=== PATIENT | male | born 1945 | race Caucasian/White ===

== ENCOUNTER 2016-06-15 10:02 | Inpatient (IN) | payer MEDICARE, BC ==
[2016-06-15] MEDS ORDERED: ACETAMINOPHEN IV (For NPO) 1,000 MG in EMPTY BAG 1 BAG IVPB STA (10:35)
[2016-06-15] MEDS ORDERED: SODIUM CHLORIDE 0.9% 1,000 ML IV STA (10:35)
--- NOTE | 2016-06-15 10:38 | ED ---
General Adult HPI - General Chief complaint: Recheck/Abnormal Lab/Rx Stated complaint: Knee pain/poss.staff infection Time Seen by Provider: 06/15/16 10:24 Source: patient, RN notes reviewed Mode of arrival: wheelchair Limitations: physical limitation - History of Present Illness Initial comments: 70-year-old male presents emergency Department chief complaint of concern for staph infection. Patient does have 2 abscesses one to the abdomen one to the left elbow. He states he is having some drainage from the areas. He was placed on antibiotics about 4 days ago and states that they contain febrile and tender. Patient denies any fever or chills. Patient states that now he is having some right knee pain and it feels swollen and is painful to move. Patient is concerned that the staph infection maybe has traveled to the knee. Patient states that he called his local hospitals and was referred to the area in which his surgeon was. Patient states he was concerned due to the increased knee pain in the new symptoms without that he should be seen. Patient states is not currently having any other symptoms. Patient states he is having pain with walking. Patient has a grossly redness but does not swelling to the knee. Patient denies any recent fever, chills, shortness of breath, chest pain, back pain, abdominal pain, nausea vomiting, numbness or tingling, dysuria or hematuria, constipation or diarrhea, headaches or visual changes, or any other current symptoms. - Related Data Home Medications Medication Instructions Recorded Confirmed Allopurinol [Zyloprim] 100 mg PO DAILY 07/02/14 06/15/16 Aspirin EC [Ecotrin Low Dose] 81 mg PO HS 07/02/14 06/15/16 Atorvastatin [Lipitor] 5 mg PO HS 07/02/14 06/15/16 Cholecalciferol [Vitamin D3] 2,000 unit PO DAILY 07/02/14 06/15/16 Docusate 250 Mg 250 mg PO HS 07/02/14 06/15/16 Isosorbide Mononitrate ER [Imdur] 30 mg PO DAILY 07/02/14 06/15/16 Meclizine [Antivert] 25 mg PO HS 07/02/14 06/15/16 Meloxicam [Mobic] 7.5 mg PO DAILY 07/02/14 06/15/16 Nitroglycerin Sl Tabs [Nitrostat] 1 tab SUBLINGUAL Q5M PRN 07/02/14 06/15/16 Omeprazole [PriLOSEC] 20 mg PO QAM 07/02/14 06/15/16 Polyethylene Glycol 3350 [Miralax] 17 gm PO BID 07/02/14 06/15/16 Carvedilol [Coreg] 6.25 mg PO BID 06/15/16 06/15/16 Clindamycin HCl 300 mg PO TID 06/15/16 06/15/16 Ferrous Sulfate [Feosol] 325 mg PO DAILY 06/15/16 06/15/16 HYDROcodone/APAP 10-325MG [[place] 1 tab PO TID 06/15/16 06/15/16 10-325] Losartan [Cozaar] 25 mg PO HS 06/15/16 06/15/16 Magnesium Oxide [Mag-Ox] 750 mg PO DAILY 06/15/16 06/15/16 Allergies Allergy/AdvReac Type Severity Reaction Status Date / Time Sulfa (Sulfonamide Allergy Unknown HIVES, Verified 06/15/16 10:44 Antibiotics) ITCHING Review of Systems ROS Statement: Those systems with pertinent positive or pertinent negative responses have been documented in the HPI. ROS Other: All systems not noted in ROS Statement are negative. Past Medical History Past Medical History: COPD, CVA/TIA, Hyperlipidemia, Hypertension, Myocardial Infarction ([place]), Musculoskeletal Disorder, Sleep Apnea/CPAP/BIPAP Additional Past Medical History / Comment(s): TIA X2 (2000 & 2001), VERTIGO, C- PAP MACHINE, SCIATICA & BACK PAIN (SEES DR GOETZ FOR EPIDURAL INJECTIONS- 1 week ago. Last Myocardial Infarction Date:: 04/2006 History of Any Multi-Drug Resistant Organisms: None Reported Past Surgical History: Heart Catheterization With Stent, Orthopedic Surgery Additional Past Surgical History / Comment(s): RT ROTATOR CUFF, LEFT KNEE ARTHROSCOPY, TOTAL LEFT TOTAL KNEE. Past Anesthesia/Blood Transfusion Reactions: No Reported Reaction Date of Last Stent Placement:: 04/2006 Past Psychological History: No Psychological Hx Reported Smoking Status: Former smoker Past Alcohol Use History: None Reported Past Drug Use History: None Reported - Past Family History Mother Family Medical History: Cancer Additional Family Medical History / Comment(s): BREAST CA Father Family Medical History: Cancer Additional Family Medical History / Comment(s): ESOPHAGEAL CA General Exam - General Exam Comments Initial Comments: General: The patient is awake and alert, in no distress, and does not appear acutely ill. Eye: Pupils are equal, round. Ears, nose, mouth and throat: There are moist mucous membranes. Neck: The neck is supple, there is no tenderness. Cardiovascular: There is a regular rate and rhythm. No murmur, rub or gallop is appreciated. Respiratory: Lungs are clear to auscultation, respirations are non-labored, breath sounds are equal. No wheezes, stridor, rales, or rhonchi. Gastrointestinal: Patient does appear to have a healing abscess to the abdomen that is have associated redness around the area. Soft, non-distended, non- tender abdomen without masses or organomegaly noted. There is no rebound or guarding present. No CVA tenderness. Bowel sounds are unremarkable. Back: There is no tenderness to palpation in the midline. There is no obvious deformity. No rashes noted. Musculoskeletal: Patient does appear to have erythematous with drainage to the left elbow. There is purulent drainage with associated erythema around the wound. Patient also does appear to have swelling to the right knee with pain with range of motion. No associated erythema. There is no pedal edema. There is no calf tenderness or swelling. Sensation intact. Pulses equal bilaterally 2+ . Neurological: CN II-XII intact, There are no obvious motor or sensory deficits. Coordination appears grossly intact. Speech is normal. Skin: Skin is warm and dry and no rashes or lesions are noted. Psychiatric: Cooperative, appropriate mood & affect, normal judgment. Limitations: physical limitation Course Vital Signs 06/15/16 06/15/16 10:10 12:38 Temperature 98.8 F Pulse Rate 83 84 Respiratory 17 16 Rate Blood Pressure 134/73 123/66 O2 Sat by Pulse 94 L 93 L Oximetry Medical Decision Making - Medical Decision Making 70-year-old male presents to the emergency department with a chief complaint of concern for staph infection along with right knee pain. At this time the patient does appear to have a cellulitis to the left elbow and abdominal wall. This time he is denying antibiotics for about 5 days and it still is red and he states there is very little improvement. Patient does have an elevated ESR as well as CRP as well as he is complaining of right knee pain pain with movement that is swollen. This improved with the patient for IV antibiotics. We will consult orthopedics to evaluate the elbow in the knee. This was discussed with the patient denies any green with the plan. All questions have been answered. - Lab Data Result diagrams: 06/15/16 10:45 06/15/16 10:45 Lab Results 06/15/16 06/15/16 06/15/16 Range/Units 10:45 10:45 10:45 WBC 10.2 (3.8-10.6) k/uL RBC 3.96 L (4.30-5.90) m/uL Hgb 12.2 L (13.0-17.5) gm/dL Hct 38.0 L (39.0-53.0) % MCV 96.0 (80.0-100.0) fL MCH 30.9 (25.0-35.0) pg MCHC 32.2 (31.0-37.0) g/dL RDW 13.0 (11.5-15.5) % Plt Count 253 (150-450) k/uL Neutrophils % 81 % Lymphocytes % 7 % Monocytes % 7 % Eosinophils % 2 % Basophils % 2 % Neutrophils # 8.2 H (1.3-7.7) k/uL Lymphocytes # 0.8 L (1.0-4.8) k/uL Monocytes # 0.7 (0-1.0) k/uL Eosinophils # 0.2 (0-0.7) k/uL Basophils # 0.2 (0-0.2) k/uL ESR 103 H (0-15) mm/hr PT 10.7 (9.0-12.0) sec INR 1.1 (<1.1) APTT 29.7 (22.0-30.0) sec Sodium 142 (137-145) mmol/L Potassium 4.7 (3.5-5.1) mmol/L Chloride 102 (98-107) mmol/L Carbon Dioxide 27 (22-30) mmol/L Anion Gap 13 mmol/L BUN 27 H (9-20) mg/dL Creatinine 1.36 H (0.66-1.25) mg/dL Est GFR (MDRD) Af Amer >60 (>60 ml/min/1.73 sqM) Est GFR (MDRD) Non-Af 52 (>60 ml/min/1.73 sqM) Glucose 127 H (74-99) mg/dL Calcium 9.1 (8.4-10.2) mg/dL Total Bilirubin 1.2 (0.2-1.3) mg/dL AST 52 (17-59) U/L ALT 53 (21-72) U/L Alkaline Phosphatase 113 (38-126) U/L C-Reactive Protein 233.4 H (<10.0) mg/L Total Protein 7.0 (6.3-8.2) g/dL Albumin 3.4 L (3.5-5.0) g/dL - Radiology Data Radiology results: report reviewed, image reviewed Disposition Clinical Impression: Cellulitis of left elbow, Abdominal wall cellulitis, Effusion, right knee Disposition: ADMITTED IP TO THIS [facility] Condition: Stable Time of Disposition: 13:01 Decision Date: 06/15/16 Decision Time: 13:02
[2016-06-15 11:06] LABS: Basophils # (A) 0.2 k/uL (0-0.2); Basophils % (A) 2 %; CH 32.7; CHCM 34.3; Eosinophils # (A) 0.2 k/uL (0-0.7); Eosinophils % (A) 2 %; HDW 2.95; HGB 12.2 gm/dL (13.0-17.5); Luc % (Auto) 2; Lymphocytes # (A) 0.8 k/uL (1.0-4.8); Lymphocytes % (A) 7 %; MCH 30.9 pg (25.0-35.0); MCHC 32.2 g/dL (31.0-37.0); Mean Platelet Volume 8.2; Monocytes # (A) 0.7 k/uL (0-1.0); Monocytes % (A) 7 %; Neutrophils # (A) 8.2 k/uL (1.3-7.7); Neutrophils % (A) 81 %; RBC 3.96 m/uL (4.30-5.90); WBC 10.2 k/uL (3.8-10.6); WBC (Perox) 9.36
--- NOTE | 2016-06-15 11:16 | XR ---
EXAMINATION TYPE: XR knee complete RT DATE OF EXAM: 06/15/2016 11:10 AM COMPARISON: NONE HISTORY: 70-year-old male with pain TECHNIQUE: 3 views FINDINGS: Images show right total knee arthroplasty with a moderate to large underlying knee joint effusion. No periprosthetic fractures seen. Alignment is grossly anatomic. Some heterotopic ossification is seen superiorly. IMPRESSION: The right total knee arthroplasty appears intact. However, there is a moderate to large underlying kn ee joint effusion. Clinical correlation recommended.
[2016-06-15 11:17] LABS: ALT 53 U/L (21-72); AST 52 U/L (17-59); Alkaline Phosphatase 113 U/L (38-126); Anion Gap 13 mmol/L; Blood Urea Nitrogen 27 mg/dL (9-20); Calcium 9.1 mg/dL (8.4-10.2); Carbon Dioxide 27 mmol/L (22-30); Chloride 102 mmol/L (98-107); Glucose 127 mg/dL (74-99); Non-African American GFR(MDRD) 52 (>60 ml/min/1.73 sqM); Potassium 4.7 mmol/L (3.5-5.1); Sodium 142 mmol/L (137-145); Total Bilirubin 1.2 mg/dL (0.2-1.3)
[2016-06-15 11:23] LABS: INR 1.1 (<1.1); Partial Thromboplastin Time 29.7 sec (22.0-30.0); Prothrombin Time 10.7 sec (9.0-12.0)
[2016-06-15 12:47] LABS: C Reactive Protein 233.4 mg/L (<10.0)
[2016-06-15 12:48] LABS: Erythrocyte Sedimentation Rate 103 mm/hr (0-15)
[2016-06-15] MEDS ORDERED: NALOXONE 0.4 MG/ML 1 ML VIAL IV PRN (13:02)
[2016-06-15] MEDS ORDERED: ONDANSETRON 4 MG/2 ML VIAL IVP PRN (13:02)
[2016-06-15] MEDS ORDERED: ACETAMINOPHEN TAB 325 MG TAB PO PRN (13:02)
[2016-06-15] MEDS ORDERED: IV VANCOMYCIN PER PHARMACY 1 EACH MISC MISCELLANE PRN (13:03)
[2016-06-15] MEDS ORDERED: NITROGLYCERIN SL TABS 0.4 MG TAB SUBLINGUAL PRN (13:04)
[2016-06-15] MEDS ORDERED: VANCOMYCIN 2,000 MG in SODIUM CHLORIDE 0.9% 500 ML IVPB STA (13:14)
[2016-06-15] MEDS: SODIUM CHLORIDE 0.9% 1,000 ML IV SCH ×2 (15:25→21:08)
[2016-06-15] MEDS: HYDROcodone/APAP 10-325MG 1 EACH TAB PO SCH ×2 (15:25→21:06)
[2016-06-15] MEDS: CARVEDILOL 6.25 MG TAB PO SCH (15:25)
[2016-06-15] MEDS ORDERED: LIDOCAINE 2% INJ 20 MG/ML (20 ML MDV) SQ STA (18:09)
--- NOTE | 2016-06-15 19:40 | HP ---
DATE OF ADMISSION: CHIEF COMPLAINT: A 70-year-old white male with acute abdominal abscess, left arm abscess and possible right knee infection. HISTORY OF PRESENT ILLNESS: This is a 70-year-old white male with history of bilateral knee replacements, developed significant right knee pain, unable to walk on his right knee for about a week. At the same period of time he has had a huge abscess on his left elbow and acute abdominal fold abscess, for which he punctured at home. He was placed on antibiotic 4 days ago and since that time they have not worked and he has become febrile and tender. He denies any fever and chills and he mainly came in because of his right knee. He thinks he has an infection in his knee. Orthopedic consult is pending at this time. He has slightly elevated white count and a severely elevated CRP and sedimentation rate at which time he was admitted to the hospital and started on IV vancomycin. He has had difficulty having pain in the right knee or walking as far as the knee, despite unable to walk on it and significant swelling and warmth. HOME MEDICATIONS: He takes allopurinol 100 mg daily, Ecotrin 81 mg daily, Lipitor 5 mg daily, vitamin D3 2000 units daily. Colace 250 mg daily. Imdur 30 mg daily. Antivert 25 mg daily. Mobic 7.5 daily. Nitroglycerin sublingual daily. Prilosec 20 mg daily. Polyethylene glycol 17 grams b.i.d., Coreg 6.25 b.i.d. He was taking clindamycin 300 t.i.d. at home. Feosol 325 daily. [place] 10/325 t.i.d., Cozaar 25 mg daily. Mag oxide 750 mg daily. ALLERGIES: SULFA, itching. REVIEW OF SYSTEMS: CARDIAC: As mentioned above. INTEGUMENT: As mentioned above. MUSCULOSKELETAL: As mentioned above. Otherwise fourteen-point review of systems negative. PSYCH: Negative. NEURO: Negative. PAST MEDICAL HISTORY: COPD, CVA, TIA, dyslipidemia, hypertension, myocardial infarction, musculoskeletal disorder, sleep apnea on BiPAP, history of TIAs in 2000 and 2001. He has a CPAP machine. He has had sciatica. He is scheduled for epidural injections. PAST SURGICAL HISTORY: Heart catheterization with stent, orthopedic surgery, left knee arthroscopy, right rotator cuff surgery, total left knee replacement. SOCIAL HISTORY: He is a former smoker. No alcohol or drugs. FAMILY HISTORY: Mother with cancer of the breast, dad had esophageal cancer. PHYSICAL EXAM: Vital signs are reviewed. GENERAL: He is alert and oriented x3. HEENT: Pupils equal, round and react to light and accommodation. External ear canals within normal limits. NECK: Supple. No mass. CARDIOVASCULAR: Regular rate and rhythm. LUNGS: Clear to auscultation. No wheezes or stridor. He does have some redness and swelling with 2 linear 0.5 cm lesions in abdominal fold area with some purulent drainage. He has a left elbow redness and swelling and abscess about 2 cm x 1 cm with 2 inch sue-circumferential redness and warmth with some purulent drainage. MUSCULOSKELETAL: He has a right knee that has moderate effusion with warmth of the knee. No redness. Left knee is mildly swollen with no warmth. Extremities shows negative Homans. PSYCHIATRIC: Fair mood and affect. NEUROLOGIC: Cranial nerves are intact. ENDOCRINE: BMI is over 40. He has morbid obesity. Temperature 98.9, pulse 88, respiratory rate 16 to 18, blood pressure 120 to 130 over 60 to 70s. O2 93 to 94% on room air Labs were reviewed. BUN 27, creatinine 1.36, glucose 127, C-reactive protein 233, albumin is 3.4. ASSESSMENT: 1. Cellulitis of the left elbow, abdominal wall cellulitis and effusion of the right knee. 2. Multiple medical history including sleep apnea, dyslipidemia, hypertension, history of heart disease. Await for Infectious Disease. Surgical consultation. Orthopedic Surgery for the right knee evaluation. Continue with IV antibiotics at this time. Home medicines are reordered. Will do a uric acid level to assess for gout. Please see further orders.
--- NOTE | 2016-06-15 20:41 | XR ---
EXAMINATION TYPE: XR chest 2V DATE OF EXAM: 06/15/2016 8:32 PM COMPARISON: 07/11/2014 HISTORY: Hypoxemia TECHNIQUE: Frontal and lateral views of the chest are obtained. FINDINGS: There is no heart failure nor confluent pneumonic infiltrate. There are no hilar masses. T horacic aorta is atheromatous. There is no pleural effusion. Bony thorax is intact. IMPRESSION: No active cardiopulmonary disease. There is clearing of the mild atelectasis at left cosme g base compared to old exam.
[2016-06-15] MEDS ORDERED: DOCUSATE ORAL SOLN 100 MG/10 ML CUP PO SCH (21:00)
[2016-06-15] MEDS: ASPIRIN 81 MG CHEW PO SCH (21:05)
[2016-06-15] MEDS: ATORVASTATIN 10 MG TAB PO SCH (21:05)
[2016-06-15] MEDS: LOSARTAN 25 MG TAB PO SCH (21:05)
[2016-06-15] MEDS: POLYETHYLENE GLYCOL 3350 17 GM POWD.PACK PO SCH (21:06)
[2016-06-15] MEDS: MECLIZINE 25 MG TAB PO SCH (21:06)
[2016-06-15 21:50] LABS: RBC, Body Fluid 1550 /uL
[2016-06-16] MEDS: VANCOMYCIN 2,000 MG in SODIUM CHLORIDE 0.9% 500 ML IVPB SCH ×2 (05:52→22:37)
[2016-06-16 07:33] LABS: Synovial Crystal Source Right Knee
[2016-06-16] MEDS: FERROUS SULFATE 325 MG TAB PO SCH (08:10)
[2016-06-16] MEDS: PANTOPRAZOLE 40 MG TABLET PO SCH (08:10)
[2016-06-16] MEDS: ISOSORBIDE MONONITRATE ER 30 MG TAB.ER.24H PO SCH (08:10)
[2016-06-16] MEDS: ALLOPURINOL 100 MG TAB PO SCH (08:10)
[2016-06-16] MEDS: POLYETHYLENE GLYCOL 3350 17 GM POWD.PACK PO SCH ×2 (08:10→21:31)
[2016-06-16] MEDS: MELOXICAM 7.5 MG TAB PO SCH (08:10)
[2016-06-16] MEDS: MAGNESIUM OXIDE 250 MG TAB PO SCH (08:10)
[2016-06-16] MEDS: CARVEDILOL 6.25 MG TAB PO SCH ×2 (08:10→15:04)
[2016-06-16] MEDS: SODIUM CHLORIDE 0.9% 1,000 ML IV SCH ×2 (08:11→21:28)
[2016-06-16] MEDS: HYDROcodone/APAP 10-325MG 1 EACH TAB PO SCH ×3 (08:15→21:31)
[2016-06-16 10:20] LABS: Basophils # (A) 0.1 k/uL (0-0.2); Basophils % (A) 1 %; CH 32.1; CHCM 33.3; Eosinophils # (A) 0.2 k/uL (0-0.7); Eosinophils % (A) 2 %; HCT 33.5 % (39.0-53.0); HDW 2.97; HGB 10.7 gm/dL (13.0-17.5); Luc # (Auto) 0.18; Luc % (Auto) 3; Lymphocytes # (A) 0.7 k/uL (1.0-4.8); Lymphocytes % (A) 10 %; MCH 30.9 pg (25.0-35.0); MCHC 31.8 g/dL (31.0-37.0); Mean Platelet Volume 7.8; Monocytes # (A) 0.6 k/uL (0-1.0); Monocytes % (A) 8 %; Neutrophils # (A) 5.6 k/uL (1.3-7.7); Neutrophils % (A) 77 %; RBC 3.45 m/uL (4.30-5.90); WBC 7.3 k/uL (3.8-10.6); WBC (Perox) 7.49
[2016-06-16 10:41] LABS: ALT 53 U/L (21-72); AST 48 U/L (17-59); Alkaline Phosphatase 97 U/L (38-126); Anion Gap 12 mmol/L; Blood Urea Nitrogen 22 mg/dL (9-20); Calcium 8.8 mg/dL (8.4-10.2); Carbon Dioxide 23 mmol/L (22-30); Chloride 106 mmol/L (98-107); Glucose 108 mg/dL (74-99); Non-African American GFR(MDRD) 58 (>60 ml/min/1.73 sqM); Potassium 4.3 mmol/L (3.5-5.1); Sodium 141 mmol/L (137-145); Total Protein 6.2 g/dL (6.3-8.2)
[2016-06-16] MEDS: CHOLECALCIFEROL 1,000 UNIT TAB PO SCH (11:00)
--- NOTE | 2016-06-16 11:34 | P.CNOR ---
History of Present Illness - HPI Consult date: 06/15/16 History of present illness: This is a very pleasant 70-year-old gentleman known to Dr. Manan Stevens with history of right total knee arthroplasty in July 2014. The patient noticed a wound on his left elbow and abdomen approximately a week ago. He began having drainage and presented to his primary care physician. He was placed on antibiotics at that time and was instructed to return are present to the emergency department if he did not have improvement over the next 48 hours. Last Tuesday he began to develop right knee pain as well. The pain continued to worsen and he had difficulty with any weightbearing. He does not recall any fevers but states that he has been having chills. He was admitted for further evaluation. On admission his white count was 10.2. ESR was 103. ERP 233.4. X -rays obtained of the right knee do not show any apparent lucency. No fractures. There is moderate to large underlying knee joint effusion noted. Review of Systems See HPI. No shortness of breath, chest pain. Patient denies fevers but admits to chills. Complains of abdominal pain associated at the area of his wound. He otherwise denies any other abdominal pain. Past Medical History Past Medical History: Coronary Artery Disease (CAD), COPD, CVA/TIA, GERD/Reflux , Hyperlipidemia, Hypertension, Myocardial Infarction ([place]), Musculoskeletal Disorder, Renal Disease, Sleep Apnea/CPAP/BIPAP Additional Past Medical History / Comment(s): TIA X2 (1999 & 2002), VERTIGO, C- PAP MACHINE, SCIATICA & BACK PAIN with past EPIDURAL INJECTIONS, pt states he takes zyloprim due to elevated blood test-does not have gout yet, kidney disease , past nephritis, lupus (in remission), tingling in R foot, post op infection after R rotator cuff repair requiring irrigations and packings/ABX. Last Myocardial Infarction Date:: 04/2006 History of Any Multi-Drug Resistant Organisms: None Reported Past Surgical History: Heart Catheterization With Stent, Orthopedic Surgery Additional Past Surgical History / Comment(s): RT ROTATOR CUFF-titanium used, LEFT KNEE ARTHROSCOPY, TOTAL LEFT/right KNEE, colonoscopy. Past Anesthesia/Blood Transfusion Reactions: No Reported Reaction Date of Last Stent Placement:: 04/2006 Past Psychological History: No Psychological Hx Reported Additional Psychological History / Comment(s): Pt resides with a friend and his friends adult daughter. Pt uses a cane but lately d/t R knee pain he has been using a wheelchair. Pt normally can drive. Smoking Status: Former smoker Past Alcohol Use History: Heavy Additional Past Alcohol Use History / Comment(s): Pt states he was a 3 ppd smoker. He started smoking in 1959 and quit in 1999. He states he was a heavy drinker but quit drinking in 1999. Past Drug Use History: None Reported - Past Family History Mother Family Medical History: Cancer Additional Family Medical History / Comment(s): BREAST CA Father Family Medical History: Cancer Additional Family Medical History / Comment(s): ESOPHAGEAL CA Medications and Allergies Home Medications Medication Instructions Recorded Confirmed Type Allopurinol [Zyloprim] 100 mg PO DAILY 07/02/14 06/15/16 History Aspirin EC [Ecotrin Low Dose] 81 mg PO HS 07/02/14 06/15/16 History Atorvastatin [Lipitor] 5 mg PO HS 07/02/14 06/15/16 History Cholecalciferol [Vitamin D3] 2,000 unit PO DAILY 07/02/14 06/15/16 History Docusate 250 Mg 250 mg PO HS 07/02/14 06/15/16 History Isosorbide Mononitrate ER [Imdur] 30 mg PO DAILY 07/02/14 06/15/16 History Meclizine [Antivert] 25 mg PO HS 07/02/14 06/15/16 History Meloxicam [Mobic] 7.5 mg PO DAILY 07/02/14 06/15/16 History Nitroglycerin Sl Tabs [Nitrostat] 1 tab SUBLINGUAL Q5M PRN 07/02/14 06/15/16 History Omeprazole [PriLOSEC] 20 mg PO QAM 07/02/14 06/15/16 History Polyethylene Glycol 3350 [Miralax] 17 gm PO BID 07/02/14 06/15/16 History Carvedilol [Coreg] 6.25 mg PO BID 06/15/16 06/15/16 History Clindamycin HCl 300 mg PO TID 06/15/16 06/15/16 History Ferrous Sulfate [Feosol] 325 mg PO DAILY 06/15/16 06/15/16 History HYDROcodone/APAP 10-325MG [[place] 1 tab PO TID 06/15/16 06/15/16 History 10-325] Losartan [Cozaar] 25 mg PO HS 06/15/16 06/15/16 History Magnesium Oxide [Mag-Ox] 750 mg PO DAILY 06/15/16 06/15/16 History Allergies Allergy/AdvReac Type Severity Reaction Status Date / Time Sulfa (Sulfonamide Allergy Unknown HIVES, Verified 06/15/16 10:44 Antibiotics) ITCHING Physical Examination On examination the patient does not appear in acute distress. He is alert and answers questions appropriately. He is orientated 3. Head normocephalic atraumatic Neck is supple Upon examination of his upper extremities he does of wound was dressing intact to his left elbow. There is some purulent drainage. No surrounding erythema. Breathing appears nonlabored On examination of his lower extremities is well-healed incisions from his previous total knee arthroplasties bilaterally. He does have swelling present about the right knee. There is some palpable warmth. there is not significant erythema. Skin is intact. He has global tenderness palpation about the knee. He has difficulty performing range of motion of the knee secondary to pain and swelling. He lacks a few degrees of full extension. He is able to perform active flexion to only about 20-30 which is painful. Calves are soft and nontender. He has sustained dorsiflexion, plantar flexion extensor hallux longus. Sensation and circulatory status is intact. Results Patient's right knee x-rays were reviewed. Components appear in good alignment and position. There is no fracture or dislocation. Moderate to large joint effusion noted. - Labs Result Diagrams: 06/16/16 10:02 06/16/16 10:02 Assessment and Plan (1) Effusion, right knee Status: Acute (2) Status post total right knee replacement Status: Acute Plan: Patient was seen and evaluated at bedside with Dr. Manan Stevens. The clinical and x-ray findings were discussed with the patient. Orthopedics recommends aspiration of the right knee for synovial fluid analysis. After discussion consideration the patient elected to proceed. Consent was obtained. The procedure was performed by Dr. Manan Stevens. The right knee was cleaned with ChloraPrep. Using sterile technique, a proximally 5 mL of lidocaine was injected with a 22-gauge needle into the right knee. Again using sterile technique, approximately 50 mL of yellow clear fluid was aspirated from the right knee using 18-gauge needle. Patient tolerated the procedure well. Compressive Chintan bandage was placed over the knee. The fluid was sent for culture and sensitivity, Gram stain, cell count and crystal analysis. The patient was made nothing by mouth after midnight. We'll await the lab findings and further recommendations will be made at that time. The patient understands and agrees with the plan of care. In regards to his elbow and abdominal wound, Dr. Tinoco has already been consulted for evaluation of these wounds. Dr. Resendiz from infectious disease has been consulted as well.
--- NOTE | 2016-06-16 11:39 | P.PN ---
Subjective Principal diagnosis: Right knee effusion, status post right total knee arthroplasty This is a 70-year-old gentleman whom we're following with right total knee effusion. The patient is status post right total knee arthroplasty in July [address] Manan Stevens. The patient is seen and evaluated at bedside this morning. He didn't undergo aspiration of the right knee yesterday which did reveal 15,100 fluid nucleated cells. Cultures are pending. Crystals were negative. CRP upon admission was 233.4. ESR was 103. Objective - Vital Signs Vital signs: Vital Signs Temp 96.5 F L 06/16/16 07:00 Pulse 77 06/16/16 07:00 Resp 20 06/16/16 07:00 BP 131/77 06/16/16 07:00 Pulse Ox 92 L 06/16/16 07:00 Intake & Output 06/15/16 06/16/16 06/16/16 18:59 06:59 18:59 Intake Total 500 Output Total 775 Balance -275 Intake: Oral 500 Output: Urine 775 Other: Voiding Method Toilet Urinal Urinal # Voids 2 - Exam Patient's exam is essentially unchanged. He does not appear in acute distress. He is alert and oriented 3. His bandage intact to the right knee. Moderate swelling. He continues have difficulty with active range of motion of the knee secondary to pain. Calf is soft and nontender. He has sustained dorsiflexion, plantar flexion extensor hallux longus. Sensation and circulatory status is intact. - Labs CBC & Chem 7: 06/16/16 10:02 06/16/16 10:02 Labs: Abnormal Lab Results - Last 24 Hours (Table) 06/15/16 06/16/16 06/16/16 Range/Units 18:41 10:02 10:02 RBC 3.45 L (4.30-5.90) m/uL Hgb 10.7 L (13.0-17.5) gm/dL Hct 33.5 L (39.0-53.0) % Lymphocytes # 0.7 L (1.0-4.8) k/uL ESR 99 H (0-15) mm/hr BUN 22 H (9-20) mg/dL Glucose 108 H (74-99) mg/dL Total Protein 6.2 L (6.3-8.2) g/dL Albumin 2.9 L (3.5-5.0) g/dL Microbiology - Last 24 Hours (Table) 06/15/16 18:27 Gram Stain - Preliminary Knee - Right Wound Culture - Preliminary 06/15/16 18:27 Anaerobic Culture - Preliminary Knee - Right Assessment and Plan (1) Effusion, right knee Status: Acute (2) Status post total right knee replacement Status: Acute Plan: Discussed the clinical and synovial fluid findings with the patient. Due to the patient's elevated WBCs in his cell count, orthopedics recommends incision and drainage right total knee arthroplasty. The procedure was discussed with the patient at bedside. After discussion consideration he would like to proceed. We'll continue to follow his cultures closely. Antibiotics as directed by Dr. Resendiz. Further recommendations forthcoming depending upon his course.
[2016-06-16] MEDS ORDERED: IV FLUID CONTINUATION 1,000 ML IV ONE ×2 (12:39)
[2016-06-16] MEDS ORDERED: HYDROmorphone 1 MG/ML 1 ML SYRINGE IVP PRN ×3 (12:45)
[2016-06-16] MEDS ORDERED: LACTATED RINGERS 1,000 ML IV ONE (12:51)
[2016-06-16] MEDS ORDERED: PROPOFOL 10 MG/ML 20 ML VIAL IV ONE (12:52)
[2016-06-16] MEDS ORDERED: LIDOCAINE 1% INJ 10MG/ML (20 ML MDV) ONE (12:52)
[2016-06-16] MEDS ORDERED: MIDAZOLAM 2 MG/2 ML VIAL ONE (12:52)
[2016-06-16] MEDS ORDERED: SUCCINYLCHOLINE CHLORIDE VIAL 200 MG/10 ML VIAL IV ONE (12:52)
[2016-06-16] MEDS ORDERED: fentaNYL (PF) 50 MCG/ML 2 ML AMP ONE (12:52)
[2016-06-16] MEDS ORDERED: ceFAZolin 3,000 MG in SODIUM CHLORIDE 0.9% IRRIGATIO 3,000 ML IRRIGATION ONE (13:25)
--- NOTE | 2016-06-16 13:27 | P.OP ---
Date of Procedure: 06/16/16 Preoperative Diagnosis: Possible infection right total knee Postoperative Diagnosis: Possible infection right total knee Procedure(s) Performed: Irrigation and debridement right total knee Anesthesia: LESLIE Surgeon: Manan Stevens Keypunch Operator #1: Batsheva Schmitt Estimated Blood Loss (ml): 50 Pathology: other (Cultures 2) Condition: stable Disposition: PACU Indications for Procedure: This is a 70-year-old gentleman has had a right total knee arthroplasty performed by myself approximately 2 years ago. He's done well, but recently about last Tuesday, began to have pain and swelling in his right knee. He also has active infections of his elbow and abdomen. Placed on antibiotics by his family physician, but did not help his knee pain. Patient then presented to the emergency room yesterday. Patient was admitted and seen by me yesterday an aspiration was performed. The aspiration showed 15,100 white cells and 87% PMNs. Crystals were negative, and her initial Gram stain was negative. Due to his pain and swelling in the knee, I recommended an irrigation debridement in case of an infectious process. He is agreeable to this informed consent was obtained. Operative Findings: Operative findings show a large effusion with cloudy yellow fluid. No yary pus was encountered. Description of Procedure: Patient was seen in the preoperative area consent was reviewed and operative site was marked with a skin marker. Patient was then brought to the operating room and given a general anesthetic by the anesthesia department. His right knee was then prepped and draped in the usual sterile fashion. [place] timeout was then performed which confirmed the patient's name, surgical site, ALLERGIES, and consent. Prior incision was used and incision was carried down to the patellar tendon. A medial parapatellar arthrotomy was then utilized. A moderate to large amount of cloudy yellow fluid was expressed. Gross purulence was noted. This fluid was cultured 2. Next the knee was aggressively irrigated with 3000 L of antibiotic solution with pulsatile lavage. Any suspicious tissue was debrided down to the fascia overlying the bone. The tissue was debrided with a [place]. The components were evaluated and found to be well fixed. Tissue was also irrigated with Irricept solution. A medium Hemovac drain was then placed. The wound was then closed with 2-0 Vicryl and chris for the skin. Sterile dressing was applied and patient was transferred to the recovery room in stable condition. Asst. Batsheva Schmitt required due the complexity of surgery and the need for skilled medical or surgical instrument maker.
[2016-06-16] MEDS: HYDROmorphone 1 MG/ML 1 ML SYRINGE IVP ONE ×4 (13:55→14:30)
--- NOTE | 2016-06-16 15:24 | P.GSCN ---
History of Present Illness Consult date: 06/16/16 Reason for Consult: Abscess to left elbow and abscess to abdominal wall Requesting physician: Ronal Schumacher History of present illness: Patient is a 70-year-old white male with a complex medical history noted below admitted directly from Dr. Ronal Schumacher's office with acute abdominal abscess, left arm abscess, and possible right knee infection. Surgical consult requested for acute abdominal abscess left elbow abscess. Patient states he noticed that 2 areas of infection on Tuesday, same day that his right knee started hurting. Patient apparently was placed on antibiotics in the outpatient setting and then followed up with Dr. Schumacher in the office who advised patient to proceed to the emergency department. Patient reports that both wound infections have been draining yellow drainage. Patient reports intermittent chills but denies fevers, nausea, vomiting, or abdominal pain. Patient denies previous history of abscesses or MRSA. T-max the last 24 hours 100.5. No evidence of leukocytosis. ESR and C-reactive protein on admission elevated. Patient is status post irrigation and debridement of right knee this morning. Patient is being followed by orthopedic service and infectious disease service. Past Medical History Past Medical History: Coronary Artery Disease (CAD), COPD, CVA/TIA, GERD/Reflux , Hyperlipidemia, Hypertension, Myocardial Infarction ([place]), Musculoskeletal Disorder, Renal Disease, Sleep Apnea/CPAP/BIPAP Additional Past Medical History / Comment(s): TIA X2 (1999 & 2002), VERTIGO, C- PAP MACHINE, SCIATICA & BACK PAIN with past EPIDURAL INJECTIONS, pt states he takes zyloprim due to elevated blood test-does not have gout yet, kidney disease , past nephritis, lupus (in remission), tingling in R foot, post op infection after R rotator cuff repair requiring irrigations and packings/ABX. Last Myocardial Infarction Date:: 04/2006 History of Any Multi-Drug Resistant Organisms: None Reported Past Surgical History: Heart Catheterization With Stent, Orthopedic Surgery Additional Past Surgical History / Comment(s): RT ROTATOR CUFF-titanium used, LEFT KNEE ARTHROSCOPY, TOTAL LEFT/right KNEE, colonoscopy. Past Anesthesia/Blood Transfusion Reactions: No Reported Reaction Date of Last Stent Placement:: 04/2006 Past Psychological History: No Psychological Hx Reported Additional Psychological History / Comment(s): Pt resides with a friend and his friends adult daughter. Pt uses a cane but lately d/t R knee pain he has been using a wheelchair. Pt normally can drive. Smoking Status: Former smoker Past Alcohol Use History: Heavy Additional Past Alcohol Use History / Comment(s): Pt states he was a 3 ppd smoker. He started smoking in 1959 and quit in 1999. He states he was a heavy drinker but quit drinking in 1999. Past Drug Use History: None Reported - Past Family History Mother Family Medical History: Cancer Additional Family Medical History / Comment(s): BREAST CA Father Family Medical History: Cancer Additional Family Medical History / Comment(s): ESOPHAGEAL CA Medications and Allergies Home Medications Medication Instructions Recorded Confirmed Type Allopurinol [Zyloprim] 100 mg PO DAILY 07/02/14 06/15/16 History Aspirin EC [Ecotrin Low Dose] 81 mg PO HS 07/02/14 06/15/16 History Atorvastatin [Lipitor] 5 mg PO HS 07/02/14 06/15/16 History Cholecalciferol [Vitamin D3] 2,000 unit PO DAILY 07/02/14 06/15/16 History Docusate 250 Mg 250 mg PO HS 07/02/14 06/15/16 History Isosorbide Mononitrate ER [Imdur] 30 mg PO DAILY 07/02/14 06/15/16 History Meclizine [Antivert] 25 mg PO HS 07/02/14 06/15/16 History Meloxicam [Mobic] 7.5 mg PO DAILY 07/02/14 06/15/16 History Nitroglycerin Sl Tabs [Nitrostat] 1 tab SUBLINGUAL Q5M PRN 07/02/14 06/15/16 History Omeprazole [PriLOSEC] 20 mg PO QAM 07/02/14 06/15/16 History Polyethylene Glycol 3350 [Miralax] 17 gm PO BID 07/02/14 06/15/16 History Carvedilol [Coreg] 6.25 mg PO BID 06/15/16 06/15/16 History Clindamycin HCl 300 mg PO TID 06/15/16 06/15/16 History Ferrous Sulfate [Feosol] 325 mg PO DAILY 06/15/16 06/15/16 History HYDROcodone/APAP 10-325MG [Gravelly 1 tab PO TID 06/15/16 06/15/16 History 10-325] Losartan [Cozaar] 25 mg PO HS 06/15/16 06/15/16 History Magnesium Oxide [Mag-Ox] 750 mg PO DAILY 06/15/16 06/15/16 History Allergies Allergy/AdvReac Type Severity Reaction Status Date / Time Sulfa (Sulfonamide Allergy Unknown HIVES, Verified 06/15/16 10:44 Antibiotics) ITCHING Surgical - Exam Vital Signs Temp Pulse Resp BP Pulse Ox 98.8 F 83 17 134/73 94 L 06/15/16 10:10 06/15/16 10:10 06/15/16 10:10 06/15/16 10:10 06/15/16 10:10 GENERAL: Pt awake and alert, well-appearing, well-nourished, and in no acute distress. LUNGS: Breath sounds diminished to auscultation bilaterally. No wheezes, rales , or rhonchi. HEART: Heart S1, S2, no S3 or S4. Regular rate and rhythm. Systolic murmur. ABDOMEN: Soft, morbidly obese, nontender, nondistended, normoactive bowel sounds. No guarding, no rebound. Improving abdominal abscess noted superior and lateral to umbilicus with minimal erythema, no fluctuance, draining purulent drainage. EXTREMITIES: Abscess noted to left elbow with surrounding erythema and slight fluctuance, draining purulent drainage. NEUROLOGICAL: Pt oriented x 3. Results - Labs 06/16/16 10:02 06/16/16 10:02 Abnormal Lab Results - Last 24 Hours (Table) 06/15/16 06/16/16 06/16/16 Range/Units 18:41 10:02 10:02 RBC 3.45 L (4.30-5.90) m/uL Hgb 10.7 L (13.0-17.5) gm/dL Hct 33.5 L (39.0-53.0) % Lymphocytes # 0.7 L (1.0-4.8) k/uL ESR 99 H (0-15) mm/hr BUN 22 H (9-20) mg/dL Glucose 108 H (74-99) mg/dL Total Protein 6.2 L (6.3-8.2) g/dL Albumin 2.9 L (3.5-5.0) g/dL Microbiology - Last 24 Hours (Table) 06/15/16 18:27 Gram Stain - Preliminary Knee - Right Wound Culture - Preliminary 06/15/16 18:27 Anaerobic Culture - Preliminary Knee - Right Diabetes panel 06/16/16 Range/Units 10:02 Sodium 141 (137-145) mmol/L Potassium 4.3 (3.5-5.1) mmol/L Chloride 106 (98-107) mmol/L Carbon Dioxide 23 (22-30) mmol/L BUN 22 H (9-20) mg/dL Creatinine 1.23 (0.66-1.25) mg/dL Glucose 108 H (74-99) mg/dL Calcium 8.8 (8.4-10.2) mg/dL AST 48 (17-59) U/L ALT 53 (21-72) U/L Alkaline Phosphatase 97 (38-126) U/L Total Protein 6.2 L (6.3-8.2) g/dL Albumin 2.9 L (3.5-5.0) g/dL Calcium panel 06/16/16 Range/Units 10:02 Calcium 8.8 (8.4-10.2) mg/dL Albumin 2.9 L (3.5-5.0) g/dL Pituitary panel 06/16/16 Range/Units 10:02 Sodium 141 (137-145) mmol/L Potassium 4.3 (3.5-5.1) mmol/L Chloride 106 (98-107) mmol/L Carbon Dioxide 23 (22-30) mmol/L BUN 22 H (9-20) mg/dL Creatinine 1.23 (0.66-1.25) mg/dL Glucose 108 H (74-99) mg/dL Calcium 8.8 (8.4-10.2) mg/dL Adrenal panel 06/16/16 Range/Units 10:02 Sodium 141 (137-145) mmol/L Potassium 4.3 (3.5-5.1) mmol/L Chloride 106 (98-107) mmol/L Carbon Dioxide 23 (22-30) mmol/L BUN 22 H (9-20) mg/dL Creatinine 1.23 (0.66-1.25) mg/dL Glucose 108 H (74-99) mg/dL Calcium 8.8 (8.4-10.2) mg/dL Total Bilirubin 1.0 (0.2-1.3) mg/dL AST 48 (17-59) U/L ALT 53 (21-72) U/L Alkaline Phosphatase 97 (38-126) U/L Total Protein 6.2 L (6.3-8.2) g/dL Albumin 2.9 L (3.5-5.0) g/dL Assessment and Plan Plan: Impression: 1. Abscess with cellulitis to left elbow. 2. Abdominal wall cellulitis. Plan: 1. Continue IV antibiotics per infectious disease recommendations. Apply warm compresses to left elbow 3-4 times a day for 10-15 minutes. Continue supportive treatment and pain management. Continue to follow with medical team. Further recommendations per Dr. Caputo. The above impression and plan have been discussed and directed by Dr. Caputo. Sean VILLA acting as scribe for Dr. Caputo.
--- NOTE | 2016-06-16 15:38 | P.PN ---
Subjective 70-year-old status post right total knee arthroplasty developed a right knee effusion. Patient's been followed by orthopedic associate. Did undergo an irrigation and debridement of the right total knee for possible infection involving the right total knee done this afternoon by orthopedic associate Objective - Vital Signs Vital signs: Vital Signs Temp 97.1 F L 06/16/16 15:00 Pulse 70 06/16/16 15:00 Resp 20 06/16/16 15:00 BP 132/68 06/16/16 15:00 Pulse Ox 96 06/16/16 15:00 Intake & Output 06/15/16 06/16/16 06/16/16 18:59 06:59 18:59 Intake Total 500 1001 Output Total 775 50 Balance -275 951 Intake: IV 1001 Oral 500 Output: Urine 775 Estimated Blood Loss 50 Other: Voiding Method Toilet Urinal Urinal # Voids 2 1 # Bowel Movements 1 - Exam Physical exam 70-year-old resting appears in no acute distress continues to report having right knee pain Lungs essentially clear no shortness breath Heart S1-S2 audible regular Abdomen soft nontender Extremities continues to report having right knee pain - Labs CBC & Chem 7: 06/16/16 10:02 06/16/16 10:02 Labs: Abnormal Lab Results - Last 24 Hours (Table) 06/15/16 06/16/16 06/16/16 Range/Units 18:41 10:02 10:02 RBC 3.45 L (4.30-5.90) m/uL Hgb 10.7 L (13.0-17.5) gm/dL Hct 33.5 L (39.0-53.0) % Lymphocytes # 0.7 L (1.0-4.8) k/uL ESR 99 H (0-15) mm/hr BUN 22 H (9-20) mg/dL Glucose 108 H (74-99) mg/dL Total Protein 6.2 L (6.3-8.2) g/dL Albumin 2.9 L (3.5-5.0) g/dL Microbiology - Last 24 Hours (Table) 06/15/16 18:27 Gram Stain - Preliminary Knee - Right Wound Culture - Preliminary 06/15/16 18:27 Anaerobic Culture - Preliminary Knee - Right Assessment and Plan Plan: Impression Status post irrigation debridement of the right total knee for possible infection involving the right total knee done on June 16 History of a right total knee arthroplasty done 2 years prior Present on admission right knee pain suspect due to a moderate to large underlying right knee joint effusion Present on admission acute abdominal wall abscess with cellulitis and a left arm abscess with cellulitis Plan Continue postop care per orthopedic service Follow up on cultures Surgical recommendations noted continue with warm compresses to the left elbow 3 -4 times a day for 10-15 minutes continue supportive care Pain management Await infectious disease recommendations Resume home meds as appropriate DVT and GI prophylaxis The above dictated assessment and findings were discussed with Dr. Schumacher. Impression and the plan of care have been dictated as directed. Lacy Hitchcock nurse practitioner acting as a scribe for Dr. Schumacher
[2016-06-16] MEDS: DOCUSATE 100 MG CAP PO SCH (21:29)
[2016-06-16] MEDS: MECLIZINE 25 MG TAB PO SCH (21:30)
[2016-06-16] MEDS: ATORVASTATIN 10 MG TAB PO SCH (21:30)
[2016-06-16] MEDS: ASPIRIN 81 MG CHEW PO SCH (21:30)
[2016-06-16] MEDS: LOSARTAN 25 MG TAB PO SCH (21:31)
[2016-06-16] MEDS: HYDROcodone/APAP 5-325MG 1 EACH TAB PO PRN (23:51)
[2016-06-17] MEDS: SODIUM CHLORIDE 0.9% 1,000 ML IV SCH ×2 (03:53→14:39)
--- NOTE | 2016-06-17 05:28 | CONS ---
DATE OF CONSULTATION: DATE OF SERVICE: 06/16/2016 REASON FOR CONSULTATION: 1. Abdominal wall and left elbow wound with cellulitis. 2. Questionable right knee septic arthritis. HISTORY OF PRESENT ILLNESS: The patient is a 70-year-old who started having a pimple on his abdominal wall about a week ago secondarily developed some lesion on his left arm for which the patient has been evaluated by his primary care physician. Patient did have cultures obtained and was treated with oral antibiotics. The patient did say that he was told he has a staph infection, however, it was not sure if it was MRSA or not and he is not sure what antibiotic he was taking. Subsequently, the patient starting having more pain in his right knee area and it becomes more swollen. Pain was described to be sharp 5 to 6 out of 10 and no radiation. There was no skin breakdown. There was no drainage. Subsequently, the patient presented to the [facility] ER where the patient has been evaluated by the ER physician. The patient did have right knee aspirated, which did show about 15,000 white cells with crystals negative. The patient did have blood cultures obtained as well as culture from his abdominal wound. He was started on vancomycin. Subsequently evaluated by Ortho and the patient did have an I&D of the right knee with postop diagnosis of possible infection of the right knee. I was asked to see the patient for further recommendation regarding antibiotic therapy. REVIEW OF SYSTEMS: CONSTITUTIONAL: Positive for weakness and low-grade fever. EYES: No complaint. ENT: No complaint. RESPIRATORY: No complaint. CARDIOVASCULAR: No complaint. GENITOURINARY: No complaint. GASTROINTESTINAL: No complaint. MUSCULOSKELETAL: As per HPI. INTEGUMENTARY: As per HPI. PSYCHOLOGICAL: No complaint. ENDOCRINE: No complaint. NEUROLOGICAL: No complaint. Past medical history is significant for coronary artery disease, COPD, CVA, TIA, gastroesophageal reflux disease, hypertension, hyperlipidemia, sleep apnea. chronic back pain, sciatica. PAST SURGICAL HISTORY: PTCA with stent placement, left arthroscopy and right knee replacement, rotator cuff repair and steroid injection to the back. SOCIAL HISTORY: Former smoker; quit back in 1999. No drinking or drug use. FAMILY HISTORY: Mother history of breast cancer and father history of esophageal cancer. Allergies to SULFA. Medications currently include the patient is on Tylenol, [place], Zyloprim, aspirin, Lipitor, Coreg, Vitamin D3, Colace, iron sulfate, Dilaudid, Imdur, Cozaar, mag oxide, Antivert, Mobic, vancomycin, Protonix, MiraLAX. On examination, blood pressure is 132/68 with a pulse of 70, temperature 97.1 with a T-max 100.5. He is 92% on 2 L nasal cannula. General description is an elderly male, lying in bed in no distress with no tachypnea or accessory muscles of respiration use. HEENT examination shows slight pallor with no scleral icterus. Oral mucous membrane dry. NECK: Trachea central. No thyromegaly. LUNGS: Unlabored breathing. Clear to auscultation anteriorly. HEART: S1, S2. Regular rate and rhythm. ABDOMEN: Soft. No tenderness. EXTREMITIES: No edema of feet. Right knee is currently dressed up post surgery with Hemovac on. No purulence. SKIN EXAMINATION: The patient did have superficial ulcer to the left elbow with no significant swelling of the elbow joint and no redness and no drainage. Superficial wound on the abdominal wall with no redness. No induration or any drainage. NEUROLOGICAL: The patient is awake, alert and oriented x3. Mood and affect normal. LABS: Hemoglobin is 10.7, white count 7.3. Sed rate was 103. BUN of 22, creatinine 1.23. Electrolytes have been normal. Liver enzymes are normal. The synovial fluid was hazy with 15,000 white, crystals are negative. Cultures currently pending. DIAGNOSTIC IMPRESSION AND PLAN: 1. Patient admitted to the hospital with abdominal wall as well as left elbow with likely folliculitis with no evidence of olecranon bursitis to the left elbow more likely from Gram-positive skin jaja such staph and strep. 2. Patient with right knee pain and swelling with cloudy fluid, question of septic arthritis. PLAN: 1. Vancomycin pharmacy to dose with a target trough of 15. 2. Aquacel Silver dressing to the abdominal wound as well as the left elbow wound. 3. Will follow up on his clinical condition and cultures to further adjust the medication if needed. Thank you for this consultation. We will follow this patient along with you. WILFRID
[2016-06-17] MEDS: FERROUS SULFATE 325 MG TAB PO SCH (08:35)
[2016-06-17] MEDS: MELOXICAM 7.5 MG TAB PO SCH (08:35)
[2016-06-17] MEDS: ISOSORBIDE MONONITRATE ER 30 MG TAB.ER.24H PO SCH (08:35)
[2016-06-17] MEDS: MAGNESIUM OXIDE 250 MG TAB PO SCH (08:35)
[2016-06-17] MEDS: ALLOPURINOL 100 MG TAB PO SCH (08:36)
[2016-06-17] MEDS: POLYETHYLENE GLYCOL 3350 17 GM POWD.PACK PO SCH ×2 (08:36→20:33)
[2016-06-17] MEDS: CARVEDILOL 6.25 MG TAB PO SCH ×2 (08:36→16:33)
[2016-06-17] MEDS: HYDROcodone/APAP 10-325MG 1 EACH TAB PO SCH ×3 (08:36→22:01)
[2016-06-17] MEDS: PANTOPRAZOLE 40 MG TABLET PO SCH (08:36)
--- NOTE | 2016-06-17 08:41 | P.PN ---
Subjective Principal diagnosis: Status post right knee I&D This is a 70 year-old male post right knee I&D. This is post-op day 1. The patient was evaluated at the bedside today. The patient denies fever, chills, nausea, vomiting, abdominal pain, shortness of breath, and chest pain this morning. He states his pain is controlled at this time. The patient currently has a hemovac drain in place. He was seen and evaluated by infectious disease yesterday, vancomycin was ordered. Objective - Vital Signs Vital signs: Vital Signs Temp 97.1 F L 06/17/16 07:48 Pulse 56 L 06/17/16 07:48 Resp 18 06/17/16 07:48 BP 116/60 06/17/16 07:48 Pulse Ox 92 L 06/17/16 07:48 Intake & Output 06/16/16 06/17/16 06/17/16 18:59 06:59 18:59 Intake Total 1001 Output Total 50 775 Balance 951 -775 Intake: IV 1001 Output: Urine 775 Estimated Blood Loss 50 Other: Voiding Method Urinal # Voids 1 1 # Bowel Movements 1 - Exam The patient does not appear in acute distress. Alert and orientated x3. Dressing is clean dry and intact. Hemovac in place with sanginous drainage in tubing. Calf is soft and nontender. Good foot and ankle motion without difficulty. Sensation and circulatory status is intact. - Labs CBC & Chem 7: 06/16/16 10:02 06/16/16 10:02 Labs: Abnormal Lab Results - Last 24 Hours (Table) 06/16/16 06/16/16 Range/Units 10:02 10:02 RBC 3.45 L (4.30-5.90) m/uL Hgb 10.7 L (13.0-17.5) gm/dL Hct 33.5 L (39.0-53.0) % Lymphocytes # 0.7 L (1.0-4.8) k/uL BUN 22 H (9-20) mg/dL Glucose 108 H (74-99) mg/dL Total Protein 6.2 L (6.3-8.2) g/dL Albumin 2.9 L (3.5-5.0) g/dL Microbiology - Last 24 Hours (Table) 06/16/16 13:35 Gram Stain - Preliminary Knee - Right Wound Culture - Preliminary 06/16/16 13:35 Gram Stain - Preliminary Knee - Right Wound Culture - Preliminary 06/16/16 13:35 Anaerobic Culture - Preliminary Knee - Right 06/16/16 13:35 Anaerobic Culture - Preliminary Knee - Right 06/15/16 18:27 Gram Stain - Preliminary Knee - Right Wound Culture - Preliminary Assessment and Plan (1) Infection of total right knee replacement Status: Acute (2) Effusion, right knee Status: Acute (3) Status post total right knee replacement Status: Acute Plan: 1. Continue pain control 2. Antibiotic therapy per infectious disease. Currently awaiting cultures 3. Continue ambulation and start physical therapy, weightbearing as tolerated 4. Discharge plans pending culture results and antibiotic recommendations 5. Keep hemovac for one more day, discontinue tomorrow.
[2016-06-17] MEDS: CHOLECALCIFEROL 1,000 UNIT TAB PO SCH (12:10)
[2016-06-17] MEDS: HYDROcodone/APAP 5-325MG 1 EACH TAB PO PRN ×2 (12:11→19:59)
[2016-06-17] MEDS ORDERED: VANCOMYCIN TROUGH DUE 1 EACH MISC MISCELLANE ONE (13:00)
[2016-06-17] MEDS: VANCOMYCIN 2,000 MG in SODIUM CHLORIDE 0.9% 500 ML IVPB SCH (14:38)
--- NOTE | 2016-06-17 15:25 | P.PN ---
Subjective 70-year-old gentleman being seen on rounds this morning is a significant improvement in the cellulitis involving the the left elbow as well as the abdominal wall. Patient states he areas are less tender. There is a dressing and Chintan wrap on the right knee with a Hemovac in place patient is postop day 1 incision and drainage of the right knee by [facility] patient states the pain is controlled the analgesics Objective - Vital Signs Vital signs: Vital Signs Temp 96.1 F L 06/17/16 15:08 Pulse 16 L 06/17/16 15:08 Resp 16 06/17/16 15:08 BP 100/72 06/17/16 15:08 Pulse Ox 91 L 06/17/16 15:08 Intake & Output 06/16/16 06/17/16 06/17/16 18:59 06:59 18:59 Intake Total 1001 Output Total 50 775 450 Balance 951 -775 -450 Intake: IV 1001 Output: Urine 775 450 Estimated Blood Loss 50 Other: Voiding Method Urinal # Voids 1 1 # Bowel Movements 1 - Exam Physical exam 70-year-old resting appears in no acute distress states there is less pain in the right knee this morning additionally the left forearm cellulitis is significantly improved Lungs essentially clear no shortness breath Heart S1-S2 audible regular Abdomen soft nontender to superficial wound noted to the abdominal wall there is no redness. No drainage. Extremities continues to report having right knee pain there is an Chintan wrap to the right knee with a Hemovac in place dressing to the left elbow dry - Labs CBC & Chem 7: 06/16/16 10:02 06/16/16 10:02 Labs: Microbiology - Last 24 Hours (Table) 06/16/16 13:35 Gram Stain - Preliminary Knee - Right Wound Culture - Preliminary 06/16/16 13:35 Gram Stain - Preliminary Knee - Right Wound Culture - Preliminary 06/16/16 13:35 Anaerobic Culture - Preliminary Knee - Right 06/16/16 13:35 Anaerobic Culture - Preliminary Knee - Right 06/15/16 18:27 Gram Stain - Preliminary Knee - Right Wound Culture - Preliminary Assessment and Plan Plan: Impression Status post irrigation debridement of the right total knee for possible infection involving the right total knee done on June 16 suspect septic arthritis History of a right total knee arthroplasty done 2 years prior Present on admission right knee pain suspect due to a moderate to large underlying right knee joint effusion Present on admission acute abdominal wall redness likely due to folliculitis with no evidence of left olecranon bursitis likely gram positives skin jaja Present on admission superficial ulcer to the left elbow no evidence of cellulitis Plan Continue postop care per orthopedic service Follow up on cultures Surgical recommendations noted continue with warm compresses to the left elbow 3 -4 times a day for 10-15 minutes continue supportive care Pain management The antibiotics per infectious disease Resume home meds as appropriate DVT and GI prophylaxis The above dictated assessment and findings were discussed with Dr. Schumacher. Impression and the plan of care have been dictated as directed. Lacy Hitchcock nurse practitioner acting as a scribe for Dr. Schumacher
--- NOTE | 2016-06-17 15:39 | P.PN ---
Subjective Patient is evaluated on the medical unit when he uses admitted with abdominal cellulitis and left arm abscess with cellulitis. Denies chills, fevers, nausea , vomiting, or abdominal pain. Afebrile. No evidence of leukocytosis. Objective - Vital Signs Vital signs: Vital Signs Temp 96.1 F L 06/17/16 15:08 Pulse 16 L 06/17/16 15:08 Resp 16 06/17/16 15:27 BP 100/72 06/17/16 15:08 Pulse Ox 91 L 06/17/16 15:08 Intake & Output 06/16/16 06/17/16 06/17/16 18:59 06:59 18:59 Intake Total 1001 Output Total 50 775 450 Balance 951 -775 -450 Intake: IV 1001 Output: Urine 775 450 Estimated Blood Loss 50 Other: Voiding Method Urinal # Voids 1 1 # Bowel Movements 1 - Exam GENERAL: Pt awake and alert, well-appearing, well-nourished, and in no acute distress. LUNGS: Breath sounds diminished to auscultation bilaterally. No wheezes, rales , or rhonchi. HEART: Heart S1, S2, no S3 or S4. Regular rate and rhythm. Systolic murmur. ABDOMEN: Soft, morbidly obese, nontender, nondistended, normoactive bowel sounds. No guarding, no rebound. Improving abdominal abscess noted superior and lateral to umbilicus with minimal erythema, no fluctuance, draining purulent drainage. EXTREMITIES: Abscess to left elbow with surrounding erythema and slight fluctuance, draining purulent drainage. NEUROLOGICAL: Pt oriented x 3. - Labs CBC & Chem 7: 06/16/16 10:02 06/16/16 10:02 Labs: Microbiology - Last 24 Hours (Table) 06/16/16 13:35 Gram Stain - Preliminary Knee - Right Wound Culture - Preliminary 06/16/16 13:35 Gram Stain - Preliminary Knee - Right Wound Culture - Preliminary 06/16/16 13:35 Anaerobic Culture - Preliminary Knee - Right 06/16/16 13:35 Anaerobic Culture - Preliminary Knee - Right 06/15/16 18:27 Gram Stain - Preliminary Knee - Right Wound Culture - Preliminary Assessment and Plan Plan: Impression: 1. Abscess with cellulitis to left elbow. 2. Abdominal wall cellulitis. Plan: 1. Continue IV antibiotics per infectious disease recommendations. Continue local wound care. Continue supportive treatment and pain management. Patient is not a surgical candidate. From a surgical standpoint, patient may be discharged. Patient will follow-up with Dr. Buenrostro in a week. The above impression and plan have been discussed and directed by Dr. Caputo. Sean VILLA acting as scribe for Dr. Caputo.
[2016-06-17] MEDS: ASPIRIN 81 MG CHEW PO SCH (20:29)
[2016-06-17] MEDS: ATORVASTATIN 10 MG TAB PO SCH (20:29)
[2016-06-17] MEDS: MECLIZINE 25 MG TAB PO SCH (20:30)
[2016-06-17] MEDS: DOCUSATE 100 MG CAP PO SCH (20:30)
[2016-06-17] MEDS: LOSARTAN 25 MG TAB PO SCH (20:31)
[2016-06-18] MEDS: HYDROcodone/APAP 5-325MG 1 EACH TAB PO PRN (02:59)
[2016-06-18] MEDS: SODIUM CHLORIDE 0.9% 1,000 ML IV SCH ×3 (03:05→22:11)
[2016-06-18] MEDS: VANCOMYCIN 2,000 MG in SODIUM CHLORIDE 0.9% 500 ML IVPB SCH ×2 (05:36→21:22)
--- NOTE | 2016-06-18 06:58 | PN ---
DATE OF SERVICE: 06/17/2016 Reason for followup is abdominal wound and left elbow wound and possible right knee septic arthritis. INTERVAL HISTORY: The patient is afebrile. Has been breathing comfortably. Denies any significant chest pain or shortness of breath or cough. No abdominal pain or any pain to the left elbow or right knee area. On examination, blood pressure is 100/72 with a pulse of 64, temperature is 96.1. He is 91% on room air. General description is an elderly male, lying in bed in no distress. RESPIRATORY SYSTEM: Unlabored breathing. Clear to auscultation anteriorly. HEART: S1, S2, regular rate and rhythm. ABDOMEN: Soft. The abdomen wound has improved. Left elbow wound with no slough tissue or surrounding redness. Right knee is currently dress up. LABS: Hemoglobin is 10.7, white count is 7.3 with a BUN of 22, creatinine 1.23. The right knee is presumptive MRSA. DIAGNOSTIC IMPRESSION AND PLAN: 1. Patient with abdominal wound and left elbow wound. Continue local wound care with Aquacel Silver. 2. Patient with possible right knee septic arthritis, status post irrigation now with culture showing methicillin-resistant Staphylococcus aureus. Patient will be continued on vancomycin. Further definite surgery will be discussed with Orthopedics. Continue with supportive care. WILFRID
[2016-06-18] MEDS: MAGNESIUM OXIDE 250 MG TAB PO SCH (08:03)
[2016-06-18] MEDS: FERROUS SULFATE 325 MG TAB PO SCH (08:03)
[2016-06-18] MEDS: MELOXICAM 7.5 MG TAB PO SCH (08:03)
[2016-06-18] MEDS: POLYETHYLENE GLYCOL 3350 17 GM POWD.PACK PO SCH ×2 (08:04→21:44)
[2016-06-18] MEDS: ALLOPURINOL 100 MG TAB PO SCH (08:04)
[2016-06-18] MEDS: ISOSORBIDE MONONITRATE ER 30 MG TAB.ER.24H PO SCH (08:04)
[2016-06-18] MEDS: PANTOPRAZOLE 40 MG TABLET PO SCH (08:04)
[2016-06-18] MEDS: CARVEDILOL 6.25 MG TAB PO SCH ×2 (08:04→16:26)
[2016-06-18 08:50] LABS: Anion Gap 10 mmol/L; Blood Urea Nitrogen 28 mg/dL (9-20); Calcium 8.5 mg/dL (8.4-10.2); Carbon Dioxide 23 mmol/L (22-30); Chloride 107 mmol/L (98-107); Glucose 100 mg/dL (74-99); Non-African American GFR(MDRD) 51 (>60 ml/min/1.73 sqM); Potassium 4.8 mmol/L (3.5-5.1); Sodium 140 mmol/L (137-145)
[2016-06-18] MEDS: HYDROcodone/APAP 10-325MG 1 EACH TAB PO SCH ×3 (10:41→22:09)
[2016-06-18] MEDS: CHOLECALCIFEROL 1,000 UNIT TAB PO SCH (12:49)
--- NOTE | 2016-06-18 13:00 | P.PN ---
Subjective Principal diagnosis: Right knee effusion, status post right total knee arthroplasty This is a 70-year-old gentleman who is status post incision and drainage right total knee arthroplasty. Today's postoperative day #2. Patient's drain did come out dressing last night. His pain is somewhat improved today. He has improved motion of the knee. He is able to with a walker to the restroom. He is seen and evaluated at bedside with Dr. Manan Stevens. Objective - Vital Signs Vital signs: Vital Signs Temp 97.0 F L 06/18/16 07:33 Pulse 55 L 06/18/16 07:33 Resp 18 06/18/16 07:33 BP 119/58 06/18/16 07:33 Pulse Ox 93 L 06/18/16 07:33 Intake & Output 06/17/16 06/18/16 06/18/16 18:59 06:59 18:59 Intake Total 200 Output Total 850 690 900 Balance -850 -490 -900 Intake: Oral 200 Output: Drainage 40 Right Knee 40 Urine 850 650 900 Other: Voiding Method Urinal # Voids 1 # Bowel Movements 1 - Exam He does not appear in acute distress. He is alert and oriented 3. His bandage intact to the right knee. Moderate swelling. He continues have difficulty with active range of motion of the knee secondary to pain. However, his motion is somewhat improved today. Incision appears fine with no erythema or active drainage. [place] are intact. Calf is soft and nontender. He has sustained dorsiflexion, plantar flexion extensor hallux longus. Sensation and circulatory status is intact. - Labs CBC & Chem 7: 06/21/16 07:50 06/22/16 09:37 Labs: Abnormal Lab Results - Last 24 Hours (Table) 06/18/16 Range/Units 07:42 BUN 28 H (9-20) mg/dL Creatinine 1.39 H (0.66-1.25) mg/dL Glucose 100 H (74-99) mg/dL Microbiology - Last 24 Hours (Table) 06/15/16 18:27 Gram Stain - Preliminary Knee - Right Wound Culture - Preliminary Presumptive Staph aureus 06/16/16 13:35 Gram Stain - Preliminary Knee - Right Wound Culture - Preliminary 06/16/16 13:35 Gram Stain - Preliminary Knee - Right Wound Culture - Preliminary Assessment and Plan (1) Effusion, right knee Status: Acute (2) Status post total right knee replacement Status: Acute (3) Septic arthritis of knee, right Status: Acute Plan: The clinical and x-ray findings were discussed at bedside with Dr. Manan Stevens today. At this point cultures are showing staph aureus. Infectious disease is following. The patient did undergo incision and drainage within 5 days of onset of his symptoms. There was no purulent fluid noted during his procedure and x-rays show components in good position and alignment without evidence of lucency. At this point we will attempt treatment with his incision and drainage and IV antibiotics. He'll likely require PICC line. It was discussed that is very possible he will require staged revision of the right knee with antibiotic spacers. The patient understands and agrees with the plan of care.
[2016-06-18 14:50] VITALS: BMI 47.3
--- NOTE | 2016-06-18 15:48 | P.PN ---
Subjective 70-year-old being seen with the attending this morning. Patients being treated for abdominal and left elbow cellulitis significantly improved Additionally patient is postop incision and drainage right total knee arthroplasty . Patient reports that his Hemovac drain came out last night patients being followed by orthopedic service Objective - Vital Signs Vital signs: Vital Signs Temp 97.0 F L 06/18/16 07:33 Pulse 55 L 06/18/16 07:33 Resp 18 06/18/16 07:33 BP 119/58 06/18/16 07:33 Pulse Ox 93 L 06/18/16 07:33 Intake & Output 06/17/16 06/18/16 06/18/16 18:59 06:59 18:59 Intake Total 200 Output Total 653 778 7667 Balance -850 -490 -1200 Weight 149.685 kg Intake: Oral 200 Output: Drainage 40 Right Knee 40 Urine 466 533 4542 Other: Voiding Method Urinal # Voids 1 # Bowel Movements 1 - Exam Physical exam 70-year-old resting appears in no acute distress states there is less pain in the right knee this morning additionally the left forearm cellulitis is significantly improved Lungs essentially clear no shortness breath Heart S1-S2 audible regular Abdomen soft nontender to superficial wound noted to the abdominal wall there is no redness. No drainage. Extremities continues to report having right knee pain there is an Chintan wrap to the right knee - Labs CBC & Chem 7: 06/16/16 10:02 06/18/16 07:42 Labs: Abnormal Lab Results - Last 24 Hours (Table) 06/18/16 Range/Units 07:42 BUN 28 H (9-20) mg/dL Creatinine 1.39 H (0.66-1.25) mg/dL Glucose 100 H (74-99) mg/dL Microbiology - Last 24 Hours (Table) 06/15/16 18:27 Gram Stain - Preliminary Knee - Right Wound Culture - Preliminary Presumptive Staph aureus 06/16/16 13:35 Gram Stain - Preliminary Knee - Right Wound Culture - Preliminary 06/16/16 13:35 Gram Stain - Preliminary Knee - Right Wound Culture - Preliminary Assessment and Plan Plan: Impression Status post irrigation debridement of the right total knee for possible infection involving the right total knee done on June 16 suspect septic arthritis History of a right total knee arthroplasty done 2 years prior Present on admission right knee pain suspect due to a moderate to large underlying right knee joint effusion Present on admission acute abdominal wall redness likely due to folliculitis with no evidence of left olecranon bursitis likely gram positives skin jaja Present on admission superficial ulcer to the left elbow no evidence of cellulitis Plan Continue postop care per orthopedic service Follow up on cultures Surgical recommendations noted continue with warm compresses to the left elbow 3 -4 times a day for 10-15 minutes continue supportive care Pain management antibiotics per infectious disease Resume home meds as appropriate DVT and GI prophylaxis The above dictated assessment and findings were discussed with Dr. Schumacher. Impression and the plan of care have been dictated as directed. Lacy Hitchcock nurse practitioner acting as a scribe for Dr. Schumacher
--- NOTE | 2016-06-18 16:52 | P.PN ---
Subjective Patient is evaluated on the medical unit when he is admitted with abdominal cellulitis and left arm abscess with cellulitis. Denies chills, fevers, nausea , vomiting, or abdominal pain. Afebrile. No evidence of leukocytosis. Objective - Vital Signs Vital signs: Vital Signs Temp 97.4 F L 06/18/16 15:00 Pulse 62 06/18/16 15:00 Resp 18 06/18/16 15:54 BP 122/68 06/18/16 15:00 Pulse Ox 92 L 06/18/16 15:00 Intake & Output 06/17/16 06/18/16 06/18/16 18:59 06:59 18:59 Intake Total 200 Output Total 988 918 8541 Balance -850 -490 -1200 Weight 149.685 kg Intake: Oral 200 Output: Drainage 40 Right Knee 40 Urine 985 106 6632 Other: Voiding Method Urinal # Voids 1 # Bowel Movements 1 - Exam GENERAL: Pt awake and alert, well-appearing, well-nourished, and in no acute distress. LUNGS: Breath sounds diminished to auscultation bilaterally. No wheezes, rales , or rhonchi. HEART: Heart S1, S2, no S3 or S4. Regular rate and rhythm. Systolic murmur. ABDOMEN: Soft, morbidly obese, nontender, nondistended, normoactive bowel sounds. No guarding, no rebound. Improving abdominal abscess noted superior and lateral to umbilicus with minimal erythema, no fluctuance, draining purulent drainage. EXTREMITIES: Abscess to left elbow with surrounding erythema, no evidence of fluctuance, minimal purulent drainage. NEUROLOGICAL: Pt oriented x 3. - Labs CBC & Chem 7: 06/16/16 10:02 06/18/16 07:42 Labs: Abnormal Lab Results - Last 24 Hours (Table) 06/18/16 Range/Units 07:42 BUN 28 H (9-20) mg/dL Creatinine 1.39 H (0.66-1.25) mg/dL Glucose 100 H (74-99) mg/dL Microbiology - Last 24 Hours (Table) 06/15/16 18:27 Gram Stain - Preliminary Knee - Right Wound Culture - Preliminary Presumptive Staph aureus 06/16/16 13:35 Gram Stain - Preliminary Knee - Right Wound Culture - Preliminary 06/16/16 13:35 Gram Stain - Preliminary Knee - Right Wound Culture - Preliminary Assessment and Plan Plan: Impression: 1. Abscess with cellulitis to left elbow, improving. 2. Abdominal wall cellulitis, improving. Plan: 1. Continue IV antibiotics per infectious disease recommendations. Continue local wound care. Continue supportive treatment and pain management. Patient is not a surgical candidate. Will follow on a PRN basis. The above impression and plan have been discussed and directed by Dr. Caputo. Sean VILLA acting as scribe for Dr. Caputo.
--- NOTE | 2016-06-18 18:34 | PN ---
DATE OF SERVICE: 06/18/2016 REASON FOR FOLLOWUP: Right knee septic arthritis and left elbow wound. INTERVAL HISTORY: The patient is afebrile. He is currently breathing comfortably. Pain to the right knee is currently controlled. He denies having any chest pain or shortness of breath or cough or abdominal pain or any diarrhea. On examination, blood pressure is 119/58 with a pulse of 55, temperature 97. He is 93% on room air. General description is an elderly male lying in bed in no distress. RESPIRATORY SYSTEM: Unlabored breathing. Clear to auscultation anteriorly. HEART: S1, S2. Regular rate and rhythm. ABDOMEN: Soft. No tenderness. RIGHT KNEE: Overall swelling and redness slightly decreased. No drainage. LABS: BUN of 28, creatinine 1.39. Vancomycin trough of 16.9. The wound culture has presumptive MRSA. Blood culture so far negative. DIAGNOSTIC IMPRESSION AND PLAN: 1. Patient with right knee septic arthritis presented with methicillin-resistant Staphylococcus aureus with underlying prosthetic knee with high concern for antibiotic failure without removal of the prosthetic knee. I did explain this to the patient in detail, who currently is in favor of continuing trying the antibiotic for a couple of weeks; and if no improvement, to go for surgery. Will obtain a PICC line on Tuesday with plan for outpatient IV vancomycin, Pharmacy to dose, target of 15 x 6 weeks with close outpatient followup. 2. Left elbow wound. Continue Aquacel Silver dressing and keep it dry. MTDD
[2016-06-18] MEDS: ATORVASTATIN 10 MG TAB PO SCH (21:40)
[2016-06-18] MEDS: ASPIRIN 81 MG CHEW PO SCH (21:42)
[2016-06-18] MEDS: MECLIZINE 25 MG TAB PO SCH (21:42)
[2016-06-18] MEDS: LOSARTAN 25 MG TAB PO SCH (21:43)
[2016-06-18] MEDS: DOCUSATE 100 MG CAP PO SCH (21:44)
[2016-06-19] MEDS: HYDROcodone/APAP 10-325MG 1 EACH TAB PO SCH ×3 (07:55→21:08)
[2016-06-19] MEDS: PANTOPRAZOLE 40 MG TABLET PO SCH (07:55)
[2016-06-19] MEDS: POLYETHYLENE GLYCOL 3350 17 GM POWD.PACK PO SCH ×2 (07:57→20:03)
[2016-06-19] MEDS: CARVEDILOL 6.25 MG TAB PO SCH ×2 (07:58→19:04)
[2016-06-19] MEDS: ISOSORBIDE MONONITRATE ER 30 MG TAB.ER.24H PO SCH (07:58)
[2016-06-19] MEDS: ALLOPURINOL 100 MG TAB PO SCH (07:58)
[2016-06-19] MEDS: MAGNESIUM OXIDE 250 MG TAB PO SCH (07:58)
[2016-06-19] MEDS: FERROUS SULFATE 325 MG TAB PO SCH (07:59)
[2016-06-19] MEDS: MELOXICAM 7.5 MG TAB PO SCH (07:59)
[2016-06-19 08:04] LABS: Anion Gap 12 mmol/L; Blood Urea Nitrogen 19 mg/dL (9-20); Calcium 8.9 mg/dL (8.4-10.2); Carbon Dioxide 23 mmol/L (22-30); Chloride 107 mmol/L (98-107); Glucose 101 mg/dL (74-99); Non-African American GFR(MDRD) >60 (>60 ml/min/1.73 sqM); Potassium 4.7 mmol/L (3.5-5.1); Sodium 142 mmol/L (137-145)
[2016-06-19] MEDS: SODIUM CHLORIDE 0.9% 1,000 ML IV SCH ×2 (10:23→20:18)
--- NOTE | 2016-06-19 10:36 | P.PN ---
Subjective Principal diagnosis: Right knee effusion, status post right total knee arthroplasty This is a 70-year-old gentleman who is status post incision and drainage right total knee arthroplasty. Today's postoperative day #3. His pain is somewhat improved since admission. He has improved motion of the knee. He is able to with a walker to the restroom. Objective - Vital Signs Vital signs: Vital Signs Temp 98.1 F 06/19/16 07:43 Pulse 65 06/19/16 07:43 Resp 24 06/19/16 07:43 BP 129/60 06/19/16 07:43 Pulse Ox 91 L 06/19/16 07:43 Intake & Output 06/18/16 06/19/16 06/19/16 18:59 06:59 18:59 Intake Total 970 Output Total 1200 2175 1000 Balance -1200 -1205 -1000 Weight 149.685 kg Intake: Oral 970 Output: Urine 1200 2175 1000 Other: Voiding Method Urinal # Voids 1 4 # Bowel Movements 1 - Exam He does not appear in acute distress. He is alert and oriented 3. Dressing is clean dry and intact. Moderate swelling. He continues have difficulty with active range of motion of the knee secondary to pain. Motion near full extension to approximately 70 of flexion Incision appears fine with no erythema or active drainage. [place] are intact. Calf is soft and nontender. He has sustained dorsiflexion, plantar flexion extensor hallux longus. Sensation and circulatory status is intact. - Labs CBC & Chem 7: 06/16/16 10:02 06/19/16 06:59 Labs: Abnormal Lab Results - Last 24 Hours (Table) 06/19/16 Range/Units 06:59 Glucose 101 H (74-99) mg/dL Microbiology - Last 24 Hours (Table) 06/16/16 13:35 Anaerobic Culture - Preliminary Knee - Right 06/15/16 18:27 Anaerobic Culture - Preliminary Knee - Right 06/15/16 18:27 Gram Stain - Final Knee - Right Wound Culture - Final Staphylococcus aureus 06/16/16 13:35 Gram Stain - Final Knee - Right Wound Culture - Final Assessment and Plan (1) Effusion, right knee Status: Acute (2) Status post total right knee replacement Status: Acute (3) Septic arthritis of knee, right Status: Acute Plan: The clinical and x-ray findings were discussed at bedside with Dr. Manan Stevens today. At this point cultures are showing staph aureus. Infectious disease is following. Continue antibiotics as directed by infectious disease. Anticipate PICC line placement likely on Tuesday. Again it was discussed that is very possible he will require staged revision of the right knee with antibiotic spacers. The patient understands and agrees with the plan of care.
[2016-06-19] MEDS: CHOLECALCIFEROL 1,000 UNIT TAB PO SCH (13:35)
[2016-06-19] MEDS: HYDROcodone/APAP 5-325MG 1 EACH TAB PO PRN (13:44)
[2016-06-19] MEDS: ceFAZolin 2 GM in SODIUM CHLORIDE 0.9% 100 ML IVPB SCH ×2 (16:20→23:14)
[2016-06-19] MEDS: ATORVASTATIN 10 MG TAB PO SCH (20:03)
[2016-06-19] MEDS: MECLIZINE 25 MG TAB PO SCH (20:03)
[2016-06-19] MEDS: ASPIRIN 81 MG CHEW PO SCH (20:03)
[2016-06-19] MEDS: LOSARTAN 25 MG TAB PO SCH (20:03)
[2016-06-19] MEDS: DOCUSATE 100 MG CAP PO SCH (20:03)
[2016-06-20] MEDS: SODIUM CHLORIDE 0.9% 1,000 ML IV SCH ×4 (03:49→17:43)
[2016-06-20] MEDS: ceFAZolin 2 GM in SODIUM CHLORIDE 0.9% 100 ML IVPB SCH ×3 (07:43→23:25)
[2016-06-20] MEDS: POLYETHYLENE GLYCOL 3350 17 GM POWD.PACK PO SCH ×2 (07:44→20:20)
[2016-06-20] MEDS: ISOSORBIDE MONONITRATE ER 30 MG TAB.ER.24H PO SCH (07:44)
[2016-06-20] MEDS: MELOXICAM 7.5 MG TAB PO SCH (07:44)
[2016-06-20] MEDS: CARVEDILOL 6.25 MG TAB PO SCH ×2 (07:44→17:40)
[2016-06-20] MEDS: FERROUS SULFATE 325 MG TAB PO SCH (07:45)
[2016-06-20] MEDS: ALLOPURINOL 100 MG TAB PO SCH (07:45)
[2016-06-20] MEDS: PANTOPRAZOLE 40 MG TABLET PO SCH (07:45)
[2016-06-20] MEDS: MAGNESIUM OXIDE 250 MG TAB PO SCH (07:45)
[2016-06-20] MEDS: HYDROcodone/APAP 10-325MG 1 EACH TAB PO SCH ×3 (07:46→22:08)
--- NOTE | 2016-06-20 08:10 | PN ---
DATE OF SERVICE: 06/19/2016 Reason for follow-up is MSSA right knee septic arthritis. INTERVAL HISTORY: The patient is afebrile. Has been breathing comfortably. Denies any significant pain or any worsening pain in right knee area. Denies any chest pain. No shortness of breath or cough. No diarrhea. On examination, blood pressure 123/60 with a pulse of 66, temperature 99.5. He is 93% on room air. General description is an elderly male, lying in bed in no distress. RESPIRATORY SYSTEM: Unlabored breathing. Clear to auscultation anteriorly. HEART: S1, S2. Regular rate and rhythm. ABDOMEN: Soft. No tenderness. Right knee is currently dressed up. No obvious drainage on the dressing. Wound is covered with no drainage. LABS: Hemoglobin is 10.7, white count 7.3. BUN of 19, creatinine 1.12. Right knee culture finalized with MSSA. DIAGNOSTIC IMPRESSION AND PLAN: Patient with methicillin susceptible Staphylococcus aureus right knee septic arthritis with a right prosthetic knee. Patient wants to try to antibiotics instead of the excisional arthroplasty with antibiotic spacer. He is aware of possible antibiotic failure. Antibiotics adjusted to cefazolin 2 grams q8hr to cover for the Methicillin-sensitive Staphylococcus aureus. Will get a peripherally inserted central catheter line on Tuesday and continue 6 weeks of IV antibiotics with close outpatient follow-up. WILFRID
[2016-06-20 08:15] LABS: Anion Gap 10 mmol/L; Blood Urea Nitrogen 15 mg/dL (9-20); Calcium 9.2 mg/dL (8.4-10.2); Carbon Dioxide 28 mmol/L (22-30); Chloride 103 mmol/L (98-107); Glucose 100 mg/dL (74-99); Non-African American GFR(MDRD) >60 (>60 ml/min/1.73 sqM); Potassium 4.6 mmol/L (3.5-5.1); Sodium 141 mmol/L (137-145)
--- NOTE | 2016-06-20 10:15 | P.PN ---
Subjective Principal diagnosis: Right knee effusion, status post right total knee arthroplasty This is a 70-year-old gentleman who is status post incision and drainage right total knee arthroplasty. Today's postoperative day #4. Overall he has had improvement. He's been up ambulating to the restroom. His motion is improved. Cultures revealed MSSA and he has been switched to Kefzol IV by Dr. Resendiz. Objective - Vital Signs Vital signs: Vital Signs Temp 96.0 F L 06/20/16 07:36 Pulse 61 06/20/16 07:36 Resp 16 06/20/16 08:00 BP 172/77 06/20/16 07:36 Pulse Ox 90 L 06/20/16 07:36 Intake & Output 06/19/16 06/20/16 06/20/16 18:59 06:59 18:59 Intake Total 925 Output Total 1999 2200 750 Balance -1999 -1275 -750 Intake: Oral 925 Output: Urine 19990 750 Other: Voiding Method Urinal Urinal Urinal # Bowel Movements 2 - Exam He does not appear in acute distress. He is alert and oriented 3. Dressing is clean dry and intact. Moderate swelling. Motion near full extension to approximately 70 of flexion Incision appears fine with no erythema or active drainage. [place] are intact. Calf is soft and nontender. He has sustained dorsiflexion, plantar flexion extensor hallux longus. Sensation and circulatory status is intact. - Labs CBC & Chem 7: 06/16/16 10:02 06/20/16 07:16 Labs: Abnormal Lab Results - Last 24 Hours (Table) 06/20/16 Range/Units 07:16 Glucose 100 H (74-99) mg/dL Microbiology - Last 24 Hours (Table) 06/15/16 18:27 Anaerobic Culture - Final Knee - Right 06/16/16 13:35 Anaerobic Culture - Preliminary Knee - Right 06/16/16 13:35 Gram Stain - Preliminary Knee - Right Wound Culture - Preliminary Presumptive Staph aureus Assessment and Plan (1) Effusion, right knee Status: Acute (2) Status post total right knee replacement Status: Acute (3) Septic arthritis of knee, right Status: Acute Plan: The clinical and x-ray findings were discussed at bedside with Dr. Manan Stevens today. At this point cultures are showing staph aureus. Infectious disease is following. Continue antibiotics as directed by infectious disease. Anticipate PICC line placement likely on Tuesday. Again it was discussed that is very possible he will require staged revision of the right knee with antibiotic spacers. The patient understands and agrees with the plan of care.
[2016-06-20] MEDS: CHOLECALCIFEROL 1,000 UNIT TAB PO SCH (12:53)
[2016-06-20] MEDS: HYDROcodone/APAP 5-325MG 1 EACH TAB PO PRN (12:59)
--- NOTE | 2016-06-20 19:04 | PN ---
DATE OF SERVICE: 06/19/2016 SUBJECTIVE: 70-year-old white male with cellulitis of the abdomen and left elbow and right knee, osteomyelitis, he has been switched over to IV Kefzol and IV vancomycin. He has a history of coronary artery disease, hypertension, osteoarthritis, GERD, obesity, gout, dyslipidemia. CARDIOVASCULAR: S1, S2. ENDOCRINE: BMI is over 40. NEUROLOGICAL: Alert and oriented x3. Integument shows decreased drainage and less redness over the wounds of the abdomen and left elbow and the knee. Await culture finality on the wound and the knee, continue with IV antibiotics. PICC line will be placed Tuesday for possible discharge.
[2016-06-20] MEDS: ATORVASTATIN 10 MG TAB PO SCH (20:19)
[2016-06-20] MEDS: ASPIRIN 81 MG CHEW PO SCH (20:19)
[2016-06-20] MEDS: DOCUSATE 100 MG CAP PO SCH (20:20)
[2016-06-20] MEDS: LOSARTAN 25 MG TAB PO SCH (20:20)
[2016-06-20] MEDS: MECLIZINE 25 MG TAB PO SCH (20:20)
[2016-06-21] MEDS: HYDROcodone/APAP 5-325MG 1 EACH TAB PO PRN (04:22)
--- NOTE | 2016-06-21 07:42 | PN ---
SUBJECTIVE: This is a 70-year-old white male admitted with severe cellulitis of the left elbow and osteomyelitis of the right knee for which we need a PICC line and IV antibiotics for the next 6 weeks. We will continue for the next 24 to 48 hours to get PICC line and then will be sent home, continue with his blood pressure. ASSESSMENT: 1. Coronary artery disease. 2. Hypertension. 3. Obesity. Counseling was given. PLAN: IV cefazolin 2 grams IV every 8 hours for 6 weeks. Continue home blood pressure and cardiac medicines. Follow-up in the next 24 to 48 hours.
[2016-06-21 08:08] LABS: Basophils % (A) 1 %; CH 32.2; CHCM 33.5; Eosinophils # (A) 0.2 k/uL (0-0.7); Eosinophils % (A) 2 %; HDW 2.87; HGB 11.4 gm/dL (13.0-17.5); Luc % (Auto) 1; Lymphocytes # (A) 1.1 k/uL (1.0-4.8); Lymphocytes % (A) 14 %; MCH 30.7 pg (25.0-35.0); MCHC 31.7 g/dL (31.0-37.0); MCV 96.8 fL (80.0-100.0); Mean Platelet Volume 7.7; Monocytes # (A) 0.4 k/uL (0-1.0); Monocytes % (A) 6 %; Neutrophils # (A) 5.6 k/uL (1.3-7.7); Neutrophils % (A) 76 %; RBC 3.72 m/uL (4.30-5.90); WBC 7.3 k/uL (3.8-10.6); WBC (Perox) 7.71
[2016-06-21] MEDS: ISOSORBIDE MONONITRATE ER 30 MG TAB.ER.24H PO SCH (08:26)
[2016-06-21] MEDS: MAGNESIUM OXIDE 250 MG TAB PO SCH (08:26)
[2016-06-21] MEDS: CARVEDILOL 6.25 MG TAB PO SCH ×2 (08:26→16:51)
[2016-06-21] MEDS: ceFAZolin 2 GM in SODIUM CHLORIDE 0.9% 100 ML IVPB SCH ×2 (08:27→16:48)
[2016-06-21] MEDS: ALLOPURINOL 100 MG TAB PO SCH (08:27)
[2016-06-21] MEDS: HYDROcodone/APAP 10-325MG 1 EACH TAB PO SCH ×3 (08:27→22:02)
[2016-06-21] MEDS: MELOXICAM 7.5 MG TAB PO SCH (08:27)
[2016-06-21] MEDS: FERROUS SULFATE 325 MG TAB PO SCH (08:27)
[2016-06-21 08:28] LABS: ALT 33 U/L (21-72); AST 29 U/L (17-59); Alkaline Phosphatase 87 U/L (38-126); Blood Urea Nitrogen 16 mg/dL (9-20); Calcium 9.2 mg/dL (8.4-10.2); Carbon Dioxide 30 mmol/L (22-30); Chloride 100 mmol/L (98-107); Glucose 120 mg/dL (74-99); Non-African American GFR(MDRD) >60 (>60 ml/min/1.73 sqM); Potassium 4.6 mmol/L (3.5-5.1); Total Bilirubin 0.6 mg/dL (0.2-1.3); Total Protein 6.6 g/dL (6.3-8.2)
[2016-06-21] MEDS: POLYETHYLENE GLYCOL 3350 17 GM POWD.PACK PO SCH ×2 (08:28→20:36)
[2016-06-21] MEDS: PANTOPRAZOLE 40 MG TABLET PO SCH (08:28)
[2016-06-21 08:45] LABS: Anion Gap 10 mmol/L; Sodium 140 mmol/L (137-145)
--- NOTE | 2016-06-21 08:47 | P.PN ---
Subjective Principal diagnosis: Right knee effusion, status post right total knee arthroplasty This is a 70-year-old gentleman who is status post incision and drainage right total knee arthroplasty. Today's postoperative day #5. Overall he has had continued improvement. He's been up ambulating to the restroom. His motion is improved. Objective - Vital Signs Vital signs: Vital Signs Temp 97.1 F L 06/21/16 07:54 Pulse 66 06/21/16 07:54 Resp 20 06/21/16 07:54 BP 137/87 06/21/16 07:54 Pulse Ox 93 L 06/21/16 07:54 Intake & Output 06/20/16 06/21/16 06/21/16 18:59 06:59 18:59 Output Total 1650 1900 Balance -1650 -1900 Output: Urine 1650 1900 Other: Voiding Method Urinal # Voids 4 - Exam He does not appear in acute distress. He is alert and oriented 3. Dressing is clean dry and intact. Moderate swelling. Motion is full extension to approximately 70 of flexion Incision appears fine with no erythema or active drainage. [place] are intact. Calf is soft and nontender. He has sustained dorsiflexion, plantar flexion extensor hallux longus. Sensation and circulatory status is intact. - Labs CBC & Chem 7: 06/21/16 07:50 06/20/16 07:16 Labs: Abnormal Lab Results - Last 24 Hours (Table) 06/21/16 Range/Units 07:50 RBC 3.72 L (4.30-5.90) m/uL Hgb 11.4 L (13.0-17.5) gm/dL Hct 36.0 L (39.0-53.0) % Microbiology - Last 24 Hours (Table) 06/16/16 13:35 Anaerobic Culture - Final Knee - Right 06/16/16 13:35 Anaerobic Culture - Final Knee - Right 06/16/16 13:35 Gram Stain - Final Knee - Right Wound Culture - Final Staphylococcus aureus Assessment and Plan (1) Effusion, right knee Status: Acute (2) Status post total right knee replacement Status: Acute (3) Septic arthritis of knee, right Status: Acute Plan: Continue with supportive care. Antibiotics as directed by infectious disease. Anticipate discharge to home today once PICC line is placed antibiotics have been arranged. The patient will follow-up in 2 weeks Tuesday of his surgery. He is to call our office or present sooner if he has any concerns or questions. Patient agrees with the plan and care.
[2016-06-21] MEDS: CHOLECALCIFEROL 1,000 UNIT TAB PO SCH (12:48)
--- NOTE | 2016-06-21 14:42 | PN ---
DATE OF SERVICE: 06/21/2016 Reason for followup is right knee septic arthritis, MSSA. INTERVAL HISTORY: The patient is afebrile. He is currently breathing comfortably. Denies significant chest pain or shortness of breath or cough. No abdominal pain or any pain in his right hand and any worsening pain in the right area. On examination, blood pressure 137/87, pulse of 76, temperature 97.1. He is 93% on room air. General description is an elderly male, lying in bed in no distress. RESPIRATORY SYSTEM: Unlabored breathing. Clear to auscultation anteriorly. HEART: S1, S2. Regular rate and rhythm. ABDOMEN: Soft. No tenderness. Right knee is currently dressed. No obvious swelling or redness or any drainage. LABS: Hemoglobin is 11.4, white count 7.3 with a BUN of 16, creatinine is 1.17. DIAGNOSTIC IMPRESSION AND PLAN: Patient with methicillin susceptible Staphylococcus aureus right knee septic arthritis, status post I&D. Patient does not want to go for the two-stage procedure of surgical arthroplasty antibiotic spacer. Aware of the fact that antibiotics may fail. Patient should be continued on cefazolin 2 gm q.8. Will recommend a CBC, BMP and sed rate. The patient said that it was elevated at 103 on admission, which was managed for the patient was antibiotics. Patient should be able to go home from ID standpoint.
--- NOTE | 2016-06-21 15:05 | P.PN ---
Subjective 70-year-old woman being seen on rounds this morning. Patient is scheduled for PICC line this afternoon for outpatient antibiotics. Infectious disease recommends 6 week duration. Patients being treated for right knee effusion status post right total knee arthroplasty. Patient is postop day 5 from an incision and drainage of the right total knee arthroplasty blood the wound culture did show MSSA rn case manager is pursuing the discharge plan and the insurance coverage in regards to the outpatient antibiotics that we anticipate will be needed Objective - Vital Signs Vital signs: Vital Signs Temp 97.1 F L 06/21/16 07:54 Pulse 66 06/21/16 07:54 Resp 20 06/21/16 07:54 BP 137/87 06/21/16 07:54 Pulse Ox 93 L 06/21/16 07:54 Intake & Output 06/20/16 06/21/16 06/21/16 18:59 06:59 18:59 Intake Total 240 Output Total 1650 1900 Balance -1650 -1900 240 Intake: Oral 240 Output: Urine 1650 1900 Other: Voiding Method Urinal # Voids 4 - Exam Physical exam 70-year-old resting appears in no acute distress states there is less pain in the right knee this morning additionally the left forearm cellulitis is significantly improved almost resolved Lungs essentially clear no shortness breath Heart S1-S2 audible regular Abdomen soft nontender to superficial wound noted to the abdominal wall there is no redness. No drainage. Extremities continues to report having right knee pain there is an Chintan wrap to the right knee - Labs CBC & Chem 7: 06/21/16 07:50 06/21/16 07:47 Labs: Abnormal Lab Results - Last 24 Hours (Table) 06/21/16 06/21/16 Range/Units 07:47 07:50 RBC 3.72 L (4.30-5.90) m/uL Hgb 11.4 L (13.0-17.5) gm/dL Hct 36.0 L (39.0-53.0) % Glucose 120 H (74-99) mg/dL Albumin 3.0 L (3.5-5.0) g/dL Microbiology - Last 24 Hours (Table) 06/16/16 13:35 Anaerobic Culture - Final Knee - Right 06/16/16 13:35 Anaerobic Culture - Final Knee - Right 06/16/16 13:35 Gram Stain - Final Knee - Right Wound Culture - Final Staphylococcus aureus Assessment and Plan Plan: Impression Status post irrigation debridement of the right total knee for possible infection involving the right total knee done on June 16 suspect septic arthritis History of a right total knee arthroplasty done 2 years prior Present on admission right knee pain suspect due to a moderate to large underlying right knee joint effusion Present on admission acute abdominal wall redness likely due to folliculitis with no evidence of left olecranon bursitis likely gram positives skin jaja Present on admission superficial ulcer to the left elbow no evidence of cellulitis Wound culture right knee positive MSSA right knee septic arthritis Plan Continue postop care per orthopedic service Follow up on cultures Surgical recommendations noted continue with warm compresses to the left elbow 3 -4 times a day for 10-15 minutes continue supportive care Pain management antibiotics per infectious disease Resume home meds as appropriate DVT and GI prophylaxis operations manager/coordinator is pursuing the discharge plan patient will need 6 weeks of antibiotics scheduled for PICC line today 2 g IV every 8 recommended The above dictated assessment and findings were discussed with Dr. Schumacher. Impression and the plan of care have been dictated as directed. Lacy Hitchcock nurse practitioner acting as a scribe for Dr. Schumacher
[2016-06-21] MEDS: SODIUM CHLORIDE 0.9% 1,000 ML IV SCH (16:49)
[2016-06-21] MEDS: ASPIRIN 81 MG CHEW PO SCH (20:35)
[2016-06-21] MEDS: MECLIZINE 25 MG TAB PO SCH (20:36)
[2016-06-21] MEDS: ATORVASTATIN 10 MG TAB PO SCH (20:36)
[2016-06-21] MEDS: DOCUSATE 100 MG CAP PO SCH (20:36)
[2016-06-21] MEDS: LOSARTAN 25 MG TAB PO SCH (20:36)
[2016-06-22] MEDS: ceFAZolin 2 GM in SODIUM CHLORIDE 0.9% 100 ML IVPB SCH ×2 (00:08→08:09)
[2016-06-22] MEDS: HYDROcodone/APAP 5-325MG 1 EACH TAB PO PRN (03:47)
[2016-06-22 07:39] VITALS: RESP 20
[2016-06-22] MEDS: MAGNESIUM OXIDE 250 MG TAB PO SCH (08:07)
[2016-06-22] MEDS: ISOSORBIDE MONONITRATE ER 30 MG TAB.ER.24H PO SCH (08:08)
[2016-06-22] MEDS: FERROUS SULFATE 325 MG TAB PO SCH (08:08)
[2016-06-22] MEDS: CHOLECALCIFEROL 1,000 UNIT TAB PO SCH (08:08)
[2016-06-22] MEDS: CARVEDILOL 6.25 MG TAB PO SCH (08:09)
[2016-06-22] MEDS: MELOXICAM 7.5 MG TAB PO SCH (08:09)
[2016-06-22] MEDS: PANTOPRAZOLE 40 MG TABLET PO SCH (08:09)
[2016-06-22] MEDS: ALLOPURINOL 100 MG TAB PO SCH (08:09)
[2016-06-22] MEDS: HYDROcodone/APAP 10-325MG 1 EACH TAB PO SCH (08:10)
[2016-06-22] MEDS: POLYETHYLENE GLYCOL 3350 17 GM POWD.PACK PO SCH (08:13)
[2016-06-22 10:26] LABS: Anion Gap 10 mmol/L; Blood Urea Nitrogen 20 mg/dL (9-20); Calcium 9.2 mg/dL (8.4-10.2); Carbon Dioxide 32 mmol/L (22-30); Chloride 99 mmol/L (98-107); Glucose 140 mg/dL (74-99); Non-African American GFR(MDRD) 56 (>60 ml/min/1.73 sqM); Potassium 4.5 mmol/L (3.5-5.1); Sodium 141 mmol/L (137-145)
[2016-06-22] MEDS ORDERED: LIDOCAINE 2% INJ 20 MG/ML SQ ONE (10:43)
--- NOTE | 2016-06-22 13:06 | IR ---
EXAMINATION TYPE: IR cvc insert >=5 years DATE OF EXAM: 06/22/2016 11:03 AM COMPARISON: NONE CLINICAL HISTORY: Infection Needs long-term intravenous access for antibiotics. PROCEDURE: After informed consent, the skin overlying the left basilic vein was localized with ultrasound and no james to be compressible and patent. An ultrasound image was obtained and submitted on the patient's c del rosario. The overlying skin was prepped and draped and Lidocaine was used for local anesthesia. A skin patrice was made with a scalpel. Access was gained to the vein under ultrasound guidance with a 21 gau ge needle and a 0.018 inch wire was advanced. Access site was dilated with Peel-Away sheath and cath eter tailored to the appropriate length and advanced such that the distal tip is at the cavoatrial ju nction. Spot image was obtained verifying placement. Catheter was fixed to the skin with suture and a sterile dressing was placed following hemostasis. Catheter was aspirated and flushed with saline. Patient was discharged in stable condition without complication. Maximal barrier technique is utili zed. Ultrasound image is documented on the chart. Ultrasound used with sterile technique. Fluoro time and fluoroscopic images submitted to document procedure: Single intraoperative C-arm imag e, 0.2 minutes fluoroscopy time IMPRESSION: STATUS POST ULTRASOUND AND FLUOROSCOPIC GUIDED PICC LINE PLACEMENT, READY FOR USE. THIS PROCEDURE WAS PERFORMED BY THE UNDERSIGNED.
--- NOTE | 2016-06-22 14:14 | PN ---
DATE OF SERVICE: 06/22/2016 Reason for follow-up is right knee septic arthritis and MSSA. INTERVAL HISTORY: The patient is afebrile. His discharge was put on hold yesterday. The patient could not get his PICC line. The patient denies having any chest pain or shortness of breath or cough. No abdominal pain or any worsening pain in the right knee area. On examination, blood pressure 156/76 with a pulse of 81, temperature 97.4. He is 90% on room air. General description is an elderly male, lying in bed in no distress. RESPIRATORY SYSTEM: Unlabored breathing. Clear to auscultation. HEART: S1, S2. Regular rate and rhythm. ABDOMEN: Soft. No tenderness. Right knee is currently dressed. No obvious drainage on the dressing. LABS: Hemoglobin 11.4, white count 7.3. BUN of 20, creatinine 1.27. Blood culture negative. DIAGNOSTIC IMPRESSION AND PLAN: Patient with right knee septic arthritis with underlying septic prosthetic knee. Patient did not go for surgery for antibiotic spacer and wants to try antibiotics first. Though he knows antibiotics may fail. He will be continued on cefazolin 2 grams q.8 for total of 6 weeks with weekly monitoring of CBC and BMP and sedimentation rate. Once antibiotics arranged, he will go home from ID stand point with follow up in the office in about two weeks. WILFRID
[2016-06-22 15:01] VITALS: BP 137/70; PULSE 82; TEMP 97.8
[2016-06-22] MEDS: SODIUM CHLORIDE 0.9% 1,000 ML IV SCH (15:42)
--- NOTE | 2016-06-23 10:22 | DS ---
DATE OF ADMISSION: 06/15/2016 DATE OF DISCHARGE: 06/22/2016 Discharge medications will include: 1. IV cephazolin for 6 weeks through the PICC line 2 gm q.8h. 2. Continue his home medications Cozaar 25 a day. 3. Imdur 30 daily. 4. Cana 10/325 t.i.d. 5. Ferrous sulfate 325 daily. 6. Mobic 7.5 daily. 7. Antivert 25 q.h.s. 8. Nitro sublingual p.r.n. 9. Prilosec 20 daily. 10. Polyethylene glycol 17 gm b.i.d. 11. Zyloprim 100 mg daily. 12. Ecotrin 81 mg daily. 13. Lipitor 5 mg daily. 14. Coreg 6.25 b.i.d. 15. Vitamin D3 two thousand units daily. 16. Clindamycin 300 mg t.i.d. CONDITION: Stable. PROGNOSIS: Guarded. Ambulate as tolerated. HOSPITAL COURSE OF EVENTS: This is a 70-year-old white male who was admitted with cellulitis of the lower abdomen, left elbow and right knee. Was found to have osteomyelitis in the right knee and IV vancomycin switched to cefazolin for 6 weeks IV antibiotics will be given as an outpatient. His home medications for heart disease, hypertension. Obesity counseling was given while he was here in the hospital also. He will follow up after 6 weeks of IV antibiotics. He has acute chronic anemia, chronic thrombocytopenia. He is status post irrigation department of the right knee for infection, status post right total knee arthroscopy 2 years before, abdominal cellulitis, olecranon bursitis with cellulitis and multiple other chronic medications for chronic medical conditions.
--- NOTE | 2016-06-25 08:53 | CDI ---
In responding to this query, please exercise your independent professional judgment. The [facility] Coding Staff and Clinical Documentation Specialists appreciate your assistance in clarifying documentation, maintaining compliance with coding guidelines, accurately documenting patients condition and capturing severity of illness. The fact that a question is asked does not imply that any particular answer is desired or expected. Communication forms are a method of clarifying documentation and are not made part of the Legal Health Record. Thank you in advance for your clarification. Last Revision, March 2015 Kayacarrie Esteban [address] [facility] [place] [address] Documentation Clarification Form Date: 06/25/2016 8:43:00 AM From: Batsheva Laird Phone: Admit Date: 06/15/2016 1:11:00 PM Patient Name: Keyon Coker Visit Number: [id number] Discharge Date: Dr. Manan Stevens Per your operative note, a debridement was performed on the right totoal knee. History/Risk Factors: History of right total knee replacement. Septic arthritis of the right knee with MSSA cultured. Cellulitis of the left elbow and abdominal wall. Clinical Indicators: Right knee pain, swelling and unable to walk on it. Treatment: IV vancomycin then IV Cefazolin. Five elements required for accurate and compliant documentation of a debridement : 1. Technique used (e.g., excisional, excised, cutting, etc.) 2. Instrument(s) used (e.g., scalpel, curette, etc.) 3. Nature of the tissue removed (e.g., necrotic, devitalized tissues, non- viable tissue, etc.) 4. Appearance and size of the wound (e.g., down to fresh bleeding tissue, 7cm x 10cm, etc.) 5. Depth of the debridement* (e.g., skin, subcutaneous tissue, fascia, muscle , bone, etc.) In order to capture the severity of condition and code the appropriate procedure could you please document the following: Excisional debridement (the removal of necrotic, devitalized tissue or slough by means of cutting away of tissue) Non-excisional debridement (the removal of necrotic, devitalized tissue or slough by means of flushing, brushing, or washing. (Irrigation) Other; with explanation for clinical findings Unable to determine (no explanation for clinical findings) Please document in your progress notes and discharge summary in order to capture severity of illness and risk of mortality. Include clinical findings that support your diagnosis. FYI: Press F11 to launch patient chart. ___X__ Place X here if this finding has no clinical significance, is not applicable or if you are not able to provide any additional documentation. WILFRID
== END 2016-06-22 15:56 | disposition home health service (06) | DRG 486 ==
LOC: EC 10:02 → 4MS4W 13:11
PROVIDERS: ADMIT Family Medicine; ATTEND Family Medicine
PROC: 0S9C0ZZ Drainage of Right Knee Joint, Open Approach (ICD-10-PCS; principal; 2016-06-16 07:30)
PROC: 02HV33Z Insertion of Infusion Device into Superior Vena Cava, Percutaneous Approach (ICD-10-PCS; 2016-06-22 10:30)
DX: T84.53XA Infection and inflammatory reaction due to internal right knee prosthesis, initial encounter (principal); L02.211 Cutaneous abscess of abdominal wall; M86.9 Osteomyelitis, unspecified; L02.414 Cutaneous abscess of left upper limb; L03.114 Cellulitis of left upper limb; L03.311 Cellulitis of abdominal wall; I10 Essential (primary) hypertension; E66.01 Morbid (severe) obesity due to excess calories; J44.9 Chronic obstructive pulmonary disease, unspecified; B95.61 Methicillin susceptible Staphylococcus aureus infection as the cause of diseases classified elsewhere; E78.5 Hyperlipidemia, unspecified; G47.30 Sleep apnea, unspecified; I25.10 Atherosclerotic heart disease of native coronary artery without angina pectoris; I25.2 Old myocardial infarction; K21.9 Gastro-esophageal reflux disease without esophagitis; M19.90 Unspecified osteoarthritis, unspecified site; M10.9 Gout, unspecified; Z68.42 Body mass index [BMI] 45.0-49.9, adult; Z79.82 Long term (current) use of aspirin; Z79.899 Other long term (current) drug therapy; Z88.2 Allergy status to sulfonamides; Z87.891 Personal history of nicotine dependence; Z95.5 Presence of coronary angioplasty implant and graft; Z96.653 Presence of artificial knee joint, bilateral; Y83.1 Surgical operation with implant of artificial internal device as the cause of abnormal reaction of the patient, or of later complication, without mention of misadventure at the time of the procedure
CPT/HCPCS: 36415; 36569; 71020; 76937; 77001; 80048; 80053; 80202; 83880; 85025; 85610; 85652; 85730; 86140; 87040; 87070; 87075; 87077; 87186; 87205; 89050; 89060; 96361; 96374; 99285

== ENCOUNTER 2016-08-06 13:48 | Emergency (ER) | payer MEDICARE, BC ==
[2016-08-06 14:44] VITALS: TEMP 97.9
--- NOTE | 2016-08-06 15:13 | ED ---
General Adult HPI - General Chief complaint: Recheck/Abnormal Lab/Rx Stated complaint: plugged pic line Time Seen by Provider: 08/06/16 14:46 Source: patient, RN notes reviewed Mode of arrival: ambulatory - History of Present Illness Initial comments: This is a 70-year-old male presents with a clogged PICC line. Patient states he went to put his medication through the PICC line but was unable to do this. Patient states a nurse inspected the dressing and tried to flush it but it is still blocked. Patient denies any pain, fever/chills. Patient is not on any anticoagulants. Patient denies any recent shortness breath, chest pain, abdominal pain, nausea/vomiting/diarrhea, back pain, numbness, tingling, hematuria, headache, or visual changes, or any other complaints. - Related Data Home Medications Medication Instructions Recorded Confirmed Allopurinol [Zyloprim] 100 mg PO DAILY 07/02/14 08/06/16 Aspirin EC [Ecotrin Low Dose] 81 mg PO HS 07/02/14 08/06/16 Atorvastatin [Lipitor] 5 mg PO HS 07/02/14 08/06/16 Cholecalciferol [Vitamin D3] 2,000 unit PO DAILY 07/02/14 08/06/16 Docusate 250 Mg 250 mg PO HS 07/02/14 08/06/16 Isosorbide Mononitrate ER [Imdur] 30 mg PO DAILY 07/02/14 08/06/16 Meclizine [Antivert] 25 mg PO HS 07/02/14 08/06/16 Meloxicam [Mobic] 7.5 mg PO DAILY 07/02/14 08/06/16 Nitroglycerin Sl Tabs [Nitrostat] 1 tab SUBLINGUAL Q5M PRN 07/02/14 08/06/16 Omeprazole [PriLOSEC] 20 mg PO QAM 07/02/14 08/06/16 Polyethylene Glycol 3350 [Miralax] 17 gm PO BID 07/02/14 08/06/16 Carvedilol [Coreg] 6.25 mg PO BID 06/15/16 08/06/16 Ferrous Sulfate [Feosol] 325 mg PO DAILY 06/15/16 08/06/16 HYDROcodone/APAP 10-325MG [[place] 1 tab PO TID 06/15/16 08/06/16 10-325] Losartan [Cozaar] 25 mg PO HS 06/15/16 08/06/16 Magnesium Oxide [Mag-Ox] 750 mg PO DAILY 06/15/16 08/06/16 Previous Rx's Medication Instructions Recorded ceFAZolin [Kefzol] 2,000 mg IVPB Q8HR #126 bag 06/20/16 Cephalexin [Keflex] 500 mg PO QID 7 Days 08/06/16 Allergies Allergy/AdvReac Type Severity Reaction Status Date / Time Sulfa (Sulfonamide Allergy Unknown HIVES, Verified 08/06/16 14:57 Antibiotics) ITCHING Review of Systems ROS Statement: Those systems with pertinent positive or pertinent negative responses have been documented in the HPI. ROS Other: All systems not noted in ROS Statement are negative. Past Medical History Past Medical History: Coronary Artery Disease (CAD), COPD, CVA/TIA, GERD/Reflux , Hyperlipidemia, Hypertension, Myocardial Infarction (AL), Musculoskeletal Disorder, Renal Disease, Sleep Apnea/CPAP/BIPAP Additional Past Medical History / Comment(s): TIA X2 (1999 & 2002), VERTIGO, C- PAP MACHINE, SCIATICA & BACK PAIN with past EPIDURAL INJECTIONS, pt states he takes zyloprim due to elevated blood test-does not have gout yet, kidney disease , past nephritis, lupus (in remission), tingling in R foot, post op infection after R rotator cuff repair requiring irrigations and packings/ABX. Last Myocardial Infarction Date:: 04/2006 History of Any Multi-Drug Resistant Organisms: None Reported Date of last positivie culture/infection: None MDRO Source:: None Past Surgical History: Heart Catheterization With Stent, Orthopedic Surgery Additional Past Surgical History / Comment(s): RT ROTATOR CUFF-titanium used, LEFT KNEE ARTHROSCOPY, TOTAL LEFT/right KNEE, colonoscopy. Past Anesthesia/Blood Transfusion Reactions: No Reported Reaction Date of Last Stent Placement:: 04/2006 Past Psychological History: No Psychological Hx Reported Additional Psychological History / Comment(s): Pt resides with a friend and his friends adult daughter. Pt uses a cane but lately d/t R knee pain he has been using a wheelchair. Pt normally can drive. Smoking Status: Former smoker Past Alcohol Use History: None Reported Additional Past Alcohol Use History / Comment(s): Pt states he was a 3 ppd smoker. He started smoking in 10 and quit in 1999. He states he was a heavy drinker but quit drinking in 1999. Past Drug Use History: None Reported - Past Family History Mother Family Medical History: Cancer Additional Family Medical History / Comment(s): BREAST CA Father Family Medical History: Cancer Additional Family Medical History / Comment(s): ESOPHAGEAL CA General Exam - General Exam Comments Initial Comments: General: The patient is awake and alert, in no distress, and does not appear acutely ill. Neck: The neck is supple, there is no tenderness or JVD. Cardiovascular: There is a regular rate and rhythm. No murmur, rub or gallop is appreciated. Respiratory: Lungs are clear to auscultation, respirations are non-labored, breath sounds are equal. No wheezes, stridor, rales, or rhonchi. Musculoskeletal: Normal ROM, no tenderness. Strength 5/5. Sensation intact. Radial pulses equal bilaterally 2+. Capillary refill is normal at less than 2 seconds. Neurological: A&O x 3. CN II-XII intact, There are no obvious motor or sensory deficits. Coordination appears grossly intact. Speech is normal. Skin: There is a PICC line placed in the left upper extremity. No surrounding erythema, swelling, ecchymosis or tenderness. Skin is warm and dry and no rashes or lesions are noted. Psychiatric: Cooperative, appropriate mood & affect, normal judgment. Course Vital Signs 08/06/16 08/06/16 14:40 19:58 Temperature 97.9 F Pulse Rate 72 73 Respiratory 18 16 Rate Blood Pressure 120/70 170/77 O2 Sat by Pulse 94 L 94 L Oximetry Medical Decision Making - Medical Decision Making This is a 70-year-old male who presents with a clogged PICC line. On physical exam patient is well appearing and afebrile. There is a PICC line placed in the left upper extremity. No surrounding erythema, swelling, ecchymosis or tenderness. Patient's line was flushed by the nurse in the EC today but this was unsuccessful. Cathflo was ordered and administered. The first attempt at flush 30 minutes after Cathflo was unsuccessful. Another attempt was done an hour and a half later and the PICC line is still blocked. At this point I discussed this case with attending physician Dr. Shah. I discussed that the patient only needs his PICC line for 6 more days. Patient is on cefazolin for history of septic arthritis of the right knee. Patient states he's already been on 6 weeks of cefazolin and vanco and Dr. Resendiz extended the cefazolin dose for another 2 weeks as an outpatient. At this time Dr. Resendiz was contacted regarding admission versus oral antibiotics. Dr. Shah spoke with Dr. Resendiz who stated that the patient can be started on oral Keflex 4 times daily as an outpatient and follow-up in his office on Tuesday. Dr. Resendiz requests an ultrasound of the left upper extremity to rule out blood clot. At this time ultrasound of the left upper extremity was done and reviewed showing:Negative for deep venous thrombosis, left upper extremity venous Doppler ultrasound examination. Reported by Dr. Sharma. I discussed that the patient will be given a prescription for Keflex 4 times daily. Patient was given a dose of Keflex before discharge. I discussed with the patient that he needs to follow-up with Dr. Resendiz on Tuesday. I discussed return parameters. Discussed that patient should follow up with PCP in one to 2 days or return to the [facility] for any worsening symptoms or for any further concerns. Patient was receptive to this plan and patient will be discharged home. I discussed this case with attending physician Dr. Shah who agrees the plan as stated above. Disposition Clinical Impression: Occluded PICC line Disposition: HOME SELF-CARE Condition: Good Instructions: Peripherally Inserted Central Catheters and Midline Catheters (ED ) Additional Instructions: Please take Keflex 4 times daily for the next week. Please follow-up with Dr. Resendiz on Tuesday. Please use medication as discussed. Please follow-up with family doctor in the next 2 days of symptoms have not improved. Please return to emergency room if the symptoms increase or worsen or for any other concerns. Prescriptions: Cephalexin [Keflex] 500 mg PO QID 7 Days Referrals: Keyon Elise MD [Primary Care Provider] - 1-2 days Parminder Resendiz MD [STAFF PHYSICIAN] - 1-2 days Time of Disposition: 19:44
[2016-08-06] MEDS ORDERED: ALTEPLASE 2 MG VIAL (CATHFLO) IV STA (15:18)
--- NOTE | 2016-08-06 19:33 | US ---
EXAMINATION TYPE: US venous doppler duplex UE LT DATE OF EXAM: 08/06/2016 6:48 PM COMPARISON: NONE CLINICAL HISTORY: Pain. Pt states unable to flush PICC line SIDE PERFORMED: LEFT FINDINGS: Left upper extremity venous Doppler ultrasound imaging was obtained from the forearm contig uously to the supraclavicular fossa. PICC line was noted during the examination. There were no fillin g defects within the deep venous structures of the left upper extremity. There were no indirect findi ngs to suggest venous filling defects. IMPRESSION: NEGATIVE FOR DEEP VENOUS THROMBOSIS, LEFT UPPER EXTREMITY VENOUS DOPPLER ULTRASOUND EXAMINATION.
[2016-08-06] MEDS ORDERED: CEPHALEXIN 500 MG CAP PO STA (19:53)
[2016-08-06] MEDS ORDERED: CEPHALEXIN 500MG STARTER PACK 4 CAP BTL PO STA (19:56)
[2016-08-06 20:00] VITALS: BP 170/77; PULSE 73; RESP 16
== END 2016-08-06 19:58 | disposition home or self-care (01) ==
LOC: EC 13:48
DX: T82.594A Other mechanical complication of infusion catheter, initial encounter (principal); I25.10 Atherosclerotic heart disease of native coronary artery without angina pectoris; E78.5 Hyperlipidemia, unspecified; I10 Essential (primary) hypertension; K21.9 Gastro-esophageal reflux disease without esophagitis; I25.2 Old myocardial infarction; Z86.73 Personal history of transient ischemic attack (TIA), and cerebral infarction without residual deficits; Z95.5 Presence of coronary angioplasty implant and graft; Z87.891 Personal history of nicotine dependence; Z88.2 Allergy status to sulfonamides; Z79.1 Long term (current) use of non-steroidal anti-inflammatories (NSAID); Z79.82 Long term (current) use of aspirin; Z79.899 Other long term (current) drug therapy; Y84.8 Other medical procedures as the cause of abnormal reaction of the patient, or of later complication, without mention of misadventure at the time of the procedure
CPT/HCPCS: 99283; 36593; 93971; J2997

== ENCOUNTER → 2016-09-24 | Outpatient (CLI) | payer MEDICARE, BC ==
[2016-09-24 18:10] LABS: RBC, Body Fluid 4800 /uL
== END | disposition home or self-care (01) ==
LOC: LABWHC1 16:36
PROVIDERS: ATTEND Physician Assistant
DX: M25.461 Effusion, right knee (principal); Z48.89 Encounter for other specified surgical aftercare; Z96.651 Presence of right artificial knee joint
CPT/HCPCS: 36415; 85652; 86140; 87070; 87075; 87077; 87186; 87205; 89050; 89060

== ENCOUNTER → 2017-01-24 | Outpatient (CLI) | payer MEDICARE, BC ==
[2017-01-24 11:46] LABS: Appearance,Urine Clear (Clear); Bacteria,Urine Rare /hpf; Bilirubin,Urine Negative (Negative); Glucose,Urine (UA) Negative (Negative); Ketones,Urine Negative (Negative); Leukocyte Esterase,Urine Negative (Negative); Mucus,Urine Rare /hpf; Nitrite,Urine Negative (Negative); Particle Count 1303; Protein,Urine Trace (Negative); RBC,Urine 90 /hpf (0-5); Specific Gravity,Urine 1.005 (1.001-1.035); UA Billing (MACRO vs. MICRO) MICRO; Urobilinogen,Urine <2.0 mg/dL (<2.0); WBC,Urine <1 /hpf (0-5)
[2017-01-24 11:51] LABS: INR 1.1 (<1.2); Partial Thromboplastin Time 34.3 sec (22.0-30.0); Prothrombin Time 10.9 sec (9.0-12.0)
[2017-01-24 11:59] LABS: ALT 27 U/L (21-72); AST 20 U/L (17-59); Alkaline Phosphatase 110 U/L (38-126); Anion Gap 10 mmol/L; Blood Urea Nitrogen 21 mg/dL (9-20); Calcium 9.5 mg/dL (8.4-10.2); Carbon Dioxide 27 mmol/L (22-30); Chloride 101 mmol/L (98-107); Glucose 106 mg/dL (74-99); Non-African American GFR(MDRD) 55 (>60 ml/min/1.73 sqM); Potassium 4.9 mmol/L (3.5-5.1); Sodium 138 mmol/L (137-145); Total Bilirubin 0.5 mg/dL (0.2-1.3)
[2017-01-24 12:04] LABS: CH 30.2; CHCM 33.2; HCT 36.9 % (39.0-53.0); HDW 2.76; HGB 12.2 gm/dL (13.0-17.5); MCH 30.1 pg (25.0-35.0); MCV 91.1 fL (80.0-100.0); Mean Platelet Volume 7.4; RBC 4.05 m/uL (4.30-5.90); RDW 14.1 % (11.5-15.5); WBC 7.9 k/uL (3.8-10.6)
== END | disposition home or self-care (01) ==
LOC: LABPAT 11:00
PROVIDERS: ATTEND Orthopaedic Surgery
DX: Z01.812 Encounter for preprocedural laboratory examination (principal)
CPT/HCPCS: 80053; 81001; 85027; 85610; 85730; 87070

== ENCOUNTER 2017-01-31 08:00 | Inpatient (IN) | payer MEDICARE, BC ==
[2017-01-25 09:13] VITALS: BMI 45.9
[~2017-01-31 08:00] MED LIST: ACETAMINOPHEN TAB 500 MG TAB PO ONE; DEXAMETHASONE SOD PHOSPHATE 10 MG/ML 1 ML VIAL IV ONE; HYDROmorphone 1 MG/ML 1 ML SYRINGE IVP PRN; LIDOCAINE 1% 20 ML VIAL (10MG/ML) FOR IV START INTRADERMA PRN; MELOXICAM 7.5 MG TAB PO ONE; MIDAZOLAM 2 MG/2 ML VIAL IV PRN; ONDANSETRON 4 MG/2 ML VIAL IVP ONE; SCOPOLAMINE 1.5MG/72HR PATCH TRANSDERM ONE; TRANEXAMIC ACID 1,000 MG in SODIUM CHLORIDE 0.9% 100 ML IVPB ONE; ceFAZolin 3 GM in SODIUM CHLORIDE 0.9% 100 ML IVPB ONE
[2017-01-31] MEDS: LACTATED RINGERS 1,000 ML IV SCH (08:26)
[2017-01-31] MEDS ORDERED: ROPIVACAINE 1,100 MG, SODIUM CHLORIDE 0.9% 330 ML MISCELLANE PRN ×2 (09:28)
--- NOTE | 2017-01-31 09:29 | P.ONQ ---
Anesthesiology Proc Note - PNB - Peripheral Nerve Block Performed Right Adductor Canal Infusion Time Out Performed: Yes Procedure Start Time: :00 Procedure Stop Time: :07 Indication: Acute Post-Operative Pain, Requested by physician Sedation Type: Sedate with meaningful contact maintained Preparation: Sterile Dressing Position: Supine Catheter: Indwelling Needle Types: On-Q Needle Size: 100mm (4") Needle Gauge: 21 Technique: Ultrasound Injectate: 0.5% Ropivacaine (see comment for volume) (ropi .5% 20cc) Blood Aspirated: No Pain Paresthesia on Injection Noted: No Resistance on Injection: Normal Events: Uneventful and Well Tolerated
[2017-01-31] MEDS ORDERED: ROPIVACAINE 5 MG/ML 30 ML VIAL ONE (09:54)
[2017-01-31] MEDS ORDERED: MIDAZOLAM 2 MG/2 ML VIAL ONE (09:54)
[2017-01-31] MEDS ORDERED: ePHEDrine SULFATE/0.9% NACL/PF 50 MG/5 ML SYRINGE IV ONE (09:54)
[2017-01-31] MEDS ORDERED: ATROPINE SULFATE 0.4 MG/ML 1 ML VIAL ONE (09:54)
[2017-01-31] MEDS ORDERED: TRANEXAMIC ACID 1,000 MG/10 ML VIAL ONE (09:54)
[2017-01-31] MEDS ORDERED: SODIUM CHLORIDE 0.9% 100 ML BAG ONE (09:54)
[2017-01-31] MEDS ORDERED: ceFAZolin 3,000 MG in SODIUM CHLORIDE 0.9% IRRIGATIO 3,000 ML IRRIGATION ONE (09:54)
[2017-01-31] MEDS ORDERED: GLYCOPYRROLATE 0.2 MG/ML 2 ML VIAL ONE (09:54)
[2017-01-31] MEDS ORDERED: hydrOXYzine PAMOATE 25 MG CAP PO PRN (09:55)
[2017-01-31] MEDS ORDERED: NA PHOS,M-B/NA PHOS,DI-BA 133 ML ENEMA RECTAL PRN (09:55)
[2017-01-31] MEDS ORDERED: MAGNESIUM HYDROXIDE 2,400 MG/10 ML CUP PO PRN (09:55)
[2017-01-31] MEDS ORDERED: HYDROcodone/APAP 7.5-325MG 1 EACH TAB PO PRN (09:55)
[2017-01-31] MEDS ORDERED: BISACODYL 10 MG SUPP RECTAL PRN (09:55)
[2017-01-31] MEDS ORDERED: HYDROmorphone 1 MG/ML 1 ML SYRINGE IVP PRN (09:55)
[2017-01-31] MEDS ORDERED: NALOXONE 0.4 MG/ML 1 ML VIAL IV PRN (09:55)
[2017-01-31] MEDS ORDERED: ONDANSETRON 4 MG/2 ML VIAL IVP PRN (09:55)
[2017-01-31] MEDS ORDERED: DIAZEPAM 5 MG TAB PO PRN ×2 (09:55)
[2017-01-31] MEDS: ROPIVACAINE 246.25 MG, EPINEPHrine 0.5 MG, KETOROLAC 30 MG, cloNIDine HCL/PF 80 MCG, WA... MISCELLANE ONE ×10 (10:28→11:16)
[2017-01-31] MEDS ORDERED: LACTATED RINGERS 1,000 ML IV ONE (10:35)
--- NOTE | 2017-01-31 11:35 | P.OP ---
Date of Procedure: 01/31/17 Preoperative Diagnosis: Chronic Infection right total knee arthroplasty Postoperative Diagnosis: Chronic infection right total knee arthroplasty Procedure(s) Performed: Stage I revision right total knee arthroplasty with removal of components and placement of an antibiotic spacer Implants: Remedy Femoral component Large Remedy Tibial component Large Shruthi Antibiotic cement with Tobramycin Anesthesia: spinal Surgeon: Manan Stevens Baker Doughnut #1: Sheila Chester Estimated Blood Loss (ml): 100 Pathology: other (Frozen section and cultures 2) Condition: stable Disposition: PACU Indications for Procedure: This is a 71-year-old gentleman that had a right total knee arthroplasty on 07/2014 performed by myself. Earlier this year in September, he developed swelling and effusion in his knee. He was diagnosed with septic arthritis of his right total knee and irrigation and debridement was performed. He is done well but continues to have problems and after discussing the surgical and nonsurgical treatment options with him at length I've recommended a stage I right total knee arthroplasty with placement of antibiotic spacer and informed consent was obtained. Operative Findings: The operative findings are consistent with an infection in the right total knee arthroplasty. Description of Procedure: Patient was seen in the preoperative area consent was reviewed and operative site was marked with a skin marker. An adductor canal pain catheter was placed by anesthesia in the preoperative area. Patient was then brought to the operating room and given preoperative antibiotics intravenously. A spinal anesthetic was administered by the anesthesia department. A tourniquet was placed on the upper thigh and the lower extremity was prepped and draped in usual sterile fashion. A gram of transexamic acid was given. A universal timeout was then performed which confirmed the patient's name, surgical site, ALLERGIES, and consent. The lower extremity was then exsanguinated and tourniquet was inflated to 250 mmHg. A standard and anterior midline approach to the knee was performed, with the prior scar being excised.. The skin and subcutaneous tissue was dissected down to the patellar tendon. A medial parapatellar arthrotomy was then performed. The knee was then extended, the patellar was everted, and the knee was again flexed. A moderate amount of clear fluid was encountered, and this was cultured 2. Also, a frozen section was obtained from the knee synovium. The implants didn't appear to be well fixed. Using a small oscillating saw, the implant cement interface was disrupted and the femoral component was removed without incident. The bone loss was found to be minimal. A saw was used to freshen the ends of the bone to remove any remaining cement or suspicious tissue. The femur was then measured. Attention was then directed to the tibia. The tibial component was well fixed. The polyethylene was easily removed. Next, using a small oscillating saw, the cement implant interface was disrupted the tibial component was then easily removed with a bone punch and mallet without incident. The bone loss was found to be minimal. Any remaining cement was then removed and the cut surfaces were freshened with a saw blade. The patellar component was then removed as well. Again, the bone surface was freshened with a saw blade. The knee was then copiously irrigated with pulsatile lavage with antibiotic solution. Was also irrigated with Irrisept solution. Trials were then used to measure for the antibiotic spacer. The cut surfaces of bone were then irrigated with pulsatile lavage. The posterior structures were injected with the ropivacaine solution. The knee was also irrigated with Irrisept solution. The components were then opened, the cement was mixed, and the components were then lightly cemented in place with antibiotic cement.. The cement was allowed to harden with the knee in full extension. While the cement was hardening, the remaining soft tissues were then injected with a ropivacaine solution, which consisted of 246.25 mg of ropivacaine, 0.5 mg of epinephrine, 30 mg of Toradol, 80 g of clonidine, and 48.45 mL of sterile water, for a total of 100 mL of fluid injected. After the cemented hardened. The tourniquet was released, and hemostasis was obtained. A second gram of transexamic acid was given. The knee was again irrigated. The knee was again taken through range of motion and found to be stable throughout all range of motion of 0-130, and the patella tracked normally. The fascia was then closed with #2 strata fix suture. The subcutaneous tissue was closed with 3-0 Vicryl and 3-0 strata fix. Dermabond tape was used for the skin and placed with the knee in flexion. The patient was placed in a sterile dressing. Patient was then transferred to recovery room in stable condition. The plastic surgery assistant KATHRINE Rothman was required due the complexity surgery and the need for a skilled public health assistant. She assisted in positioning, draping, retraction, and closure of the wound.
[2017-01-31] MEDS: HYDROmorphone 1 MG/ML 1 ML SYRINGE IVP PRN ×3 (14:51→21:28)
[2017-01-31] MEDS: SODIUM CHLORIDE 0.9% 1,000 ML IV SCH (17:38)
[2017-01-31] MEDS: ceFAZolin 2 GM in SODIUM CHLORIDE 0.9% 100 ML IVPB SCH ×2 (17:42→23:12)
--- NOTE | 2017-01-31 19:55 | XR ---
EXAMINATION TYPE: XR knee limited RT DATE OF EXAM: 01/31/2017 COMPARISON: 06/15/2016 HISTORY: Infected implant TECHNIQUE: 2 views FINDINGS: There is bone cement in the knee joint space. There is been removal of the metal implant co mpared to last exam. I see no definite knee joint effusion. IMPRESSION: Removal of the metal knee prosthesis. The prosthesis appears to be replaced with bone tyson ent. The knee joint is in anatomic position. I see no focal bone destruction to suggest osteomyelitis .
[2017-01-31] MEDS: ASPIRIN 325 MG TAB PO SCH (21:29)
[2017-01-31] MEDS ORDERED: POLYETHYLENE GLYCOL 3350 17 GM POWD.PACK PO PRN (22:25)
[2017-01-31] MEDS: HYDROcodone/APAP 7.5-325MG 1 EACH TAB PO PRN (22:51)
[2017-01-31] MEDS: ATORVASTATIN 10 MG TAB PO SCH (23:09)
[2017-01-31] MEDS: CARVEDILOL 6.25 MG TAB PO SCH (23:09)
[2017-01-31] MEDS: SENNOSIDES-DOCUSATE SODIUM 1 EACH TAB PO SCH (23:10)
[2017-02-01] MEDS: SODIUM CHLORIDE 0.9% 1,000 ML IV SCH ×2 (02:46→19:59)
[2017-02-01] MEDS: HYDROcodone/APAP 7.5-325MG 1 EACH TAB PO PRN ×3 (03:47→18:01)
[2017-02-01] MEDS: LACTATED RINGERS 1,000 ML IV SCH (05:18)
[2017-02-01 08:09] LABS: Basophils % (A) 0 %; CH 30.2; CHCM 32.5; Eosinophils # (A) 0.1 k/uL (0-0.7); Eosinophils % (A) 1 %; HCT 32.6 % (39.0-53.0); HDW 2.71; HGB 10.3 gm/dL (13.0-17.5); Luc # (Auto) 0.17; Luc % (Auto) 2; Lymphocytes # (A) 1.2 k/uL (1.0-4.8); Lymphocytes % (A) 12 %; MCH 29.3 pg (25.0-35.0); MCHC 31.4 g/dL (31.0-37.0); MCV 93.4 fL (80.0-100.0); Mean Platelet Volume 7.2; Monocytes # (A) 0.6 k/uL (0-1.0); Monocytes % (A) 6 %; Neutrophils # (A) 7.2 k/uL (1.3-7.7); Neutrophils % (A) 78 %; RBC 3.49 m/uL (4.30-5.90); RDW 14.1 % (11.5-15.5); WBC 9.3 k/uL (3.8-10.6); WBC (Perox) 9.47
[2017-02-01] MEDS: HYDROmorphone 1 MG/ML 1 ML SYRINGE IVP PRN (08:15)
[2017-02-01] MEDS: PANTOPRAZOLE 40 MG TABLET PO SCH (08:16)
[2017-02-01] MEDS: ALLOPURINOL 100 MG TAB PO SCH (08:17)
[2017-02-01] MEDS: CARVEDILOL 6.25 MG TAB PO SCH ×2 (08:17→20:17)
[2017-02-01] MEDS: MELOXICAM 7.5 MG TAB PO SCH (08:17)
[2017-02-01] MEDS: ASPIRIN 325 MG TAB PO SCH ×2 (08:17→20:16)
[2017-02-01] MEDS: MAGNESIUM OXIDE 400 MG TAB PO SCH (08:17)
[2017-02-01] MEDS: ISOSORBIDE MONONITRATE ER 30 MG TAB.ER.24H PO SCH (08:17)
--- NOTE | 2017-02-01 08:28 | CONS ---
CONSULTATION DATE OF CONSULTATION: 01/31/2017 REASON FOR CONSULTATION: Medical management requested by Dr. Stevens. This is a pleasant 71-year-old patient who had a right total knee arthroplasty done in July of 2014. In September of this year the patient developed a septic joint of the same. Having failed outpatient treatment, today underwent removal of the hardware and a cement spacer was placed. Pain is controlled. No nausea, vomiting. No fever. The patient is using a cane at home. Patient's daughter is at the bedside. Chronic stable medical conditions include coronary artery disease, COPD, GERD, hyperlipidemia, hypertension and sleep apnea. The patient has got a dressing on the right knee. REVIEW OF SYSTEMS: CONSTITUTIONAL: Tired. HEENT: None. RESPIRATORY: None. CARDIOVASCULAR: None. GASTROINTESTINAL: None. GENITOURINARY: None. MUSCULOSKELETAL: Aches and pains in different joints including lower back. DERMATOLOGICAL: None HEMATOLOGICAL: None. LYMPHATICS: None. PSYCHIATRY: None. NEUROLOGICAL: None. PAST HISTORY: Coronary artery disease, COPD, stroke, GERD, hyperlipidemia, hypertension, renal disease, sleep apnea, he does use CPAP machine, back pain with past epidural injections, kidney disease, lupus in remission, tingling in the right foot. PAST SURGICAL HISTORY: Cardiac cath with stent, right rotator cuff, left knee arthroscopy, bilateral total knee arthroplasty. SOCIAL HISTORY: Lives with his friend and his friend's adult daughter. Uses a cane. Patient smoked for 41 years, stopped in 1999, smoked 3 packs a day. He also quit heavy drinking back in 1999. FAMILY HISTORY: Breast cancer. HOME MEDICATIONS: 1. MiraLAX 17 g p.o. b.i.d. p.r.n. 2. Prilosec 20 mg p.o. daily. 3. Nitrostat 1 tab sublingual q.5 p.r.n. 4. Mobic 7.5 p.o. daily. 5. Antivert 25 mg p.o. q.h.s. 6. Magnesium oxide 750 mg p.o. daily. 7. Imdur ER 30 mg p.o. daily. 8. [place] 7.5 one tab p.o. t.i.d. p.r.n. 9. Vitamin D3, 2,0000 units p.o. daily. 10.Keflex 100 mg p.o. t.i.d. 11.Coreg 6.25 mg p.o. b.i.d. 12.Lipitor 5 mg p.o. q.h.s. 13.Aspirin 81 mg p.o. q.h.s. 14.Allopurinol 100 mg p.o. daily. ALLERGIES: SULFUR. EXAMINATION: Afebrile, pulse 62, respirations 16, blood pressure 130/79, pulse ox 94 on 3 L. GENERAL APPEARANCE: Well built, BMI of 46, sitting up, comfortable. EYES: Pupils equal. Conjunctivae normal. HEENT: Oral cavity normal. NECK: JVD unable to assess. Mass not palpable. Respiratory effort normal. LUNGS: Decreased breath sounds. CARDIOVASCULAR: First and second sounds. No edema. ABDOMEN: Soft, nontender. Liver and spleen not palpable/ LYMPHATICS: No lymph node palpable in neck or axilla. PSYCHIATRIC: Alert and oriented x3. Mood is normal. EXTREMITIES: Right knee in a dressing. INVESTIGATIONS: Blood work from 01/24/17 shows a white count 7.9, hemoglobin 12.2, potassium 4.8, BUN 21, creatinine 1.30. ASSESSMENT: 1. Right total knee arthroplasty, joint with infection. Now hardware was removed followed by spacer placement. 2. Morbid obesity, BMI of 46. 3. Coronary artery disease with prior history of stent. 4. Chronic obstructive pulmonary disease in an ex-smoker. 5. Gastroesophageal reflux disease. 6. Hyperlipidemia. 7. Essential hypertension. 8. 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 9. Obstructive sleep apnea, uses CPAP machine. 10.Lupus in remission. PLAN: Home medications are resumed. Accu-Cheks will be closely followed. Patient is on IV cefazolin. Patient being followed by Dr. Resendiz from Infectious Disease. Care was discussed with the patient. Questions were answered. Thank you, Dr. Stevens. MMODL / IJN: [id number] /
--- NOTE | 2017-02-01 09:47 | P.PN ---
Subjective Principal diagnosis: Status post stage I revision right total knee arthroplasty with placement of antibiotic spacer. This is a 71-year-old male who is status post stage I revision right total knee arthroplasty with placement of antibiotic spacer. This is postoperative day # 1. Patient states his pain has been under control. Patient states he has not been out of bed yet. Patient denies any fever/chills, nausea/vomiting, numbness , weakness or tingling. Objective - Vital Signs Vital signs: Vital Signs Temp 96.6 F L 02/01/17 07:00 Pulse 70 02/01/17 07:00 Resp 16 02/01/17 07:00 BP 134/63 02/01/17 07:00 Pulse Ox 92 L 02/01/17 07:00 Intake & Output 01/31/17 02/01/17 02/01/17 18:59 06:59 18:59 Intake Total 1701 1682.5 Output Total 100 500 Balance 1601 1182.5 Weight 147.418 kg Intake: IV 1701 Intake, IV Titration 782.5 Amount Sodium Chloride 0.9% 1, 682.5 000 ml @ 65 mls/hr IV . [id number] [facility] Rx#:[id number] ceFAZolin 2 gm In Sodium 100 Chloride 0.9% 100 ml @ 100 mls/hr IVPB Q8HR [facility] Rx#:[id number] Oral 900 Output: Urine 500 Straight 500 Estimated Blood Loss 100 Other: # Voids 3 - Exam Vital signs are stable. Patient is in no acute distress and is alert and oriented 3. Calf is soft and nontender. Incision is clean, dry, and intact. Neurovascular status intact. Patient has full foot and ankle motion. - Labs CBC & Chem 7: 02/01/17 07:26 Labs: Abnormal Lab Results - Last 24 Hours (Table) 02/01/17 Range/Units 07:26 RBC 3.49 L (4.30-5.90) m/uL Hgb 10.3 L (13.0-17.5) gm/dL Hct 32.6 L (39.0-53.0) % Microbiology - Last 24 Hours (Table) 01/31/17 10:31 Gram Stain - Preliminary Knee - Right Wound Culture - Preliminary 01/31/17 10:31 Gram Stain - Preliminary Knee - Right Wound Culture - Preliminary 01/31/17 10:31 Anaerobic Culture - Preliminary Knee - Right 01/31/17 10:31 Anaerobic Culture - Preliminary Knee - Right Assessment and Plan (1) History of infection of total joint prosthesis of knee Status: Acute (2) Status post total right knee replacement Status: Acute Plan: #1 Status post stage I revision right total knee arthroplasty with placement of antibiotic spacer. #2 Continue with routine postoperative care. #3 Anticoagulation with aspirin. #4 Physical therapy today #5 50% weightbearing to right lower extremity with walker #6 Infectious disease consult pending #7 Will continue to follow patient closely
--- NOTE | 2017-02-01 10:36 | P.PN ---
Progress Note - Text 02/01 650 am 71-year-old male status post total knee replacement by Dr. Dr. Stevens. has an On-Q pump for pain control. Patient is comfortable with good pain relief.
[2017-02-01 10:47] LABS: Erythrocyte Sedimentation Rate 106 mm/hr (0-15)
--- NOTE | 2017-02-01 17:03 | CONS ---
CONSULTATION DATE OF SERVICE: 02/01/2017. REASON FOR CONSULTATION: Right knee septic arthritis. HISTORY OF PRESENT ILLNESS: The patient is a 71-year-old, male, well known to my service with a previous episode of a right knee septic arthritis with MSSA. The patient was treated with conservative treatment. However the patient did have persistent swelling and pain of the right knee area and the patient has been advised two-stage procedure. The patient came for stage I procedure on 01/31/2017 and the patient has been taken to OR and is status post removal of the infected knee. At time of surgery no damage to the adjusting bone was noticed. The patient did have a antibiotic spacer placed. The patient has been started on cefazolin 2 g q.8 hours and admitted to the hospital. ID was consulted for further recommendation of antibiotic therapy. At the time of evaluation this morning the patient is afebrile. His pain is currently controlled with pain medication he is getting orally. The patient denies any chest pain or shortness of breath. No cough. No abdominal pain. No diarrhea or burning. REVIEW OF SYSTEMS: CONSTITUTIONAL: Positive for weakness. No fever. EYES: No complaint. ENT: No complaint. RESPIRATORY: No complaint. CARDIOVASCULAR: No complaint. GENITOURINARY: No complaint. GASTROINTESTINAL: No complaint. MUSCULOSKELETAL: As per HPI. INTEGUMENTARY: As per HPI. PSYCHOLOGICAL: No complaint. ENDOCRINE: No complaint. NEUROLOGICAL: No complaint. PAST MEDICAL HISTORY: Significant for a right knee septic arthritis secondary to MSSA, COPD, CVA, TIA, gastroesophageal reflux disease, coronary artery disease, hypertension, hyperlipidemia, sleep apnea, renal insufficiency. PAST SURGERY HISTORY: Heart catheterization with stent, right rotator cuff repair, left knee arthroplasty, total right knee arthroplasty, arthrocentesis, PICC line placement and subsequent removal. SOCIAL HISTORY: Used to smoke 3 packs per day. Quit back in 1999. Used to have heavy drinking. Quit in 1999. No drug use. FAMILY HISTORY: Mother history of breast cancer. Father history of esophageal cancer. ALLERGIES: SULFA. MEDICATION: Medications include the patient is currently on [place], Zyloprim, aspirin, Lipitor, Dulcolax, Coreg, Valium, Dilaudid, Vistaril, Imdur, Lactated Ringers, Narcan, Zofran, Protonix, MiraLAX, and . He received Cefazolin 2 g q.8. EXAMINATION: Blood pressure is 134/53 with a pulse of 72, temperature 96.6, he is 92% on room air. General description is an elderly male, lying in bed, in no distress. HEENT examination shows no pallor or scleral icterus. Oral mucosa is dry. NECK: Trachea central. No thyromegaly. LUNGS: Unlabored breathing. Clear to auscultation anteriorly. HEART: S1, S2. Regular rate and rhythm. ABDOMEN: Soft. No tenderness. EXTREMITIES: Right knee is currently dressed up. No obvious drainage on the dressing. No edema feet. SKIN: No rash or mass palpable. NEUROLOGIC: The patient is awake, alert, oriented x3. Mood and affect normal. LABS: 106, hemoglobin 10.3, white count 9.3. DIAGNOSTIC IMPRESSION AND PLAN: Patient with right knee septic arthritis. Previous culture positive for MSSA more likely same pathogen. The patient has been on suppressive Keflex therapy; however, in view of the fact of prosthesis it was explained to the patient may not be able to clear out this infection without removal of infected prosthesis for which the patient has been in the hospital. The patient is status post removal of the infected prosthesis and placement of antibiotic spacer. PLAN: 1. Antibiotic in the form of cefazolin 2 g q.8 hours. 2. The patient would likely need Rausch catheter for which vascular surgery will be consulted as the patient did have a problem with the PICC line on his last admission. Discussed in detail with the Orthopedics. 3. Once antibiotics are arranged and the IV accesses placed, the patient will go home from Infectious Disease standpoint with close outpatient followup. All his questions and concerns were answered. MMODL / IJN: [id number] /
[2017-02-01] MEDS: ceFAZolin 2 GM in SODIUM CHLORIDE 0.9% 100 ML IVPB SCH ×2 (18:01→23:41)
--- NOTE | 2017-02-01 18:33 | P.PN ---
Progress Note - Text DATE OF SERVICE: 02/01/2017 PRESENTING COMPLAINT: Right total knee infection HISTORY OF PRESENT ILLNESS: 71-year-old male status post right total knee in July 2014, in September developed a septic joint on the right knee, failed outpatient treatment is now status post removal of hardware with cement spacer placed. INTERVAL HISTORY: 02/01/2017: Patient lying in bed appears comfortable. Agreeable to work with physical therapy. Pain well-controlled. Tolerating his diet. Last BM prior to admission. REVIEW OF SYSTEMS: Done for constitutional ,cardiovascular, GI, pulmonary with relevant findings as above. CURRENT MEDICATIONS [place], Zyloprim, Lipitor, Dulcolax, Coreg, cefazolin Valium, Vistaril, Imdur, Protonix, MiraLAX, Senokot. PHYSICAL EXAM VITAL SIGNS: Temperature 96.6, pulse 70, respiratory rate 16, blood pressure 134/63, oxygen saturation 92% on room air GENERAL APPEARANCE: Lying in bed, not in distress. EYES: Pupils equal. Conjunctiva normal. NECK: JVD not raised. Mass not palpable. RESPIRATORY: Respiratory effort normal. Lungs clear to auscultation. CARDIOVASCULAR: First and second sounds normal. No edema. ABDOMEN: Soft. Liver and spleen not palpable. No tenderness. No mass palpable. PSYCHIATRY: Alert and oriented x3. Mood and affect normal. INVESTIGATIONS: ASSESSMENT: -Right total knee arthroplasty, joint with infection, now hardware was removed, followed by some pacer placement. Light-morbid obesity BMI 46. -Coronary artery disease with prior history of stent. -Chronic obstructive pulmonary disease in ex-smoker. -Gastroesophageal reflux disease. -Hyperlipidemia. -Essential hypertension. 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 -Obstructive sleep apnea uses CPAP machine. -Lupus, in remission. PLAN: Continue with IV cefazolin ID continues to follow, continue to work with physical therapy, plan of care discussed at the bedside with patient he is in agreement. We'll continue to follow. DIRECTOR OF ESTATE statement: Patient was seen and examined by nurse practitioner Dena Holden and all elements of the case discussed with attending Dr. Alvarez
[2017-02-01] MEDS: ATORVASTATIN 10 MG TAB PO SCH (20:16)
[2017-02-01] MEDS: SENNOSIDES-DOCUSATE SODIUM 1 EACH TAB PO SCH ×2 (20:17→20:20)
--- NOTE | 2017-02-01 21:21 | CONS ---
DATE OF CONSULTATION: 02/01/2017 This is a 71-year-old gentleman, history of COPD. Post spacer placement, right total knee. The patient had multiple catheters placed in the past for IV antibiotic. Now the patient needs port for long-term antibiotic. MEDICAL HISTORY: History of osteoarthritis. History of COPD. EXAMINATION: Patient was seen in his room. VITAL SIGNS: Stable. NECK: Supple. No bruits appreciated. CHEST: A few crackles at the lung bases. ABDOMEN: Protuberant. Femoral pulses are present. The patient had a spacer placed in the right knee joint. I will discuss with Dr. Resendiz. Patient wants either Rausch versus Port-A- Cath. We will arrange and follow with you. MMODL / IJN: [id number] / MTDD
[2017-02-02] MEDS: HYDROmorphone 1 MG/ML 1 ML SYRINGE IVP PRN ×2 (00:20→19:27)
--- NOTE | 2017-02-02 02:57 | PN ---
PROGRESS NOTE DATE OF SERVICE: 02/01/2017 ATTENDING NOTE: This patient seen and examined by me. I discussed with my nurse practitioner, Ms. Holden. The patient has been comfortable, pain is controlled. Getting antibiotics. EXAM: LUNGS: Clear. CARDIOVASCULAR: First and second sounds normal. INVESTIGATIONS: White count 9.3, hemoglobin 10.3. PLAN: The patient is on IV Ancef. Wound cultures are pending. Other medication treatment plan is to continue. MMODL / IJN: [id number] /
[2017-02-02] MEDS: HYDROcodone/APAP 7.5-325MG 1 EACH TAB PO PRN ×3 (05:25→17:11)
[2017-02-02 07:12] LABS: Basophils % (A) 1 %; CHCM 32.5; Eosinophils # (A) 0.3 k/uL (0-0.7); Eosinophils % (A) 3 %; HCT 31.6 % (39.0-53.0); HDW 2.71; HGB 9.9 gm/dL (13.0-17.5); Luc # (Auto) 0.18; Luc % (Auto) 2; Lymphocytes % (A) 12 %; MCH 29.1 pg (25.0-35.0); MCHC 31.3 g/dL (31.0-37.0); MCV 92.9 fL (80.0-100.0); Mean Platelet Volume 7.7; Monocytes # (A) 0.6 k/uL (0-1.0); Monocytes % (A) 7 %; Neutrophils # (A) 6.3 k/uL (1.3-7.7); Neutrophils % (A) 75 %; RDW 14.3 % (11.5-15.5); WBC 8.4 k/uL (3.8-10.6); WBC (Perox) 8.32
[2017-02-02 07:24] LABS: Anion Gap 8 mmol/L; Blood Urea Nitrogen 23 mg/dL (9-20); Calcium 8.7 mg/dL (8.4-10.2); Carbon Dioxide 28 mmol/L (22-30); Chloride 102 mmol/L (98-107); Glucose 96 mg/dL (74-99); Non-African American GFR(MDRD) 54 (>60 ml/min/1.73 sqM); Potassium 4.6 mmol/L (3.5-5.1); Sodium 138 mmol/L (137-145)
[2017-02-02] MEDS: ceFAZolin 2 GM in SODIUM CHLORIDE 0.9% 100 ML IVPB SCH ×3 (08:00→22:58)
[2017-02-02] MEDS: SODIUM CHLORIDE 0.9% 1,000 ML IV SCH ×2 (08:00→17:11)
[2017-02-02] MEDS: MELOXICAM 7.5 MG TAB PO SCH (08:56)
[2017-02-02] MEDS: ISOSORBIDE MONONITRATE ER 30 MG TAB.ER.24H PO SCH (08:56)
[2017-02-02] MEDS: ASPIRIN 325 MG TAB PO SCH ×2 (08:58→20:37)
[2017-02-02] MEDS: ALLOPURINOL 100 MG TAB PO SCH (08:59)
[2017-02-02] MEDS: MAGNESIUM OXIDE 400 MG TAB PO SCH (08:59)
[2017-02-02] MEDS: CARVEDILOL 6.25 MG TAB PO SCH ×2 (09:00→20:37)
[2017-02-02] MEDS: PANTOPRAZOLE 40 MG TABLET PO SCH (09:01)
--- NOTE | 2017-02-02 09:16 | P.PN ---
Subjective Principal diagnosis: Status post stage I revision right total knee arthroplasty with placement of antibiotic spacer. This is a 71-year-old male who is status post stage I revision right total knee arthroplasty with placement of antibiotic spacer. This is postoperative day # 2. Patient states his pain has been under control. Patient states he has been up and walking with physical therapy. Patient denies any fever/chills, nausea/ vomiting, numbness, weakness or tingling. Objective - Vital Signs Vital signs: Vital Signs Temp 97.0 F L 02/02/17 07:14 Pulse 72 02/02/17 07:14 Resp 20 02/02/17 07:49 BP 148/78 02/02/17 07:14 Pulse Ox 91 L 02/02/17 07:14 Intake & Output 02/01/17 02/02/17 02/02/17 18:59 06:59 18:59 Intake Total 600 727.5 Output Total 200 Balance 400 727.5 Weight 147.418 kg Intake: Intake, IV Titration 227.5 Amount Sodium Chloride 0.9% 1, 227.5 000 ml @ 65 mls/hr IV . [id number] [facility] Rx#:[id number] Oral 600 500 Output: Urine 200 Other: Voiding Method Urinal # Voids 4 1 - Exam Vital signs are stable. Patient is in no acute distress and is alert and oriented 3. Calf is soft and nontender. Incision is clean, dry, and intact. Neurovascular status intact. Patient has full foot and ankle motion. - Labs CBC & Chem 7: 02/02/17 06:36 02/02/17 06:36 Labs: Abnormal Lab Results - Last 24 Hours (Table) 02/01/17 02/02/17 02/02/17 Range/Units 07:26 06:36 06:36 RBC 3.40 L (4.30-5.90) m/uL Hgb 9.9 L (13.0-17.5) gm/dL Hct 31.6 L (39.0-53.0) % ESR 106 H (0-15) mm/hr BUN 23 H (9-20) mg/dL Creatinine 1.31 H (0.66-1.25) mg/dL Microbiology - Last 24 Hours (Table) 01/31/17 10:31 Gram Stain - Preliminary Knee - Right Wound Culture - Preliminary 01/31/17 10:31 Gram Stain - Preliminary Knee - Right Wound Culture - Preliminary Assessment and Plan (1) History of infection of total joint prosthesis of knee Status: Acute (2) Status post total right knee replacement Status: Acute Plan: #1 Status post stage I revision right total knee arthroplasty with placement of antibiotic spacer. #2 Continue with routine postoperative care. #3 Anticoagulation with aspirin. #4 Physical therapy #5 50% weightbearing to right lower extremity with walker #6 Awaiting the infectious disease and vascular surgery input for home IV antibiotics.
[2017-02-02] MEDS: LACTATED RINGERS 1,000 ML IV SCH (09:59)
--- NOTE | 2017-02-02 15:07 | XR ---
EXAMINATION TYPE: XR chest 1V portable DATE OF EXAM: 02/02/2017 COMPARISON: 06/15/2016 HISTORY: ECF placement TECHNIQUE: Single frontal view of the chest is obtained. FINDINGS: Left basilar infiltrate noted. There is prominence of the right hilum. Arthropathy of the shoulders noted. Calcifications along the right paratracheal and may be related to lymph nodes or gra nuloma. No pneumothorax. IMPRESSION: 1. Left basilar infiltrate 2. Prominence of the right hilum could be assessed with CT of the chest.
[2017-02-02] MEDS ORDERED: LIDOCAINE 2% INJ 20 MG/ML SQ ONE (15:47)
[2017-02-02] MEDS: fentaNYL (PF) 50 MCG/ML 2 ML AMP IV ONE ×2 (15:51→16:23)
[2017-02-02] MEDS ORDERED: IOHEXOL 350 MG/ML 50ML BOTTLE INJ ONE (16:04)
[2017-02-02] MEDS ORDERED: IOHEXOL 300 MG/ML 50 ML BOTTLE INJ ONE (16:04)
--- NOTE | 2017-02-02 17:19 | XR ---
EXAMINATION TYPE: XR chest 1V portable DATE OF EXAM: 02/02/2017 COMPARISON: Today HISTORY: Catheter placement TECHNIQUE: Single frontal view of the chest is obtained. FINDINGS: A single view of the chest shows an apparent right-sided central venous catheter. The cath eter location is uncertain and projects over the base of the neck. This could be potentially in the j ugular vein. There is no pneumothorax. Lungs are clear of consolidation. IMPRESSION: Right-sided catheter in uncertain location. No pulmonary consolidation. No pneumothorax.
--- NOTE | 2017-02-02 18:51 | P.PN ---
Progress Note - Text DATE OF SERVICE: 02/02/2017 PRESENTING COMPLAINT: Right total knee infection HISTORY OF PRESENT ILLNESS: 71-year-old male status post right total knee in July 2014, in September developed a septic joint on the right knee, failed outpatient treatment is now status post removal of hardware with cement spacer placed. INTERVAL HISTORY: 02/02/2017: Lying in bed appears comfortable. Agreeable and work with physical therapy. Pains well-controlled. Tolerating his diet. Last BM prior to admission. 02/01/2017: Patient lying in bed appears comfortable. Agreeable to work with physical therapy. Pain well-controlled. Tolerating his diet. Last BM prior to admission. REVIEW OF SYSTEMS: Done for constitutional ,cardiovascular, GI, pulmonary with relevant findings as above. CURRENT MEDICATIONS [place], Zyloprim, Lipitor, Dulcolax, Coreg, cefazolin Valium, Vistaril, Imdur, Protonix, MiraLAX, Senokot. PHYSICAL EXAM VITAL SIGNS: Temperature 97.5, pulse 77, respirations 18, blood pressure 154/74, oxygen saturation 94% on room air. GENERAL APPEARANCE: Lying in bed, not in distress. EYES: Pupils equal. Conjunctiva normal. NECK: JVD not raised. Mass not palpable. RESPIRATORY: Respiratory effort normal. Lungs clear to auscultation. CARDIOVASCULAR: First and second sounds normal. No edema. ABDOMEN: Soft. Liver and spleen not palpable. No tenderness. No mass palpable. PSYCHIATRY: Alert and oriented x3. Mood and affect normal. INVESTIGATIONS: Hemoglobin 9.9, BUN 23 creatinine 1.31 ASSESSMENT: -Right total knee arthroplasty, joint with infection, now hardware was removed, followed by antibiotic spacer placement. - morbid obesity BMI 46. -Acute blood loss anemia as expected from surgery. -Coronary artery disease with prior history of stent. -Chronic obstructive pulmonary disease in ex-smoker. -Gastroesophageal reflux disease. -Hyperlipidemia. -Essential hypertension. 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 -Obstructive sleep apnea uses CPAP machine. -Lupus, in remission. PLAN: Continue with IV cefazolin ID continues to follow, continue to work with physical therapy, await PICC line placement plan and IV antibiotic selection for discharge planning. Monitor daily labs Plan of care discussed at the bedside with patient he is in agreement. We'll continue to follow. CUSTODIAN statement: Patient was seen and examined by nurse practitioner Dena Holden and all elements of the case discussed with attending Dr. Alvarez
--- NOTE | 2017-02-02 19:57 | PN ---
PROGRESS NOTE DATE OF SERVICE: 02/02/2017. REASON FOR FOLLOW UP: Right knee septic arthritis. INTERVAL HISTORY: The patient is afebrile. He has been breathing comfortably. Pain to the right thigh is currently controlled. Denies any chest pain, shortness of breath. No cough. No vomiting or diarrhea. PHYSICAL EXAMINATION: On examination blood pressure 154/74 with a pulse of 77, temperature 97.5. He is 94% on room air. General description is a middle-aged male, lying in bed, in no distress. RESPIRATORY SYSTEM: Unlabored breathing. Clear to auscultation anteriorly. HEART: S1, S2. Regular rate and rhythm. ABDOMEN: Soft, no tenderness. Right knee is currently dressed up. No obvious drainage on the dressing. LABS: Hemoglobin 9.8, white count 8.4 with a BUN of 23, creatinine is 1.31. Culture so far negative. DIAGNOSTIC IMPRESSION AND PLAN: Patient with right knee septic arthritis. Previous culture positive for MSSA. The patient is status post stage I procedure with removal of the infected knee and placement of antibiotic spacer. The patient will get an IV access placed by Vascular Surgery later today. Antibiotic currently in the form of cefazolin 2 g q.8 hours for 6 weeks. Script has been written for the patient. Once antibiotic arranged and IV access is established he should be able to go home from ID standpoint. MMODL / IJN: [id number] /
--- NOTE | 2017-02-02 20:21 | PN ---
PROGRESS NOTE DATE OF SERVICE: 02/02/17. ATTENDING NOTE: This patient seen and examined by me. I discussed with nurse practitioner, Ms. Holden. The patient doing better. Sitting up, comfortable, getting IV antibiotics. EXAMINATION: Afebrile. Lungs are clear. Cardiovascular: First and second sounds normal. INVESTIGATIONS: White count 8.4, creatinine 1.31. Wound culture negative until now. One showing some gram-positive cocci and rare. ASSESSMENT: Right total knee arthroplasty infected with hardware removed with the antibiotic spacer in place. Continue with antibiotics including IV cefazolin. Care was discussed with the patient. Follow. MMODL / IJN: [id number] /
[2017-02-02] MEDS: ATORVASTATIN 10 MG TAB PO SCH (20:37)
[2017-02-02] MEDS: SENNOSIDES-DOCUSATE SODIUM 1 EACH TAB PO SCH (20:37)
--- NOTE | 2017-02-02 23:26 | OP ---
OPERATIVE REPORT PROCEDURE: Ultrasound-guided 5-Fijian Medcomp Rausch catheter placement, right internal jugular approach. PROCEDURE: This patient was brought to the medical laboratory specialist. The right side of the neck and chest were prepped and drapes were applied in the usual sterile manner. Ultrasound-guided guided micropuncture introduced to the right internal jugular vein and micropuncture guidewire was passed by fluoroscopy. The guidewire was going on the left side of the chest. We injected some dye. It looks like this was an arterial injection. The needle was removed. Guidewire was removed. Pressure was held. Then we used a second attempt to identify the jugular vein. Guidewire was passed, which went to the vena cava. The 4-Fijian dilator advanced off the guidewire. Then tunnel was created. Through the tunnel we brought 5-Fijian Medcomp Rausch catheter. Sheath was advanced on top of the guidewire. Through the sheath we introduced the Rausch catheter. Tip of the catheter was in the in superior vena cava and atrium. Flushed with heparin saline and hep-locked, secured with 0 nylon. Dressing applied. The patient tolerated the procedure well. MMODL / IJN: [id number] /
[2017-02-03] MEDS: LACTATED RINGERS 1,000 ML IV SCH (04:59)
[2017-02-03 07:29] VITALS: BP 109/69; PULSE 62; RESP 12; TEMP 98
[2017-02-03] MEDS: HYDROmorphone 1 MG/ML 1 ML SYRINGE IVP PRN (07:30)
[2017-02-03] MEDS: ceFAZolin 2 GM in SODIUM CHLORIDE 0.9% 100 ML IVPB SCH (07:31)
[2017-02-03 07:36] LABS: Basophils # (A) 0.1 k/uL (0-0.2); Basophils % (A) 1 %; CH 29.6; CHCM 31.7; Eosinophils # (A) 0.2 k/uL (0-0.7); Eosinophils % (A) 3 %; HCT 32.6 % (39.0-53.0); HDW 2.72; HGB 10.3 gm/dL (13.0-17.5); Luc # (Auto) 0.19; Luc % (Auto) 3; Lymphocytes % (A) 13 %; MCH 29.7 pg (25.0-35.0); MCHC 31.7 g/dL (31.0-37.0); MCV 93.8 fL (80.0-100.0); Mean Platelet Volume 7.1; Monocytes # (A) 0.4 k/uL (0-1.0); Monocytes % (A) 6 %; Neutrophils # (A) 5.5 k/uL (1.3-7.7); Neutrophils % (A) 75 %; RBC 3.47 m/uL (4.30-5.90); RDW 13.7 % (11.5-15.5); WBC 7.4 k/uL (3.8-10.6); WBC (Perox) 7.55
[2017-02-03 08:08] LABS: Anion Gap 8 mmol/L; Blood Urea Nitrogen 19 mg/dL (9-20); Calcium 9.4 mg/dL (8.4-10.2); Carbon Dioxide 27 mmol/L (22-30); Chloride 104 mmol/L (98-107); Glucose 95 mg/dL (74-99); Non-African American GFR(MDRD) >60 (>60 ml/min/1.73 sqM); Potassium 4.6 mmol/L (3.5-5.1); Sodium 139 mmol/L (137-145)
--- NOTE | 2017-02-03 08:43 | IR ---
EXAMINATION TYPE: IR cvc insert central tunneled DATE OF EXAM: 02/02/2017 COMPARISON: NONE HISTORY: Peripheral vascular occlusive disease. Fluoroscopy was provided to the referring clinician.
--- NOTE | 2017-02-03 09:06 | P.DS ---
Providers Date of admission: 01/31/17 08:00 Expected date of discharge: 02/03/17 Attending physician: Manan Stevens Consults: 01/31/17 09:55 Consult Physician Routine Consulting Provider: Hang Alvarez Consult Reason/Comments: medical management Do you want consulting provider notified?: Yes 01/31/17 09:59 Consult Physician Routine Consulting Provider: Parminder Resendiz Consult Reason/Comments: s/p stage 1 revision right tka Do you want consulting provider notified?: Yes 02/01/17 15:35 Consult Physician Routine Consulting Provider: Mani Almazan Consult Reason/Comments: Rausch catheter for Out patient IV antibiotics, problems with PICC in past Do you want consulting provider notified?: Yes Primary care physician: Stated None - Discharge Diagnosis(es) (1) History of infection of total joint prosthesis of knee Current Visit: Yes Status: Acute (2) Status post total right knee replacement Current Visit: No Status: Acute Hospital Course: This is a 71-year-old male with known history of infected right total knee arthroplasty. The patient presents for evaluation. After discussion and consideration patient elects to proceed with stage I revision total knee arthroplasty with placement of antibiotic spacer. The patient is seen preoperatively by Dr. Stevens and cleared for surgery. Patient is admitted to [facility] on 01/31/2017 for stage I revision total knee arthroplasty with placement of antibiotic spacer. The procedures performed without complication or sequelae. The patient is doing well postoperatively. Labs and vital signs are stable on day of discharge. Blood cultures are negative. Wound cultures show growth of gram positive cocci, rare. Patient received a Rausch catheter per vascular surgery for outpatient IV antibiotics. IV antibiotics managed by infectious disease. On day of discharge patient's knee incision is healing well. There is minimal erythema. There is minimal drainage noted at this time. There is minimal soft tissue swelling to the knee. Patient has full foot and ankle motion without difficulty or pain. Neurovascular status to the right lower extremity is intact. Patient is discharged home in good condition. Please see med rec for accurate list of home medications. Plan - Discharge Summary New Discharge Prescriptions: New Aspirin 325 mg PO BID #60 tab HYDROcodone/APAP 7.5-325MG [Bock 7.5-325] 1 - 2 tab PO Q4-6H PRN #90 tab PRN Reason: Pain Sennosides-Docusate Sodium [Senokot-S] 1 tab PO BID #60 tablet ceFAZolin [Kefzol] 2,000 mg IVPB Q8HR #126 bag No Action Allopurinol [Zyloprim] 100 mg PO DAILY Polyethylene Glycol 3350 [Miralax] 17 gm PO BID PRN PRN Reason: Constipation Cholecalciferol [Vitamin D3] 2,000 unit PO DAILY Meloxicam [Mobic] 7.5 mg PO DAILY Meclizine [Antivert] 25 mg PO HS Isosorbide Mononitrate ER [Imdur] 30 mg PO DAILY Nitroglycerin Sl Tabs [Nitrostat] 1 tab SUBLINGUAL Q5M PRN PRN Reason: Chest Pain Aspirin EC [Ecotrin Low Dose] 81 mg PO HS Omeprazole [PriLOSEC] 20 mg PO QAM Atorvastatin [Lipitor] 5 mg PO HS Magnesium Oxide [Mag-Ox] 750 mg PO DAILY Carvedilol [Coreg] 6.25 mg PO BID Cephalexin [Keflex] 500 mg PO TID HYDROcodone/APAP 7.5-325MG [Bock 7.5-325] 1 tab PO TID PRN PRN Reason: Pain Discharge Medication List Allopurinol [Zyloprim] 100 mg PO DAILY 07/02/14 [History] Aspirin EC [Ecotrin Low Dose] 81 mg PO HS 07/02/14 [History] Atorvastatin [Lipitor] 5 mg PO HS 07/02/14 [History] Cholecalciferol [Vitamin D3] 2,000 unit PO DAILY 07/02/14 [History] Isosorbide Mononitrate ER [Imdur] 30 mg PO DAILY 07/02/14 [History] Meclizine [Antivert] 25 mg PO HS 07/02/14 [History] Meloxicam [Mobic] 7.5 mg PO DAILY 07/02/14 [History] Nitroglycerin Sl Tabs [Nitrostat] 1 tab SUBLINGUAL Q5M PRN 07/02/14 [History] Omeprazole [PriLOSEC] 20 mg PO QAM 07/02/14 [History] Polyethylene Glycol 3350 [Miralax] 17 gm PO BID PRN 07/02/14 [History] Carvedilol [Coreg] 6.25 mg PO BID 06/15/16 [History] Magnesium Oxide [Mag-Ox] 750 mg PO DAILY 06/15/16 [History] Cephalexin [Keflex] 500 mg PO TID 01/25/17 [History] HYDROcodone/APAP 7.5-325MG [Bock 7.5-325] 1 tab PO TID PRN 01/25/17 [History] Aspirin 325 mg PO BID #60 tab 02/02/17 [Rx] HYDROcodone/APAP 7.5-325MG [Bock 7.5-325] 1 - 2 tab PO Q4-6H PRN #90 tab [Rx] Sennosides-Docusate Sodium [Senokot-S] 1 tab PO BID #60 tablet 02/02/17 [Rx] ceFAZolin [Kefzol] 2,000 mg IVPB Q8HR #126 bag 02/02/17 [Rx] Follow up Appointment(s)/Referral(s): Manan Stevens DO [Doctor of Osteopathic Medicine] - 2 Weeks Parminder Resendiz MD [STAFF PHYSICIAN] - 2 Weeks Patient Instructions/Handouts: Tunneled Central Lines in Adult (DC), Tunneled Central Lines in Adult (GEN) Activity/Diet/Wound Care/Special Instructions: 50% weight bearing with walker Daily dressing changes, keep incision clean and dry May shower if no drainage from incision [facility] with questions or concerns [phone] Discharge Disposition: HOME WITH HOME HEALTH SERVICES
[2017-02-03] MEDS: MELOXICAM 7.5 MG TAB PO SCH (09:28)
[2017-02-03] MEDS: ISOSORBIDE MONONITRATE ER 30 MG TAB.ER.24H PO SCH (09:29)
[2017-02-03] MEDS: PANTOPRAZOLE 40 MG TABLET PO SCH (09:29)
[2017-02-03] MEDS: MAGNESIUM OXIDE 400 MG TAB PO SCH (09:29)
[2017-02-03] MEDS: CARVEDILOL 6.25 MG TAB PO SCH (09:29)
[2017-02-03] MEDS: ASPIRIN 325 MG TAB PO SCH (09:29)
[2017-02-03] MEDS: ALLOPURINOL 100 MG TAB PO SCH (09:29)
[2017-02-03] MEDS: HYDROcodone/APAP 7.5-325MG 1 EACH TAB PO PRN (09:33)
--- NOTE | 2017-02-03 13:16 | PN ---
PROGRESS NOTE DATE OF SERVICE: 02/03/2017 REASON FOR FOLLOWUP: Right knee septic arthritis. INTERVAL HISTORY: The patient is afebrile. Has been breathing comfortably. Patient denies any chest pain, shortness of breath or cough. No abdominal pain. No worsening of pain in the right knee area. PHYSICAL EXAMINATION: On examination, blood pressure 109/69 with a pulse of 62, temperature 98. He is 92% on room air. General description is an elderly male, lying in bed, in no distress. RESPIRATORY SYSTEM: Unlabored breathing. Clear to auscultation anteriorly. HEART: S1, S2. Regular rate and rhythm. ABDOMEN: Soft, no tenderness. Right knee is currently dressed up. No obvious drainage on the dressing. LABS: Hemoglobin 10.3, white count 7.4. Creatinine is 1.10. Knee culture presumptive Staph aureus. Blood culture has been negative. DIAGNOSTIC IMPRESSION AND PLAN: Patient with right knee septic arthritis. Previous culture positive for MSSA. Culture done this admission showing possible Staphylococcus aureus, likely the same pathogen. The patient at this time will continue with cefazolin 2 grams q.8 for total of 6 weeks with close outpatient followup. MMODL / IJN: [id number] /
--- NOTE | 2017-02-03 18:10 | PN ---
PROGRESS NOTE DATE OF SERVICE: 02/03/2017 HISTORY: This 71-year-old gentleman who was admitted with right knee septic arthritis had hardware removed and antibiotic spacer placed. The orthopedist is planning for possible ECF rehab. Infectious Disease has seen the patient and is recommending cefazolin 2 g IV every 8 hours for a total of 6 weeks for MSSA coverage in the outpatient setting. PAST MEDICAL: Reviewed. REVIEW OF SYSTEMS: Cardiovascular: As mentioned. : As mentioned. GI: As mentioned. Nervous System: No focal deficits. CURRENT MEDICATIONS: Reviewed include: 1. [place] 7.5 every 6 hours. 2. Zyloprim 100 mg daily. 3. Aspirin 325 mg daily. 4. Lipitor 5 mg daily. 5. 10 mg daily. 6. Coreg 6.25 mg b.i.d. 7. Cefazolin. 8. Valium. 9. Dilaudid. 10.Vistaril 25 mg every 4 hours p.r.n. 11.Imdur. 12.Lactated Ringer's. 13.Magnesium oxide 20 mg daily. 14.Mobic 7.5 mg day. 15.Narcan 0.2 every 2 hours p.r.n. 16.Protonix 40 mg at bedtime. 17.MiraLAX. 18.Senokot S. PHYSICAL EXAM: GENERAL: The patient is alert, oriented x3. VITAL SIGNS: Pulse 62, blood pressure is 116/60, respirations 18, temp is 98.3, pulse ox 92% on room air. HEENT: Conjunctivae normal. Oral mucosa moist. NECK: No jugular venous distention. No carotid bruit. No lymph nodes. CARDIOVASCULAR: S1 and S2 muffled. LUNGS: Breath sounds diminished at the bases. Few scattered rhonchi. No crackles. ABDOMEN: Soft, obese, nontender. EXTREMITIES: Legs status post surgery. NERVOUS SYSTEM: Higher functions as mentioned. Moves all four limbs. No focal motor deficits. LYMPHATICS: No focal deficits. SKIN: No rashes. LABS: WBC 7.2, hemoglobin 10.3. Cultures noted, presumptive Staph aureus. Final ID is pending. ASSESSMENT: 1. Right knee arthroplasty with septic arthritis and status post hardware removal followed by a antibiotic spacer placement with methicillin susceptible Staphylococcus aureus. 2. Morbid obesity. 3. Acute blood loss anemia as expected from the surgery. 4. Coronary artery disease, history of stent. 5. Chronic obstructive pulmonary disease. 6. Smoker. 7. Gastroesophageal reflux disease. 8. Hypertension. 9. Hyperlipidemia. 10.Chronic kidney disease stage 3. 11.Hypertensive nephrosclerosis. 12.Obstructive sleep apnea. 13.Lupus, in remission. RECOMMENDATIONS: Recommend to continue current medications. Continue symptomatic treatment. Otherwise at this time I will recommend continue with current medications. Continue with IV antibiotics. Follow the final cultures. Repeat labs. Follow with primary physician. PT and OT evaluation. See orders for further details. Guarded prognosis because of multiple complex medical issues. Further recommendations to follow. MMODL / IJN: [id number] /
== END 2017-02-03 15:30 | disposition swing bed (61) | DRG 464 ==
LOC: 2ORMAIN 08:00 → 3SUR 16:48
PROVIDERS: ADMIT Orthopaedic Surgery; ATTEND Orthopaedic Surgery
PROC: 0SHC08Z Insertion of Spacer into Right Knee Joint, Open Approach (ICD-10-PCS; 2017-01-31)
PROC: 0SPC0JZ Removal of Synthetic Substitute from Right Knee Joint, Open Approach (ICD-10-PCS; principal; 2017-01-31 09:40)
PROC: B548ZZA Ultrasonography of Superior Vena Cava, Guidance (ICD-10-PCS; 2017-02-02)
PROC: B5181ZA Fluoroscopy of Superior Vena Cava using Low Osmolar Contrast, Guidance (ICD-10-PCS; 2017-02-02)
PROC: 02HV33Z Insertion of Infusion Device into Superior Vena Cava, Percutaneous Approach (ICD-10-PCS; 2017-02-02 15:30)
DX: T84.53XA Infection and inflammatory reaction due to internal right knee prosthesis, initial encounter (principal); Z68.42 Body mass index [BMI] 45.0-49.9, adult; M00.061 Staphylococcal arthritis, right knee; D62 Acute posthemorrhagic anemia; J44.9 Chronic obstructive pulmonary disease, unspecified; E66.01 Morbid (severe) obesity due to excess calories; B95.61 Methicillin susceptible Staphylococcus aureus infection as the cause of diseases classified elsewhere; N18.3 Chronic kidney disease, stage 3 (moderate); M19.91 Primary osteoarthritis, unspecified site; I12.9 Hypertensive chronic kidney disease with stage 1 through stage 4 chronic kidney disease, or unspecified chronic kidney disease; H91.90 Unspecified hearing loss, unspecified ear; K21.9 Gastro-esophageal reflux disease without esophagitis; E78.5 Hyperlipidemia, unspecified; G47.33 Obstructive sleep apnea (adult) (pediatric); F17.200 Nicotine dependence, unspecified, uncomplicated; I25.10 Atherosclerotic heart disease of native coronary artery without angina pectoris; Z79.1 Long term (current) use of non-steroidal anti-inflammatories (NSAID); Z79.82 Long term (current) use of aspirin; Z79.899 Other long term (current) drug therapy; Z86.73 Personal history of transient ischemic attack (TIA), and cerebral infarction without residual deficits; Z95.5 Presence of coronary angioplasty implant and graft; Y83.1 Surgical operation with implant of artificial internal device as the cause of abnormal reaction of the patient, or of later complication, without mention of misadventure at the time of the procedure
CPT/HCPCS: 36556; 71010; 76937; 77001; 80048; 85025; 85652; 85730; 87040; 87070; 87075; 87077; 87186; 87205; 88305; 88331; 88332

== ENCOUNTER → 2017-06-02 | Outpatient (CLI) | payer MEDICARE, BC ==
[2017-06-02 09:43] LABS: HCT 39.5 % (39.0-53.0); HGB 13.3 gm/dL (13.0-17.5); MCH 31.3 pg (25.0-35.0); MCHC 33.8 g/dL (31.0-37.0); MCV 92.5 fL (80.0-100.0); Mean Platelet Volume 8.1; Platelet Count 164 k/uL (150-450); RBC 4.27 m/uL (4.30-5.90); RDW 14.3 % (11.5-15.5); WBC 7.2 k/uL (3.8-10.6)
[2017-06-02 09:55] LABS: INR 1.1 (<1.2); Partial Thromboplastin Time 29.2 sec (22.0-30.0); Prothrombin Time 10.7 sec (9.0-12.0)
[2017-06-02 10:06] LABS: ALT 25 U/L (21-72); AST 21 U/L (17-59); Albumin 3.7 g/dL (3.5-5.0); Alkaline Phosphatase 81 U/L (38-126); Anion Gap 10 mmol/L; Blood Urea Nitrogen 24 mg/dL (9-20); C Reactive Protein 7.8 mg/L (<10.0); Calcium 9.8 mg/dL (8.4-10.2); Carbon Dioxide 31 mmol/L (22-30); Chloride 104 mmol/L (98-107); Glucose 101 mg/dL (74-99); Potassium 4.5 mmol/L (3.5-5.1); Sodium 145 mmol/L (137-145); Total Bilirubin 0.6 mg/dL (0.2-1.3); Total Protein 6.6 g/dL (6.3-8.2)
[2017-06-02 10:30] LABS: Appearance,Urine Cloudy (Clear); Bilirubin,Urine Negative (Negative); Blood,Urine Moderate (Negative); Color,Urine Yellow; Glucose,Urine (UA) Negative (Negative); Hyaline Casts,Urine 25 /lpf (0-2); Ketones,Urine Negative (Negative); Leukocyte Esterase,Urine Small (Negative); Mucus,Urine Few /hpf; Nitrite,Urine Negative (Negative); PH, Urine 5.5 (5.0-8.0); Protein,Urine 1+ (Negative); RBC,Urine 38 /hpf (0-5); Specific Gravity,Urine 1.021 (1.001-1.035); Squamous Epithelial Cell,Urine 1 /hpf (0-4); Urobilinogen,Urine <2.0 mg/dL (<2.0); WBC,Urine 62 /hpf (0-5)
[2017-06-02 12:21] LABS: Erythrocyte Sedimentation Rate 21 mm/hr (0-15)
== END | disposition home or self-care (01) ==
LOC: LABPAT 09:03
PROVIDERS: ATTEND Orthopaedic Surgery
DX: Z01.812 Encounter for preprocedural laboratory examination (principal); Z96.651 Presence of right artificial knee joint; Z01.818 Encounter for other preprocedural examination
CPT/HCPCS: 36415; 80053; 81001; 85027; 85610; 85652; 85730; 86140; 87070

== ENCOUNTER 2017-06-13 06:50 | Inpatient (IN) | payer MEDICARE, BC ==
[2017-06-06 08:57] VITALS: BMI 46.6
[~2017-06-13 06:50] MED LIST changes: +HYDROmorphone 0.5 MG/0.5 ML SYRINGE IVP PRN; -HYDROmorphone 1 MG/ML 1 ML SYRINGE IVP PRN; +LACTATED RINGERS 1,000 ML IV SCH; +ROPIVACAINE 246.25 MG, EPINEPHrine 0.5 MG, KETOROLAC 30 MG, cloNIDine HCL/PF 80 MCG, WA... MISCELLANE ONE; -TRANEXAMIC ACID 1,000 MG in SODIUM CHLORIDE 0.9% 100 ML IVPB ONE; +TRANEXAMIC ACID 1,000 MG in SODIUM CHLORIDE 0.9% 50 ML IVPB ONE; +VANCOMYCIN 2,000 MG in SODIUM CHLORIDE 0.9% 500 ML IVPB ONE; -ceFAZolin 3 GM in SODIUM CHLORIDE 0.9% 100 ML IVPB ONE
[2017-06-13] MEDS ORDERED: MAGNESIUM HYDROXIDE 2,400 MG/10 ML CUP PO PRN ×2 (09:36→13:45)
[2017-06-13] MEDS ORDERED: hydrOXYzine PAMOATE 25 MG CAP PO PRN ×2 (09:36→13:45)
[2017-06-13] MEDS ORDERED: ONDANSETRON 4 MG/2 ML VIAL IVP PRN ×2 (09:36→13:45)
[2017-06-13] MEDS ORDERED: NA PHOS,M-B/NA PHOS,DI-BA 133 ML ENEMA RECTAL PRN ×2 (09:36→13:45)
[2017-06-13] MEDS ORDERED: HYDROcodone/APAP 7.5-325MG 1 EACH TAB PO PRN ×2 (09:36)
[2017-06-13] MEDS ORDERED: BISACODYL 10 MG SUPP RECTAL PRN ×2 (09:36→13:45)
[2017-06-13] MEDS ORDERED: DIAZEPAM 5 MG TAB PO PRN ×4 (09:36→13:45)
[2017-06-13] MEDS ORDERED: VANCOMYCIN 2,250 MG in SODIUM CHLORIDE 0.9% 250 ML IVPB ONE (09:36)
[2017-06-13] MEDS ORDERED: HYDROmorphone 2 MG/ML 1 ML SYRINGE IVP PRN ×4 (09:36)
[2017-06-13] MEDS ORDERED: NALOXONE 0.4 MG/ML 1 ML VIAL IV PRN ×2 (09:36→13:45)
[2017-06-13] MEDS ORDERED: ROPIVACAINE 1,100 MG, SODIUM CHLORIDE 0.9% 330 ML MISCELLANE PRN ×2 (09:43)
--- NOTE | 2017-06-13 09:44 | P.ONQ ---
Anesthesiology Proc Note - PNB - Peripheral Nerve Block Performed Right Adductor Canal Indication: Acute Post-Operative Pain, Requested by physician (Manan Stevens) Sedation Type: Awake Preparation: Sterile Dressing Position: Supine Catheter: Indwelling Needle Types: Other (see comment) (Stormy) Needle Size: 100mm (4") Needle Gauge: 18 Technique: Ultrasound Injectate: 0.5% Ropivacaine (see comment for volume) (20cc) Blood Aspirated: No Pain Paresthesia on Injection Noted: No Resistance on Injection: Normal Events: Uneventful and Well Tolerated
[2017-06-13] MEDS ORDERED: SODIUM CHLORIDE 0.9% 1,000 ML IV SCH (09:45)
[2017-06-13] MEDS ORDERED: diphenhydrAMINE 50 MG/ML 1 ML VIAL ONE (09:49)
[2017-06-13] MEDS ORDERED: ceFAZolin 1,000 MG in SODIUM CHLORIDE 0.9% 1,000 ML IRRIGATION ONE ×4 (09:49)
[2017-06-13] MEDS ORDERED: SODIUM CHLORIDE 0.9% 100 ML BAG ONE (09:49)
[2017-06-13] MEDS ORDERED: TRANEXAMIC ACID 1,000 MG/10 ML VIAL ONE (09:49)
[2017-06-13] MEDS ORDERED: fentaNYL (PF) 50 MCG/ML 2 ML AMP ONE (09:49)
[2017-06-13] MEDS ORDERED: MIDAZOLAM 2 MG/2 ML VIAL ONE (09:49)
[2017-06-13] MEDS ORDERED: VANCOMYCIN IV PER PHARMACY 1 EACH MISC MISCELLANE PRN (09:52)
--- NOTE | 2017-06-13 12:05 | P.OP ---
Date of Procedure: 06/13/17 Preoperative Diagnosis: Infected right total knee arthroplasty, status post stage I revision total knee arthroplasty with antibiotic spacer Postoperative Diagnosis: Infected right total knee arthroplasty, status post stage I revision total knee arthroplasty with antibiotic spacer Procedure(s) Performed: Stage II revision right total knee arthroplasty Implants: [employer] Oxinium femoral component size 7, right constrained [employer] Legion posterior 5mm femoral wedge x2 [employer] Legion pressfit stem 18mm x 160mm [employer] Legion revision right nonporous tibial baseplate size 7 [employer] Legion 6mm offset collar [employer] Legion pressfit stem 15mm x 160mm Kohli [employer] Nephew size 18 mm Rajni II constrained articular insert, size 7-8 [employer]hew Rajni II resurfacing patellar component, 35 mm All components were cemented using [employer] bone cement with Tobramycin x2. The articulation is Oxinium on polyethylene. Anesthesia: spinal Surgeon: Manan Stevens Chemical Waste Management Technician #1: Sheila Chester Estimated Blood Loss (ml): 50 Pathology: other (Cultures 2 and frozen section) Condition: stable Disposition: PACU Indications for Procedure: This is a 71-year-old gentleman that has been seen by me in the past after he acquired an infection in his right total knee arthroplasty. He had a stage I revision with placement of antibiotic spacer with intravenous antibiotics. He is done well, and it is felt that he is cleared the infection is ready for stage II revision arthroplasty. Informed consent was obtained. Operative Findings: The operative findings are consistent with a status post stage I revision total knee arthroplasty. There were no signs of infection at the time of surgery. Description of Procedure: Patient was seen in the preoperative area consent was reviewed and operative site was marked with a skin marker. An adductor canal pain catheter was placed by anesthesia in the preoperative area. Patient was then brought to the operating room and given preoperative antibiotics intravenously. A spinal anesthetic was administered by the anesthesia department. A tourniquet was placed on the upper thigh and the lower extremity was prepped and draped in usual sterile fashion. A gram of transexamic acid was given. A universal timeout was then performed which confirmed the patient's name, surgical site, ALLERGIES, and consent. The lower extremity was then exsanguinated and tourniquet was inflated to 250 mmHg. A standard and anterior midline approach to the knee was performed, with the scar being excised.. The skin and subcutaneous tissue was dissected down to the patellar tendon. A medial parapatellar arthrotomy was then performed. The knee was then extended, the patellar was everted, and the knee was again flexed. Cultures were obtained at this time, and a frozen section was taken of the synovium. The frozen section was negative for acute inflammation. The antibiotic spacer was then removed without difficulty. Attention was first directed to the femur. A stonehand is used to ream the femoral canal to the appropriate size. The distal cutting block was then placed over the reamer the distal femur was cut. The rotation and sizing guide was then placed and set for 3 of external rotation. The chamfer cuts as well as anterior posterior cuts were performed through this guide. The guide was then removed as well as the reamer. A femoral trial was then placed, and then using the box cutting guide, the box area was then opened with the reamer and osteotome. The trial was then removed. Attention was then directed to the tibia. A stonehand was then used to open up the tibial canal, and sequential reaming was performed to the tibia to the appropriate size. The intramedullary tibial cutting guide was then placed in the proximal tibia was then cut. The tibia was then sized. Next trials were then placed with the appropriate-sized insert. The knee was able to fully extend and flex to 120 and was stable throughout all range of motion. The knee was then extended, patella everted. The patella was then measured and drilled and the patella trial was then placed. The knee was then taken through range of motion with the patella trial and the patella tracked normally. The knee was then extended patella trial was then removed and the patella was everted. The trials were then removed. The cut surfaces of bone were then irrigated with pulsatile lavage. The posterior structures were injected with the ropivacaine solution. The knee was also irrigated with Irrisept solution. The components were then opened and preassembled. The cement was mixed, and the components were then cemented in place. The cement was allowed to harden with the knee in full extension. While the cement was hardening, the remaining soft tissues were then injected with a ropivacaine solution, which consisted of 246.25 mg of ropivacaine, 0.5 mg of epinephrine, 30 mg of Toradol, 80 g of clonidine, and 48.45 mL of sterile water, for a total of 100 mL of fluid injected. After the cemented hardened. The tourniquet was released, and hemostasis was obtained. A second gram of transexamic acid was given. The knee was again irrigated. The knee was again taken through range of motion and found to be stable throughout all range of motion of 0-130, and the patella tracked normally. The fascia was then closed with #2 strata fix suture. The subcutaneous tissue was closed with 3-0 Vicryl and 3-0 strata fix. Dermabond glue was used for the skin and placed with the knee in flexion. The patient was placed in a sterile silver dressing. Patient was then transferred to recovery room in stable condition. The virtual office assistant KATHRINE Rothman was required due the complexity surgery and the need for a skilled surgical attendant. She assisted in positioning, draping, retraction, and closure of the wound.
--- NOTE | 2017-06-13 13:43 | XR ---
EXAMINATION TYPE: XR knee limited RT DATE OF EXAM: 06/13/2017 COMPARISON: NONE TECHNIQUE: Two views submitted HISTORY: Post op FINDINGS: There is a prosthetic knee in near anatomic alignment. There is soft tissue edema and emphysema. Va scular calcifications are noted. IMPRESSION: 1. Postoperative change. Appears in near-anatomic alignment
[2017-06-13] MEDS ORDERED: HYDROmorphone 4 MG/ML 1 ML SYRINGE IVP PRN ×4 (13:45)
[2017-06-13] MEDS: HYDROcodone/APAP 7.5-325MG 1 EACH TAB PO PRN ×2 (14:34→21:27)
[2017-06-13] MEDS: SODIUM CHLORIDE 0.9% 1,000 ML IV SCH (14:34)
[2017-06-13] MEDS ORDERED: VANCOMYCIN 2,250 MG in SODIUM CHLORIDE 0.9% 500 ML IVPB ONE (20:00)
[2017-06-13] MEDS ORDERED: SENNOSIDES-DOCUSATE SODIUM 1 EACH TAB PO SCH (21:00)
[2017-06-13] MEDS ORDERED: ASPIRIN 325 MG TAB PO SCH (21:00)
[2017-06-13] MEDS: ASPIRIN 325 MG TAB PO SCH (21:11)
[2017-06-13] MEDS: SENNOSIDES-DOCUSATE SODIUM 1 EACH TAB PO SCH (21:11)
[2017-06-13] MEDS ORDERED: POLYETHYLENE GLYCOL 3350 17 GM POWD.PACK PO PRN (21:46)
--- NOTE | 2017-06-13 22:32 | CONS ---
CONSULTATION DATE OF CONSULTATION: 06/13/2017 REASON FOR CONSULTATION: Medical management requested by Dr. Stevens. CONSULTATION: This is a pleasant 71-year-old patient of Dr. Perez who had a right total knee arthroplasty. Subsequently this had gotten infected. Last year patient had a spacer placed. Today the spacer was taken out and a revision of the right total knee arthroplasty was done. Patient's chronic stable medical conditions include coronary artery disease, COPD, GERD, hyperlipidemia, hypertension, sleep apnea. Postoperatively no chest pain or shortness of breath. No nausea or vomiting. Patient recently had a clearance done by Dr. Eng for his cardiac status for the surgery. He is comfortable, lying in bed. REVIEW OF SYSTEMS: CONSTITUTIONAL: None. HEENT: None. RESPIRATORY: None. CARDIOVASCULAR: None. GASTROINTESTINAL: None. GENITOURINARY: None. MUSCULOSKELETAL: Pain in the joints and lower back. DERMATOLOGICAL: None. HEMATOLOGICAL: None. LYMPHATICS: None. PSYCHIATRY: None. NEUROLOGICAL: None. PAST MEDICAL HISTORY: 1. Coronary artery disease. 2. COPD. 3. Stroke. 4. GERD. 5. Hyperlipidemia. 6. Hypertension. 7. . 8. Sleep apnea; uses CPAP. 9. Back pain with epidural injections in the past. 10.Kidney disease. 11.Lupus, in remission. 12.Tingling in the right foot. PAST SURGICAL HISTORY: 1. Cardiac cath with stent. 2. Right rotator cuff. 3. Left knee arthroplasty. 4. Bilateral total knee arthroplasty. SOCIAL HISTORY: Lives with his friend, Sommer. Patient smoked close to 41 years, stopped in 2005, about 3 packs a day. Quit heavy drinking back in 1999. FAMILY HISTORY: Breast cancer. HOME MEDICATIONS: 1. MiraLAX 17 grams p.o. b.i.d. p.r.n. 2. Prilosec 20 mg p.o. daily. 3. Nitrostat 0.4 sublingually q.5 p.r.n. 4. Mobic 7.5 p.o. daily. 5. Antivert 25 p.o. daily p.r.n. 6. Magnesium oxide 750 mg p.o. daily. 7. Imdur 30 mg p.o. daily. 8. [place] 7.5 one tablet p.o. q.i.d. 9. Vitamin D3 2000 p.o. daily. 10.Coreg 6.25 p.o. b.i.d. 11.Lipitor 5 mg at bedtime. 12.Aspirin 81 mg p.o. at bedtime. 13.Allopurinol 100 mg p.o. daily. ALLERGIES: SULFUR. PHYSICAL EXAMINATION: Temperature 98.7, pulse 72, respiration 16, blood pressure 145/63, pulse ox 93%. GENERAL APPEARANCE: Well built; BMI of 46. Lying in bed, comfortable. EYES: Pupils equal. Conjunctivae normal. HEENT: External appearance of nose and ears normal. Oral cavity normal. NECK: JVD not raised. Mass not palpable. RESPIRATORY: Effort normal. Lungs are clear. CARDIOVASCULAR: First and second sounds normal. No edema. ABDOMEN: Soft, nontender. Liver and spleen not palpable. LYMPHATIC: No lymph node palpable in neck or axillae. PSYCHIATRY: Alert and oriented x3. Mood and affect normal. EXTREMITIES: Right knee in a dressing. INVESTIGATIONS: White count 7.4, hemoglobin 10.3. No blood low. ASSESSMENT: 1. Revision right total knee arthroplasty in which a spacer was removed for a prior infected right total knee arthroplasty. 2. Morbid obesity; body mass index of 46. 3. Coronary artery disease with prior history of stent. 4. Chronic obstructive pulmonary disease. 5. Smoker. 6. Gastroesophageal reflux disease. 7. Hyperlipidemia. 8. Essential hypertension. 9. Obstructive sleep apnea; uses CPAP machine. 10.Chronic kidney disease, stage III, from hypertensive nephrosclerosis. The patient's BUN and creatinine on June 02 were 24 and 1.40. PLAN: Patient's home medications to be resumed. Patient has been put on aspirin 325 for DVT prophylaxis. Patient has also been given some Vancomycin for kidney protection, given that patient is on aspirin and Mobic both. Given chronic kidney disease, we will have to keep a close eye on patient's renal function. Care was discussed with the patient. Thank you, Dr. Stevens. DASHAWN / GEORGE: [id number] /
[2017-06-13] MEDS: ATORVASTATIN 10 MG TAB PO SCH (23:38)
[2017-06-14] MEDS: SODIUM CHLORIDE 0.9% 1,000 ML IV SCH ×2 (05:49→22:50)
[2017-06-14] MEDS: HYDROcodone/APAP 7.5-325MG 1 EACH TAB PO PRN ×3 (05:54→22:49)
--- NOTE | 2017-06-14 06:41 | P.PN ---
Progress Note - Text Progress Note Date: 06/14/17 . Postoperative day # 1 status post total knee arthroplasty, under spinal anesthesia, and adductor canal catheter placed for postoperative analgesia, currently at ropivacaine 0.2% 8 mL per hour and continuous infusion, , visual analogue scale is 3-4 /10, patient using oral pain medication for breakthrough pain. Assessment and plan= Acute postoperative pain, adductor canal catheter for pain control, pain is well controlled we'll continue the same management.
[2017-06-14 07:06] LABS: Basophils % (A) 0 %; Eosinophils # (A) 0.2 k/uL (0-0.7); Eosinophils % (A) 2 %; HCT 34.2 % (39.0-53.0); HGB 11.4 gm/dL (13.0-17.5); Lymphocytes % (A) 14 %; MCHC 33.4 g/dL (31.0-37.0); MCV 92.8 fL (80.0-100.0); Mean Platelet Volume 7.6; Monocytes # (A) 0.5 k/uL (0-1.0); Monocytes % (A) 7 %; Neutrophils # (A) 5.3 k/uL (1.3-7.7); Neutrophils % (A) 75 %; Platelet Count 145 k/uL (150-450); RBC 3.68 m/uL (4.30-5.90); RDW 13.6 % (11.5-15.5); WBC 7.1 k/uL (3.8-10.6)
[2017-06-14] MEDS: PANTOPRAZOLE 40 MG TABLET PO SCH (07:26)
[2017-06-14] MEDS: CARVEDILOL 6.25 MG TAB PO SCH ×2 (07:31→18:27)
[2017-06-14] MEDS: ISOSORBIDE MONONITRATE ER 30 MG TAB.ER.24H PO SCH (08:52)
[2017-06-14] MEDS: MAGNESIUM OXIDE 400 MG TAB PO SCH (08:54)
[2017-06-14] MEDS: ALLOPURINOL 100 MG TAB PO SCH (08:54)
[2017-06-14] MEDS: ASPIRIN 325 MG TAB PO SCH ×2 (08:54→22:48)
[2017-06-14] MEDS: MELOXICAM 7.5 MG TAB PO SCH (08:54)
[2017-06-14] MEDS ORDERED: MELOXICAM 7.5 MG TAB PO SCH (09:00)
--- NOTE | 2017-06-14 09:54 | P.PN ---
Subjective Progress Note Date: 06/14/17 This is a 71-year-old male who is status post stage II revision right total knee arthroplasty. This is postoperative day #1. Patient is seen and evaluated at bedside with Dr. Manan Stevens. Patient rates his pain a 4 out of 10. Patient states he has been up and walking with physical therapy without difficulty. Patient denies any fever/chills, abdominal pain, chest pain, shortness breath, numbness, weakness or tingling. Objective - Vital Signs Vital signs: Vital Signs Temp 98.1 F 06/14/17 07:00 Pulse 55 L 06/14/17 07:00 Resp 16 06/14/17 07:00 BP 99/63 06/14/17 07:00 Pulse Ox 96 06/14/17 07:00 Intake & Output 06/13/17 06/14/17 06/14/17 18:59 06:59 18:59 Intake Total 1852 1305 220 Output Total 50 Balance 1802 1305 220 Weight 149.685 kg Intake: IV 1852 715 Sodium Chloride 0.9% 1, 300 715 000 ml @ 65 mls/hr IV . [id number] [facility] Rx#:[id number] Oral 590 220 Output: Estimated Blood Loss 50 Other: Voiding Method Toilet Toilet # Voids 1 2 2 - Exam Vital signs are stable. Patient is in no acute distress and is alert and oriented 3. Calf is soft and nontender to palpation. Dressing is clean and intact with mild drainage noted. Patient has full foot and ankle motion without pain or difficulty. Neurovascular status and circulatory status are intact. - Labs CBC & Chem 7: 06/14/17 06:43 Labs: Abnormal Lab Results - Last 24 Hours (Table) 06/14/17 Range/Units 06:43 RBC 3.68 L (4.30-5.90) m/uL Hgb 11.4 L (13.0-17.5) gm/dL Hct 34.2 L (39.0-53.0) % Plt Count 145 L (150-450) k/uL Microbiology - Last 24 Hours (Table) 06/13/17 10:30 Anaerobic Culture - Preliminary Knee - Right 06/13/17 10:30 Wound Culture - Preliminary Knee - Right 06/13/17 10:33 Wound Culture - Preliminary Knee - Right 06/13/17 10:33 Anaerobic Culture - Preliminary Knee - Right Assessment and Plan (1) History of infection of total joint prosthesis of knee Current Visit: No Status: Acute Code(s): Z87.39 - PERSONAL HISTORY OF DISEASES OF THE MS SYS AND CONN TISS SNOMED Code(s): 532258354 (2) Status post total right knee replacement Current Visit: No Status: Acute Code(s): Z96.651 - PRESENCE OF RIGHT ARTIFICIAL KNEE JOINT SNOMED Code(s): 5099264578806 Plan: #1 Continue with routine postoperative care. Will change optifoam silver dressing tomorrow. #2 Anticoagulation with aspirin. #3 Physical therapy and CPM today. #4 Appreciate input from medicine. #5 Anticipate discharge home with home care likely tomorrow.
[2017-06-14] MEDS: ATORVASTATIN 10 MG TAB PO SCH (22:48)
[2017-06-14] MEDS: SENNOSIDES-DOCUSATE SODIUM 1 EACH TAB PO SCH (22:48)
--- NOTE | 2017-06-14 23:15 | CONS ---
CONSULTATION DATE OF SERVICE: 06/14/2017 REASON FOR CONSULTATION: Right knee septic arthritis history and followup. HISTORY OF PRESENT ILLNESS: The patient is a 71-year-old male, well known to my service. The patient has a complicated history as far as his right knee is concerned, with evidence of a right knee septic arthritis secondary to MSSA that did fail medical therapy. Subsequently the patient went for a stage I procedure with removal of the infected prosthesis and placement of an antibiotic spacer on 01/31/2017, after which the patient received almost 8 weeks of IV antibiotic therapy, completed as of March 09, 2017. The Rausch catheter was subsequently discontinued. The patient has been waiting for the stage II procedure, which was completed yesterday. The patient did receive a dose of vancomycin perioperatively. ID was consulted for followup of the same. During the surgery , the patient did have a frozen section which did not show any evidence of inflammation or infection. culture has been obtained. ID was asked to see the patient for followup. The patient has been afebrile, breathing comfortably. Slight pain postoperatively, but he denies having any pain or any swelling or redness in the knee before he went for the procedure. The patient denies having any chest pain or shortness of breath or cough. No abdominal pain or any diarrhea. REVIEW OF SYSTEMS: CONSTITUTIONAL: Positive for weakness with no high-grade fever. EYES: No complaint. ENT: No complaint. RESPIRATORY: No complaint. CARDIOVASCULAR: No complaint. GENITOURINARY: No complaint. GASTROINTESTINAL: No complaint. MUSCULOSKELETAL: As per HPI. INTEGUMENTARY: No complaint. PSYCHOLOGICAL: No complaint. ENDOCRINE: No complaint. NEUROLOGICAL: No complaint. PAST MEDICAL HISTORY: 1. Right knee septic arthritis secondary to MSSA. 2. COPD. 3. CVA, TIA. 4. Gastroesophageal reflux disease. 5. Coronary artery disease. 6. Hypertension. 7. Hyperlipidemia. 8. Sleep apnea. PAST SURGICAL HISTORY: 1. PTCA with stent placement. 2. Right rotator cuff repair. 3. Left knee arthroplasty. 4. Right knee arthroplasty with subsequent removal of the infected knee and a stage I procedure with antibiotic spacer. 5. PICC line placement and subsequent removal. 6. Rausch catheter with subsequent removal. SOCIAL HISTORY: The patient used to smoke about 3 packs per day. Quit back in 1999. Used to be a heavy drinker; also quit in 1999. No drug use. FAMILY HISTORY: Father with history of esophageal cancer. Mother with history of breast cancer. ALLERGIES: SULFA. MEDICATIONS: 1. The patient received a dose of vancomycin prior to surgery. 2. He has been given cefazolin perioperatively. 3. [place]. 4. Zyloprim. 5. Aspirin. 6. Lipitor. 7. Dulcolax. 8. Coreg. 9. Valium. PHYSICAL EXAMINATION: Blood pressure is 148/69 with a pulse of 68, temperature 97.7. He is 90% on room air. General description is an elderly male up in the chair in no distress. No tachypnea or accessory muscle of respiration use. HEENT examination shows slight pallor. No scleral icterus. Oral mucosa membrane is dry. NECK: Trachea is central. No thyromegaly. LUNGS: Unlabored breathing. Clear to auscultation anteriorly. HEART: S1, S2. Regular rate and rhythm. ABDOMEN: Soft. No tenderness. No guarding. No rigidity. RIGHT KNEE: Incision looks clean. No significant swelling, redness, drainage. EXTREMITIES: No edema of feet. Neurologically patient is awake, alert, oriented x3. Mood and affect normal. LABS: Hemoglobin 11.4, white count 7.1. The OR culture has been negative so far. DIAGNOSTIC IMPRESSION AND PLAN: Patient with a complicated history, with right knee septic arthritis with failing medical therapy, status post stage I and now stage II procedure with removal of the antibiotic spacer and placement of the artificial knee in a patient who did have a frozen section before the surgery with no evidence of any inflammation or infection. His underlying infection has been adequately treated. The patient has been off antibiotic for almost 3 months. PLAN: Patient received preoperatively cefazolin for 24 hours. Antibiotic can be safely discontinued with no need for antibiotic in the outpatient setting. All his questions and concerns were answered. MMODL / IJN: [id number] / MTDRebecca
--- NOTE | 2017-06-15 01:39 | PN ---
PROGRESS NOTE DATE OF SERVICE: 06/14/17 PRESENTING COMPLAINT: Knee surgery. INTERVAL HISTORY: Patient is status post revision arthroplasty. Did get perioperative IV Ancef. Doing well. Pain is controlled. Tolerating a diet. REVIEW OF SYSTEMS: Done for constitutional, cardiovascular GI, pulmonary and musculoskeletal, relevant findings above. CURRENT MEDICATIONS: Reviewed. PHYSICAL EXAMINATION: Temperature 98.1, pulse 75, respiration 16, blood pressure 99/63, pulse ox 96% on 2 L. General appearance: Propped up in a chair, comfortable. Eyes pupils equal. Conjunctivae normal. HEENT external appearance of nose and ears normal. Oral cavity normal. Neck JVD not raised. Mass not palpable. Respiratory effort lungs are clear. Cardiovascular: 1st and 2nd sounds normal. No edema. ABDOMEN: Soft, nontender. Liver and spleen is not palpable. Psychiatry: Alert and oriented x3. Mood and affect normal. INVESTIGATIONS: White count 7.1, hemoglobin 11.4. ASSESSMENT: 1. Revision right total knee arthroplasty which spacer was removed for prior infected right total knee arthroplasty. 2. Morbid obesity BMI 46. 3. Coronary artery disease with prior history of stent. 4. Chronic obstructive pulmonary disease in an ex-smoker. 5. Gastroesophageal reflux disease. 6. Hyperlipidemia. 7. Essential hypertension. 8. Obstructive sleep apnea uses CPAP machine. 9. Chronic kidney stage 3 from hypertensive nephrosclerosis. PLAN: Continue medication and treatment plan. Per ID patient not been needing any further antibiotic as outpatient. Discharge per orthopedics. Thank you doctor Dr. Stevens. MMCKL / RANDALN: [id number] /
[2017-06-15] MEDS: HYDROcodone/APAP 7.5-325MG 1 EACH TAB PO PRN ×2 (06:57→13:43)
[2017-06-15 07:12] VITALS: BP 133/83; PULSE 60; RESP 16; TEMP 98.2
--- NOTE | 2017-06-15 08:14 | P.DS ---
Providers Date of admission: 06/13/17 06:50 Expected date of discharge: 06/15/17 Attending physician: Manan Stevens Consults: 06/13/17 09:36 Consult Physician Routine Consulting Provider: Hang Alvarez Consult Reason/Comments: medical management Do you want consulting provider notified?: Yes 06/13/17 09:48 Consult Physician Routine Consulting Provider: Parminder Resendiz Consult Reason/Comments: stage 2 revision right TKA Do you want consulting provider notified?: Yes Primary care physician: Luigi Perez - Discharge Diagnosis(es) (1) History of infection of total joint prosthesis of knee Current Visit: No Status: Acute (2) Status post total right knee replacement Current Visit: No Status: Acute Hospital Course: This is a 71-year-old male with a known history of infection of right total knee arthroplasty. Patient has had stage I revision with placement of antibiotic spacer and IV antibiotics. The patient presents for evaluation. Patient is found to be clear of infection. After discussion and consideration patient elects to proceed with stage II revision total knee arthroplasty. The patient is seen preoperatively by Dr. Stevens and cleared for surgery. Patient is admitted to [facility] on 06/13/2017 for stage II revision total knee arthroplasty. The procedures performed without complication or sequelae. The patient is doing well postoperatively. Labs and vital signs are stable on day of discharge. Cultures are negative so far. Final cultures pending. Patient has been evaluated by infectious disease during this admission and will not need any further antibiotic therapy. On day of discharge patient's knee incision is healing well. There is minimal erythema. There is minimal drainage noted at this time. There is minimal soft tissue swelling to the knee. Patient has full foot and ankle motion without difficulty or pain. Neurovascular status to the right lower extremity is intact. Patient is discharged home in good condition. Please see med rec for accurate list of home medications. Plan - Discharge Summary Discharge Rx Participant: Yes New Discharge Prescriptions: New Aspirin 325 mg PO BID #60 tab HYDROcodone/APAP 7.5-325MG [[place] 7.5-325] 1 - 2 tab PO Q4-6H PRN #90 tab PRN Reason: Pain Sennosides [Senokot] 1 tab PO BID #60 tablet No Action Polyethylene Glycol 3350 [Miralax] 17 gm PO BID PRN PRN Reason: Constipation Cholecalciferol [Vitamin D3] 2,000 unit PO DAILY Meloxicam [Mobic] 7.5 mg PO DAILY Meclizine [Antivert] 25 mg PO DAILY PRN PRN Reason: dizziness Isosorbide Mononitrate ER [Imdur] 30 mg PO DAILY Nitroglycerin Sl Tabs [Nitrostat] 0.4 mg SUBLINGUAL Q5M PRN PRN Reason: Chest Pain Omeprazole [PriLOSEC] 20 mg PO QAM Atorvastatin [Lipitor] 5 mg PO HS Magnesium Oxide [Mag-Ox] 750 mg PO DAILY Carvedilol [Coreg] 6.25 mg PO BID Allopurinol [Zyloprim] 100 mg PO DAILY Aspirin [Adult Low Dose Aspirin EC] 81 mg PO HS HYDROcodone/APAP 7.5-325MG [[place] 7.5-325] 1 tab PO QID Discharge Medication List Atorvastatin [Lipitor] 5 mg PO HS 07/02/14 [History] Cholecalciferol [Vitamin D3] 2,000 unit PO DAILY 07/02/14 [History] Isosorbide Mononitrate ER [Imdur] 30 mg PO DAILY 07/02/14 [History] Meclizine [Antivert] 25 mg PO DAILY PRN 07/02/14 [History] Meloxicam [Mobic] 7.5 mg PO DAILY 07/02/14 [History] Nitroglycerin Sl Tabs [Nitrostat] 0.4 mg SUBLINGUAL Q5M PRN 07/02/14 [History] Omeprazole [PriLOSEC] 20 mg PO QAM 07/02/14 [History] Polyethylene Glycol 3350 [Miralax] 17 gm PO BID PRN 07/02/14 [History] Carvedilol [Coreg] 6.25 mg PO BID 06/15/16 [History] Magnesium Oxide [Mag-Ox] 750 mg PO DAILY 06/15/16 [History] Allopurinol [Zyloprim] 100 mg PO DAILY 06/06/17 [History] Aspirin [Adult Low Dose Aspirin EC] 81 mg PO HS 06/06/17 [History] HYDROcodone/APAP 7.5-325MG [[place] 7.5-325] 1 tab PO QID 06/06/17 [History] Aspirin 325 mg PO BID #60 tab 06/15/17 [Rx] HYDROcodone/APAP 7.5-325MG [[place] 7.5-325] 1 - 2 tab PO Q4-6H PRN #90 tab [Rx] Sennosides [Senokot] 1 tab PO BID #60 tablet 06/15/17 [Rx] Follow up Appointment(s)/Referral(s): Manan Stevens DO [Doctor of Osteopathic Medicine] - 2 Weeks Ambulatory/Diagnostic Orders: Continuous Passive Motion (CPM) Machine [DME.AMB1] Time Frame: 3 Weeks, Location : Determined By Patient Activity/Diet/Wound Care/Special Instructions: Weightbearing as tolerated with a walker CPM 5-6h daily Leave dressing intact. May be removed by home care nurse in 7 days,06/20/2017. May shower with dressing on. Call [facility] with questions or concerns [phone] [facility] - [phone] - will follow within 24 hours of discharge [facility] - [phone] - call when home to have CPM delivered Discharge Disposition: HOME WITH HOME HEALTH SERVICES
[2017-06-15] MEDS: CARVEDILOL 6.25 MG TAB PO SCH (09:24)
[2017-06-15] MEDS: MAGNESIUM OXIDE 400 MG TAB PO SCH (09:24)
[2017-06-15] MEDS: ALLOPURINOL 100 MG TAB PO SCH (09:24)
[2017-06-15] MEDS: ISOSORBIDE MONONITRATE ER 30 MG TAB.ER.24H PO SCH (09:24)
[2017-06-15] MEDS: ASPIRIN 325 MG TAB PO SCH (09:24)
[2017-06-15] MEDS: PANTOPRAZOLE 40 MG TABLET PO SCH (09:25)
[2017-06-15] MEDS: MELOXICAM 7.5 MG TAB PO SCH (09:25)
[2017-06-15] MEDS: SODIUM CHLORIDE 0.9% 1,000 ML IV SCH (10:40)
--- NOTE | 2017-06-15 16:25 | PN ---
PROGRESS NOTE DATE OF SERVICE: 06/15/2017. REASON FOR FOLLOWUP: Right knee septic arthritis status post stage II procedure. INTERVAL HISTORY: The patient is afebrile, has been breathing comfortably. Pain to the right knee is currently controlled. Some swelling but no redness. Denies any chest pain, shortness of breath or cough. No abdominal pain. No diarrhea. EXAMINATION: Blood pressure 133/83 with a pulse of 60, temperature 98.2. He is 95% on room air. General description is an elderly male up in the bed, up in no distress. Respiratory system: Unlabored breathing. Clear to auscultation anteriorly. Heart S1, S2. Regular rate and rhythm. Abdomen soft. No tenderness. Right knee is currently dressed up. No obvious drainage on the dressing. LABS: Wound cultures remain to be negative. DIAGNOSTIC IMPRESSION AND PLAN: Patient with right knee MSSA infection status post Stage 2 procedure with removal of the spacer and placement of the new prosthesis. The patient frozen section was negative and culture has been negative and the patient has been off antibiotic for almost 3 months now. The patient advised no need for further antibiotic therapy. Basic hygiene and keeping the area clean will help prevent any infection. Advise if any development of swelling, redness or fever to let us know. He did mention that he had some leftover Keflex that he will take, should be okay from my standpoint. Continue supportive care. MMODL / IJN: [id number] /
--- NOTE | 2017-06-16 02:53 | PN ---
PROGRESS NOTE PRESENTING COMPLAINT: Knee surgery. INTERVAL HISTORY: Patient is status post revision arthroplasty. Continues to do well. No chest pain or short of breath. Tolerating a diet. Did work with physical therapy. Pain is controlled. No new issues. REVIEW OF SYSTEMS: Done for constitutional, cardiovascular, GI, pulmonary, musculoskeletal; relevant findings as above. CURRENT MEDICATIONS: Reviewed. EXAMINATION: Temperature 98.2, pulse 60, respirations 18, blood pressure 133/83, pulse ox 95% on room air. General appearance: Sitting up, comfortable. Eyes pupils equal. Conjunctivae normal. HEENT: External appearance of nose and ears normal. Oral cavity normal. Neck JVD not raised. Mass not palpable. Respiratory effort normal. Lungs are clear. Cardiovascular 1st and 2nd sounds, no edema. ABDOMEN: Soft, nontender. Liver and spleen not palpable. Psychiatry alert and oriented x3. Mood and affect is normal. INVESTIGATIONS: No blood work today. ASSESSMENT: 1. Revision right total knee arthroplasty for which spacer was removed for a prior infected right total knee arthroplasty. 2. Morbid obesity BMI 46. 3. Coronary artery disease with prior history of stent. 4. Chronic obstructive pulmonary disease in an ex-smoker. 5. Gastroesophageal reflux disease. 6. Hyperlipidemia. 7. Essential hypertension. 8. Obstructive sleep apnea uses CPAP machine. 9. Chronic kidney disease stage 3 from hypertensive nephrosclerosis. PLAN: The patient is stable per ID. No need for antibiotics. Patient should follow up with family doctor upon discharge. Thank you Dr. Stevens. MMCKL / RANDALN: [id number] /
== END 2017-06-15 14:30 | disposition home health service (06) | DRG 467 ==
LOC: 2ORMAIN 06:50 → 3SUR 12:40
PROVIDERS: ADMIT Orthopaedic Surgery; ATTEND Orthopaedic Surgery
PROC: 0SRC069 Replacement of Right Knee Joint with Oxidized Zirconium on Polyethylene Synthetic Substitute, Cemented, Open Approach (ICD-10-PCS; 2017-06-13)
PROC: 0SPC0JZ Removal of Synthetic Substitute from Right Knee Joint, Open Approach (ICD-10-PCS; principal; 2017-06-13 09:45)
DX: T84.53XA Infection and inflammatory reaction due to internal right knee prosthesis, initial encounter (principal); M00.9 Pyogenic arthritis, unspecified; J44.9 Chronic obstructive pulmonary disease, unspecified; E66.01 Morbid (severe) obesity due to excess calories; N18.3 Chronic kidney disease, stage 3 (moderate); Z68.42 Body mass index [BMI] 45.0-49.9, adult; E78.5 Hyperlipidemia, unspecified; G47.33 Obstructive sleep apnea (adult) (pediatric); G89.18 Other acute postprocedural pain; I12.9 Hypertensive chronic kidney disease with stage 1 through stage 4 chronic kidney disease, or unspecified chronic kidney disease; I25.10 Atherosclerotic heart disease of native coronary artery without angina pectoris; K21.9 Gastro-esophageal reflux disease without esophagitis; Z79.82 Long term (current) use of aspirin; Z79.899 Other long term (current) drug therapy; Z95.5 Presence of coronary angioplasty implant and graft; Z86.73 Personal history of transient ischemic attack (TIA), and cerebral infarction without residual deficits; Z87.891 Personal history of nicotine dependence; Z96.652 Presence of left artificial knee joint; Y83.1 Surgical operation with implant of artificial internal device as the cause of abnormal reaction of the patient, or of later complication, without mention of misadventure at the time of the procedure
CPT/HCPCS: 85025; 87070; 87075; 87205; 88300; 88305; 88331

== ENCOUNTER → 2017-11-16 | Outpatient (CLI) | payer MEDICARE, BC ==
--- NOTE | 2017-11-16 09:23 | US ---
EXAMINATION TYPE: US kidneys/renal and bladder DATE OF EXAM: 11/16/2017 COMPARISON: NONE CLINICAL HISTORY: 71-year-old male R31.29 Hematuria. Microscopic hematuria TECHNIQUE: Multiple sonographic images of the kidneys and bladder are obtained. FINDINGS: GRANITE INSTALLER NOTES: Technical limitations due to patient's body habitus and overlying bowel content EXAM MEASUREMENTS: Right Kidney: 9.6 x 5.0 x 5.3 cm Left Kidney: 10.8 x 4.5 x 4.1 cm There appears to be some cortical thinning on both sides. Right Kidney: visualized portions show no evidence of hydronephrosis Left Kidney: visualized portions show no evidence of hydronephrosis Bladder: possible debris or solid component. There is lobulated hypoechoic area along the left inferi or aspect of the bladder. This measures approximately 3.1 cm. Partial distention of the bladder limit s evaluation. Bilateral Jets seen: left only IMPRESSION: 1. Possible left inferior bladder mass measuring up to 3 cm. Further correlation with urine cytology and direct visualization. 2. No hydronephrosis.
== END | disposition home or self-care (01) ==
LOC: RADUSWWP 07:30
PROVIDERS: ATTEND Urology
DX: R31.29 Other microscopic hematuria (principal)
CPT/HCPCS: 76770

== ENCOUNTER → 2017-12-16 | Outpatient (CLI) | payer MEDICARE, BC ==
[2017-12-16 10:59] LABS: Basophils # (A) 0.1 k/uL (0-0.2); Basophils % (A) 1 %; Eosinophils # (A) 0.2 k/uL (0-0.7); Eosinophils % (A) 3 %; HCT 41.6 % (39.0-53.0); HGB 13.6 gm/dL (13.0-17.5); Lymphocytes # (A) 1.4 k/uL (1.0-4.8); Lymphocytes % (A) 20 %; MCH 31.1 pg (25.0-35.0); MCHC 32.8 g/dL (31.0-37.0); MCV 94.7 fL (80.0-100.0); Monocytes # (A) 0.4 k/uL (0-1.0); Monocytes % (A) 5 %; Neutrophils # (A) 4.8 k/uL (1.3-7.7); Neutrophils % (A) 69 %; Platelet Count 182 k/uL (150-450); RBC 4.39 m/uL (4.30-5.90); RDW 13.8 % (11.5-15.5)
[2017-12-16 11:14] LABS: Calcium 9.6 mg/dL (8.4-10.2); Potassium 5.4 mmol/L (3.5-5.1)
== END | disposition home or self-care (01) ==
LOC: LABWHC1 09:12
PROVIDERS: ATTEND Urology
DX: C67.9 Malignant neoplasm of bladder, unspecified (principal)
CPT/HCPCS: 36415; 80048; 85025

== ENCOUNTER 2019-09-22 13:19 | Emergency (ER) | payer MEDICARE, BC ==
[2019-09-22 13:30] VITALS: RESP 18
--- NOTE | 2019-09-22 13:55 | ED ---
Male Urogenital HPI - General Chief complaint: Urogenital Stated complaint: urinary issues Time Seen by Provider: 09/22/19 13:31 Source: patient, RN notes reviewed Mode of arrival: ambulatory Limitations: no limitations - History of Present Illness Initial comments: 73-year-old male presents emergency Department with chief complaint of unable to urinate. Patient states she has severe sensation to urinate. Patient states every once while he just loses urine is a pressure. Patient states that he had a TURP procedure done on he was to have the Vanegas catheter removed one day but states that he felt that it was clogged with blood clot last night states he deflated and pulled it out. He states did not help sensation. Patient states she still unable to urinate though just prior to come emergency from he states that some urine came out on his pants. Patient still has pressure in his lower abdomen denies any blood. - Related Data Home Medications Medication Instructions Recorded Confirmed Atorvastatin [Lipitor] 5 mg PO HS 07/02/14 06/13/17 Cholecalciferol [Vitamin D3 (25 2,000 unit PO DAILY 07/02/14 06/13/17 Mcg = 1000 Iu)] Isosorbide Mononitrate ER [Imdur] 30 mg PO DAILY 07/02/14 06/13/17 Meclizine [Antivert] 25 mg PO DAILY PRN 07/02/14 06/13/17 Meloxicam [Mobic] 7.5 mg PO DAILY 07/02/14 06/13/17 Nitroglycerin Sl Tabs [Nitrostat] 0.4 mg SUBLINGUAL Q5M PRN 07/02/14 06/13/17 Omeprazole [PriLOSEC] 20 mg PO QAM 07/02/14 06/13/17 Polyethylene Glycol 3350 [Miralax] 17 gm PO BID PRN 07/02/14 06/13/17 Carvedilol [Coreg] 6.25 mg PO BID 06/15/16 06/13/17 Magnesium Oxide [Mag-Ox] 750 mg PO DAILY 06/15/16 06/13/17 Allopurinol [Zyloprim] 100 mg PO DAILY 06/06/17 06/13/17 Aspirin [Adult Low Dose Aspirin EC] 81 mg PO HS 06/06/17 06/13/17 HYDROcodone/APAP 7.5-325MG [[place] 1 tab PO QID 06/06/17 06/13/17 7.5-325] Previous Rx's Medication Instructions Recorded Aspirin 325 mg PO BID #60 tab 06/15/17 HYDROcodone/APAP 7.5-325MG [Kan[place] 1 - 2 tab PO Q4-6H PRN #90 tab 06/15/17 7.5-325] Sennosides [Senokot] 1 tab PO BID #60 tablet 06/15/17 Allergies Allergy/AdvReac Type Severity Reaction Status Date / Time Sulfa (Sulfonamide Allergy Unknown HIVES, Verified 09/22/19 13:30 Antibiotics) ITCHING Review of Systems ROS Statement: Those systems with pertinent positive or pertinent negative responses have been documented in the HPI. ROS Other: All systems not noted in ROS Statement are negative. Past Medical History Past Medical History: Coronary Artery Disease (CAD), COPD, CVA/TIA, GERD/Reflux, Hyperlipidemia, Hypertension, Myocardial Infarction ([place]), Musculoskeletal Disorder, Renal Disease, Sleep Apnea/CPAP/BIPAP Additional Past Medical History / Comment(s): TIA X2 (1999 & 2002), VERTIGO, C- PAP MACHINE, SCIATICA & BACK PAIN with past EPIDURAL INJECTIONS, pt states he takes zyloprim due to elevated blood test-does not have gout yet, kidney dise ase, past nephritis, lupus (in remission), tingling in R foot, post op infection after R rotator cuff repair requiring irrigations and packings/ABX. Last Myocardial Infarction Date:: 1999 History of Any Multi-Drug Resistant Organisms: None Reported Date of last positivie culture/infection: None MDRO Source:: None Past Surgical History: Heart Catheterization With Stent, Orthopedic Surgery Additional Past Surgical History / Comment(s): RT ROTATOR CUFF-titanium used, LEFT KNEE ARTHROSCOPY, TOTAL LEFT/right KNEE, colonoscopy. TURP Past Anesthesia/Blood Transfusion Reactions: No Reported Reaction Additional Past Anesthesia/Blood Transfusion Reaction / Comment(s): PONV with spinal anesthesia, Date of Last Stent Placement:: 1999 Past Psychological History: No Psychological Hx Reported Smoking Status: Former smoker Past Alcohol Use History: None Reported Past Drug Use History: None Reported - Past Family History Mother Family Medical History: Cancer Additional Family Medical History / Comment(s): BREAST CA Father Family Medical History: Cancer Additional Family Medical History / Comment(s): ESOPHAGEAL CA General Exam Limitations: no limitations General appearance: alert, in no apparent distress Head exam: Present: atraumatic, normocephalic, normal inspection Neck exam: Present: normal inspection. Absent: tenderness, meningismus, lymphadenopathy Respiratory exam: Present: normal lung sounds bilaterally. Absent: respiratory distress, wheezes, rales, rhonchi, stridor Cardiovascular Exam: Present: regular rate, normal rhythm, normal heart sounds. Absent: systolic murmur, diastolic murmur, rubs, gallop, clicks GI/Abdominal exam: Present: soft, distended, tenderness, normal bowel sounds. Absent: guarding, rebound, rigid Neurological exam: Present: alert Skin exam: Present: warm, dry, intact, normal color. Absent: rash Course Vital Signs 09/22/19 13:23 Temperature 97.9 F Pulse Rate 65 Respiratory 18 Rate Blood Pressure 151/89 O2 Sat by Pulse 93 L Oximetry Medical Decision Making - Medical Decision Making Patient presented for urinary retention. Vanegas catheter was placed there was urine output patient feels improved. Patient be discharged. Patient has a follow-up plan with urologist. Disposition Clinical Impression: Urinary retention Disposition: HOME SELF-CARE Condition: Stable Instructions (If sedation given, give patient instructions): Urinary Retention in Men (ED) Additional Instructions: Please return to the Emergency Department if symptoms worsen or any other concerns. Is patient prescribed a controlled substance at d/c from ED?: No Referrals: Nonstaff,Physician [REFERRING] - 1-2 days Alan Villeda MD [STAFF PHYSICIAN] - 1-2 days Time of Disposition: 14:34
[2019-09-22 14:58] VITALS: BP 145/80; PULSE 78; TEMP 98.1
== END 2019-09-22 14:58 | disposition home or self-care (01) ==
LOC: EC 13:19
DX: R33.9 Retention of urine, unspecified (principal); I25.10 Atherosclerotic heart disease of native coronary artery without angina pectoris; K21.9 Gastro-esophageal reflux disease without esophagitis; E78.5 Hyperlipidemia, unspecified; I10 Essential (primary) hypertension; I25.2 Old myocardial infarction; G47.30 Sleep apnea, unspecified; Z79.1 Long term (current) use of non-steroidal anti-inflammatories (NSAID); Z79.891 Long term (current) use of opiate analgesic; Z79.82 Long term (current) use of aspirin; Z79.899 Other long term (current) drug therapy; Z87.891 Personal history of nicotine dependence; Z88.2 Allergy status to sulfonamides; Z86.73 Personal history of transient ischemic attack (TIA), and cerebral infarction without residual deficits; Z99.89 Dependence on other enabling machines and devices; Z87.448 Personal history of other diseases of urinary system; Z95.5 Presence of coronary angioplasty implant and graft; Z98.890 Other specified postprocedural states
CPT/HCPCS: 51702; 51798; 99283

== ENCOUNTER 2020-03-02 04:16 | Inpatient (IN) | payer MEDICARE, BC ==
[2020-03-02 05:05] LABS: Basophils % (A) 0 %; Eosinophils % (A) 0 %; HCT 46.5 % (39.0-53.0); HGB 14.8 gm/dL (13.0-17.5); Lymphocytes # (A) 1.1 k/uL (1.0-4.8); Lymphocytes % (A) 6 %; MCH 31.5 pg (25.0-35.0); MCHC 31.8 g/dL (31.0-37.0); Mean Platelet Volume 9.1; Monocytes # (A) 0.5 k/uL (0-1.0); Monocytes % (A) 3 %; Neutrophils # (A) 15.1 k/uL (1.3-7.7); Neutrophils % (A) 90 %; Platelet Count 109 k/uL (150-450); RDW 13.3 % (11.5-15.5); WBC 16.8 k/uL (3.8-10.6)
[2020-03-02 05:12] LABS: Albumin 3.8 g/dL (3.5-5.0); Calcium 9.2 mg/dL (8.4-10.2); Total Bilirubin 1.7 mg/dL (0.2-1.3)
[2020-03-02 05:13] LABS: INR 1.1 (<1.2); Partial Thromboplastin Time 36.3 sec (22.0-30.0); Prothrombin Time 11.7 sec (9.0-12.0)
[2020-03-02 05:18] LABS: Potassium 4.1 mmol/L (3.5-5.1)
[2020-03-02 05:19] LABS: D-Dimer 3.53 mg/L FEU (<0.60)
--- NOTE | 2020-03-02 05:19 | XR ---
EXAM: XR Chest, 2 Views CLINICAL HISTORY: Dyspnea. TECHNIQUE: Frontal and lateral views of the chest. COMPARISON: 02/02/2017. FINDINGS: Lungs: Patchy airspace disease at the left lung base possibly the basilar atelectasis. Earlier residual pneumonia cannot be excluded. Pleural space: Unremarkable. No pneumothorax. Heart: Mild cardiomegaly appeared Mediastinum: Unremarkable. Bones/joints: Osteopenia. Other findings: There is hypoaeration. IMPRESSION: 1. Hypoaeration. 2. Cardiomegaly. 3. Subsegmental atelectasis versus earlier residual pneumonia at the left lung base.
--- NOTE | 2020-03-02 05:21 | XR ---
EXAM: XR Bilateral Knees, 3 Views CLINICAL HISTORY: Right knee pain. History of fall. TECHNIQUE: Three views of the bilateral knees. COMPARISON: 07/11/2017. FINDINGS: Bones/joints: Total right knee prosthesis is noted in place and are normal anatomic position. There is osteopenia. No acute fracture, dislocation, or destructive process. Loose bodies are noted anteriorly the largest of which measures 0.9 cm. Soft tissues: Unremarkable. Vasculature: Atherosclerotic disease. IMPRESSION: 1. Osteopenia. 2. Total right knee prosthesis noted in place and are normal anatomic position. 3. No acute fracture or dislocation. 4. Atherosclerotic disease.
[2020-03-02] MEDS ORDERED: SODIUM CHLORIDE 0.9% 1,600 ML IV ONE (05:22)
[2020-03-02] MEDS ORDERED: SODIUM CHLORIDE 0.9% 1,000 ML IV STA (05:22)
[2020-03-02] MEDS ORDERED: ENOXAPARIN 150 MG/ML SYRINGE SQ STA (05:24)
--- NOTE | 2020-03-02 07:54 | ED ---
SOB HPI - General Chief Complaint: Shortness of Breath Stated Complaint: MARY Time Seen by Provider: 03/02/20 04:27 Source: EMS Mode of arrival: EMS Limitations: no limitations - History of Present Illness Initial Comments: This patient is 74-year-old man who presents with worsening dyspnea over the past few days to a week. The patient states that it was becoming much worse tonight so EMS was activated and they transported the patient here. Keyonna reynoso was started on CPAP, given solumedrol and magnesium by EMS personnel. Patient denies having any known fever. Denies productive cough. No chest pain. No leg pain or swelling. No change in urination or bowel movements MD Complaint: shortness of breath -: days(s) Severity scale (1-10): 0 Consistency: constant Improves With: nothing Worsens With: lying flat Associated Symptoms: denies other symptoms Treatments Prior to Arrival: none - Related Data Home Oxygen Therapy: No Home Medications Medication Instructions Recorded Confirmed Atorvastatin [Lipitor] 5 mg PO HS 07/02/14 03/02/20 Cholecalciferol [Vitamin D3 (25 4,000 unit PO DAILY 07/02/14 03/02/20 Mcg = 1000 Iu)] Isosorbide Mononitrate ER [Imdur] 30 mg PO DAILY 07/02/14 03/02/20 Meclizine [Antivert] 25 mg PO DAILY 07/02/14 03/02/20 Nitroglycerin Sl Tabs [Nitrostat] 0.4 mg SUBLINGUAL Q5M PRN 07/02/14 03/02/20 Omeprazole [PriLOSEC] 20 mg PO QAM 07/02/14 03/02/20 Polyethylene Glycol 3350 [Miralax] 17 gm PO BID 07/02/14 03/02/20 Magnesium Oxide [Mag-Ox] 750 mg PO DAILY 06/15/16 03/02/20 Allopurinol [Zyloprim] 100 mg PO DAILY 06/06/17 03/02/20 Aspirin [Adult Low Dose Aspirin EC] 81 mg PO HS 06/06/17 03/02/20 Apixaban [Eliquis] 5 mg PO BID 03/02/20 03/02/20 Brimonidine Tartrate [Alphagan P 1 drops LEFT EYE BID 03/02/20 03/02/20 0.1% Ophth Soln] Docusate Calcium 240 mg PO HS 03/02/20 03/02/20 Latanoprost [Xalatan 0.005%] 1 drop BOTH EYES HS 03/02/20 03/02/20 traMADol HCL [Ultram] 50 mg PO BID 03/02/20 03/02/20 Allergies Allergy/AdvReac Type Severity Reaction Status Date / Time Sulfa (Sulfonamide Allergy Unknown HIVES, Verified 03/02/20 08:03 Antibiotics) ITCHING Review of Systems ROS Statement: Those systems with pertinent positive or pertinent negative responses have been documented in the HPI. ROS Other: All systems not noted in ROS Statement are negative. Constitutional: Denies: fever, chills, weakness Respiratory: Reports: dyspnea. Denies: cough, wheezes, hemoptysis Cardiovascular: Reports: orthopnea. Denies: chest pain, palpitations, edema, syncope Gastrointestinal: Denies: abdominal pain, nausea, vomiting Genitourinary: Denies: dysuria, hematuria Musculoskeletal: Denies: back pain Skin: Denies: rash Neurological: Denies: headache, weakness, numbness Past Medical History Past Medical History: Coronary Artery Disease (CAD), COPD, CVA/TIA, GERD/Reflux, Hyperlipidemia, Hypertension, Myocardial Infarction ([place]), Musculoskeletal Disorder, Renal Disease, Sleep Apnea/CPAP/BIPAP Additional Past Medical History / Comment(s): TIA X2 (1999 & 2002), VERTIGO, C- PAP MACHINE, SCIATICA & BACK PAIN with past EPIDURAL INJECTIONS, pt states he takes zyloprim due to elevated blood test-does not have gout yet, kidney disease, past nephritis, lupus (in remission), tingling in R foot, post op infection after R rotator cuff repair requiring irrigations and packings/ABX. Last Myocardial Infarction Date:: 1999 History of Any Multi-Drug Resistant Organisms: None Reported Date of last positivie culture/infection: None MDRO Source:: None Past Surgical History: Heart Catheterization With Stent, Orthopedic Surgery Additional Past Surgical History / Comment(s): RT ROTATOR CUFF-titanium used, LEFT KNEE ARTHROSCOPY, TOTAL LEFT/right KNEE, colonoscopy. TURP Past Anesthesia/Blood Transfusion Reactions: No Reported Reaction Additional Past Anesthesia/Blood Transfusion Reaction / Comment(s): PONV with spinal anesthesia, Date of Last Stent Placement:: 1999 Past Psychological History: No Psychological Hx Reported Smoking Status: Former smoker Past Alcohol Use History: None Reported Past Drug Use History: None Reported - Past Family History Mother Family Medical History: Cancer Additional Family Medical History / Comment(s): BREAST CA Father Family Medical History: Cancer Additional Family Medical History / Comment(s): ESOPHAGEAL CA General Exam Limitations: no limitations General appearance: alert, in distress Head exam: Present: atraumatic, normocephalic Eye exam: Present: normal appearance. Absent: scleral icterus, conjunctival injection ENT exam: Present: normal oropharynx Respiratory exam: Present: respiratory distress, rales. Absent: wheezes, rhonchi, stridor, accessory muscle use, decreased breath sounds Cardiovascular Exam: Present: regular rate, normal rhythm, systolic murmur. Absent: diastolic murmur, rubs, gallop GI/Abdominal exam: Present: soft. Absent: distended, tenderness, guarding, rebound, rigid Extremities exam: Present: normal inspection, normal capillary refill. Absent: pedal edema, calf tenderness Neurological exam: Present: alert Skin exam: Present: warm, dry, intact, normal color. Absent: rash Course Vital Signs 03/02/20 03/02/20 03/02/20 04:18 05:22 06:41 Temperature 101 F H 97.7 F 99.2 F Pulse Rate 87 106 H 86 Pulse Rate [ Pulse Oximetery ] Respiratory 22 20 20 Rate Blood Pressure 108/92 106/89 95/59 Blood Pressure [Left Arm] O2 Sat by Pulse 92 L 95 94 L Oximetry 03/02/20 03/02/20 03/02/20 07:20 08:37 08:43 Temperature 98.8 F 98.6 F 98.4 F Pulse Rate 80 76 Pulse Rate [ 80 Pulse Oximetery ] Respiratory 20 18 22 Rate Blood Pressure 102/59 121/69 Blood Pressure 121/78 [Left Arm] O2 Sat by Pulse 95 94 L 94 L Oximetry Procedures - Sepsis Sepsis Focused Exam #1 Sepsis Focused Exam Complete: Yes Vital Signs & RN Notes Reviewed: Yes Capillary Refill: < 2 Seconds: Fingers Peripheral Pulses: Normal: Radial (R) Skin Color: Mottled Respiratory Exam: wheezes, rales Cardiovascular Exam: regular rate, normal rhythm Medical Decision Making - Medical Decision Making This patient is 74-year-old man brought by ambulance for evaluation of dyspnea. There does appear to be multifactorial etiology of this. There is probably element of CHF, also suspected pneumonia based on the x-ray, though patient not having fever or sputum. Patient be admitted with further workup. VQ scan ordered to rule out pulmonary embolism as patient's kidney function does not support CT with contrast. Echocardiogram pending. Cardiology consult. - Lab Data Result diagrams: 03/05/20 15:44 03/05/20 06:20 Lab Results 03/02/20 03/02/20 03/02/20 Range/Units 04:39 04:39 04:39 WBC 16.8 H (3.8-10.6) k/uL RBC 4.70 (4.30-5.90) m/uL Hgb 14.8 (13.0-17.5) gm/dL Hct 46.5 (39.0-53.0) % MCV 99.0 (80.0-100.0) fL MCH 31.5 (25.0-35.0) pg MCHC 31.8 (31.0-37.0) g/dL RDW 13.3 (11.5-15.5) % Plt Count 109 L (150-450) k/uL Neutrophils % 90 % Lymphocytes % 6 % Monocytes % 3 % Eosinophils % 0 % Basophils % 0 % Neutrophils # 15.1 H (1.3-7.7) k/uL Lymphocytes # 1.1 (1.0-4.8) k/uL Monocytes # 0.5 (0-1.0) k/uL Eosinophils # 0.0 (0-0.7) k/uL Basophils # 0.0 (0-0.2) k/uL PT 11.7 (9.0-12.0) sec INR 1.1 (<1.2) APTT 36.3 H (22.0-30.0) sec D-Dimer 3.53 H (<0.60) mg/L FEU Sodium 135 L (137-145) mmol/L Potassium 4.1 (3.5-5.1) mmol/L Chloride 101 (98-107) mmol/L Carbon Dioxide 20 L (22-30) mmol/L Anion Gap 14 mmol/L BUN 35 H (9-20) mg/dL Creatinine 2.55 H (0.66-1.25) mg/dL Est GFR (CKD-EPI)AfAm 28 (>60 ml/min/1.73 sqM) Est GFR (CKD-EPI)NonAf 24 (>60 ml/min/1.73 sqM) Glucose 56 L (74-99) mg/dL Lactic Ac Sepsis Rflx Plasma Lactic Acid Jus (0.7-2.0) mmol/L Calcium 9.2 (8.4-10.2) mg/dL Total Bilirubin 1.7 H (0.2-1.3) mg/dL AST 437 H (17-59) U/L ALT 30 (4-49) U/L Alkaline Phosphatase 110 (38-126) U/L Troponin I (0.000-0.034) ng/mL NT-Pro-B Natriuret Pep pg/mL Total Protein 7.0 (6.3-8.2) g/dL Albumin 3.8 (3.5-5.0) g/dL 03/02/20 03/02/20 03/02/20 Range/Units 04:39 04:39 04:39 WBC (3.8-10.6) k/uL RBC (4.30-5.90) m/uL Hgb (13.0-17.5) gm/dL Hct (39.0-53.0) % MCV (80.0-100.0) fL MCH (25.0-35.0) pg MCHC (31.0-37.0) g/dL RDW (11.5-15.5) % Plt Count (150-450) k/uL Neutrophils % % Lymphocytes % % Monocytes % % Eosinophils % % Basophils % % Neutrophils # (1.3-7.7) k/uL Lymphocytes # (1.0-4.8) k/uL Monocytes # (0-1.0) k/uL Eosinophils # (0-0.7) k/uL Basophils # (0-0.2) k/uL PT (9.0-12.0) sec INR (<1.2) APTT (22.0-30.0) sec D-Dimer (<0.60) mg/L FEU Sodium (137-145) mmol/L Potassium (3.5-5.1) mmol/L Chloride (98-107) mmol/L Carbon Dioxide (22-30) mmol/L Anion Gap mmol/L BUN (9-20) mg/dL Creatinine (0.66-1.25) mg/dL Est GFR (CKD-EPI)AfAm (>60 ml/min/1.73 sqM) Est GFR (CKD-EPI)NonAf (>60 ml/min/1.73 sqM) Glucose (74-99) mg/dL Lactic Ac Sepsis Rflx Plasma Lactic Acid Jus 6.0 H* (0.7-2.0) mmol/L Calcium (8.4-10.2) mg/dL Total Bilirubin (0.2-1.3) mg/dL AST (17-59) U/L ALT (4-49) U/L Alkaline Phosphatase (38-126) U/L Troponin I 0.694 H* (0.000-0.034) ng/mL NT-Pro-B Natriuret Pep 6480 pg/mL Total Protein (6.3-8.2) g/dL Albumin (3.5-5.0) g/dL 03/02/20 03/02/20 Range/Units 05:19 07:30 WBC (3.8-10.6) k/uL RBC (4.30-5.90) m/uL Hgb (13.0-17.5) gm/dL Hct (39.0-53.0) % MCV (80.0-100.0) fL MCH (25.0-35.0) pg MCHC (31.0-37.0) g/dL RDW (11.5-15.5) % Plt Count (150-450) k/uL Neutrophils % % Lymphocytes % % Monocytes % % Eosinophils % % Basophils % % Neutrophils # (1.3-7.7) k/uL Lymphocytes # (1.0-4.8) k/uL Monocytes # (0-1.0) k/uL Eosinophils # (0-0.7) k/uL Basophils # (0-0.2) k/uL PT (9.0-12.0) sec INR (<1.2) APTT (22.0-30.0) sec D-Dimer (<0.60) mg/L FEU Sodium (137-145) mmol/L Potassium (3.5-5.1) mmol/L Chloride (98-107) mmol/L Carbon Dioxide (22-30) mmol/L Anion Gap mmol/L BUN (9-20) mg/dL Creatinine (0.66-1.25) mg/dL Est GFR (CKD-EPI)AfAm (>60 ml/min/1.73 sqM) Est GFR (CKD-EPI)NonAf (>60 ml/min/1.73 sqM) Glucose (74-99) mg/dL Lactic Ac Sepsis Rflx Y Plasma Lactic Acid Jus 3.5 H* (0.7-2.0) mmol/L Calcium (8.4-10.2) mg/dL Total Bilirubin (0.2-1.3) mg/dL AST (17-59) U/L ALT (4-49) U/L Alkaline Phosphatase (38-126) U/L Troponin I (0.000-0.034) ng/mL NT-Pro-B Natriuret Pep pg/mL Total Protein (6.3-8.2) g/dL Albumin (3.5-5.0) g/dL - EKG Data -: EKG Interpreted by Ut EKG shows normal: sinus rhythm (With PVC), axis (Left axis deviation), intervals (KS interval prolonged consistent with first-degree AV block. QRS duration prolonged consistent with right bundle-branch block), QRS complexes (Right bundle-branch block.) Rate: normal (Rate 95 bpm) Interpretation: other (Old lateral infarct suspected.) Critical Care Time Critical Care Time: Yes (35 minutes) Disposition Clinical Impression: Dyspnea, Congestive heart failure, Pneumonia, Acute kidney injury, Elevated d- dimer, NSTEMI (non-ST elevated myocardial infarction) Disposition: ADMITTED IP TO THIS HOSP Condition: Poor
[2020-03-02] MEDS ORDERED: PNEUMONIA PROTOCOL UTILIZED 1 EACH MISC PO PRN (07:55)
--- NOTE | 2020-03-02 11:04 | NM ---
EXAMINATION TYPE: NM pul vent and perfuse DATE OF EXAM: 03/02/2020 COMPARISON: Same day chest x-ray. HISTORY: Difficulty breathing. TECHNIQUE: Utilizing inhalation of 66.5 mCi Tc 99m DTPA aerosol and intravenous injection of 5.4 mCi of Tc 99m MAA, ventilation and perfusion images are acquired post injection in multiple projections. FINDINGS: Suboptimal due to patient's body habitus. Central clumping on ventilation images likely rel ated to underlying COPD. There is no evidence of mismatched defects. IMPRESSION: Low scintigraphic evidence for acute pulmonary embolism.
--- NOTE | 2020-03-02 12:30 | P.CRDCN ---
History of Present Illness Consult date: 03/02/20 Reason for Consult (text): Troponin elevation/NSTEMI Consult reason: shortness of breath Chief complaint: Troponin elevation/NSTEMI History of present illness: HISTORY OF PRESENT ILLNESS AND PLAN: This is a 74-year-old male with history of smoking 3 packs per day 40 years, obesity, SEMAJ with CPAP use, multiple joint replacement surgeries, abdominal abscess, PAF with anticoagulation, hypertension, hyperlipidemia, COPD, TIA/CVA, CAD status post PCI and recent fall. Patient presents to ER this a.m. with complaints of a recent fall at home in bathroom, weakness, muscle aches and worsening shortness of breath with cough/chest tighness over the past few weeks. Pt currently resting in bed in no acute distress, alert and oriented. Patient has no current complaints of chest pain, chest pressure or palpitations. He does have complaints of recent FEVER up to 101 with associated cough and chest tightness. Has extensive 3 PPD smoking hx over 40 years. Has not been tested for COVID 19 historically. Pt lives in his own home with significant other. Lactic acid on presentation 6.0, now decreased to 3.5. BUN/creatinine are elevated at 35/2.55. Troponin elevation at 0.694 and 0.589. EKG shows SR 1st degree block, RBBB and PVC's with HR 95. Patient sent for VQ scan and this a.m., negative for PE. VSS. 95% on 6 L NC. Afebrile currently. No current smoking. Pt follows with Dr. Eng for cardiology. Patient has history of severe abscess in his abdomen, left elbow and right knee in June 2016 which was followed/treated by ID. Pt states abscess/infections has completely resolved. SIGNIFICANT PAST MEDICAL HISTORY: Smoking 3 packs per day 40 years, obesity, SEMAJ with CPAP use, multiple joint replacement surgeries, PAF, hypertension, hyperlipidemia, COPD, TIA/CVA, CAD status post PCI and recent fall. PAST SURGICAL HISTORY: See list. EKG = SR 1st degree block, RBBB and PVC's, HR 95. Troponins positive = 0.694 and 0.589. SIGNIFICANT LABORATORY VALUES: WBC 16.8. Lactic acid on presentation 6.0, now decreased to 3.5. BUN/creatinine are elevated at 35/2.55. D-Dimer 3.53. Chest x-ray 03/02/20 = Possible LEFT lower pneumonia. Cardiomegaly. Hypo- inflation. VQ scan 03/02/20 = Negative for PE. Most recent echo 09/27/18 = EF 50%, Moderate concentric LVH. Grade 1 diastolic dysfunction. Mildly dilated RV. Mildly dilated LA. Mild MR. Mild TR. Most recent stress testing = Inconclusive by EKG criteria due to baseline EKG. Motion/aquisition artifact. Fixed defect of inferior wall. No Ischemia. Most recent cardiac cath = Will obtain from Cardiology on Tuesday REVIEW OF SYSTEMS: CONSTITUTIONAL: Complains of weakness, all over join pains, fever and chills. EYES: Denies blurred vision. Denies blurred vision or vision changes. Denies eye pain. EARS, NOSE, MOUTH & THROAT: Denies headache. Denies sore throat. Denies ear pain Denies hemoptysis. CARDIOVASCULAR: Complains of chest tightness and associated shortness of breath. Denies orthopnea. Denies PND. Denies palpitations. RESPIRATORY: Complains of productive cough and shortness of breath. GASTROINTESTINAL: Denies abdominal pain or distention. Denies diarrhea. Denies constipation. Denies nausea. Denies vomiting. MUSCULOSKELETAL: Complains of myalgias and body aches. Bruises on bialteral knees due to recent falling. INTEGUMENTARY: Denies pruitis. Denies rash. ENDOCRINE: Complains of fatigue. Denies weight change. Denies polydipsia. Denies polyurina Denies heat/cold intolerance. GENITOURINARY: Denies burning, hematuria or urgency with micturation. HEMATOLOGIC: Denies history of anemia. Denies bleeding. NEUROLOGIC: Denies numbness. Denies tingling. Complains of weakness. PSYCHIATRIC: Denies anxiety. Denies depression. PHYSICAL EXAM: GENERAL: Morbidly obese. Well developed, in no acute distress. HEENT: Head is atraumatic, normocephalic. Pupils are equal, round. Extra ocular movements intact. Mucous membranes moist. Neck supple. No JVD. No carotid bruit. No thyromegaly. LUNGS: Clear to auscultation. No wheezes, rales or rhonchi. No chest wall tenderness on palpation or with deep breathing. HEART: Regular rate and rhythm, no rubs or gallops. S1 and S2 heard. No murmur. (distant heart sounds) ABDOMEN: Abdominal exam, WNL. Bowel sounds x4 quads. Soft, non-tender, without masses, organomegaly, or abdominal aorta enlargement. EXTREMITIES/VASCULAR: Extremities have easily palpable radial, femoral, dorsalis pedis and posterior tibial pulses. No cyanosis, calf tenderness. No BLE edema. NEUROLOGIC: Patient is awake, alert and oriented x3. No focal neurologic abnormalities. FINAL IMPRESSION: 1. Troponin elevated secondary to infection process 2. CAD s/p PCI 3. Hypertension 4. Hyperlipidemia 5. Sepsis of unknown etiology 6. PAF, anti-coagulated with Eliquis 5 mg twice daily. PLAN: Pt to echocardiogram. Pt to continue same medical/medication regime. R/O COVID 19, will order swab. Heart healthy diet. Nurse Practitioner note has been reviewed by the Physician. Signing provider agrees with the documented findings, assessment and plan of care. Past Medical History Past Medical History: Coronary Artery Disease (CAD), COPD, CVA/TIA, GERD/Reflux, Hyperlipidemia, Hypertension, Myocardial Infarction ([place]), Musculoskeletal Disorder, Renal Disease, Sleep Apnea/CPAP/BIPAP Additional Past Medical History / Comment(s): TIA X2 (1999 & 2002), VERTIGO, C-PAP MACHINE, SCIATICA & BACK PAIN with past EPIDURAL INJECTIONS, pt states he takes zyloprim due to elevated blood test-does not have gout yet, kidney disease, past nephritis, lupus (in remission), tingling in R foot, post op infection after R rotator cuff repair requiring irrigations and packings/ABX. Last Myocardial Infarction Date:: 1999 History of Any Multi-Drug Resistant Organisms: None Reported Date of last positivie culture/infection: None MDRO Source:: None Past Surgical History: Heart Catheterization With Stent, Orthopedic Surgery Additional Past Surgical History / Comment(s): RT ROTATOR CUFF-titanium used, LEFT KNEE ARTHROSCOPY, TOTAL LEFT/right KNEE, colonoscopy. TURP Past Anesthesia/Blood Transfusion Reactions: No Reported Reaction Additional Past Anesthesia/Blood Transfusion Reaction / Comment(s): PONV with spinal anesthesia, Date of Last Stent Placement:: 1999 Past Psychological History: No Psychological Hx Reported Additional Psychological History / Comment(s): Pt resides with a friend and his friends adult daughter. Pt uses a cane but lately d/t R knee pain he has been using a wheelchair. Pt normally can drive. Smoking Status: Former smoker Past Alcohol Use History: None Reported Additional Past Alcohol Use History / Comment(s): Pt states he was a 3 ppd smoker. He started smoking in 1959 and quit in 1999. He states he was a heavy drinker but quit drinking in 1999. Past Drug Use History: None Reported - Past Family History Mother Family Medical History: Cancer Additional Family Medical History / Comment(s): BREAST CA Father Family Medical History: Cancer Additional Family Medical History / Comment(s): ESOPHAGEAL CA Medications and Allergies Home Medications Medication Instructions Recorded Confirmed Type Atorvastatin [Lipitor] 5 mg PO HS 07/02/14 03/02/20 History Cholecalciferol [Vitamin D3 (25 4,000 unit PO DAILY 07/02/14 03/02/20 History Mcg = 1000 Iu)] Isosorbide Mononitrate ER [Imdur] 30 mg PO DAILY 07/02/14 03/02/20 History Meclizine [Antivert] 25 mg PO DAILY 07/02/14 03/02/20 History Nitroglycerin Sl Tabs [Nitrostat] 0.4 mg SUBLINGUAL Q5M PRN 07/02/14 03/02/20 History Omeprazole [PriLOSEC] 20 mg PO QAM 07/02/14 03/02/20 History Polyethylene Glycol 3350 [Miralax] 17 gm PO BID 07/02/14 03/02/20 History Magnesium Oxide [Mag-Ox] 750 mg PO DAILY 06/15/16 03/02/20 History Allopurinol [Zyloprim] 100 mg PO DAILY 06/06/17 03/02/20 History Aspirin [Adult Low Dose Aspirin EC] 81 mg PO HS 06/06/17 03/02/20 History Apixaban [Eliquis] 5 mg PO BID 03/02/20 03/02/20 History Brimonidine Tartrate [Alphagan P 1 drops LEFT EYE BID 03/02/20 03/02/20 History 0.1% Ophth Soln] Docusate Calcium 240 mg PO HS 03/02/20 03/02/20 History Latanoprost [Xalatan 0.005%] 1 drop BOTH EYES HS 03/02/20 03/02/20 History traMADol HCL [Ultram] 50 mg PO BID 03/02/20 03/02/20 History Allergies Allergy/AdvReac Type Severity Reaction Status Date / Time Sulfa (Sulfonamide Allergy Unknown HIVES, Verified 03/02/20 08:03 Antibiotics) ITCHING Physical Exam Vitals: Vital Signs Temp Pulse Pulse Resp BP BP Pulse Ox 03/02/20 08:43 98.4 F 80 22 121/78 94 L 03/02/20 08:37 98.6 F 76 18 121/69 94 L 03/02/20 07:20 98.8 F 80 20 102/59 95 03/02/20 06:41 99.2 F 86 20 95/59 94 L 03/02/20 05:22 97.7 F 106 H 20 106/89 95 03/02/20 04:18 101 F H 87 22 108/92 92 L Intake and Output 03/01/20 03/02/20 03/02/20 22:59 06:59 14:59 Other: Weight 136.078 kg 136.078 kg Results 03/02/20 04:39 03/02/20 04:39 Cardiac Enzymes 03/02/20 03/02/20 03/02/20 Range/Units 04:39 04:39 08:27 AST 437 H (17-59) U/L Troponin I 0.694 H* 0.589 H* (0.000-0.034) ng/mL Coagulation 03/02/20 Range/Units 04:39 PT 11.7 (9.0-12.0) sec APTT 36.3 H (22.0-30.0) sec CBC 03/02/20 Range/Units 04:39 WBC 16.8 H (3.8-10.6) k/uL RBC 4.70 (4.30-5.90) m/uL Hgb 14.8 (13.0-17.5) gm/dL Hct 46.5 (39.0-53.0) % Plt Count 109 L (150-450) k/uL Comprehensive Metabolic Panel 03/02/20 Range/Units 04:39 Sodium 135 L (137-145) mmol/L Potassium 4.1 (3.5-5.1) mmol/L Chloride 101 (98-107) mmol/L Carbon Dioxide 20 L (22-30) mmol/L BUN 35 H (9-20) mg/dL Creatinine 2.55 H (0.66-1.25) mg/dL Glucose 56 L (74-99) mg/dL Calcium 9.2 (8.4-10.2) mg/dL AST 437 H (17-59) U/L ALT 30 (4-49) U/L Alkaline Phosphatase 110 (38-126) U/L Total Protein 7.0 (6.3-8.2) g/dL Albumin 3.8 (3.5-5.0) g/dL Current Medications Generic Name Dose Route Start Last Admin Trade Name Freq PRN Reason Stop Dose Admin Albuterol Sulfate 2.5 mg 03/02/20 07:55 Albuterol Nebulized 2.5 Mg/3 Ml INHALATION RT-Q4H PRN Shortness Of Breath Or Wheezing Azithromycin 500 mg 03/03/20 09:00 Azithromycin 500 Mg Tab PO 03/07/20 09:01 DAILY SHERIE Sodium Chloride 1,000 mls @ 130 mls/hr 03/02/20 05:22 03/02/20 05:50 Saline 0.9% IV 03/02/20 13:03 130 mls/hr .Q7H42M STA Administration Ceftriaxone Sodium 2 gm/ 50 mls @ 100 mls/hr 03/03/20 08:00 03/02/20 11:23 Sodium Chloride IVPB 03/05/20 08:01 Not Given Q24HR SHERIE Miscellaneous Information 1 each 03/02/20 07:55 Pneumonia Protocol Utilized 1 Each Misc PO ONCE PRN Per Protocol Intake and Output 03/01/20 03/02/20 03/02/20 22:59 06:59 14:59 Other: Weight 136.078 kg 136.078 kg Patient Weight 03/03/20 06:59 Weight 136.078 kg 03/02/20 04:39 03/02/20 04:39
[2020-03-02] MEDS ORDERED: NITROGLYCERIN SL TABS 0.4 MG TAB SUBLINGUAL PRN (13:41)
--- NOTE | 2020-03-02 13:50 | P.HPIM ---
History of Present Illness 74-year-old male came in with complaints of dizziness and fall denied any syncopal episode. Patient was also complaining of fever chills has been going for the last 34 days muscle weakness and generalized body aches. Patient is als o complaining of some chest tightness and found to have fever. Patient has possible subsegmental atelectasis or residual pneumonia in the left lung base. I'm opting a CAT scan, Covid 19 as was ordered couple neurology will be consulted patient is presently on 5 L of oxygen patient usually only uses oxygen at nighttime. Patient does have history of sleep apnea. Patient has mildly elevated troponins because of his cardiac evaluate the patient patient does have leukocytosis. Patient has chronic kidney disease with baseline creatinine around 1.8 presently 2.55 patient is receiving IV fluids patient has elevated lactic acid of 3.5. Does complain of mild dysuria denied any significant cough. Patient had a normal ejection fraction in the recent echocardiogram with grade 1 diastolic dysfunction Review of Systems REVIEW OF SYSTEMS: CONSTITUTIONAL: As mentioned in HPI HEENT: No recent visual problems or hearing problems. Denied any sore throat. CARDIOVASCULAR: No chest pain, orthopnea, PND, no palpitations, no syncope. PULMONARY: No shortness of breath, no cough, no hemoptysis. GASTROINTESTINAL: No diarrhea, no nausea, no vomiting, no abdominal pain. NEUROLOGICAL: No headaches, no weakness, no numbness. HEMATOLOGICAL: Denies any bleeding or petechiae. GENITOURINARY: Denies any burning micturition, frequency, or urgency. MUSCULOSKELETAL/RHEUMATOLOGICAL: Denies any joint pain, swelling, or any muscle pain. ENDOCRINE: Denies any polyuria or polydipsia. The rest of the 14-point review of systems is negative. Past Medical History Past Medical History: Coronary Artery Disease (CAD), COPD, CVA/TIA, GERD/Reflux, Hyperlipidemia, Hypertension, Myocardial Infarction ([place]), Musculoskeletal Disorder, Renal Disease, Sleep Apnea/CPAP/BIPAP Additional Past Medical History / Comment(s): TIA X2 (1999 & 2002), VERTIGO, C- PAP MACHINE, SCIATICA & BACK PAIN with past EPIDURAL INJECTIONS, pt states he takes zyloprim due to elevated blood test-does not have gout yet, kidney disease, past nephritis, lupus (in remission), tingling in R foot, post op infection after R rotator cuff repair requiring irrigations and packings/ABX. Last Myocardial Infarction Date:: 1999 History of Any Multi-Drug Resistant Organisms: None Reported Date of last positivie culture/infection: None MDRO Source:: None Past Surgical History: Heart Catheterization With Stent, Orthopedic Surgery Additional Past Surgical History / Comment(s): RT ROTATOR CUFF-titanium used, LEFT KNEE ARTHROSCOPY, TOTAL LEFT/right KNEE, colonoscopy. TURP Past Anesthesia/Blood Transfusion Reactions: No Reported Reaction Additional Past Anesthesia/Blood Transfusion Reaction / Comment(s): PONV with spinal anesthesia, Date of Last Stent Placement:: 1999 Past Psychological History: No Psychological Hx Reported Additional Psychological History / Comment(s): Pt resides with a friend and his friends adult daughter. Pt uses a cane but lately d/t R knee pain he has been using a wheelchair. Pt normally can drive. Smoking Status: Former smoker Past Alcohol Use History: None Reported Additional Past Alcohol Use History / Comment(s): Pt states he was a 3 ppd smoker. He started smoking in 1958 and quit in 1999. He states he was a heavy drinker but quit drinking in 1999. Past Drug Use History: None Reported - Past Family History Mother Family Medical History: Cancer Additional Family Medical History / Comment(s): BREAST CA Father Family Medical History: Cancer Additional Family Medical History / Comment(s): ESOPHAGEAL CA Medications and Allergies Home Medications Medication Instructions Recorded Confirmed Type Atorvastatin [Lipitor] 5 mg PO HS 07/02/14 03/02/20 History Cholecalciferol [Vitamin D3 (25 4,000 unit PO DAILY 07/02/14 03/02/20 History Mcg = 1000 Iu)] Isosorbide Mononitrate ER [Imdur] 30 mg PO DAILY 07/02/14 03/02/20 History Meclizine [Antivert] 25 mg PO DAILY 07/02/14 03/02/20 History Nitroglycerin Sl Tabs [Nitrostat] 0.4 mg SUBLINGUAL Q5M PRN 07/02/14 03/02/20 History Omeprazole [PriLOSEC] 20 mg PO QAM 07/02/14 03/02/20 History Polyethylene Glycol 3350 [Miralax] 17 gm PO BID 07/02/14 03/02/20 History Magnesium Oxide [Mag-Ox] 750 mg PO DAILY 06/15/16 03/02/20 History Allopurinol [Zyloprim] 100 mg PO DAILY 06/06/17 03/02/20 History Aspirin [Adult Low Dose Aspirin EC] 81 mg PO HS 06/06/17 03/02/20 History Apixaban [Eliquis] 5 mg PO BID 03/02/20 03/02/20 History Brimonidine Tartrate [Alphagan P 1 drops LEFT EYE BID 03/02/20 03/02/20 History 0.1% Ophth Soln] Docusate Calcium 240 mg PO HS 03/02/20 03/02/20 History Latanoprost [Xalatan 0.005%] 1 drop BOTH EYES HS 03/02/20 03/02/20 History traMADol HCL [Ultram] 50 mg PO BID 03/02/20 03/02/20 History Allergies Allergy/AdvReac Type Severity Reaction Status Date / Time Sulfa (Sulfonamide Allergy Unknown HIVES, Verified 03/02/20 08:03 Antibiotics) ITCHING Physical Exam Vitals: Vital Signs Temp Pulse Pulse Resp BP BP Pulse Ox 03/02/20 08:43 98.4 F 80 22 121/78 94 L 03/02/20 08:37 98.6 F 76 18 121/69 94 L 03/02/20 07:20 98.8 F 80 20 102/59 95 03/02/20 06:41 99.2 F 86 20 95/59 94 L 03/02/20 05:22 97.7 F 106 H 20 106/89 95 03/02/20 04:18 101 F H 87 22 108/92 92 L Intake and Output 03/01/20 03/02/20 03/02/20 22:59 06:59 14:59 Other: Weight 136.078 kg 136.078 kg PHYSICAL EXAMINATION: GENERAL: The patient is alert and oriented x3, not in any acute distress. Well developed, well nourished. HEENT: Pupils are round and equally reacting to light. EOMI. No scleral icterus. No conjunctival pallor. Normocephalic, atraumatic. No pharyngeal erythema. No thyromegaly. CARDIOVASCULAR: S1 and S2 present. No murmurs, rubs, or gallops. PULMONARY: Initially entered into bilateral lung monsivais ABDOMEN: Soft, nontender, nondistended, normoactive bowel sounds. No palpable organomegaly. MUSCULOSKELETAL: No joint swelling or deformity. EXTREMITIES: No cyanosis, clubbing, or pedal edema. NEUROLOGICAL: Gross neurological examination did not reveal any focal deficits. SKIN: No rashes. Note: Because of COVID 19 isolation, some of the history and physical exam findings or indirect and obtained from nursing staff, and other physician examinations to avoid unnecessary contact with the patient. Results CBC & Chem 7: 03/02/20 04:39 03/02/20 04:39 Labs: Abnormal Lab Results - Last 24 Hours (Table) 03/02/20 03/02/20 03/02/20 Range/Units 04:39 04:39 04:39 WBC 16.8 H (3.8-10.6) k/uL Plt Count 109 L (150-450) k/uL Neutrophils # 15.1 H (1.3-7.7) k/uL APTT 36.3 H (22.0-30.0) sec D-Dimer 3.53 H (<0.60) mg/L FEU Sodium 135 L (137-145) mmol/L Carbon Dioxide 20 L (22-30) mmol/L BUN 35 H (9-20) mg/dL Creatinine 2.55 H (0.66-1.25) mg/dL Glucose 56 L (74-99) mg/dL Plasma Lactic Acid Jus (0.7-2.0) mmol/L Total Bilirubin 1.7 H (0.2-1.3) mg/dL AST 437 H (17-59) U/L Troponin I (0.000-0.034) ng/mL 03/02/20 03/02/20 03/02/20 Range/Units 04:39 04:39 07:30 WBC (3.8-10.6) k/uL Plt Count (150-450) k/uL Neutrophils # (1.3-7.7) k/uL APTT (22.0-30.0) sec D-Dimer (<0.60) mg/L FEU Sodium (137-145) mmol/L Carbon Dioxide (22-30) mmol/L BUN (9-20) mg/dL Creatinine (0.66-1.25) mg/dL Glucose (74-99) mg/dL Plasma Lactic Acid Jus 6.0 H* 3.5 H* (0.7-2.0) mmol/L Total Bilirubin (0.2-1.3) mg/dL AST (17-59) U/L Troponin I 0.694 H* (0.000-0.034) ng/mL 03/02/20 03/02/20 Range/Units 08:27 11:33 WBC (3.8-10.6) k/uL Plt Count (150-450) k/uL Neutrophils # (1.3-7.7) k/uL APTT (22.0-30.0) sec D-Dimer (<0.60) mg/L FEU Sodium (137-145) mmol/L Carbon Dioxide (22-30) mmol/L BUN (9-20) mg/dL Creatinine (0.66-1.25) mg/dL Glucose (74-99) mg/dL Plasma Lactic Acid Jus 2.9 H* (0.7-2.0) mmol/L Total Bilirubin (0.2-1.3) mg/dL AST (17-59) U/L Troponin I 0.589 H* (0.000-0.034) ng/mL Thrombosis Risk Factor Assmnt - Choose All That Apply Any of the Below Risk Factors Present?: Yes Each Factor Represents 1 point: Abnormal pulmonary function (COPD), Obesity (BMI >25) Other Risk Factors: Yes Each Risk Factor Represents 2 Points: Age 61-74 years Thrombosis Risk Factor Assessment Total Risk Factor Score: 4 Thrombosis Risk Factor Assessment Level: Moderate Risk Assessment and Plan Plan: -Acute respiratory failure mostly hypoxic respiratory failure a lot and a computed tomography scan of the chest to assess for any pneumonia Covid 19, Covid 19 PCR was ordered patient will be continued on IV fluids -severe sepsis most probably secondary to pneumonia although patient was complaining of UTI symptoms because of which we laughed any urine analysis with urine culture. Blood cultures were obtained -Acute renal failure most probably seconded to sepsis., Probably prerenal azotemia from sepsis although EKG blood necrosis cannot be ruled out -The kidney disease stage III: Etiology of her chronic kidney disease is not known -Hypertension -Hyperlipidemia -Proximal atrial fibrillation on Eliquis dose of which will be cut down to 2.5 mg because of the renal failure Coronary artery disease -CVAT in the past -Gastroesophageal reflux disease -Obstructive sleep apnea uses CPAP machine at home.
--- NOTE | 2020-03-02 14:45 | CT ---
EXAMINATION TYPE: CT chest wo con DATE OF EXAM: 03/02/2020 COMPARISON: None HISTORY: pneumonia, possible covid CT DLP: 1188.6 mGycm Automated exposure control for dose reduction was used. Images were obtained from the thoracic inlet to the diaphragm without contrast. There is some mild linear infiltrate and atelectasis at the left lung base. Heart is top normal in si ze. There is some coronary artery calcification. There is no mediastinal adenopathy. There are calcif ied granulomata in the mediastinum. There are no hilar masses. The right lung is clear. There is no e vidence of a pulmonary mass. There is no pleural effusion. There is spurring in the thoracic spine. There is no significant compression deformity. Sternum is in tact. The ribs appear intact. IMPRESSION: There is some mild linear infiltrate and atelectasis left lung base. Old granulomatous disease. Ather osclerotic vascular disease.
[2020-03-02] MEDS: ALBUTEROL NEBULIZED 2.5 MG/3 ML INHALATION PRN ×2 (15:19→20:22)
[2020-03-02] MEDS ORDERED: APIXABAN 5 MG TAB PO SCH (21:00)
[2020-03-02] MEDS: DOCUSATE 100 MG CAP PO SCH ×2 (21:25→21:50)
[2020-03-02] MEDS: ATORVASTATIN 10 MG TAB PO SCH (21:25)
[2020-03-02] MEDS: ASPIRIN 81 MG PO SCH (21:25)
[2020-03-02] MEDS: traMADol 50 MG TAB PO SCH (21:26)
[2020-03-02] MEDS: APIXABAN 2.5 MG TABLET PO SCH (21:26)
[2020-03-02] MEDS: LATANOPROST 0.005% OPHTH DROPS 2.5 ML BTL BOTH EYES SCH (21:27)
[2020-03-02] MEDS: BRIMONIDINE TARTRATE 0.2% DROPS 5 ML BTL LEFT EYE SCH (21:27)
[2020-03-02] MEDS: polyethylene glycoL 3350 17 GM POWD.PACK PO SCH (21:50)
[2020-03-03 02:57] LABS: Amorphous Sediment,Urine Rare /hpf; Appearance,Urine Turbid (Clear); Bilirubin,Urine Negative (Negative); Blood,Urine Moderate (Negative); Color,Urine Yellow; Glucose,Urine (UA) Negative (Negative); Hyaline Casts,Urine 2 /lpf (0-2); Ketones,Urine Negative (Negative); Leukocyte Esterase,Urine Large (Negative); Mucus,Urine Rare /hpf; Nitrite,Urine Negative (Negative); PH, Urine 5.5 (5.0-8.0); Protein,Urine 1+ (Negative); RBC,Urine 96 /hpf (0-5); Specific Gravity,Urine 1.014 (1.001-1.035); Squamous Epithelial Cell,Urine <1 /hpf (0-4); Urobilinogen,Urine <2.0 mg/dL (<2.0); WBC,Urine 54 /hpf (0-5)
[2020-03-03] MEDS: PANTOPRAZOLE 40 MG TABLET PO SCH (06:53)
[2020-03-03 07:20] LABS: HGB 12.6 gm/dL (13.0-17.5); MCH 33.1 pg (25.0-35.0); MCHC 33.3 g/dL (31.0-37.0); MCV 99.3 fL (80.0-100.0); Mean Platelet Volume 9.7; RBC 3.82 m/uL (4.30-5.90); RDW 12.9 % (11.5-15.5); WBC 15.5 k/uL (3.8-10.6)
[2020-03-03 07:41] LABS: Calcium 7.9 mg/dL (8.4-10.2); Potassium 4.6 mmol/L (3.5-5.1)
[2020-03-03 07:56] LABS: Platelet Count 63 k/uL (150-450)
[2020-03-03] MEDS: ALBUTEROL HFA INHALER INHALATION PRN ×3 (07:58→19:32)
[2020-03-03] MEDS: traMADol 50 MG TAB PO SCH ×2 (08:38→20:37)
[2020-03-03] MEDS: APIXABAN 2.5 MG TABLET PO SCH ×2 (08:39→20:37)
[2020-03-03] MEDS: ISOSORBIDE MONONITRATE ER 30 MG TAB.ER.24H PO SCH (08:39)
[2020-03-03] MEDS: allopurinoL 100 MG TAB PO SCH (08:39)
[2020-03-03] MEDS: MECLIZINE 25 MG TAB PO SCH (08:39)
[2020-03-03] MEDS: AZITHROMYCIN 500 MG TAB PO SCH (08:39)
[2020-03-03] MEDS: MAGNESIUM OXIDE 400 MG TAB PO SCH (08:39)
[2020-03-03] MEDS: BRIMONIDINE TARTRATE 0.2% DROPS 5 ML BTL LEFT EYE SCH ×2 (08:40→20:38)
[2020-03-03] MEDS: polyethylene glycoL 3350 17 GM POWD.PACK PO SCH ×2 (08:40→20:38)
--- NOTE | 2020-03-03 10:36 | P.CNPUL ---
History of Present Illness Consult date: 03/03/20 Reason for consult: cough Chief complaint: Fever and chills Chest pain along with dizziness History of present illness: This is a 74-year-old male came into the hospital with dizziness and generalized weakness fever and chills, patient prior has a history of coronary artery disease with stent placement, she used to smoke also has a history of obstructive sleep apnea his go over test has been ordered results are pending on arrival he was noted to have elevated cardiac enzymes especially tropes, he has been treated with broad-spectrum antibiotics steroids and breathing treatments, cardiovascular services evaluating this patient and echocardiogram is pending, the VQ scan is low probability, computed tomography scan of the chest revealed left base some atelectasis and linear infiltrate, patient currently is on 5 L oxygen does have history of chronic hypoxic respiratory failure and obstructive sleep apnea uses CPAP machine oxygen at nighttime, patient has the elevated lactic acid level however is normalized Review of Systems All systems: negative Past Medical History Past Medical History: Coronary Artery Disease (CAD), COPD, CVA/TIA, GERD/Reflux, Hyperlipidemia, Hypertension, Myocardial Infarction (PR), Musculoskeletal Disor tameka, Renal Disease, Sleep Apnea/CPAP/BIPAP Additional Past Medical History / Comment(s): TIA X2 (1999 & 2002), VERTIGO, C- PAP MACHINE, SCIATICA & BACK PAIN with past EPIDURAL INJECTIONS, pt states he takes zyloprim due to elevated blood test-does not have gout yet, kidney di sease, past nephritis, lupus (in remission), tingling in R foot, post op infection after R rotator cuff repair requiring irrigations and packings/ABX. Last Myocardial Infarction Date:: 1999 History of Any Multi-Drug Resistant Organisms: None Reported Date of last positivie culture/infection: None MDRO Source:: None Past Surgical History: Heart Catheterization With Stent, Orthopedic Surgery Additional Past Surgical History / Comment(s): RT ROTATOR CUFF-titanium used, LEFT KNEE ARTHROSCOPY, TOTAL LEFT/right KNEE, colonoscopy. TURP Past Anesthesia/Blood Transfusion Reactions: No Reported Reaction Additional Past Anesthesia/Blood Transfusion Reaction / Comment(s): PONV with spinal anesthesia, Date of Last Stent Placement:: 1999 Past Psychological History: No Psychological Hx Reported Additional Psychological History / Comment(s): Pt resides with a friend and his friends adult daughter. Pt uses a cane but lately d/t R knee pain he has been using a wheelchair. Pt normally can drive. Smoking Status: Former smoker Past Alcohol Use History: None Reported Additional Past Alcohol Use History / Comment(s): Pt states he was a 3 ppd smoker. He started smoking in 1959 and quit in 1999. He states he was a heavy drinker but quit drinking in 1999. Past Drug Use History: None Reported - Past Family History Mother Family Medical History: Cancer Additional Family Medical History / Comment(s): BREAST CA Father Family Medical History: Cancer Additional Family Medical History / Comment(s): ESOPHAGEAL CA Medications and Allergies Home Medications Medication Instructions Recorded Confirmed Type Atorvastatin [Lipitor] 5 mg PO HS 07/02/14 03/02/20 History Cholecalciferol [Vitamin D3 (25 4,000 unit PO DAILY 07/02/14 03/02/20 History Mcg = 1000 Iu)] Isosorbide Mononitrate ER [Imdur] 30 mg PO DAILY 07/02/14 03/02/20 History Meclizine [Antivert] 25 mg PO DAILY 07/02/14 03/02/20 History Nitroglycerin Sl Tabs [Nitrostat] 0.4 mg SUBLINGUAL Q5M PRN 07/02/14 03/02/20 History Omeprazole [PriLOSEC] 20 mg PO QAM 07/02/14 03/02/20 History Polyethylene Glycol 3350 [Miralax] 17 gm PO BID 07/02/14 03/02/20 History Magnesium Oxide [Mag-Ox] 750 mg PO DAILY 06/15/16 03/02/20 History Allopurinol [Zyloprim] 100 mg PO DAILY 06/06/17 03/02/20 History Aspirin [Adult Low Dose Aspirin EC] 81 mg PO HS 06/06/17 03/02/20 History Apixaban [Eliquis] 5 mg PO BID 03/02/20 03/02/20 History Brimonidine Tartrate [Alphagan P 1 drops LEFT EYE BID 03/02/20 03/02/20 History 0.1% Ophth Soln] Docusate Calcium 240 mg PO HS 03/02/20 03/02/20 History Latanoprost [Xalatan 0.005%] 1 drop BOTH EYES HS 03/02/20 03/02/20 History traMADol HCL [Ultram] 50 mg PO BID 03/02/20 03/02/20 History Allergies Allergy/AdvReac Type Severity Reaction Status Date / Time Sulfa (Sulfonamide Allergy Unknown HIVES, Verified 03/02/20 08:03 Antibiotics) ITCHING Physical Exam Vitals: Vital Signs Temp Pulse Pulse Resp BP Pulse Ox 03/03/20 08:05 98 F 81 20 124/56 95 03/03/20 04:00 97.8 F 85 20 128/66 93 L 03/03/20 00:00 98.0 F 75 23 102/62 93 L 03/02/20 20:32 88 03/02/20 20:23 88 03/02/20 20:00 98.0 F 78 22 95/60 93 L 03/02/20 16:00 72 22 112/57 92 L 03/02/20 15:31 76 03/02/20 15:20 76 03/02/20 12:00 80 24 Intake and Output 03/02/20 03/03/20 03/03/20 22:59 06:59 14:59 Intake Total 0 Output Total 530 Balance -530 0 Intake: Oral 0 Output: Urine 530 Other: Voiding Method Urinal Urinal # Voids 1 1 Weight 138 kg - Constitutional General appearance: average body habitus, disheveled - EENT Eyes: PERRLA Ears: bilateral: normal - Neck Carotids: bilateral: upstroke normal Thyroid: bilateral: normal size - Respiratory Respiratory: bilateral: CTA - Cardiovascular Rhythm: regular Heart sounds: normal: S1, S2 - Gastrointestinal General gastrointestinal: normal bowel sounds - Integumentary Integumentary: normal turgor - Neurologic Neurologic: CNII-XII intact - Musculoskeletal Musculoskeletal: gait normal - Psychiatric Psychiatric: A&O x's 3, appropriate affect, intact judgment & insight Results - Laboratory Findings CBC and BMP: 03/03/20 06:49 03/03/20 06:49 PT/INR, D-dimer PT 11.7 sec (9.0-12.0) 03/02/20 04:39 INR 1.1 (<1.2) 03/02/20 04:39 D-Dimer 3.53 mg/L FEU (<0.60) H 03/02/20 04:39 Abnormal lab findings: Abnormal Labs 03/02/20 03/02/20 03/02/20 04:39 04:39 04:39 WBC 16.8 H RBC Hgb Hct Plt Count 109 L Neutrophils # 15.1 H APTT 36.3 H D-Dimer 3.53 H Sodium 135 L Carbon Dioxide 20 L BUN 35 H Creatinine 2.55 H Glucose 56 L Plasma Lactic Acid Jus Calcium Total Bilirubin 1.7 H AST 437 H Troponin I Urine Protein Urine Blood Ur Leukocyte Esterase Urine RBC Urine WBC Urine WBC Clumps Amorphous Sediment Urine Mucus 03/02/20 03/02/20 03/02/20 04:39 04:39 07:30 WBC RBC Hgb Hct Plt Count Neutrophils # APTT D-Dimer Sodium Carbon Dioxide BUN Creatinine Glucose Plasma Lactic Acid Jus 6.0 H* 3.5 H* Calcium Total Bilirubin AST Troponin I 0.694 H* Urine Protein Urine Blood Ur Leukocyte Esterase Urine RBC Urine WBC Urine WBC Clumps Amorphous Sediment Urine Mucus 03/02/20 03/02/20 03/02/20 08:27 11:33 14:13 WBC RBC Hgb Hct Plt Count Neutrophils # APTT D-Dimer Sodium Carbon Dioxide BUN Creatinine Glucose Plasma Lactic Acid Jus 2.9 H* 3.5 H* Calcium Total Bilirubin AST Troponin I 0.589 H* Urine Protein Urine Blood Ur Leukocyte Esterase Urine RBC Urine WBC Urine WBC Clumps Amorphous Sediment Urine Mucus 03/02/20 03/03/20 03/03/20 17:10 02:35 06:49 WBC 15.5 H RBC 3.82 L Hgb 12.6 L Hct 38.0 L Plt Count 63 L Neutrophils # APTT D-Dimer Sodium Carbon Dioxide BUN Creatinine Glucose Plasma Lactic Acid Jus 2.1 H* Calcium Total Bilirubin AST Troponin I Urine Protein 1+ H Urine Blood Moderate H Ur Leukocyte Esterase Large H Urine RBC 96 H Urine WBC 54 H Urine WBC Clumps Rare H Amorphous Sediment Rare H Urine Mucus Rare H 03/03/20 06:49 WBC RBC Hgb Hct Plt Count Neutrophils # APTT D-Dimer Sodium 134 L Carbon Dioxide BUN 51 H Creatinine 2.91 H Glucose 136 H Plasma Lactic Acid Jus Calcium 7.9 L Total Bilirubin AST Troponin I Urine Protein Urine Blood Ur Leukocyte Esterase Urine RBC Urine WBC Urine WBC Clumps Amorphous Sediment Urine Mucus - Diagnostic Findings Chest x-ray: report reviewed, image reviewed CT scan - chest: report reviewed, image reviewed (Finding as noted above) Assessment and Plan Assessment: Left lower lobe pneumonia Covid 19 pneumonia cannot be excluded Acute on chronic hypoxic respiratory failure Elevated troponins likely non-Q wave PR History of prior coronary artery disease and stent placement Obstructive sleep apnea and sleep disorder breathing History of stroke in the past Plan: Agree with broad-spectrum antibiotics Bronchodilators Ordered inflammatory parameters Follow up on echo and cardiology recommendation Follow-up on covid19 testing Further recommendations pending plan of care as per clinical response of the patient Time with Patient: Greater than 30
[2020-03-03 12:18] LABS: C Reactive Protein 385.7 mg/L (<10.0)
--- NOTE | 2020-03-03 12:31 | P.PN ---
Subjective 74-year-old male came in with complaints of dizziness and fall denied any syncopal episode. Patient was also complaining of fever chills has been going for the last 34 days muscle weakness and generalized body aches. Patient is also complaining of some chest tightness and found to have fever. Patient has possible subsegmental atelectasis or residual pneumonia in the left lung base. I'm opting a CAT scan, Covid 19 as was ordered couple neurology will be consulted patient is presently on 5 L of oxygen patient usually only uses oxygen at nighttime. Patient does have history of sleep apnea. Patient has mildly elevated troponins because of his cardiac evaluate the patient patient does have leukocytosis. Patient has chronic kidney disease with baseline creatinine around 1.8 presently 2.55 patient is receiving IV fluids patient has elevated lactic acid of 3.5. Does complain of mild dysuria denied any significant cough. Patient had a normal ejection fraction in the recent echocardiogram with grade 1 diastolic dysfunction. 03/03/2020 Patient remains about 4 L of oxygen. Patient does have sleep apnea. Patient is diminished upon exam. Covid 19 is pending but the possibly of Covid 19 is low patient doesn't have any pneumonia on the CAT scan that was done yesterday there is mild atelectasis. Etiology of his shortness of breath not is not really clear cardiology and pulmonology were seeing the patient. has elevated BN P although chest x-rays not showing any significant pulmonary edema. He is doses resolved IV fluids were discontinued Constitutional: Denied any fatigue denied any fever. Cardio vascular: denied any chest pain, palpitations Gastrointestinal denied any nausea vomiting Pulmonary: As mentioned in the interval history Neurologic denied any new focal deficits All inpatient medications were reviewed and appropriate changes in these medications as dictated in the interval history and assessment and plan. Objective - Vital Signs Vital signs: Vital Signs Temp 98.7 F 03/03/20 11:02 Pulse 84 03/03/20 11:02 Resp 18 03/03/20 11:02 BP 116/75 03/03/20 11:02 Pulse Ox 94 L 03/03/20 11:02 Intake & Output 03/02/20 03/03/20 03/03/20 18:59 06:59 18:59 Intake Total 0 Output Total 250 280 Balance -250 -280 0 Weight 136.078 kg 138 kg Intake: Oral 0 Output: Urine 250 280 Other: Voiding Method Urinal # Voids 1 1 - Exam PHYSICAL EXAMINATION: GENERAL: The patient is alert and oriented x3, not in any acute distress. Well developed, well nourished. HEENT: Pupils are round and equally reacting to light. EOMI. No scleral icterus. No conjunctival pallor. Normocephalic, atraumatic. No pharyngeal erythema. No thyromegaly. CARDIOVASCULAR: S1 and S2 present. No murmurs, rubs, or gallops. PULMONARY: Initially entered into bilateral lung monsivais ABDOMEN: Soft, nontender, nondistended, normoactive bowel sounds. No palpable organomegaly. MUSCULOSKELETAL: No joint swelling or deformity. EXTREMITIES: No cyanosis, clubbing, or pedal edema. NEUROLOGICAL: Gross neurological examination did not reveal any focal deficits. SKIN: No rashes. Note: Because of [facility] 19 isolation, some of the history and physical exam findings or indirect and obtained from nursing staff, and other physician examinations to avoid unnecessary contact with the patient. - Labs CBC & Chem 7: 03/03/20 06:49 03/03/20 06:49 Labs: Abnormal Lab Results - Last 24 Hours (Table) 03/02/20 03/02/20 03/03/20 Range/Units 14:13 17:10 02:35 WBC (3.8-10.6) k/uL RBC (4.30-5.90) m/uL Hgb (13.0-17.5) gm/dL Hct (39.0-53.0) % Plt Count (150-450) k/uL Sodium (137-145) mmol/L BUN (9-20) mg/dL Creatinine (0.66-1.25) mg/dL Glucose (74-99) mg/dL Plasma Lactic Acid Jus 3.5 H* 2.1 H* (0.7-2.0) mmol/L Calcium (8.4-10.2) mg/dL Lactate Dehydrogenase (313-618) U/L C-Reactive Protein (<10.0) mg/L Urine Protein 1+ H (Negative) Urine Blood Moderate H (Negative) Ur Leukocyte Esterase Large H (Negative) Urine RBC 96 H (0-5) /hpf Urine WBC 54 H (0-5) /hpf Urine WBC Clumps Rare H (None) /hpf Amorphous Sediment Rare H (None) /hpf Urine Mucus Rare H (None) /hpf 03/03/20 03/03/20 03/03/20 Range/Units 06:49 06:49 06:49 WBC 15.5 H (3.8-10.6) k/uL RBC 3.82 L (4.30-5.90) m/uL Hgb 12.6 L (13.0-17.5) gm/dL Hct 38.0 L (39.0-53.0) % Plt Count 63 L (150-450) k/uL Sodium 134 L (137-145) mmol/L BUN 51 H (9-20) mg/dL Creatinine 2.91 H (0.66-1.25) mg/dL Glucose 136 H (74-99) mg/dL Plasma Lactic Acid Jus (0.7-2.0) mmol/L Calcium 7.9 L (8.4-10.2) mg/dL Lactate Dehydrogenase 1144 H (313-618) U/L C-Reactive Protein 385.7 H (<10.0) mg/L Urine Protein (Negative) Urine Blood (Negative) Ur Leukocyte Esterase (Negative) Urine RBC (0-5) /hpf Urine WBC (0-5) /hpf Urine WBC Clumps (None) /hpf Amorphous Sediment (None) /hpf Urine Mucus (None) /hpf Microbiology - Last 24 Hours (Table) 03/03/20 02:35 Urine Culture - Preliminary Urine,Clean Catch 03/02/20 08:15 Blood Culture - Preliminary Blood No Growth after 24 hours Assessment and Plan Plan: -Acute respiratory failure mostly hypoxic respiratory failure etiology is not clear is probably secondary to severe restrictive lung disease along with superimposed bronchitis patient is on antibiotics for pneumonia but the doesn't have pneumonia on the computed tomography scan and computed tomography scan findings are not consistent with Covid 19 either. Covid 19 PCR was ordered and results are pending -Possibility of sepsis: Can be related to urinary tract infection Rocephin will be continued for now awaiting urine cultures -Acute renal failure most probably seconded to sepsis., Probably prerenal azotemia from sepsis although EKG blood necrosis cannot be ruled out -The kidney disease stage III: Etiology of her chronic kidney disease is not known -Hypertension -Hyperlipidemia -Proximal atrial fibrillation on Eliquis dose of which will be cut down to 2.5 mg because of the renal failure Coronary artery disease -CVAT in the past -Gastroesophageal reflux disease -Obstructive sleep apnea uses CPAP machine at home.
--- NOTE | 2020-03-03 13:59 | P.PN ---
Subjective Pt is seen and examined resting comfortably in bed in no acute distress. He denies chest pain, shortness of breath, dizziness or palpitations. Blood pressure 116/75 heart rate 84 afebrile and maintaining oxygen saturation on nasal cannula. Currently maintained on Eliquis 2.5 mg twice a day, aspirin 81 mg daily, atorvastatin 5 mg daily and Imdur 30 mg daily. Most recent echocardiogram obtained in the office in 2019 revealed preserved LV systolic function with ejection fraction 50% and grade 1 diastolic dysfunction. GENERAL: Well-appearing, well-nourished and in no acute distress. Morbidly obese. NECK: Supple without JVD or thyromegaly. LUNGS: Breath sounds clear to auscultation bilaterally. Respiration equal and unlabored. No wheezes, rales or rhonchi. Diminished bilaterally. HEART: Regular rate and rhythm without murmurs, rubs or gallops. S1 and S2 heard. EXTREMITIES: Normal range of motion, no edema. No clubbing or cyanosis. Pe ripheral pulses intact. ASSESSMENT Troponin elevation secondary to underlying infectious process, no symptoms of ACS Pneumonia Leukocytosis Febrile illness Acute kidney injury Lactic acidosis Paroxysmal atrial fibrillation on long-term anticoagulation Hypertension Dyslipidemia Coronary artery disease status post PCI RCA in the setting of inferior wall CO 2006 PLAN Echocardiogram has been obtained and reviewed. LV function 45-50%, technically difficult study secondary to body habitus. Initiate small dose of lopressor 12.5 mg BID. Ongoing medical management. Nurse Practitioner note has been reviewed, I agree with a documented findings and plan of care. Patient was seen and examined. Objective - Vital Signs Vital signs: Vital Signs Temp 98.7 F 03/03/20 11:02 Pulse 84 03/03/20 11:02 Resp 18 03/03/20 11:02 BP 116/75 03/03/20 11:02 Pulse Ox 94 L 03/03/20 11:02 Intake & Output 03/02/20 03/03/20 03/03/20 18:59 06:59 18:59 Intake Total 0 Output Total 047 673 4631 Balance -250 -280 -1200 Weight 136.078 kg 138 kg Intake: Oral 0 Output: Urine 619 138 5020 Other: Voiding Method Urinal # Voids 1 1 - Labs CBC & Chem 7: 03/03/20 06:49 03/03/20 06:49 Labs: Abnormal Lab Results - Last 24 Hours (Table) 03/02/20 03/02/20 03/03/20 Range/Units 14:13 17:10 02:35 WBC (3.8-10.6) k/uL RBC (4.30-5.90) m/uL Hgb (13.0-17.5) gm/dL Hct (39.0-53.0) % Plt Count (150-450) k/uL Sodium (137-145) mmol/L BUN (9-20) mg/dL Creatinine (0.66-1.25) mg/dL Glucose (74-99) mg/dL Plasma Lactic Acid Jus 3.5 H* 2.1 H* (0.7-2.0) mmol/L Calcium (8.4-10.2) mg/dL Lactate Dehydrogenase (313-618) U/L C-Reactive Protein (<10.0) mg/L Urine Protein 1+ H (Negative) Urine Blood Moderate H (Negative) Ur Leukocyte Esterase Large H (Negative) Urine RBC 96 H (0-5) /hpf Urine WBC 54 H (0-5) /hpf Urine WBC Clumps Rare H (None) /hpf Amorphous Sediment Rare H (None) /hpf Urine Mucus Rare H (None) /hpf 03/03/20 03/03/20 03/03/20 Range/Units 06:49 06:49 06:49 WBC 15.5 H (3.8-10.6) k/uL RBC 3.82 L (4.30-5.90) m/uL Hgb 12.6 L (13.0-17.5) gm/dL Hct 38.0 L (39.0-53.0) % Plt Count 63 L (150-450) k/uL Sodium 134 L (137-145) mmol/L BUN 51 H (9-20) mg/dL Creatinine 2.91 H (0.66-1.25) mg/dL Glucose 136 H (74-99) mg/dL Plasma Lactic Acid Jus (0.7-2.0) mmol/L Calcium 7.9 L (8.4-10.2) mg/dL Lactate Dehydrogenase 1144 H (313-618) U/L C-Reactive Protein 385.7 H (<10.0) mg/L Urine Protein (Negative) Urine Blood (Negative) Ur Leukocyte Esterase (Negative) Urine RBC (0-5) /hpf Urine WBC (0-5) /hpf Urine WBC Clumps (None) /hpf Amorphous Sediment (None) /hpf Urine Mucus (None) /hpf Microbiology - Last 24 Hours (Table) 03/03/20 02:35 Urine Culture - Preliminary Urine,Clean Catch 03/02/20 08:15 Blood Culture - Preliminary Blood No Growth after 24 hours
--- NOTE | 2020-03-03 14:35 | ECHOF ---
Referral Reason:elevated BNP. NSTEMI MEASUREMENTS -------- HEIGHT: 62.0 cm WEIGHT: 304.0 kg BP: RVIDd: 5.0 cm (< 3.3) IVSd: 1.4 cm (0.6 - 1.1) LVIDd: 6.3 cm (3.9 - 5.3) LVPWd: 1.4 cm (0.6 - 1.1) IVSs: 1.6 cm LVIDs: 4.3 cm LVPWs: 1.5 cm MV E Donato: 0.27 m/s MV DecT: 171 ms MV A Donato: 0.65 m/s MV E/A Ratio: 0.42 AV maxP.13 mmHg AV meanP.24 mmHg RAP: 5.00 mmHg RVSP: 19.52 mmHg FINDINGS -------- Sinus rhythm. Even with Lumison, the study is suboptimal. The LV function is difficult to assess. Wall motion abnormality cannot be assessed Morbid Obesity This was a techncally difficult study with suboptimal views, , Lumason utilized for enhancement of images. The left ventricular size is normal. There is mild concentric left ventricular hypertrophy. Overa ll left ventricular systolic function is mildly impaired with, an EF between 45 - 50 %. The right ventricle is severely enlarged. The left atrium is mildly dilated. The right atrial size is normal. 5.0mg OF Lumason UTLIZED: 2 OR MORE WALL SEGMENTS NOT VISUALIZED. There is mild aortic stenosis present. Peak/mean gradient across the Aortic Valve is 14.13mmHg / 9. 24mmHg. Mild mitral regurgitation is present. No regurgitation noted Unable to estimate RVSP due to inadequate TR jet spectral doppler profile. The pulmonic valve was not well visualized. The aortic root size is normal. There is no pericardial effusion. CONCLUSIONS -------- 1. Even with Lumison, the study is suboptimal. The LV function is difficult to assess. Wall motion abnormality cannot be assessed 2. Morbid Obesity 3. This was a techncally difficult study with suboptimal views, , Lumason utilized for enhancement of images. 4. The left ventricular size is normal. 5. There is mild concentric left ventricular hypertrophy. 6. Overall left ventricular systolic function is mildly impaired with, an EF between 45 - 50 %. 7. The right ventricle is severely enlarged. 8. The left atrium is mildly dilated. 9. The right atrial size is normal. 10. 5.0mg OF Lumason UTLIZED: 2 OR MORE WALL SEGMENTS NOT VISUALIZED. 11. There is mild aortic stenosis present. 12. Peak/mean gradient across the Aortic Valve is 14.13mmHg / 9.24mmHg. 13. Mild mitral regurgitation is present. 14. No regurgitation noted 15. Unable to estimate RVSP due to inadequate TR jet spectral doppler profile. 16. The pulmonic valve was not well visualized. 17. The aortic root size is normal. 18. There is no pericardial effusion. CARD CHECKER: Samantha Valle RDCS
[2020-03-03 19:05] LABS: Ferritin 273.3 ng/mL (22.0-322.0)
[2020-03-03] MEDS: METOPROLOL TARTRATE 12.5 MG TAB PO SCH (20:36)
[2020-03-03] MEDS: ASPIRIN 81 MG PO SCH (20:37)
[2020-03-03] MEDS: DOCUSATE 100 MG CAP PO SCH (20:38)
[2020-03-03] MEDS: ATORVASTATIN 10 MG TAB PO SCH (20:38)
[2020-03-03] MEDS: LATANOPROST 0.005% OPHTH DROPS 2.5 ML BTL BOTH EYES SCH (20:38)
[2020-03-04] MEDS: PANTOPRAZOLE 40 MG TABLET PO SCH (06:16)
[2020-03-04] MEDS: ALBUTEROL HFA INHALER INHALATION PRN ×4 (07:51→20:12)
[2020-03-04] MEDS: METOPROLOL TARTRATE 12.5 MG TAB PO SCH ×2 (09:24→20:43)
[2020-03-04] MEDS: MECLIZINE 25 MG TAB PO SCH (09:24)
[2020-03-04] MEDS: traMADol 50 MG TAB PO SCH ×2 (09:25→20:43)
[2020-03-04] MEDS: APIXABAN 2.5 MG TABLET PO SCH ×2 (09:25→20:43)
[2020-03-04] MEDS: allopurinoL 100 MG TAB PO SCH (09:25)
[2020-03-04] MEDS: AZITHROMYCIN 500 MG TAB PO SCH (09:25)
[2020-03-04] MEDS: MAGNESIUM OXIDE 400 MG TAB PO SCH (09:25)
[2020-03-04] MEDS: polyethylene glycoL 3350 17 GM POWD.PACK PO SCH ×2 (09:25→20:44)
[2020-03-04] MEDS: ISOSORBIDE MONONITRATE ER 30 MG TAB.ER.24H PO SCH (09:25)
[2020-03-04] MEDS: BRIMONIDINE TARTRATE 0.2% DROPS 5 ML BTL LEFT EYE SCH ×2 (09:26→20:44)
--- NOTE | 2020-03-04 10:30 | P.PN ---
Subjective 74-year-old male came in with complaints of dizziness and fall denied any syncopal episode. Patient was also complaining of fever chills has been going for the last 34 days muscle weakness and generalized body aches. Patient is also complaining of some chest tightness and found to have fever. Patient has possible subsegmental atelectasis or residual pneumonia in the left lung base. I'm opting a CAT scan, Covid 19 as was ordered couple neurology will be consulted patient is presently on 5 L of oxygen patient usually only uses oxygen at nighttime. Patient does have history of sleep apnea. Patient has mildly elevated troponins because of his cardiac evaluate the patient patient does have leukocytosis. Patient has chronic kidney disease with baseline creatinine around 1.8 presently 2.55 patient is receiving IV fluids patient has elevated lactic acid of 3.5. Does complain of mild dysuria denied any significant cough. Patient had a normal ejection fraction in the recent echocardiogram with grade 1 diastolic dysfunction. 03/03/2020 Patient remains about 4 L of oxygen. Patient does have sleep apnea. Patient is diminished upon exam. Covid 19 is pending but the possibly of Covid 19 is low patient doesn't have any pneumonia on the CAT scan that was done yesterday there is mild atelectasis. Etiology of his shortness of breath not is not really clear cardiology and pulmonology were seeing the patient. has elevated BN P although chest x-rays not showing any significant pulmonary edema. He is doses resolved IV fluids were discontinued 03/04/2020 Patient is looking much better now. His Covid 19 is negative.patient has mildly decreased ejection fractionof around 45-50%. Cardiology is following the patient. Patient clinically doesn't appear to be in heart failure exacerbation. Patient will be continued on Rocephin and azithromycin as there is no evidence of pneumonia. Patient is still on for his Parkinson which we will try to wean it off. Possibly of discharge tomorrow if airway able to wean off oxygen up to 2 L. Constitutional: Denied any fatigue denied any fever. Cardio vascular: denied any chest pain, palpitations Gastrointestinal denied any nausea vomiting Pulmonary: As mentioned in the interval history Neurologic denied any new focal deficits All inpatient medications were reviewed and appropriate changes in these medications as dictated in the interval history and assessment and plan. Objective - Vital Signs Vital signs: Vital Signs Temp 97.9 F 03/04/20 08:00 Pulse 75 03/04/20 08:00 Resp 18 03/04/20 08:00 BP 120/64 03/04/20 08:00 Pulse Ox 95 03/04/20 08:00 Intake & Output 03/03/20 03/04/20 03/04/20 18:59 06:59 18:59 Intake Total 720 Output Total 1200 1740 Balance -480 -1740 Weight 137.6 kg Intake: Oral 720 Output: Urine 1200 1740 Other: Voiding Method Urinal # Voids 1 3 - Exam PHYSICAL EXAMINATION: GENERAL: The patient is alert and oriented x3, not in any acute distress. Well developed, well nourished. HEENT: Pupils are round and equally reacting to light. EOMI. No scleral icterus. No conjunctival pallor. Normocephalic, atraumatic. No pharyngeal erythema. No thyromegaly. CARDIOVASCULAR: S1 and S2 present. No murmurs, rubs, or gallops. PULMONARY:good air entry into bilateral lung monsivais, no crackles or wheezing today ABDOMEN: Soft, nontender, nondistended, normoactive bowel sounds. No palpable organomegaly. MUSCULOSKELETAL: No joint swelling or deformity. EXTREMITIES: No cyanosis, clubbing, or pedal edema. NEUROLOGICAL: Gross neurological examination did not reveal any focal deficits. SKIN: No rashes. - Labs CBC & Chem 7: 03/03/20 06:49 03/03/20 06:49 Labs: Abnormal Lab Results - Last 24 Hours (Table) 03/03/20 Range/Units 06:49 Lactate Dehydrogenase 1144 H (313-618) U/L C-Reactive Protein 385.7 H (<10.0) mg/L Microbiology - Last 24 Hours (Table) 03/03/20 15:26 Gram Stain - Preliminary Sputum Sputum Culture - Preliminary 03/03/20 02:35 Urine Culture - Preliminary Urine,Clean Catch 03/02/20 08:15 Blood Culture - Preliminary Blood No Growth after 24 hours Assessment and Plan Plan: -Acute respiratory failure mostly hypoxic respiratory failure etiology is not clear is probably secondary to severe restrictive lung disease along with superimposed bronchitis, Rocephin will be continued and azithromycin will be discontinued. no evidence of pneumonia.computed tomography scan and computed tomography scan findings are not consistent with Covid 19 either. Covid 19 PCR is negative Covid 19his ruled out -UTI ruled out, no evidence of sepsis at this time -Acute renal failure most probably seconded to sepsis., Probably prerenal azotemia from sepsis . -The kidney disease stage III: Etiology of her chronic kidney disease is not known -Hypertension -Hyperlipidemia -Proximal atrial fibrillation on Eliquis dose of which will be cut down to 2.5 mg because of the renal failure Coronary artery disease -CVAT in the past -Gastroesophageal reflux disease -Obstructive sleep apnea uses CPAP machine at home.
--- NOTE | 2020-03-04 10:47 | P.PN ---
Subjective Progress Note Date: 03/04/20 Principal diagnosis: Left lower lobe pneumonia Covid 19 pneumonia less likely Acute on chronic hypoxic respiratory failure Elevated troponins likely non-Q wave ME History of prior coronary artery disease and stent placement Obstructive sleep apnea and sleep disorder breathing History of stroke in the past 03/04/2020, patient seen eval examined during the rounds Z reviewed medications reviewed care plan discussed, denies any chest pain shortness of breath, cold with 19 is negative, echocardiogram report is reviewed ejection fraction 45%, patient remains on the IV Rocephin and Zithromax, try to wean down the oxygen to 2 L 24 hours This is a 74-year-old male came into the hospital with dizziness and generalized weakness fever and chills, patient prior has a history of coronary artery disease with stent placement, she used to smoke also has a history of obstructive sleep apnea his go over test has been ordered results are pending on arrival he was noted to have elevated cardiac enzymes especially tropes, he has been treated with broad-spectrum antibiotics steroids and breathing treatments, cardiovascular services evaluating this patient and echocardiogram is pending, the VQ scan is low probability, computed tomography scan of the chest revealed left base some atelectasis and linear infiltrate, patient currently is on 5 L oxygen does have history of chronic hypoxic respiratory failure and obstructive sleep apnea uses CPAP machine oxygen at nighttime, patient has the elevated lactic acid level however is normalized Objective - Vital Signs Vital signs: Vital Signs Temp 97.9 F 03/04/20 08:00 Pulse 75 03/04/20 08:00 Resp 18 03/04/20 08:00 BP 120/64 03/04/20 08:00 Pulse Ox 95 03/04/20 08:00 Intake & Output 03/03/20 03/04/20 03/04/20 18:59 06:59 18:59 Intake Total 720 Output Total 1200 1740 Balance -480 -1740 Weight 137.6 kg Intake: Oral 720 Output: Urine 1200 1740 Other: Voiding Method Urinal # Voids 1 3 - Exam - Constitutional General appearance: average body habitus, disheveled - EENT Eyes: PERRLA Ears: bilateral: normal - Neck Carotids: bilateral: upstroke normal Thyroid: bilateral: normal size - Respiratory Respiratory: bilateral: CTA - Cardiovascular Rhythm: regular Heart sounds: normal: S1, S2 - Gastrointestinal General gastrointestinal: normal bowel sounds - Integumentary Integumentary: normal turgor - Neurologic Neurologic: CNII-XII intact - Musculoskeletal Musculoskeletal: gait normal - Psychiatric Psychiatric: A&O x's 3, appropriate affect, intact judgment & insight - Labs CBC & Chem 7: 03/03/20 06:49 03/03/20 06:49 Labs: Abnormal Lab Results - Last 24 Hours (Table) 03/03/20 Range/Units 06:49 Lactate Dehydrogenase 1144 H (313-618) U/L C-Reactive Protein 385.7 H (<10.0) mg/L Microbiology - Last 24 Hours (Table) 03/02/20 08:15 Blood Culture - Preliminary Blood No Growth after 48 hours 03/03/20 15:26 Gram Stain - Preliminary Sputum Sputum Culture - Preliminary 03/03/20 02:35 Urine Culture - Preliminary Urine,Clean Catch Assessment and Plan Assessment: Left lower lobe pneumonia Covid 19 pneumonia cannot be excluded Acute on chronic hypoxic respiratory failure Acute on chronic systolic heart failure Elevated troponins likely non-Q wave ME History of prior coronary artery disease and stent placement Obstructive sleep apnea and sleep disorder breathing History of stroke in the past Plan: Agree with broad-spectrum antibiotics can be switched to oral 24 hours Titrated oxygen down as tolerated Bronchodilators Ordered inflammatory parameters Reviewed echo and cardiology recommendation of further recommendations per cardiovascular services Noted negative covid19 testing Further recommendations pending plan of care as per clinical response of the p atient Time with Patient: Greater than 30
[2020-03-04 11:20] LABS: Calcium 8.2 mg/dL (8.4-10.2); Potassium 4.9 mmol/L (3.5-5.1)
[2020-03-04] MEDS: ATORVASTATIN 10 MG TAB PO SCH (20:43)
[2020-03-04] MEDS: ASPIRIN 81 MG PO SCH (20:43)
[2020-03-04] MEDS: LATANOPROST 0.005% OPHTH DROPS 2.5 ML BTL BOTH EYES SCH (20:44)
[2020-03-04] MEDS: DOCUSATE 100 MG CAP PO SCH (20:44)
[2020-03-05] MEDS: PANTOPRAZOLE 40 MG TABLET PO SCH (06:14)
[2020-03-05 07:26] LABS: Calcium 8.3 mg/dL (8.4-10.2)
[2020-03-05] MEDS: ALBUTEROL HFA INHALER INHALATION PRN ×4 (08:09→20:00)
[2020-03-05] MEDS: traMADol 50 MG TAB PO SCH ×2 (09:33→20:54)
[2020-03-05] MEDS: MAGNESIUM OXIDE 400 MG TAB PO SCH (09:33)
[2020-03-05] MEDS: MECLIZINE 25 MG TAB PO SCH (09:33)
[2020-03-05] MEDS: ISOSORBIDE MONONITRATE ER 30 MG TAB.ER.24H PO SCH (09:33)
[2020-03-05] MEDS: METOPROLOL TARTRATE 12.5 MG TAB PO SCH ×2 (09:33→20:54)
[2020-03-05] MEDS: polyethylene glycoL 3350 17 GM POWD.PACK PO SCH ×2 (09:34→20:55)
[2020-03-05] MEDS: APIXABAN 2.5 MG TABLET PO SCH ×2 (09:34→20:53)
[2020-03-05] MEDS: allopurinoL 100 MG TAB PO SCH (09:34)
[2020-03-05] MEDS: BRIMONIDINE TARTRATE 0.2% DROPS 5 ML BTL LEFT EYE SCH ×2 (09:52→20:55)
--- NOTE | 2020-03-05 11:06 | P.PN ---
Subjective Progress Note Date: 03/05/20 Principal diagnosis: Left lower lobe pneumonia Covid 19 pneumonia less likely Acute on chronic hypoxic respiratory failure Elevated troponins likely non-Q wave [place] History of prior coronary artery disease and stent placement Obstructive sleep apnea and sleep disorder breathing History of stroke in the past 03/05/2020, patient seen eval examined in the Rounds labs reviewed medications reviewed in respiratory status remains stable, remains on antibiotics, note is distress presentcovid 19 is negative, BNP is over 6000 consistent with heart failure chronic with acute exacerbation 03/04/2020, patient seen eval examined during the rounds Z reviewed medications reviewed care plan discussed, denies any chest pain shortness of breath, cold with 19 is negative, echocardiogram report is reviewed ejection fraction 45%, patient remains on the IV Rocephin and Zithromax, try to wean down the oxygen to 2 L 24 hours This is a 74-year-old male came into the hospital with dizziness and generalized weakness fever and chills, patient prior has a history of coronary artery disea se with stent placement, she used to smoke also has a history of obstructive sleep apnea his go over test has been ordered results are pending on arrival he was noted to have elevated cardiac enzymes especially tropes, he has been treated with broad-spectrum antibiotics steroids and breathing treatments, cardiovascular services evaluating this patient and echocardiogram is pending, the VQ scan is low probability, computed tomography scan of the chest revealed left base some atelectasis and linear infiltrate, patient currently is on 5 L oxygen does have history of chronic hypoxic respiratory failure and obstructive sleep apnea uses CPAP machine oxygen at nighttime, patient has the elevated la ctic acid level however is normalized Objective - Vital Signs Vital signs: Vital Signs Temp 97.5 F L 03/05/20 08:00 Pulse 72 03/05/20 08:00 Resp 19 03/05/20 08:00 BP 128/93 03/05/20 08:00 Pulse Ox 93 L 03/05/20 08:00 Intake & Output 03/04/20 03/05/20 03/05/20 18:59 06:59 18:59 Intake Total 660 180 Output Total 1000 300 300 Balance -340 -300 -120 Weight 138.6 kg Intake: Oral 660 180 Output: Urine 1000 300 300 Other: Voiding Method Urinal Urinal Urinal # Voids 1 2 - Exam - Constitutional General appearance: average body habitus, disheveled - EENT Eyes: PERRLA Ears: bilateral: normal - Neck Carotids: bilateral: upstroke normal Thyroid: bilateral: normal size - Respiratory Respiratory: bilateral: CTA - Cardiovascular Rhythm: regular Heart sounds: normal: S1, S2 - Gastrointestinal General gastrointestinal: normal bowel sounds - Integumentary Integumentary: normal turgor - Neurologic Neurologic: CNII-XII intact - Musculoskeletal Musculoskeletal: gait normal - Psychiatric Psychiatric: A&O x's 3, appropriate affect, intact judgment & insight - Labs CBC & Chem 7: 03/03/20 06:49 03/05/20 06:20 Labs: Abnormal Lab Results - Last 24 Hours (Table) 03/03/20 03/04/20 03/05/20 Range/Units 06:49 10:33 06:20 Sodium 135 L 135 L (137-145) mmol/L BUN 46 H 46 H (9-20) mg/dL Creatinine 2.32 H 2.27 H (0.66-1.25) mg/dL Glucose 113 H 108 H (74-99) mg/dL Calcium 8.2 L 8.3 L (8.4-10.2) mg/dL Procalcitonin 75.01 H (0.02-0.09) ng/mL Microbiology - Last 24 Hours (Table) 03/02/20 08:15 Blood Culture - Preliminary Blood No Growth after 72 hours 03/03/20 02:35 Urine Culture - Final Urine,Clean Catch 03/03/20 15:26 Gram Stain - Preliminary Sputum Sputum Culture - Preliminary Assessment and Plan Assessment: Left lower lobe pneumonia Covid 19 pneumonia less likely Acute on chronic hypoxic respiratory failure Acute on chronic systolic heart failure Elevated troponins likely non-Q wave IA History of prior coronary artery disease and stent placement Obstructive sleep apnea and sleep disorder breathing History of stroke in the past Plan: Agree with broad-spectrum antibiotics can be switched to oral 24 hours Titrated oxygen down as tolerated Bronchodilators Ordered inflammatory parameters Reviewed echo and cardiology recommendation of further recommendations per cardiovascular services Noted negative covid19 testing Further recommendations pending plan of care as per clinical response of the patient Time with Patient: Greater than 30
[2020-03-05 16:31] LABS: Basophils % (A) 0 %; Eosinophils # (A) 0.3 k/uL (0-0.7); Eosinophils % (A) 3 %; HCT 38.3 % (39.0-53.0); HGB 12.1 gm/dL (13.0-17.5); Lymphocytes # (A) 0.7 k/uL (1.0-4.8); Lymphocytes % (A) 10 %; MCHC 31.6 g/dL (31.0-37.0); MCV 101.2 fL (80.0-100.0); Macrocytosis Slight; Mean Platelet Volume 10.6; Monocytes # (A) 0.5 k/uL (0-1.0); Monocytes % (A) 6 %; Neutrophils # (A) 5.8 k/uL (1.3-7.7); Neutrophils % (A) 77 %; RBC 3.78 m/uL (4.30-5.90); RDW 13.4 % (11.5-15.5); WBC 7.6 k/uL (3.8-10.6)
[2020-03-05 16:34] LABS: Platelet Count 50 k/uL (150-450)
[2020-03-05] MEDS: ATORVASTATIN 10 MG TAB PO SCH (20:53)
[2020-03-05] MEDS: ASPIRIN 81 MG PO SCH (20:54)
[2020-03-05] MEDS: LATANOPROST 0.005% OPHTH DROPS 2.5 ML BTL BOTH EYES SCH (20:55)
[2020-03-05] MEDS: DOCUSATE 100 MG CAP PO SCH (20:55)
--- NOTE | 2020-03-06 01:16 | P.PN ---
Subjective Progress Note Date: 03/05/20 74-year-old male came in with complaints of dizziness and fall denied any syncopal episode. Patient was also complaining of fever chills has been going for the last 34 days muscle weakness and generalized body aches. Patient is also complaining of some chest tightness and found to have fever. Patient has possible subsegmental atelectasis or residual pneumonia in the left lung base. I'm opting a CAT scan, Covid 19 as was ordered couple neurology will be consulted patient is presently on 5 L of oxygen patient usually only uses oxygen at nighttime. Patient does have history of sleep apnea. Patient has mildly elevated troponins because of his cardiac evaluate the patient patient does have leukocytosis. Patient has chronic kidney disease with baseline creatinine around 1.8 presently 2.55 patient is receiving IV fluids patient has elevated lactic acid of 3.5. Does complain of mild dysuria denied any significant cough. Patient had a normal ejection fraction in the recent echocardiogram with grade 1 diastolic dysfunction. 03/03/2020 Patient remains about 4 L of oxygen. Patient does have sleep apnea. Patient is diminished upon exam. Covid 19 is pending but the possibly of Covid 19 is low patient doesn't have any pneumonia on the CAT scan that was done yesterday there is mild atelectasis. Etiology of his shortness of breath not is not really clear cardiology and pulmonology were seeing the patient. has elevated BNP although chest x-rays not showing any significant pulmonary edema. He is doses resolved IV fluids were discontinued 03/04/2020 Patient is looking much better now. His Covid 19 is negative.patient has mildly decreased ejection fractionof around 45-50%. Cardiology is following the patient. Patient clinically doesn't appear to be in heart failure exacerbation. Patient will be continued on Rocephin and azithromycin as there is no evidence of pneumonia. Patient is still on for his Parkinson which we will try to wean it off. Possibly of discharge tomorrow if airway able to wean off oxygen up to 2 L. 03/05/2020 Patient is currently sitting in chair comfortably. No complaints of chest pain worsening shortness of breath. Patient is being continued antibiotics in the form of ceftriaxone. Laboratory data showed WBC 7.6 and hemoglobin 12.1 plat elets 50 Sodium 135, BUN 46 and creatinine 2.27 improved from 2.32 yesterday. COVID-19 test is negative Urine culture showed skin jaja. Constitutional: Denied any fatigue denied any fever. Cardio vascular: denied any chest pain, palpitations Gastrointestinal denied any nausea vomiting Pulmonary: As mentioned in the interval history Neurologic denied any new focal deficits All inpatient medications were reviewed and appropriate changes in these medications as dictated in the interval history and assessment and plan. Objective - Vital Signs Vital signs: Vital Signs Temp 97.5 F L 03/05/20 08:00 Pulse 60 03/05/20 12:00 Resp 18 03/05/20 12:00 BP 96/54 03/05/20 12:00 Pulse Ox 94 L 03/05/20 12:00 Intake & Output 03/04/20 03/05/20 03/05/20 18:59 06:59 18:59 Intake Total 660 380 Output Total 1000 300 900 Balance -340 -300 -520 Weight 138.6 kg Intake: Oral 660 380 Output: Urine 1000 300 900 Other: Voiding Method Urinal Urinal Urinal # Voids 1 2 2 - Exam PHYSICAL EXAMINATION: GENERAL: The patient is alert and oriented x3, not in any acute distress. Well developed, well nourished. HEENT: Pupils are round and equally reacting to light. EOMI. No scleral icterus. No conjunctival pallor. Normocephalic, atraumatic. No pharyngeal erythema. No thyromegaly. CARDIOVASCULAR: S1 and S2 present. No murmurs, rubs, or gallops. PULMONARY:good air entry into bilateral lung monsivais, no crackles or wheezing today ABDOMEN: Soft, nontender, nondistended, normoactive bowel sounds. No palpable organomegaly. MUSCULOSKELETAL: No joint swelling or deformity. EXTREMITIES: No cyanosis, clubbing, or pedal edema. NEUROLOGICAL: Gross neurological examination did not reveal any focal deficits. SKIN: No rashes. - Labs CBC & Chem 7: 03/05/20 15:44 03/05/20 06:20 Labs: Abnormal Lab Results - Last 24 Hours (Table) 03/05/20 Range/Units 06:20 Sodium 135 L (137-145) mmol/L BUN 46 H (9-20) mg/dL Creatinine 2.27 H (0.66-1.25) mg/dL Glucose 108 H (74-99) mg/dL Calcium 8.3 L (8.4-10.2) mg/dL Microbiology - Last 24 Hours (Table) 03/02/20 08:15 Blood Culture - Preliminary Blood No Growth after 72 hours Assessment and Plan Assessment: -Acute respiratory failure mostly hypoxic respiratory failure etiology is not clear is probably secondary to severe restrictive lung disease along with superimposed bronchitis/ pneumonia, Rocephin will be continued and azithromycin was discontinued. computed tomography scan and computed tomography scan findings are not consistent with Covid 19 either. Covid 19 PCR is negative Covid 19his ruled out -UTI ruled out, no evidence of sepsis at this time -Acute renal failure most probably seconded to sepsis., Probably prerenal azotemia from sepsis . -The kidney disease stage III: Etiology of her chronic kidney disease is not known -Hypertension -Hyperlipidemia -Proximal atrial fibrillation on Eliquis dose of which will be cut down to 2.5 mg because of the renal failure Coronary artery disease -CVAT in the past -Gastroesophageal reflux disease -Obstructive sleep apnea uses CPAP machine at home. Time with Patient: Greater than 30
[2020-03-06] MEDS: PANTOPRAZOLE 40 MG TABLET PO SCH (06:41)
[2020-03-06] MEDS: ALBUTEROL HFA INHALER INHALATION PRN ×2 (07:33→11:44)
[2020-03-06 09:01] LABS: Basophils # (A) 0.1 k/uL (0-0.2); Basophils % (A) 1 %; Eosinophils # (A) 0.3 k/uL (0-0.7); Eosinophils % (A) 3 %; HCT 40.2 % (39.0-53.0); HGB 12.6 gm/dL (13.0-17.5); Hypochromasia Slight; Lymphocytes # (A) 0.9 k/uL (1.0-4.8); Lymphocytes % (A) 9 %; MCH 31.9 pg (25.0-35.0); MCHC 31.4 g/dL (31.0-37.0); MCV 101.9 fL (80.0-100.0); Macrocytosis Slight; Mean Platelet Volume 10.3; Monocytes # (A) 0.6 k/uL (0-1.0); Monocytes % (A) 6 %; Neutrophils # (A) 7.6 k/uL (1.3-7.7); Neutrophils % (A) 79 %; RBC 3.95 m/uL (4.30-5.90); RDW 12.9 % (11.5-15.5); WBC 9.6 k/uL (3.8-10.6)
[2020-03-06 09:04] LABS: Platelet Count 57 k/uL (150-450)
[2020-03-06 09:05] LABS: Calcium 8.7 mg/dL (8.4-10.2); Potassium 5.4 mmol/L (3.5-5.1)
[2020-03-06] MEDS: APIXABAN 2.5 MG TABLET PO SCH ×2 (09:14→20:41)
[2020-03-06] MEDS: allopurinoL 100 MG TAB PO SCH (09:14)
[2020-03-06] MEDS: METOPROLOL TARTRATE 12.5 MG TAB PO SCH ×2 (09:15→20:42)
[2020-03-06] MEDS: ISOSORBIDE MONONITRATE ER 30 MG TAB.ER.24H PO SCH (09:15)
[2020-03-06] MEDS: MAGNESIUM OXIDE 400 MG TAB PO SCH (09:15)
[2020-03-06] MEDS: MECLIZINE 25 MG TAB PO SCH (09:15)
[2020-03-06] MEDS: traMADol 50 MG TAB PO SCH ×2 (09:16→20:42)
[2020-03-06] MEDS: polyethylene glycoL 3350 17 GM POWD.PACK PO SCH ×2 (09:16→20:41)
[2020-03-06] MEDS: BRIMONIDINE TARTRATE 0.2% DROPS 5 ML BTL LEFT EYE SCH ×2 (09:20→20:44)
[2020-03-06] MEDS ORDERED: methylPREDNISolone SOD SUCCI 125 MG/2 ML VIAL IV STA (13:03)
[2020-03-06] MEDS: IPRATROPIUM-ALBUTEROL 3 ML NEB INHALATION SCH ×3 (15:55→21:41)
[2020-03-06] MEDS: BUDESONIDE 1 MG/2 ML NEBU INHALATION SCH ×2 (19:58→21:41)
[2020-03-06] MEDS: DOCUSATE 100 MG CAP PO SCH (20:41)
[2020-03-06] MEDS: ASPIRIN 81 MG PO SCH (20:41)
[2020-03-06] MEDS: ATORVASTATIN 10 MG TAB PO SCH (20:42)
[2020-03-06] MEDS: LATANOPROST 0.005% OPHTH DROPS 2.5 ML BTL BOTH EYES SCH (20:45)
[2020-03-07] MEDS: IPRATROPIUM-ALBUTEROL 3 ML NEB INHALATION SCH ×4 (00:38→11:44)
--- NOTE | 2020-03-07 00:41 | P.PN ---
Progress Note - Text Progress Note Date: 03/06/20 Presenting complaint: Dizziness History of presenting complaint: [By Dr. Gutierrez] 74-year-old male came in with complaints of dizziness and fall denied any syncopal episode. Patient was also complaining of fever chills has been going for the last 3-4 days muscle weakness and generalized body aches. Patient is also complaining of some chest tightness and found to have fever. Patient has possible subsegmental atelectasis or residual pneumonia in the left lung base. I'm opting a CAT scan, Covid 19 as was ordered couple neurology will be consulted patient is presently on 5 L of oxygen patient usually only uses oxygen at nighttime. Patient does have history of sleep apnea. Patient has mildly elevated troponins because of his cardiac evaluate the patient patient does have leukocytosis. Patient has chronic kidney disease with baseline creatinine around 1.8 presently 2.55 patient is receiving IV fluids patient has elevated lactic acid of 3.5. Does complain of mild dysuria denied any significant cough. Patient had a normal ejection fraction in the recent echocardiogram with grade 1 diastolic dysfunction Admitted with-acute hypoxic respiratory failure secondary to restrictive lung disease, pneumonia, Covid 19 pneumonia was ruled out. Acute kidney injury secondary to sepsis. Today-feeling a bit better. Wheezing. Didn't eat much of breakfast and lunch. Review of systems: Was done for constitutional, cardiovascular, GI, pulmonary. relevant finding as above Active Medications Albuterol Sulfate (Albuterol Hfa Inhaler) 2 puff INHALATION RT-Q4H PRN PRN Reason: Shortness Of Breath Or Wheezing Last Admin: 03/06/20 11:44 Dose: 2 puff Documented by: Albuterol/Ipratropium (Ipratropium-Albuterol 3 Ml Neb) 3 ml INHALATION RT-Q4H [facility] Last Admin: 03/06/20 21:41 Dose: Not Given Documented by: Allopurinol (Allopurinol 100 Mg Tab) 100 mg PO DAILY [facility] Last Admin: 03/06/20 09:14 Dose: 100 mg Documented by: Apixaban (Apixaban 2.5 Mg Tablet) 2.5 mg PO BID [facility] Last Admin: 03/06/20 20:41 Dose: 2.5 mg Documented by: Aspirin (Aspirin 81 Mg) 81 mg PO HS [facility] Last Admin: 03/06/20 20:41 Dose: 81 mg Documented by: Atorvastatin Calcium (Atorvastatin 10 Mg Tab) 5 mg PO HS [facility] Last Admin: 03/06/20 20:42 Dose: 5 mg Documented by: Brimonidine Tartrate (Brimonidine Tartrate 0.2% Drops 5 Ml Btl) 1 drops LEFT EYE BID [facility] Last Admin: 03/06/20 20:44 Dose: 1 drops Documented by: Budesonide (Budesonide 1 Mg/2 Ml Nebu) 1 mg INHALATION RT-BID [facility] Last Admin: 03/06/20 21:41 Dose: Not Given Documented by: Docusate Sodium (Docusate 100 Mg Cap) 200 mg PO HS [facility] Last Admin: 03/06/20 20:41 Dose: Not Given Documented by: Ceftriaxone Sodium 2 gm/ (Sodium Chloride) 50 mls @ 100 mls/hr IVPB Q24HR [facility] Last Admin: 03/06/20 09:15 Dose: 100 mls/hr Documented by: Isosorbide Mononitrate (Isosorbide Mononitrate Er 30 Mg Tab.Er.24h) 30 mg PO DAILY [facility] Last Admin: 03/06/20 09:15 Dose: 30 mg Documented by: Latanoprost (Latanoprost 0.005% Ophth Drops 2.5 Ml Btl) 1 drops BOTH EYES HS [facility] Last Admin: 03/06/20 20:45 Dose: 1 drops Documented by: Magnesium Oxide (Magnesium Oxide 400 Mg Tab) 800 mg PO DAILY [facility] Last Admin: 03/06/20 09:15 Dose: 800 mg Documented by: Metoprolol Tartrate (Metoprolol Tartrate 12.5 Mg Tab) 12.5 mg PO BID [facility] Last Admin: 03/06/20 20:42 Dose: 12.5 mg Documented by: Miscellaneous Information (Pneumonia Protocol Util[facility] 1 each PO ONCE PRN PRN Reason: Per Protocol Nitroglycerin (Nitroglycerin Sl Tabs 0.4 Mg Tab) 0.4 mg SUBLINGUAL Q5M PRN PRN Reason: Chest Pain Pantoprazole Sodium (Pantoprazole 40 Mg Tablet) 40 mg PO AC-BRKFST [facility] Last Admin: 03/06/20 06:41 Dose: 40 mg Documented by: Polyethylene Glycol (Polyethylene Glycol 3350 17 Gm Powd.Pack) 17 gm PO BID [facility] Last Admin: 03/06/20 20:41 Dose: Not Given Documented by: Tramadol HCl (Tramadol 50 Mg Tab) 50 mg PO BID [facility] Last Admin: 03/06/20 20:42 Dose: 50 mg Documented by: On examination: VITAL SIGNS: 98.1, 77, 20, 06/01/1954, 97% on 5 L GENERAL APPEARANCE: Laying in bed, bit tired. HEENT: Normal external appearance of nose and ear. Oral cavity normal EYES: Pupils equal. Conjunctiva normal. NECK: JVD not raised. Mass not palpable. RESPIRATORY: Respiratory effort increased, decreased breath sound throughout expiration and wheezing. CARDIOVASCULAR: First and second sounds normal. No edema. ABDOMEN: Soft. Liver and spleen not palpable. No tenderness. No mass palpable. PSYCHIATRY: Alert and oriented x3. Mood and affect normal. 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 Possible atelectasis questionable infiltrate VQ scan-low probability for PE Assessment: -Left lower lobe pneumonia, suspect gram-negative organism -Acute on chronic hypoxic respiratory failure from above -Troponin leak due to hemodynamic mismatch. No acute carotid syndrome -Coronary artery disease prior history of stent -Obstructive sleep apnea uses CPAP -Acute COPD exacerbation in an [id number] diagnosis today -GERD -Essential hypertension -Hyperlipidemia -Chronic back pain with sciatica -Chronic kidney disease stage III likely nephrosclerosis Plan: Patient's was put on DuoNeb. Inhaled steroids. 1 dose of IV Solu-Medrol. Other medications to continue. Other medications to continue. Continue IV ceftriaxone.
[2020-03-07] MEDS: PANTOPRAZOLE 40 MG TABLET PO SCH (06:30)
[2020-03-07] MEDS: BUDESONIDE 1 MG/2 ML NEBU INHALATION SCH (08:17)
[2020-03-07] MEDS: polyethylene glycoL 3350 17 GM POWD.PACK PO SCH (09:39)
[2020-03-07] MEDS: allopurinoL 100 MG TAB PO SCH (09:39)
[2020-03-07] MEDS: MAGNESIUM OXIDE 400 MG TAB PO SCH (09:39)
[2020-03-07] MEDS: APIXABAN 2.5 MG TABLET PO SCH (09:39)
[2020-03-07] MEDS: ISOSORBIDE MONONITRATE ER 30 MG TAB.ER.24H PO SCH (09:39)
[2020-03-07] MEDS: METOPROLOL TARTRATE 12.5 MG TAB PO SCH (09:39)
[2020-03-07] MEDS: BRIMONIDINE TARTRATE 0.2% DROPS 5 ML BTL LEFT EYE SCH (09:40)
[2020-03-07] MEDS: traMADol 50 MG TAB PO SCH (09:40)
[2020-03-07] MEDS ORDERED: methylPREDNISolone SOD SUCCI 40 MG/ML 1 ML VIAL IV SCH (10:30)
--- NOTE | 2020-03-07 10:57 | P.PN ---
Subjective Progress Note Date: 03/07/20 Principal diagnosis: Left lower lobe pneumonia Covid 19 pneumonia less likely Acute on chronic hypoxic respiratory failure Elevated troponins likely non-Q wave MS History of prior coronary artery disease and stent placement Obstructive sleep apnea and sleep disorder breathing History of stroke in the past 03/07/2020, patient seen eval examined during the rounds labs reviewed medications reviewed, patient has intermittent shortness of breath and cough which is dry and nonproductive, patient remains on supplemental oxygen, due to respiratory difficulty patient is being continued on bronchodilator IV steroids have been admitted, potential is 5.4 BUN/creatinine is down to 47 and 1.98, cardiovascular services following, patient remains on antibiotics along with anticoagulation and maximal medical therapy, oxygen saturations 91 percentile 4 L nasal cannula 03/05/2020, patient seen eval examined in the Rounds labs reviewed medications reviewed in respiratory status remains stable, remains on antibiotics, note is distress presentcovid 19 is negative, BNP is over 6000 consistent with heart failure chronic with acute exacerbation 03/04/2020, patient seen eval examined during the rounds Z reviewed medications reviewed care plan discussed, denies any chest pain shortness of breath, cold with 19 is negative, echocardiogram report is reviewed ejection fraction 45%, patient remains on the IV Rocephin and Zithromax, try to wean down the oxygen to 2 L 24 hours This is a 74-year-old male came into the hospital with dizziness and generalized weakness fever and chills, patient prior has a history of coronary artery disease with stent placement, she used to smoke also has a history of obstructive sleep apnea his go over test has been ordered results are pending on arrival he was noted to have elevated cardiac enzymes especially tropes, he has been treated with broad-spectrum antibiotics steroids and breathing treatments, cardiovascular services evaluating this patient and echocardiogram is pending, the VQ scan is low probability, computed tomography scan of the chest revealed left base some atelectasis and linear infiltrate, patient currently is on 5 L o xygen does have history of chronic hypoxic respiratory failure and obstructive sleep apnea uses CPAP machine oxygen at nighttime, patient has the elevated lactic acid level however is normalized Objective - Vital Signs Vital signs: Vital Signs Temp 98.2 F 03/07/20 04:00 Pulse 80 03/07/20 08:33 Resp 18 03/07/20 04:00 BP 135/54 03/07/20 04:00 Pulse Ox 91 L 03/07/20 04:00 Intake & Output 03/06/20 03/07/20 03/07/20 18:59 06:59 18:59 Intake Total 180 10 240 Output Total 1350 775 Balance -1170 -765 240 Weight 138.8 kg Intake: IV 10 0.9 10 Oral 180 240 Output: Urine 1350 775 Other: Voiding Method Urinal Urinal # Voids 1 1 - Exam - Constitutional General appearance: average body habitus, disheveled - EENT Eyes: PERRLA Ears: bilateral: normal - Neck Carotids: bilateral: upstroke normal Thyroid: bilateral: normal size - Respiratory Respiratory: bilateral: CTA - Cardiovascular Rhythm: regular Heart sounds: normal: S1, S2 - Gastrointestinal General gastrointestinal: normal bowel sounds - Integumentary Integumentary: normal turgor - Neurologic Neurologic: CNII-XII intact - Musculoskeletal Musculoskeletal: gait normal - Psychiatric Psychiatric: A&O x's 3, appropriate affect, intact judgment & insight - Labs CBC & Chem 7: 03/06/20 07:46 03/06/20 07:46 Labs: Microbiology - Last 24 Hours (Table) 03/02/20 08:15 Blood Culture - Preliminary Blood No Growth after 120 hours 03/03/20 15:26 Gram Stain - Final Sputum Sputum Culture - Final Assessment and Plan Assessment: Acute COPD exacerbation Left lower lobe pneumonia Covid 19 pneumonia less likely Acute on chronic hypoxic respiratory failure Acute on chronic systolic heart failure Elevated troponins likely non-Q wave MS History of prior coronary artery disease and stent placement Obstructive sleep apnea and sleep disorder breathing History of stroke in the past Plan: Agree with broad-spectrum antibiotics can be switched to oral 24 hours IV steroids Titrated oxygen down as tolerated Bronchodilators Ordered inflammatory parameters Reviewed echo and cardiology recommendation of further recommendations per cardiovascular services Noted negative covid19 testing Further recommendations pending plan of care as per clinical response of the patient Time with Patient: Greater than 30
[2020-03-07 12:51] VITALS: BMI 42.7
[2020-03-07] MEDS ORDERED: SODIUM POLYSTYRENE SULFONATE 15 GM/60 ML BOTTLE PO STA (13:25)
--- NOTE | 2020-03-07 13:34 | P.DS ---
Providers Date of admission: 03/02/20 07:55 Expected date of discharge: 03/07/20 Attending physician: Hang Alvarez Consults: 03/02/20 07:55 Consult Physician Routine Consulting Provider: Missael Devries Consult Reason/Comments: NSTEMI Do you want consulting provider notified?: Yes 03/02/20 13:41 Consult Physician Routine Consulting Provider: Joshua Llanes Consult Reason/Comments: Pneumonia, rule out Covid Do you want consulting provider notified?: Yes Primary care physician: [facility] Course: Presenting complaint: Dizziness History of presenting complaint: [By Dr. Gutierrez] 74-year-old male came in with complaints of dizziness and fall denied any syncopal episode. Patient was also complaining of fever chills has been going for the last 3-4 days muscle weakness and generalized body aches. Patient is also complaining of some chest tightness and found to have fever. Patient has possible subsegmental atelectasis or residual pneumonia in the left lung base. I'm opting a CAT scan, Covid 19 as was ordered couple neurology will be consulted patient is presently on 5 L of oxygen patient usually only uses oxygen at nighttime. Patient does have history of sleep apnea. Patient has mildly elevated troponins because of his cardiac evaluate the patient patient does have leukocytosis. Patient has chronic kidney disease with baseline creatinine around 1.8 presently 2.55 patient is receiving IV fluids patient has elevated lactic acid of 3.5. Does complain of mild dysuria denied any significant cough. Patient had a normal ejection fraction in the recent echocardiogram with grade 1 diastolic dysfunction Admitted with-acute hypoxic respiratory failure secondary to restrictive lung disease, pneumonia, Covid 19 pneumonia was ruled out. Acute kidney injury secondary to sepsis. Also had COPD exacerbation. Responded well to bronchodilators and steroids. Today-wheezing greatly improved. Up to the bathroom with support. Daughter at the bedside. Breathing much better. Eating well. Discussed with Dr. Llanes from pulmonary. Okay to discharge since tapering dose of steroids. DC antibiotics. Discussed with manager social responsibility. DC to rehab. Troponin elevation was felt to be from infectious process. No acute coronary syndrome. Discussion and discharge planning more than 35 minutes Consultation: Dr. Keiry Llanes from pulmonary Dr. Alber Leal from cardiology On examination: VITAL SIGNS: 98.2, 81, 18, 130 554, 91% on 4 L GENERAL APPEARANCE: Laying in bed, bit tired. HEENT: Normal external appearance of nose and ear. Oral cavity normal EYES: Pupils equal. Conjunctiva normal. NECK: JVD not raised. Mass not palpable. RESPIRATORY: Respiratory effort increased, improved air entry. Minimal wheezing CARDIOVASCULAR: First and second sounds normal. No edema. ABDOMEN: Soft. Liver and spleen not palpable. No tenderness. No mass palpable. PSYCHIATRY: Alert and oriented x3. Mood and affect normal. 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 Possible ate lectasis questionable infiltrate VQ scan-low probability for PE Assessment: -Left lower lobe pneumonia, suspect gram-negative organism, POA -Acute on chronic hypoxic respiratory failure from above, POA -Troponin leak due to hemodynamic mismatch. No acute carotid syndrome -Coronary artery disease prior history of stent -Obstructive sleep apnea uses CPAP -Acute COPD exacerbation in an [id number] -GERD -Essential hypertension -Hyperlipidemia -Chronic back pain with sciatica -Chronic kidney disease stage III likely nephrosclerosis Disposition: [facility] swing bed Patient Condition at Discharge: Stable Plan - Discharge Summary Discharge Rx Participant: No New Discharge Prescriptions: New Ipratropium-Albuterol Nebulize [Duoneb 0.5 mg-3 mg/3 ml Soln] 3 ml INHALATION TID ml Apixaban [Eliquis] 2.5 mg PO BID tablet Metoprolol Tartrate [Lopressor] 12.5 mg PO BID tab predniSONE 10 mg PO DAILY #30 tab Sennosides-Docusate Sodium [Senokot-S] 1 tab PO DAILY #1 tablet Continue Polyethylene Glycol 3350 [Miralax] 17 gm PO BID Cholecalciferol [Vitamin D3 (25 Mcg = 1000 Iu)] 4,000 unit PO DAILY Isosorbide Mononitrate ER [Imdur] 30 mg PO DAILY Nitroglycerin Sl Tabs [Nitrostat] 0.4 mg SUBLINGUAL Q5M PRN PRN Reason: Chest Pain Omeprazole [PriLOSEC] 20 mg PO QAM Atorvastatin [Lipitor] 5 mg PO HS Allopurinol [Zyloprim] 100 mg PO DAILY Aspirin [Adult Low Dose Aspirin EC] 81 mg PO HS Brimonidine Tartrate [Alphagan P 0.1% Ophth Soln] 1 drops LEFT EYE BID Latanoprost [Xalatan 0.005%] 1 drop BOTH EYES HS traMADol HCL [Ultram] 50 mg PO BID Discontinued Meclizine [Antivert] 25 mg PO DAILY Magnesium Oxide [Mag-Ox] 750 mg PO DAILY Apixaban [Eliquis] 5 mg PO BID Docusate Calcium 240 mg PO HS Discharge Medication List Atorvastatin [Lipitor] 5 mg PO HS 07/02/14 [History] Cholecalciferol [Vitamin D3 (25 Mcg = 1000 Iu)] 4,000 unit PO DAILY 07/02/14 [History] Isosorbide Mononitrate ER [Imdur] 30 mg PO DAILY 07/02/14 [History] Nitroglycerin Sl Tabs [Nitrostat] 0.4 mg SUBLINGUAL Q5M PRN 07/02/14 [History] Omeprazole [PriLOSEC] 20 mg PO QAM 07/02/14 [History] Polyethylene Glycol 3350 [Miralax] 17 gm PO BID 07/02/14 [History] Allopurinol [Zyloprim] 100 mg PO DAILY 06/06/17 [History] Aspirin [Adult Low Dose Aspirin EC] 81 mg PO HS 06/06/17 [History] Brimonidine Tartrate [Alphagan P 0.1% Oph Soln] 1 drops LEFT EYE BID 03/02/20 [History] Latanoprost [Xalatan 0.005%] 1 drop BOTH EYES HS 03/02/20 [History] traMADol HCL [Ultram] 50 mg PO BID 03/02/20 [History] Apixaban [Eliquis] 2.5 mg PO BID tablet 03/07/20 [Rx] Ipratropium-Albuterol Nebulize [Duoneb 0.5 mg-3 mg/3 ml Soln] 3 ml INHALATION TID ml 03/07/20 [Rx] Metoprolol Tartrate [Lopressor] 12.5 mg PO BID tab 03/07/20 [Rx] Sennosides-Docusate Sodium [Senokot-S] 1 tab PO DAILY #1 tablet 03/07/20 [Rx] predniSONE 10 mg PO DAILY #30 tab 03/07/20 [Rx] Follow up Appointment(s)/Referral(s): Luigi Perez MD [Primary Care Provider] - 1-2 days Joshua Llanes MD [STAFF PHYSICIAN] - 1 Week
[2020-03-07 14:23] VITALS: RESP 19; TEMP 98.4
[2020-03-07 14:24] VITALS: BP 112/52; PULSE 74
--- NOTE | 2020-03-10 08:04 | CDI ---
Documentation Clarification Form Date: 03/10/20 From: Stacey Abrams Phone: If you have a question about this query, please contact Karly Arenas, [employer] at [phone] between 8am and 5pm. Admit Date: Discharge Date: 03/07/20 Patient Name: ZEENAT BUSTAMANTE Visit Number: [id number] ATTENTION: The Clinical Documentation Specialists (CDI) and [facility] Coding Staff appreciate your assistance in clarifying documentation. Please respond to the clarification below the line at the bottom and electronically sign. The CDI & [facility] Coding staff will review the response and follow-up if needed. Please note: Queries are made part of the Legal Health Record. If you have any questions, please contact the author of this message via ITS. Dear Dr. Hang Alvarez, Conflicting documentation has been found in the medical record: The diagnosis Non-Q wave NC was documented in the Dr Llanes's consult & PNs. Per your DS as Troponin leak due to hemodynamic mismatch. History/Risk Factors: sepsis with severe sepsis, acute on chronic hypoxic respiratory failure, HTN w acute on chronic systolic CHF and Stage 3 CKD, pneumonia, acute kidney failure, acidosis, PAF, COPD Clinical Indicators: Troponin I-0.694, 0.589 EKG: normal: sinus rhythm (With PVC), axis (Left axis deviation), intervals (OK interval prolonged consistent with first-degree AV block.QRS duration prolonged consistent with right bundle-branch block), QRS complexes (Right bundle-branch block. Rate: normal (Rate 95 bpm) Treatment: Lovenox, Eliquis, Imdur, In your opinion, what is the most clinically appropriate diagnosis for this patient? Acute Non-ST elevation myocardial infarction Other forms of acute ischemic heart disease (Demand ischemia) Other explanation of clinical findings Unable to determine (no explanation for clinical findings) Troponin leak from hemodynamic mismatch. No acute coronary syndrome. No acute NC. MTDD
== END 2020-03-07 15:33 | disposition swing bed (61) | DRG 871 ==
LOC: EC 04:16 → 3SCARD 07:55
PROVIDERS: ADMIT Hospitalist; ATTEND Hospitalist
DX: A41.9 Sepsis, unspecified organism (principal); I21.4 Non-ST elevation (NSTEMI) myocardial infarction; J96.21 Acute and chronic respiratory failure with hypoxia; I50.23 Acute on chronic systolic (congestive) heart failure; J18.9 Pneumonia, unspecified organism; N17.9 Acute kidney failure, unspecified; E87.2 Acidosis; I13.0 Hypertensive heart and chronic kidney disease with heart failure and stage 1 through stage 4 chronic kidney disease, or unspecified chronic kidney disease; J44.0 Chronic obstructive pulmonary disease with (acute) lower respiratory infection; J44.1 Chronic obstructive pulmonary disease with (acute) exacerbation; Z68.41 Body mass index [BMI] 40.0-44.9, adult; R65.20 Severe sepsis without septic shock; E66.01 Morbid (severe) obesity due to excess calories; I48.0 Paroxysmal atrial fibrillation; N18.30 Chronic kidney disease, stage 3 unspecified; Z20.828 Contact with and (suspected) exposure to other viral communicable diseases; G47.33 Obstructive sleep apnea (adult) (pediatric); J98.4 Other disorders of lung; I45.10 Unspecified right bundle-branch block; I25.10 Atherosclerotic heart disease of native coronary artery without angina pectoris; K21.9 Gastro-esophageal reflux disease without esophagitis; E78.5 Hyperlipidemia, unspecified; I25.2 Old myocardial infarction; G89.29 Other chronic pain; M54.30 Sciatica, unspecified side; M25.561 Pain in right knee; R79.89 Other specified abnormal findings of blood chemistry; Z79.01 Long term (current) use of anticoagulants; Z79.82 Long term (current) use of aspirin; Z79.891 Long term (current) use of opiate analgesic; Z79.899 Other long term (current) drug therapy; Z71.3 Dietary counseling and surveillance; Z86.73 Personal history of transient ischemic attack (TIA), and cerebral infarction without residual deficits; Z87.39 Personal history of other diseases of the musculoskeletal system and connective tissue; Z95.5 Presence of coronary angioplasty implant and graft; Z96.653 Presence of artificial knee joint, bilateral; Z91.81 History of falling; Z99.3 Dependence on wheelchair; Z87.891 Personal history of nicotine dependence; Z98.890 Other specified postprocedural states; Z88.2 Allergy status to sulfonamides; W19.XXXA Unspecified fall, initial encounter; Y92.002 Bathroom of unspecified non-institutional (private) residence as the place of occurrence of the external cause; Z80.3 Family history of malignant neoplasm of breast; Z80.0 Family history of malignant neoplasm of digestive organs
CPT/HCPCS: 36415; 71046; 71250; 78582; 80048; 80053; 81001; 82728; 83605; 83615; 83735; 83880; 84145; 84484; 85025; 85027; 85379; 85610; 85730; 86140; 87040; 87070; 87086; 87205; 87635; 93005; 93306; 94640; 96361; 96365; 96372; 99291

== ENCOUNTER 2021-08-29 00:12 | Inpatient (IN) | payer MEDICARE, BC ==
[2021-08-29] MEDS ORDERED: HYDROcodone/APAP 5-325MG 1 EACH TAB PO STA (00:22)
--- NOTE | 2021-08-29 00:56 | ED ---
Weakness HPI - General Source: patient, EMS, RN notes reviewed Mode of arrival: EMS <Renzo Wu - Last Filed: 08/29/21 03:06> <Keyon Calderon - Last Filed: 08/29/21 14:01> - General Chief complaint: Weakness Stated complaint: Weakness, Fall Time Seen by Provider: 08/29/21 00:17 - History of Present Illness Initial comments: This is a pleasant 75-year-old male with multiple medical issues as indicated in the past medical history, past surgical history. Patient presents to the emergency department today stating that he went to stand up and his legs gave out. Patient states that his knees bent the wrong way. Patient complaining of bilateral knee pain. Patient previously has had knee replacements bilaterally. He states he does have problems with his knees giving out from time to time. He denied any other symptomology. Patient does not believe he hit his head. He denies any chest pain. No syncopal episodes. No abdominal pain. No dizziness. No changes in vision or hearing. No numbness or tingling. No hip pain or ankl e pain. No injury elsewhere. Patient states he had called son who helped him up. Patient is on anticoagulation therapy for previous cardiac conditions. History of COPD. Patient wears CPAP with oxygen at night. (Renzo Wu) - Related Data Home Medications Medication Instructions Recorded Confirmed Atorvastatin [Lipitor] 10 mg PO HS 07/02/14 08/29/21 Isosorbide Mononitrate ER [Imdur] 30 mg PO DAILY 07/02/14 08/29/21 Omeprazole [PriLOSEC] 20 mg PO DAILY 07/02/14 08/29/21 Allopurinol [Zyloprim] 100 mg PO DAILY 06/06/17 08/29/21 Brimonidine Tartrate [Alphagan P 1 drop LEFT EYE BID 03/02/20 08/29/21 0.1% Ophth Soln] Latanoprost [Xalatan 0.005%] 1 drop BOTH EYES HS 03/02/20 08/29/21 traMADol HCL [Ultram] 50 mg PO BID PRN 03/02/20 08/29/21 Apixaban [Eliquis] 5 mg PO BID 08/29/21 08/29/21 Folic Acid 0.4 mg PO DAILY 08/29/21 08/29/21 Meclizine [Antivert] 25 mg PO HS PRN 08/29/21 08/29/21 Metoprolol Tartrate [Lopressor] 12.5 mg PO BID 08/29/21 08/29/21 Allergies Allergy/AdvReac Type Severity Reaction Status Date / Time Sulfa (Sulfonamide Allergy Unknown HIVES, Verified 08/29/21 12:36 Antibiotics) ITCHING Review of Systems ROS Other: All systems not noted in ROS Statement are negative. <Renzo Wu - Last Filed: 08/29/21 03:06> ROS Other: All systems not noted in ROS Statement are negative. <Keyon Calderon - Last Filed: 08/29/21 14:01> ROS Statement: Those systems with pertinent positive or pertinent negative responses have been documented in the HPI. Past Medical History Past Medical History: Coronary Artery Disease (CAD), COPD, CVA/TIA, GERD/Reflux, Hyperlipidemia, Hypertension, Myocardial Infarction (AL), Musculoskeletal Disorder, Renal Disease, Sleep Apnea/CPAP/BIPAP Additional Past Medical History / Comment(s): TIA X2 (1999 & 2002), VERTIGO, C- PAP MACHINE, SCIATICA & BACK PAIN with past EPIDURAL INJECTIONS, pt states he takes zyloprim due to elevated blood test-does not have gout yet, kidney disease, past nephritis, lupus (in remission), tingling in R foot, post op infection after R rotator cuff repair requiring irrigations and packings/ABX. Last Myocardial Infarction Date:: 1999 History of Any Multi-Drug Resistant Organisms: None Reported Date of last positivie culture/infection: None MDRO Source:: None Past Surgical History: Heart Catheterization With Stent, Orthopedic Surgery Additional Past Surgical History / Comment(s): RT ROTATOR CUFF-titanium used, LEFT KNEE ARTHROSCOPY, TOTAL LEFT/right KNEE, colonoscopy. TURP Past Anesthesia/Blood Transfusion Reactions: No Reported Reaction Additional Past Anesthesia/Blood Transfusion Reaction / Comment(s): PONV with spinal anesthesia, Date of Last Stent Placement:: 1999 Past Psychological History: No Psychological Hx Reported Smoking Status: Former smoker Past Alcohol Use History: None Reported Past Drug Use History: None Reported - Past Family History Mother Family Medical History: Cancer Additional Family Medical History / Comment(s): BREAST CA Father Family Medical History: Cancer Additional Family Medical History / Comment(s): ESOPHAGEAL CA <Renzo Wu - Last Filed: 08/29/21 03:06> General Exam General appearance: alert, obese Head exam: Present: atraumatic, normocephalic, normal inspection Eye exam: Present: normal appearance, PERRL, EOMI. Absent: scleral icterus, conjunctival injection, periorbital swelling ENT exam: Present: normal exam, normal oropharynx, mucous membranes moist, TM's normal bilaterally, normal external ear exam Neck exam: Present: normal inspection, full ROM. Absent: tenderness, meningismus, lymphadenopathy Respiratory exam: Present: normal lung sounds bilaterally. Absent: respiratory distress, wheezes, rales, rhonchi, stridor Cardiovascular Exam: Present: regular rate, normal rhythm, normal heart sounds. Absent: systolic murmur, diastolic murmur, rubs, gallop, clicks GI/Abdominal exam: Present: soft, normal bowel sounds. Absent: distended, te nderness, guarding, rebound, rigid Extremities exam: Present: normal inspection, full ROM, normal capillary refill. Absent: tenderness, pedal edema, joint swelling, calf tenderness Back exam: Present: normal inspection Neurological exam: Present: alert, CN II-XII intact, other (Disoriented to time). Absent: motor sensory deficit Psychiatric exam: Present: normal affect, normal mood Skin exam: Present: warm, dry, intact, normal color. Absent: rash <Renzo Wu - Last Filed: 08/29/21 03:06> - General Exam Comments Initial Comments: Deconditioned appearing 75-year-old male in no acute distress. Patient does not appear to be ill or toxic. Oxygen saturation noted to be low. Patient placed on oxygen. Cranial nerves II through XII appear to be intact. No evidence of gross head trauma. Patient alert and oriented 3. Seems to be disoriented to time to some extent. (Renzo Wu) Course <Keyon Calderon - Last Filed: 08/29/21 14:01> Vital Signs 08/29/21 08/29/21 08/29/21 00:15 01:15 02:18 Temperature 98.9 F Pulse Rate 121 H 116 H 112 H Respiratory 18 18 18 Rate Blood Pressure 112/83 116/62 109/83 O2 Sat by Pulse 88 L 89 L 89 L Oximetry 08/29/21 08/29/21 08/29/21 03:36 05:07 06:25 Temperature Pulse Rate 105 H 91 90 Respiratory 18 18 18 Rate Blood Pressure 105/83 119/66 102/90 O2 Sat by Pulse 90 L 93 L 94 L Oximetry 08/29/21 08/29/21 08/29/21 07:03 07:23 09:00 Temperature Pulse Rate 89 87 83 Respiratory 18 18 18 Rate Blood Pressure 115/72 115/72 127/71 O2 Sat by Pulse 98 99 95 Oximetry 08/29/21 11:00 Temperature Pulse Rate 92 Respiratory 18 Rate Blood Pressure 103/78 O2 Sat by Pulse 93 L Oximetry - Reevaluation(s) Reevaluation #1: 08/29/21 13:59 Patient was initially evaluated for weakness and fall at home he states he fell 3 times yesterday. He was found on lab work to demonstrate evidence of elevated d-dimer elevated troponin and renal insufficiency. I did discuss the case with Dr. Gutierrez the patient will be evaluated. Due to the renal function CAT scan of the chest does not recommended VQ scan will be ordered. (Keyon Calderon) EKG Findings - EKG Comments: EKG Findings:: Patient's EKG done at 1:15 AM and read by the ED attending roxie fernandez reveals ectopic atrial tachycardia, right bundle branch block, [place] interval 213 ms. Ventricular rate 115. QRS duration 148 ms. Normal QT/QTc. When compared to the previous study from February 2020 patient now has tachycardia. Otherwise no definitive changes. <Renzo Wu - Last Filed: 08/29/21 03:06> Medical Decision Making - Lab Data Result diagrams: 08/29/21 01:01 08/29/21 01:01 <Renzo Wu - Last Filed: 08/29/21 03:06> - Lab Data Result diagrams: 08/29/21 01:01 08/29/21 01:01 <Keyon Calderon - Last Filed: 08/29/21 14:01> - Medical Decision Making Patient had an unwitnessed fall at home. Does not believe he hit his head. However the patient is on Eliquis. Will CT the head and cervical spine is as follows unwitnessed and the patient appears to be somewhat confused. Patient also found to be hypoxemic. Placed on oxygen. Patient wears CPAP at night with 4 L of oxygen. Patient presents with likely mechanical fall. However appears be somewhat confused. Patient appears to be disoriented time stating its 2020. Also does not know the president. Patient is on oxygen at home but only wears it at night. Suspect patient may have hypoxemia. Patient endorsed to the ED attending physician at 3 AM. (Renzo Wu) - Lab Data Lab Results 08/29/21 08/29/21 08/29/21 Range/Units 01:01 01:01 01:01 WBC 17.2 H (3.8-10.6) k/uL RBC 4.03 L (4.30-5.90) m/uL Hgb 12.6 L (13.0-17.5) gm/dL Hct 38.6 L (39.0-53.0) % MCV 95.8 (80.0-100.0) fL MCH 31.4 (25.0-35.0) pg MCHC 32.8 (31.0-37.0) g/dL RDW 13.9 (11.5-15.5) % Plt Count 228 (150-450) k/uL MPV 8.2 Neutrophils % 92 % Lymphocytes % 3 % Monocytes % 4 % Eosinophils % 0 % Basophils % 0 % Neutrophils # 15.8 H (1.3-7.7) k/uL Lymphocytes # 0.6 L (1.0-4.8) k/uL Monocytes # 0.6 (0-1.0) k/uL Eosinophils # 0.0 (0-0.7) k/uL Basophils # 0.1 (0-0.2) k/uL D-Dimer (<0.60) mg/L FEU Sodium 135 L (137-145) mmol/L Potassium 4.6 (3.5-5.1) mmol/L Chloride 101 (98-107) mmol/L Carbon Dioxide 23 (22-30) mmol/L Anion Gap 11 mmol/L BUN 39 H (9-20) mg/dL Creatinine 2.49 H (0.66-1.25) mg/dL Est GFR (CKD-EPI)AfAm 28 (>60 ml/min/1.73 sqM) Est GFR (CKD-EPI)NonAf 25 (>60 ml/min/1.73 sqM) Glucose 129 H (74-99) mg/dL Calcium 10.5 H (8.4-10.2) mg/dL Phosphorus 2.0 L (2.5-4.5) mg/dL Magnesium 2.1 (1.6-2.3) mg/dL Total Bilirubin 0.8 (0.2-1.3) mg/dL AST 33 (17-59) U/L ALT 13 (4-49) U/L Alkaline Phosphatase 129 H (38-126) U/L Ammonia (<30) umol/L Troponin I 0.116 H* (0.000-0.034) ng/mL Total Protein 8.5 H (6.3-8.2) g/dL Albumin 3.9 (3.5-5.0) g/dL TSH 1.510 (0.465-4.680) mIU/L Urine Color Urine Appearance (Clear) Urine pH (5.0-8.0) Ur Specific [place] (1.001-1.035) Urine Protein (Negative) Urine Glucose (UA) (Negative) Urine Ketones (Negative) Urine Blood (Negative) Urine Nitrite (Negative) Urine Bilirubin (Negative) Urine Urobilinogen (<2.0) mg/dL Ur Leukocyte Esterase (Negative) Urine WBC (0-5) /hpf Ur Squamous Epith Cells (0-4) /hpf Granular Casts (0) /lpf Urine Mucus (None) /hpf Coronavirus (PCR) (Not Detectd) 08/29/21 08/29/21 08/29/21 Range/Units 01:01 01:01 02:46 WBC (3.8-10.6) k/uL RBC (4.30-5.90) m/uL Hgb (13.0-17.5) gm/dL Hct (39.0-53.0) % MCV (80.0-100.0) fL MCH (25.0-35.0) pg MCHC (31.0-37.0) g/dL RDW (11.5-15.5) % Plt Count (150-450) k/uL MPV Neutrophils % % Lymphocytes % % Monocytes % % Eosinophils % % Basophils % % Neutrophils # (1.3-7.7) k/uL Lymphocytes # (1.0-4.8) k/uL Monocytes # (0-1.0) k/uL Eosinophils # (0-0.7) k/uL Basophils # (0-0.2) k/uL D-Dimer 18.00 H (<0.60) mg/L FEU Sodium (137-145) mmol/L Potassium (3.5-5.1) mmol/L Chloride (98-107) mmol/L Carbon Dioxide (22-30) mmol/L Anion Gap mmol/L BUN (9-20) mg/dL Creatinine (0.66-1.25) mg/dL Est GFR (CKD-EPI)AfAm (>60 ml/min/1.73 sqM) Est GFR (CKD-EPI)NonAf (>60 ml/min/1.73 sqM) Glucose (74-99) mg/dL Calcium (8.4-10.2) mg/dL Phosphorus (2.5-4.5) mg/dL Magnesium (1.6-2.3) mg/dL Total Bilirubin (0.2-1.3) mg/dL AST (17-59) U/L ALT (4-49) U/L Alkaline Phosphatase (38-126) U/L Ammonia <9 (<30) umol/L Troponin I (0.000-0.034) ng/mL Total Protein (6.3-8.2) g/dL Albumin (3.5-5.0) g/dL TSH (0.465-4.680) mIU/L Urine Color Yellow Urine Appearance Clear (Clear) Urine pH 5.5 (5.0-8.0) Ur Specific [place] 1.022 (1.001-1.035) Urine Protein 1+ H (Negative) Urine Glucose (UA) Negative (Negative) Urine Ketones Negative (Negative) Urine Blood Moderate H (Negative) Urine Nitrite Negative (Negative) Urine Bilirubin Negative (Negative) Urine Urobilinogen <2.0 (<2.0) mg/dL Ur Leukocyte Esterase Negative (Negative) Urine WBC 1 (0-5) /hpf Ur Squamous Epith Cells 1 (0-4) /hpf Granular Casts 1 (0) /lpf Urine Mucus Rare H (None) /hpf Coronavirus (PCR) (Not Detectd) 08/29/21 Range/Units 02:46 WBC (3.8-10.6) k/uL RBC (4.30-5.90) m/uL Hgb (13.0-17.5) gm/dL Hct (39.0-53.0) % MCV (80.0-100.0) fL MCH (25.0-35.0) pg MCHC (31.0-37.0) g/dL RDW (11.5-15.5) % Plt Count (150-450) k/uL MPV Neutrophils % % Lymphocytes % % Monocytes % % Eosinophils % % Basophils % % Neutrophils # (1.3-7.7) k/uL Lymphocytes # (1.0-4.8) k/uL Monocytes # (0-1.0) k/uL Eosinophils # (0-0.7) k/uL Basophils # (0-0.2) k/uL D-Dimer (<0.60) mg/L FEU Sodium (137-145) mmol/L Potassium (3.5-5.1) mmol/L Chloride (98-107) mmol/L Carbon Dioxide (22-30) mmol/L Anion Gap mmol/L BUN (9-20) mg/dL Creatinine (0.66-1.25) mg/dL Est GFR (CKD-EPI)AfAm (>60 ml/min/1.73 sqM) Est GFR (CKD-EPI)NonAf (>60 ml/min/1.73 sqM) Glucose (74-99) mg/dL Calcium (8.4-10.2) mg/dL Phosphorus (2.5-4.5) mg/dL Magnesium (1.6-2.3) mg/dL Total Bilirubin (0.2-1.3) mg/dL AST (17-59) U/L ALT (4-49) U/L Alkaline Phosphatase (38-126) U/L Ammonia (<30) umol/L Troponin I (0.000-0.034) ng/mL Total Protein (6.3-8.2) g/dL Albumin (3.5-5.0) g/dL TSH (0.465-4.680) mIU/L Urine Color Urine Appearance (Clear) Urine pH (5.0-8.0) Ur Specific [place] (1.001-1.035) Urine Protein (Negative) Urine Glucose (UA) (Negative) Urine Ketones (Negative) Urine Blood (Negative) Urine Nitrite (Negative) Urine Bilirubin (Negative) Urine Urobilinogen (<2.0) mg/dL Ur Leukocyte Esterase (Negative) Urine WBC (0-5) /hpf Ur Squamous Epith Cells (0-4) /hpf Granular Casts (0) /lpf Urine Mucus (None) /hpf Coronavirus (PCR) Not Detected (Not Detectd) Disposition <Renzo Wu - Last Filed: 08/29/21 03:06> <Keyon Calderon - Last Filed: 08/29/21 14:01> Clinical Impression: Knee effusion, left, Contusion, knee, Chronic renal failure, Elevated troponin, Elevated d-dimer, Leukocytosis Narrative: Bilateral knee contusion (Renzo Wu) Disposition: ADMITTED IP TO THIS HOSP Condition: Fair Referrals: Luigi Perez MD [Primary Care Provider] - 1-2 days
--- NOTE | 2021-08-29 01:02 | XR ---
EXAMINATION TYPE: XR knee complete bilateral DATE OF EXAM: 08/29/2021 COMPARISON: NONE HISTORY: Knee pain TECHNIQUE: 3 views each knee FINDINGS: There is bilateral knee prosthesis. Components appear in anatomic position. No fracture ana e seen. There is left-sided knee joint effusion. IMPRESSION: There is left sided knee joint effusion. No fracture seen. No acute abnormality of the ri ght knee.
--- NOTE | 2021-08-29 01:05 | XR ---
EXAMINATION TYPE: XR chest 1V portable DATE OF EXAM: 08/29/2021 COMPARISON: NONE HISTORY: Difficulty breathing TECHNIQUE: Single view FINDINGS: There is no heart failure nor confluent pneumonic infiltrate. There is minimal linear densi ty left lung base. Heart size is normal. Thoracic aorta is atheromatous. IMPRESSION: Minimal subsegmental atelectasis. There is improved aeration of the lung bases compared t o old exam. No heart failure.
--- NOTE | 2021-08-29 01:10 | CT ---
EXAMINATION TYPE: CT brain teriine wo con DATE OF EXAM: 08/29/2021 COMPARISON: None HISTORY: fall CT DLP: 1965.80 mGycm Automated exposure control for dose reduction was used. Images of the brain and cervical spine obtained without contrast. There is cerebral cortical atrophy. There is no mass effect or midline shift. There is no sign of int racranial hemorrhage. Calvarium is intact. The cervical vertebra have normal alignment. There is mild degenerative disc space narrowing througho ut the cervical spine. Facet joints are intact. There is multilevel cervical hypertrophic facet arthr opathy. Prevertebral soft tissues are intact. There is normal aeration of the mastoid sinuses. IMPRESSION: Cerebral atrophy. No acute intracranial abnormality. Mild multilevel cervical spondylotic changes. No fracture seen.
[2021-08-29 01:52] LABS: Basophils # (A) 0.1 k/uL (0-0.2); Basophils % (A) 0 %; Eosinophils % (A) 0 %; HCT 38.6 % (39.0-53.0); HGB 12.6 gm/dL (13.0-17.5); Lymphocytes # (A) 0.6 k/uL (1.0-4.8); Lymphocytes % (A) 3 %; MCH 31.4 pg (25.0-35.0); MCHC 32.8 g/dL (31.0-37.0); MCV 95.8 fL (80.0-100.0); Mean Platelet Volume 8.2; Monocytes # (A) 0.6 k/uL (0-1.0); Monocytes % (A) 4 %; Neutrophils # (A) 15.8 k/uL (1.3-7.7); Neutrophils % (A) 92 %; Platelet Count 228 k/uL (150-450); RBC 4.03 m/uL (4.30-5.90); RDW 13.9 % (11.5-15.5); WBC 17.2 k/uL (3.8-10.6)
[2021-08-29] MEDS ORDERED: ASPIRIN 81 MG PO STA (02:46)
[2021-08-29 03:01] LABS: ALT 13 U/L (4-49); AST 33 U/L (17-59); African American GFR (CKD) 28 (>60 ml/min/1.73 sqM); Albumin 3.9 g/dL (3.5-5.0); Alkaline Phosphatase 129 U/L (38-126); Anion Gap 11 mmol/L; Blood Urea Nitrogen 39 mg/dL (9-20); Calcium 10.5 mg/dL (8.4-10.2); Carbon Dioxide 23 mmol/L (22-30); Chloride 101 mmol/L (98-107); Glucose 129 mg/dL (74-99); Magnesium 2.1 mg/dL (1.6-2.3); Non-African American GFR(CKD) 25 (>60 ml/min/1.73 sqM); Potassium 4.6 mmol/L (3.5-5.1); Sodium 135 mmol/L (137-145); Total Bilirubin 0.8 mg/dL (0.2-1.3); Total Protein 8.5 g/dL (6.3-8.2)
[2021-08-29 11:44] LABS: Appearance,Urine Clear (Clear); Bilirubin,Urine Negative (Negative); Blood,Urine Moderate (Negative); Color,Urine Yellow; Glucose,Urine (UA) Negative (Negative); Granular Casts,Urine 1 /lpf (0); Ketones,Urine Negative (Negative); Leukocyte Esterase,Urine Negative (Negative); Mucus,Urine Rare /hpf; Nitrite,Urine Negative (Negative); PH, Urine 5.5 (5.0-8.0); Protein,Urine 1+ (Negative); Specific Gravity,Urine 1.022 (1.001-1.035); Squamous Epithelial Cell,Urine 1 /hpf (0-4); Urobilinogen,Urine <2.0 mg/dL (<2.0); WBC,Urine 1 /hpf (0-5)
[2021-08-29] MEDS ORDERED: ENOXAPARIN 120 MG/0.8 ML SYRINGE SQ STA (13:58)
[2021-08-29] MEDS ORDERED: NALOXONE 0.4 MG/ML 1 ML VIAL IV PRN (14:01)
[2021-08-29] MEDS ORDERED: MECLIZINE 25 MG TAB PO PRN (14:02)
[2021-08-29] MEDS: SODIUM CHLORIDE 0.9% 1,000 ML IV SCH (15:02)
[2021-08-29] MEDS ORDERED: HEPARIN SODIUM 1,000 UN/ML (10ML VL) IV PRN (16:54)
[2021-08-29] MEDS: traMADol 50 MG TAB PO PRN (17:05)
[2021-08-29] MEDS: HEPARIN SOD,PORK IN 0.45% NACL 25,000 UNIT in 0.45% NACL 1 250ML.BAG IV SCH (17:39)
--- NOTE | 2021-08-29 18:04 | US ---
EXAMINATION TYPE: US venous doppler duplex LE BI DATE OF EXAM: 08/29/2021 5:51 PM COMPARISON: NONE CLINICAL HISTORY: Evaluate for DVT. pain bilateral legs, worse on the left. patient on blood thinner, history of TIA SIDE PERFORMED: Bilateral TECHNIQUE: The lower extremity deep venous system is examined utilizing real time linear array sonog zaid with graded compression, doppler sonography and color-flow sonography. VESSELS IMAGED: Common Femoral Vein Deep Femoral Vein Greater Saphenous Vein * Femoral Vein Popliteal Vein Small Saphenous Vein * Proximal Calf Veins (* superficial vessels) Right Leg: no evidence of DVT Left Leg: no evidence of DVT. unable to visualize groin vessels due to patient's body habitus and pa tient position IMPRESSION: No evidence of deep vein thrombosis in both legs.
[2021-08-29 18:36] LABS: Creatine Kinase MB 5.7 ng/mL (0.0-2.4)
[2021-08-29 19:01] LABS: Troponin I 1.62 ng/mL (0.000-0.034)
[2021-08-29] MEDS: METOPROLOL TARTRATE 12.5 MG TAB PO SCH (19:49)
[2021-08-29] MEDS: ACETAMINOPHEN TAB 325 MG TAB PO PRN (19:49)
[2021-08-29] MEDS: BRIMONIDINE TARTRATE 0.2% DROPS 5 ML BTL LEFT EYE SCH (19:50)
[2021-08-29] MEDS: LATANOPROST 0.005% OPHTH DROPS 2.5 ML BTL BOTH EYES SCH (19:50)
--- NOTE | 2021-08-29 20:59 | P.HPIM ---
History of Present Illness H&P Date: 08/29/21 Chief Complaint: Fall Patient is a 75-year-old male with a known history of coronary artery disease with stent placement, history of CVA/TIA, GERD, hypertension, hyperlipidemia, history of [place], obstructive sleep apnea on CPAP, chronic sciatica/back pain with history of epidural injections, previous history of smoking presents to ER status post fall. Patient states that his legs gave way and fell and landed on his left knee. Left knee is swollen since then. Patient does have a history of bilateral knee arthroplasty. Patient stated for about 45 minutes and denied any hitting his head. No complaints of chest pain. No syncopal episode. No loss of consciousness. No dizziness. Denied any palpitations. Denies any other injury. Patient called his son and helped him up. Patient was brought to ER. Patient is currently on anticoagulation with Eliquis due to history of irregular heartbeat. X-ray of the knee showed left-sided knee joint effusion. No fracture seen. No acute abnormality of the right knee. Chest x-ray showed minimal subsegmental atelectasis. There is improved aeration of the lung bases compared to old exam. CT head and cervical spine showed cerebral atrophy. No acute intracranial abnormality seen. Mild multilevel cervical spondylitic changes. No fracture seen. EKG showed irregular rhythm. Bilateral lower extremity duplex scan is negative for DVT. Laboratory data showed WBC 17.2 hemoglobin 12.6 and platelets 228 D-dimer is 18 Sodium 135 potassium 4.6 chloride 101 BUN 39 and creatinine 2.49 baseline creatinine level 1.98 in February 2020 Blood sugar 129 calcium 10.5 phosphorus 2.0 Troponin 0.116, 1.670 and 1.6-0 TSH 1.510 Urinalysis showed moderate blood leukocyte esterase negative and nitrite negative and RBCs 1 and WBC is 1. Coronavirus PCR not detected. Review of Systems Constitutional: Patient denies any fever or chills . No generalized weakness or weight loss. Abdomen: Patient denied nausea vomiting and diarrhea and abdominal pain. Cardiovascular: Patient denies any chest pain or short of breath no palpitations. Respiratory: patient denied any cough or sputum production. No shortness of breath Neurologic: Patient denied any numbness or tingling headache. Musculoskeletal: Patient denies any complaints of joint swelling or deformity. Skin: Negative Psychiatric: Negative Endocrine: No heat or cold intolerance. No recent weight gain. Genitourinary: No dysuria or hematuria. All other 14 point ROS negative except the above Past Medical History Past Medical History: Coronary Artery Disease (CAD), COPD, CVA/TIA, GERD/Reflux, Hyperlipidemia, Hypertension, Myocardial Infarction ([place]), Musculoskeletal Disorder, Renal Disease, Sleep Apnea/CPAP/BIPAP Additional Past Medical History / Comment(s): TIA X2 (1999 & 2002), VERTIGO, C- PAP MACHINE, SCIATICA & BACK PAIN with past EPIDURAL INJECTIONS, pt states he takes zyloprim due to elevated blood test-does not have gout yet, kidney disease, past nephritis, lupus (in remission), tingling in R foot, post op infection after R rotator cuff repair requiring irrigations and packings/ABX. Last Myocardial Infarction Date:: 1999 History of Any Multi-Drug Resistant Organisms: None Reported Date of last positivie culture/infection: None MDRO Source:: None Past Surgical History: Heart Catheterization With Stent, Orthopedic Surgery Additional Past Surgical History / Comment(s): RT ROTATOR CUFF-titanium used, LEFT KNEE ARTHROSCOPY, TOTAL LEFT/right KNEE, colonoscopy. TURP Past Anesthesia/Blood Transfusion Reactions: No Reported Reaction Additional Past Anesthesia/Blood Transfusion Reaction / Comment(s): PONV with spinal anesthesia, Date of Last Stent Placement:: 1999 Past Psychological History: No Psychological Hx Reported Smoking Status: Former smoker Past Alcohol Use History: None Reported Past Drug Use History: None Reported - Past Family History Mother Family Medical History: Cancer Additional Family Medical History / Comment(s): BREAST CA Father Family Medical History: Cancer Additional Family Medical History / Comment(s): ESOPHAGEAL CA Medications and Allergies Home Medications Medication Instructions Recorded Confirmed Type Atorvastatin [Lipitor] 10 mg PO HS 07/02/14 08/29/21 History Isosorbide Mononitrate ER [Imdur] 30 mg PO DAILY 07/02/14 08/29/21 History Omeprazole [PriLOSEC] 20 mg PO DAILY 07/02/14 08/29/21 History Allopurinol [Zyloprim] 100 mg PO DAILY 06/06/17 08/29/21 History Brimonidine Tartrate [Alphagan P 1 drop LEFT EYE BID 03/02/20 08/29/21 History 0.1% Ophth Soln] Latanoprost [Xalatan 0.005%] 1 drop BOTH EYES HS 03/02/20 08/29/21 History traMADol HCL [Ultram] 50 mg PO BID PRN 03/02/20 08/29/21 History Apixaban [Eliquis] 5 mg PO BID 08/29/21 08/29/21 History Folic Acid 0.4 mg PO DAILY 08/29/21 08/29/21 History Meclizine [Antivert] 25 mg PO HS PRN 08/29/21 08/29/21 History Metoprolol Tartrate [Lopressor] 12.5 mg PO BID 08/29/21 08/29/21 History Allergies Allergy/AdvReac Type Severity Reaction Status Date / Time Sulfa (Sulfonamide Allergy Unknown HIVES, Verified 08/29/21 12:36 Antibiotics) ITCHING Physical Exam Vitals: Vital Signs Temp Pulse Resp BP Pulse Ox 08/29/21 14:04 85 18 124/67 96 08/29/21 11:00 92 18 103/78 93 L 08/29/21 09:00 83 18 127/71 95 08/29/21 07:23 87 18 115/72 99 08/29/21 07:03 89 18 115/72 98 08/29/21 06:25 90 18 102/90 94 L 08/29/21 05:07 91 18 119/66 93 L 08/29/21 03:36 105 H 18 105/83 90 L 08/29/21 02:18 112 H 18 109/83 89 L 08/29/21 01:15 116 H 18 116/62 89 L 08/29/21 00:15 98.9 F 121 H 18 112/83 88 L Intake and Output 08/28/21 08/29/21 08/29/21 22:59 06:59 14:59 Other: Weight 123.831 kg PHYSICAL EXAMINATION: Patient is lying in the bed comfortably, no acute distress, awake alert and oriented.. HEENT: Normocephalic. Neck is supple. Pupils reactive. Nostrils clear. Oral cavity is moist. Neck reveals no JVD, carotid bruits, or thyromegaly. CHEST EXAMINATION: Trachea is central. Symmetrical expansion. Bibasilar sounds. Lung monsivais clear to auscultation and percussion. CARDIAC: Normal S1, S2 with no gallops. No murmurs, irregular rhythm. ABDOMEN: Soft. Bowel sounds normal. No organomegaly. No abdominal bruits. Extremities: reveal no edema. No clubbing or cyanosis Neurologically awake, alert, oriented x3 with well-coordinated movements. No focal deficits noted Skin: No rash or skin lesions. Psychiatric: Cooperative. Nonsuicidal Musculoskeletal: Left knee joint effusion. Decreased range of motion. Tende rness. Results CBC & Chem 7: 08/29/21 01:01 08/29/21 01:01 Labs: Abnormal Lab Results - Last 24 Hours (Table) 08/29/21 08/29/21 08/29/21 Range/Units 01:01 01:01 01:01 WBC 17.2 H (3.8-10.6) k/uL RBC 4.03 L (4.30-5.90) m/uL Hgb 12.6 L (13.0-17.5) gm/dL Hct 38.6 L (39.0-53.0) % Neutrophils # 15.8 H (1.3-7.7) k/uL Lymphocytes # 0.6 L (1.0-4.8) k/uL D-Dimer (<0.60) mg/L FEU Sodium 135 L (137-145) mmol/L BUN 39 H (9-20) mg/dL Creatinine 2.49 H (0.66-1.25) mg/dL Glucose 129 H (74-99) mg/dL Calcium 10.5 H (8.4-10.2) mg/dL Phosphorus 2.0 L (2.5-4.5) mg/dL Alkaline Phosphatase 129 H (38-126) U/L Troponin I 0.116 H* (0.000-0.034) ng/mL Total Protein 8.5 H (6.3-8.2) g/dL Urine Protein (Negative) Urine Blood (Negative) Urine Mucus (None) /hpf 08/29/21 08/29/21 Range/Units 01:01 02:46 WBC (3.8-10.6) k/uL RBC (4.30-5.90) m/uL Hgb (13.0-17.5) gm/dL Hct (39.0-53.0) % Neutrophils # (1.3-7.7) k/uL Lymphocytes # (1.0-4.8) k/uL D-Dimer 18.00 H (<0.60) mg/L FEU Sodium (137-145) mmol/L BUN (9-20) mg/dL Creatinine (0.66-1.25) mg/dL Glucose (74-99) mg/dL Calcium (8.4-10.2) mg/dL Phosphorus (2.5-4.5) mg/dL Alkaline Phosphatase (38-126) U/L Troponin I (0.000-0.034) ng/mL Total Protein (6.3-8.2) g/dL Urine Protein 1+ H (Negative) Urine Blood Moderate H (Negative) Urine Mucus Rare H (None) /hpf Thrombosis Risk Factor Assmnt - DVT/VTE Prophylaxis DVT/VTE Prophylaxis: Pharmacologic Prophylaxis ordered Assessment and Plan Assessment: Status post fall and landed on his knees with left knee joint effusion. Acute on chronic kidney disease stage III. Creatinine 2.49. Baseline 1.98 Hypovolemic hyponatremia Elevated D-dimer level. CTA chest could not be done due to NHUNG. VQ scan was ordered. Elevated troponin level. Possible NSTEMI cannot be ruled out. Leukocytosis Coronary artery disease history of stent placement Chronic atrial fibrillation. Patient is on anticoagulation with Eliquis History of CVA/TIA Obstructive sleep apnea on CPAP at home Hypertension Hyperlipidemia History of [place] COPD Previous history of smoking Chronic hypoxic respiratory failure on home oxygen. -Chronic back pain with sciatica DVT prophylaxis patient is already on heparin drip. Plan: Patient will be current telemetry monitoring. Due to elevated D-dimer level VQ scan was ordered to rule out PE. Continue with gentle IV hydration follow-up re nal function. Patient will be current on heparin drip and cardiology was consulted. 2D echocardiogram was ordered. Continue with home medications including metoprolol, statins and GI prophylaxis. Orthopedic surgery was consulted due to left knee joint effusion. Follow-up closely. Prognosis guarded. Time with Patient: Greater than 30
[2021-08-29] MEDS ORDERED: APIXABAN 5 MG TAB PO SCH (21:00)
[2021-08-29] MEDS ORDERED: ATORVASTATIN 10 MG TAB PO SCH (21:00)
[2021-08-29] MEDS ORDERED: ENOXAPARIN 120 MG/0.8 ML SYRINGE SQ SCH (22:00)
--- NOTE | 2021-08-29 22:07 | NM ---
EXAMINATION TYPE: NM pul vent and perfuse DATE OF EXAM: 08/29/2021 COMPARISON: NONE HISTORY: TECHNIQUE: Utilizing inhalation of 66.0 mCi Tc 99m DTPA aerosol and intravenous injection of 4.87 mC i of Tc 99m MAA, ventilation and perfusion images are acquired post injection in multiple projections . FINDINGS: There are matching ventilation and perfusion defects in the upper lung monsivais which are nonsegmental. This is consistent with airway disease. The remainder of the exam is unremarkable. IMPRESSION: There is evidence for bilateral airway disease. There is low probability of pulmonary embolism.
[2021-08-30] MEDS: ACETAMINOPHEN TAB 325 MG TAB PO PRN ×2 (04:42→21:09)
[2021-08-30] MEDS: SODIUM CHLORIDE 0.9% 1,000 ML IV SCH ×2 (04:46→17:20)
[2021-08-30] MEDS: PANTOPRAZOLE 40 MG TABLET PO SCH (08:00)
[2021-08-30] MEDS: METOPROLOL TARTRATE 12.5 MG TAB PO SCH ×2 (08:00→21:04)
[2021-08-30] MEDS: allopurinoL 100 MG TAB PO SCH (08:00)
[2021-08-30] MEDS: traMADol 50 MG TAB PO PRN ×2 (08:00→15:31)
[2021-08-30] MEDS: FOLIC ACID 1 MG TAB PO SCH (08:00)
[2021-08-30] MEDS ORDERED: LIDOCAINE 2% INJ 20 MG/ML (20 ML MDV) SQ STA (08:47)
[2021-08-30 08:57] LABS: Basophils % (A) 1 %; Eosinophils # (A) 0.1 k/uL (0-0.7); Eosinophils % (A) 2 %; HCT 35.1 % (39.0-53.0); HGB 11.2 gm/dL (13.0-17.5); Lymphocytes # (A) 0.7 k/uL (1.0-4.8); Lymphocytes % (A) 12 %; MCH 31.4 pg (25.0-35.0); MCHC 31.9 g/dL (31.0-37.0); MCV 98.4 fL (80.0-100.0); Mean Platelet Volume 8.4; Monocytes # (A) 0.3 k/uL (0-1.0); Monocytes % (A) 5 %; Neutrophils # (A) 4.8 k/uL (1.3-7.7); Neutrophils % (A) 78 %; Platelet Count 149 k/uL (150-450); RBC 3.57 m/uL (4.30-5.90); RDW 13.8 % (11.5-15.5); WBC 6.2 k/uL (3.8-10.6)
[2021-08-30 08:59] LABS: Calcium 9.2 mg/dL (8.4-10.2); Potassium 3.8 mmol/L (3.5-5.1)
[2021-08-30 09:00] LABS: INR 1.1 (<1.2); Partial Thromboplastin Time 64.8 sec (22.0-30.0); Prothrombin Time 11.5 sec (9.0-12.0)
[2021-08-30] MEDS ORDERED: ISOSORBIDE MONONITRATE ER 30 MG TAB.ER.24H PO SCH (09:00)
--- NOTE | 2021-08-30 10:29 | P.CNOR ---
History of Present Illness - [facility] Consult date: 08/30/21 Consult reason: joint pain (Left knee pain and swelling.) History of present illness: This is a 75-year-old male who is known to our practice with history of bilateral total knee replacement. He had a revision of his right knee for infection couple of years ago. He states that he has had no issues with his knees until recently. He states that he developed some swelling to the left knee and has had weakness in both legs. He has had elevated temperature and white blood cell count since admission. We are consult in for evaluation of the left knee pain and swelling. He did have some recent falls secondary to the weakness. Past Medical History Past Medical History: Coronary Artery Disease (CAD), COPD, CVA/TIA, GERD/Reflux, Hyperlipidemia, Hypertension, Myocardial Infarction ([place]), Musculoskeletal Disorder, Renal Disease, Sleep Apnea/CPAP/BIPAP Additional Past Medical History / Comment(s): TIA X2 (1999 & 2002), VERTIGO, C- PAP MACHINE, SCIATICA & BACK PAIN with past EPIDURAL INJECTIONS, pt states he takes zyloprim due to elevated blood test-does not have gout yet, kidney disease, past nephritis, lupus (in remission), tingling in R foot, post op infection after R rotator cuff repair requiring irrigations and packings/ABX. Last Myocardial Infarction Date:: 1999 History of Any Multi-Drug Resistant Organisms: None Reported Year Discovered:: None MDRO Source:: None Past Surgical History: Heart Catheterization With Stent, Orthopedic Surgery Additional Past Surgical History / Comment(s): RT ROTATOR CUFF-titanium used, LEFT KNEE ARTHROSCOPY, TOTAL LEFT/right KNEE, colonoscopy. TURP Past Anesthesia/Blood Transfusion Reactions: No Reported Reaction Additional Past Anesthesia/Blood Transfusion Reaction / Comm: PONV with spinal anesthesia, Date of Last Stent Placement:: 1999 Past Psychological History: No Psychological Hx Reported Smoking Status: Former smoker Past Alcohol Use History: None Reported Past Drug Use History: None Reported - Past Family History Mother Family Medical History: Cancer Additional Family Medical History / Comment(s): BREAST CA Father Family Medical History: Cancer Additional Family Medical History / Comment(s): ESOPHAGEAL CA Medications and Allergies Home Medications Medication Instructions Recorded Confirmed Type Atorvastatin [Lipitor] 10 mg PO HS 07/02/14 08/29/21 History Isosorbide Mononitrate ER [Imdur] 30 mg PO DAILY 07/02/14 08/29/21 History Omeprazole [PriLOSEC] 20 mg PO DAILY 07/02/14 08/29/21 History Allopurinol [Zyloprim] 100 mg PO DAILY 06/06/17 08/29/21 History Brimonidine Tartrate [Alphagan P 1 drop LEFT EYE BID 03/02/20 08/29/21 History 0.1% Ophth Soln] Latanoprost [Xalatan 0.005%] 1 drop BOTH EYES HS 03/02/20 08/29/21 History traMADol HCL [Ultram] 50 mg PO BID PRN 03/02/20 08/29/21 History Apixaban [Eliquis] 5 mg PO BID 08/29/21 08/29/21 History Folic Acid 0.4 mg PO DAILY 08/29/21 08/29/21 History Meclizine [Antivert] 25 mg PO HS PRN 08/29/21 08/29/21 History Metoprolol Tartrate [Lopressor] 12.5 mg PO BID 08/29/21 08/29/21 History Allergies Allergy/AdvReac Type Severity Reaction Status Date / Time Sulfa (Sulfonamide Allergy Unknown HIVES, Verified 08/29/21 12:36 Antibiotics) ITCHING Physical Examination This is a pleasant 75-year-old male in no acute distress. He is alert and oriented 3. Exam of the lower extremities reveals a +1 effusion to the left k nee. No erythema or ecchymosis. Total knee scars bilaterally are well healed with no sign of infection. He has difficulty lifting the left leg off the bed independently. He is unable to bend the knee actively. He is able to lift the right leg off the bed and on the right knee independently. He has full foot and ankle motion bilaterally. Neurovascular status to the lower extremities is intact. Results X-rays of bilateral knees reveal component in both knees. There are revision components in good position and alignment in the right knee. No evidence of loosening. Primary components of the left knee with no evidence of loosening. No periprosthetic fractures noted in either knee. - Labs Labs: Abnormal Lab Results - Last 24 Hours (Table) 08/29/21 08/29/21 08/29/21 Range/Units 02:46 15:29 17:47 RBC (4.30-5.90) m/uL Hgb (13.0-17.5) gm/dL Hct (39.0-53.0) % Plt Count (150-450) k/uL Lymphocytes # (1.0-4.8) k/uL APTT (22.0-30.0) sec Sodium (137-145) mmol/L BUN (9-20) mg/dL Creatinine (0.66-1.25) mg/dL Glucose (74-99) mg/dL Creatine Kinase (55-170) U/L CK-MB (CK-2) 5.7 H (0.0-2.4) ng/mL Troponin I 1.670 H* 1.620 H* (0.000-0.034) ng/mL Urine Protein 1+ H (Negative) Urine Blood Moderate H (Negative) Urine Mucus Rare H (None) /hpf 08/29/21 08/29/21 08/30/21 Range/Units 23:40 23:40 08:29 RBC 3.57 L (4.30-5.90) m/uL Hgb 11.2 L (13.0-17.5) gm/dL Hct 35.1 L (39.0-53.0) % Plt Count 149 L (150-450) k/uL Lymphocytes # 0.7 L (1.0-4.8) k/uL APTT 65.8 H (22.0-30.0) sec Sodium (137-145) mmol/L BUN (9-20) mg/dL Creatinine (0.66-1.25) mg/dL Glucose (74-99) mg/dL Creatine Kinase 315 H (55-170) U/L CK-MB (CK-2) (0.0-2.4) ng/mL Troponin I (0.000-0.034) ng/mL Urine Protein (Negative) Urine Blood (Negative) Urine Mucus (None) /hpf 08/30/21 08/30/21 Range/Units 08:29 08:29 RBC (4.30-5.90) m/uL Hgb (13.0-17.5) gm/dL Hct (39.0-53.0) % Plt Count (150-450) k/uL Lymphocytes # (1.0-4.8) k/uL APTT 64.8 H (22.0-30.0) sec Sodium 134 L (137-145) mmol/L BUN 30 H (9-20) mg/dL Creatinine 1.94 H (0.66-1.25) mg/dL Glucose 161 H (74-99) mg/dL Creatine Kinase (55-170) U/L CK-MB (CK-2) (0.0-2.4) ng/mL Troponin I (0.000-0.034) ng/mL Urine Protein (Negative) Urine Blood (Negative) Urine Mucus (None) /hpf H & H 08/29/21 08/30/21 Range/Units 01:01 08:29 Hgb 12.6 L 11.2 L (13.0-17.5) gm/dL Hct 38.6 L 35.1 L (39.0-53.0) % Coagulation 08/30/21 Range/Units 08:29 INR 1.1 (<1.2) Result Diagrams: 08/30/21 08:29 08/30/21 08:29 Assessment and Plan (1) Contusion, knee Current Visit: Yes Status: Acute Code(s): S80.00XA - CONTUSION OF UNSPECIFIED KNEE, INITIAL ENCOUNTER SNOMED Code(s): 21681183 (2) Elevated troponin Current Visit: Yes Status: Acute Code(s): R77.8 - OTHER SPECIFIED ABNORMALITIES OF PLASMA PROTEINS SNOMED Code(s): 662484691 (3) Knee effusion, left Current Visit: Yes Status: Acute Code(s): M25.462 - EFFUSION, LEFT KNEE SNOMED Code(s): 614755643787687 (4) Leukocytosis Current Visit: Yes Status: Acute Code(s): D72.829 - ELEVATED WHITE BLOOD CELL COUNT, UNSPECIFIED SNOMED Code(s): 483944512 (5) History of infection of total joint prosthesis of knee Current Visit: No Status: Acute Code(s): Z87.39 - PERSONAL HISTORY OF DISEASES OF THE MS SYS AND CONN TISS SNOMED Code(s): 766356883 (6) Status post revision of total replacement of right knee Current Visit: No Status: Acute Code(s): Z96.651 - PRESENCE OF RIGHT ART IFICIAL KNEE JOINT SNOMED Code(s): 381561926337481 Plan: The clinical and x-ray findings are discussed with the patient and nursing staff. With his current symptoms is recommended he have aspiration of the left knee for fluid assessment. The left knee is aspirated obtaining only 15 mL of cloudy bloody fluid. The fluid was sent to the lab for culture and sensitivity as well as cell count. We will continue to follow and await lab results.
[2021-08-30] MEDS ORDERED: AZITHROMYCIN 500 MG TAB PO SCH (13:00)
[2021-08-30 13:10] LABS: Appearance,BF Cloudy; Color,BF Red
[2021-08-30 13:11] LABS: Nucleated Cells, Body Fluid 121000 /uL; RBC, Body Fluid 144000 /uL
[2021-08-30 13:17] LABS: Mononuclear WBC,Body Fluid 1 %; Polynuclear WBC,Body Fluid 99 %; Total Cells Counted,Body Fluid 100
[2021-08-30] MEDS ORDERED: VANCOMYCIN IV PER PHARMACY 1 EACH MISC MISCELLANE PRN (13:36)
--- NOTE | 2021-08-30 13:39 | P.CRDCN ---
History of Present Illness Consult date: 08/30/21 Reason for Consult (text): Elevated troponin History of present illness: This is Jesus Fernandez NP, I'm dictating on behalf of Dr. Leal's H&P and A&P The patient was interviewed and examined. HPI: Patient is a pleasant 75-year-old male who initially presented to the hospital with complaints of falling. Patient states that his laces, gave out yesterday. He states that his knee pain was increased. He has had bilateral knee replacements. Upon presentation to the ER workup was completed, the patient was found to have an elevated troponin. We were consulted to evaluate this elevation. Patient has a past medical history includes CAD, COPD, CVA, GERD, hyperlipidemia, hypertension, FL, renal disease, sleep apnea, vertigo, sciatica. Patient's past surgical history that includes heart catheterization with stent placement, left knee replacement, right knee replacement, and TURP. Patient reports is a former smoker, denies current alcohol or illicit substance use. Patient was interviewed and examined while lying in the bed. Patient reports that he is tired today. States that he has no chest pain or shortness of breath today. Patient demonstrates elevated troponins, elevated creatinine, and an elevated CK of 315 on labs. It is likely the patient's had a recent FL, however not acute. To evaluate the patient's cardiac function, we will order an echocardiogram to be completed tomorrow morning. Agree with continued heparin infusion. Continue metoprolol as ordered. No other cardiac medications recommended at this time, until results of the echo are reviewed. ROS: [No fever, chills, or rigors] [no cough, phlegm, or expectoration] [no nausea, vomiting, or diarrhea] [no hematuria, dysuria] [Bilateral knee pain] [no strokes or seizures] [no skin lesions] EXAMINATION: GENERAL: Well-appearing, well-nourished and in no acute distress. NECK: Supple without JVD or thyromegaly. LUNGS: Breath sounds clear to auscultation bilaterally. Respiration equal and unlabored. No wheezes, rales or rhonchi. HEART: Regular rate and rhythm without murmurs, rubs or gallops. S1 and S2 heard. EXTREMITIES: Normal range of motion, no edema. No clubbing or cyanosis. Peripheral pulses intact and strong. REVIEW OF LABS, ECG & MEDICAL DATA: LABS: White count 6.2, hemoglobin 11.2, platelet 149, sodium 134, potassium 3.8, B1 30, creatinine 1.94, calcium 9.2, creatine kinase 3:15, CK-MB 5.7, troponin 13, 1.670, 1.6-0, 1.710 EKG: Atrial fibrillation with controlled ventricular rate IMAGING: Chest x-ray dated 08/29/2021 demonstrates minimal subsegmental atelectasis. There is improved aeration of the lung bases compared on exam. No heart failure. Venous Doppler study dated 08/29/2021 demonstrates no evidence of DVT in the right leg, no evidence of DVT in the left leg. Pulmonary perfusion imaging dated 08/29/2021 demonstrates no evidence for bilateral airway disease. Low probability of pulmonary embolism. VITALS: Temp 99.0, pulse 74, respirations 18, blood pressure 102/61, O2 saturation 92% on 4 L via nasal cannula IMPRESSION/PLAN: 1. Lka-[id number]-[id number] echocardiogram to evaluate heart muscle function. Continue heparin as ordered. Continue metoprolol as ordered. If stable patient will likely need heart cath. 2. Status post fall-A secondary to weakness due to non-STEMI. Recommendations as above. 3. History of FL/CVA-continue anticoagulation with heparin. Once heparin is discontinued, patient should resume his Eliquis. Further recommendations based on the patient's clinical course. Thank you for the consult and allowing us to participate in the care of this patient. Past Medical History Past Medical History: Coronary Artery Disease (CAD), COPD, CVA/TIA, GERD/Reflux, Hyperlipidemia, Hypertension, Myocardial Infarction (FL), Musculoskeletal Disorder, Renal Disease, Sleep Apnea/CPAP/BIPAP Additional Past Medical History / Comment(s): TIA X2 (1999 & 2002), VERTIGO, C- PAP MACHINE, SCIATICA & BACK PAIN with past EPIDURAL INJECTIONS, pt states he takes zyloprim due to elevated blood test-does not have gout yet, kidney disease, past nephritis, lupus (in remission), tingling in R foot, post op infection after R rotator cuff repair requiring irrigations and packings/ABX. Last Myocardial Infarction Date:: 1999 History of Any Multi-Drug Resistant Organisms: None Reported Date of last positivie culture/infection: None MDRO Source:: None Past Surgical History: Heart Catheterization With Stent, Orthopedic Surgery Additional Past Surgical History / Comment(s): RT ROTATOR CUFF-titanium used, LEFT KNEE ARTHROSCOPY, TOTAL LEFT/right KNEE, colonoscopy. TURP Past Anesthesia/Blood Transfusion Reactions: No Reported Reaction Additional Past Anesthesia/Blood Transfusion Reaction / Comment(s): PONV with spinal anesthesia, Date of Last Stent Placement:: 1999 Past Psychological History: No Psychological Hx Reported Smoking Status: Former smoker Past Alcohol Use History: None Reported Past Drug Use History: None Reported - Past Family History Mother Family Medical History: Cancer Additional Family Medical History / Comment(s): BREAST CA Father Family Medical History: Cancer Additional Family Medical History / Comment(s): ESOPHAGEAL CA Medications and Allergies Home Medications Medication Instructions Recorded Confirmed Type Atorvastatin [Lipitor] 10 mg PO HS 07/02/14 08/29/21 History Isosorbide Mononitrate ER [Imdur] 30 mg PO DAILY 07/02/14 08/29/21 History Omeprazole [PriLOSEC] 20 mg PO DAILY 07/02/14 08/29/21 History Allopurinol [Zyloprim] 100 mg PO DAILY 06/06/17 08/29/21 History Brimonidine Tartrate [Alphagan P 1 drop LEFT EYE BID 03/02/20 08/29/21 History 0.1% Ophth Soln] Latanoprost [Xalatan 0.005%] 1 drop BOTH EYES HS 03/02/20 08/29/21 History traMADol HCL [Ultram] 50 mg PO BID PRN 03/02/20 08/29/21 History Apixaban [Eliquis] 5 mg PO BID 08/29/21 08/29/21 History Folic Acid 0.4 mg PO DAILY 08/29/21 08/29/21 History Meclizine [Antivert] 25 mg PO HS PRN 08/29/21 08/29/21 History Metoprolol Tartrate [Lopressor] 12.5 mg PO BID 08/29/21 08/29/21 History Allergies Allergy/AdvReac Type Severity Reaction Status Date / Time Sulfa (Sulfonamide Allergy Unknown HIVES, Verified 08/29/21 12:36 Antibiotics) ITCHING Physical Exam Vitals: Vital Signs Temp Pulse Pulse Pulse Resp BP BP 08/30/21 12:24 98.9 F 76 18 08/30/21 07:56 99.0 F 74 18 102/61 08/30/21 05:46 99.9 F H 08/30/21 04:00 101.6 F H 81 17 98/63 08/30/21 01:51 89 16 08/30/21 00:00 99.3 F 89 16 109/67 08/29/21 20:00 100.6 F H 105 H 17 122/76 08/29/21 16:46 98.2 F 85 20 113/70 08/29/21 14:04 85 18 124/67 Pulse Ox 08/30/21 12:24 96 08/30/21 07:56 92 L 08/30/21 05:46 08/30/21 04:00 93 L 08/30/21 01:51 08/30/21 00:00 93 L 08/29/21 20:00 94 L 08/29/21 16:46 93 L 08/29/21 14:04 96 Intake and Output 08/29/21 08/30/21 08/30/21 22:59 06:59 14:59 Intake Total 318 721 1077 Output Total 650 Balance 964 605 3394 Intake: Intake, IV Titration 300 750 900 Amount Sodium Chloride 0.9% 1, 300 750 900 000 ml @ 75 mls/hr IV . [id number] [facility] Rx#:[id number] Oral 100 356 Output: Urine 650 Other: Voiding Method Urinal Urinal Urinal Results 08/30/21 08:29 08/30/21 08:29 Cardiac Enzymes 08/29/21 08/29/21 08/30/21 Range/Units 15:29 17:47 08:29 CK-MB (CK-2) 5.7 H (0.0-2.4) ng/mL Troponin I 1.670 H* 1.620 H* 1.710 H* (0.000-0.034) ng/mL Coagulation 08/29/21 08/30/21 Range/Units 23:40 08:29 PT 11.5 (9.0-12.0) sec APTT 65.8 H 64.8 H (22.0-30.0) sec CBC 08/30/21 Range/Units 08:29 WBC 6.2 (3.8-10.6) k/uL RBC 3.57 L (4.30-5.90) m/uL Hgb 11.2 L (13.0-17.5) gm/dL Hct 35.1 L (39.0-53.0) % Plt Count 149 L (150-450) k/uL Comprehensive Metabolic Panel 08/30/21 Range/Units 08:29 Sodium 134 L (137-145) mmol/L Potassium 3.8 (3.5-5.1) mmol/L Chloride 102 (98-107) mmol/L Carbon Dioxide 25 (22-30) mmol/L BUN 30 H (9-20) mg/dL Creatinine 1.94 H (0.66-1.25) mg/dL Glucose 161 H (74-99) mg/dL Calcium 9.2 (8.4-10.2) mg/dL Current Medications Generic Name Dose Route Start Last Admin Trade Name Freq PRN Reason Stop Dose Admin Acetaminophen 650 mg 08/29/21 14:01 08/30/21 04:42 Acetaminophen Tab 325 Mg Tab PO 650 mg Q6HR PRN Administration Mild Pain or Fever > 100.5 Allopurinol 100 mg 08/30/21 09:00 08/30/21 08:00 Allopurinol 100 Mg Tab PO 100 mg DAILY [facility] Administration Atorvastatin Calcium 40 mg 08/30/21 21:00 Atorvastatin 40 Mg Tab PO HS [facility] Azithromycin 500 mg 08/30/21 13:00 Azithromycin 500 Mg Tab PO 09/01/21 09:01 DAILY [facility] Protocol Brimonidine Tartrate 1 drops 08/29/21 21:00 08/29/21 19:50 Brimonidine Tartrate 0.2% Drops 5 Ml Btl LEFT EYE Not Given BID [facility] Folic Acid 0.5 mg 08/30/21 09:00 08/30/21 08:00 Folic Acid 1 Mg Tab PO 0.5 mg DAILY [facility] Administration Heparin Sodium (Porcine) 0 unit 08/29/21 16:54 Heparin Sodium 1,000 Un/Ml (10ml Vl) IV PER PROTOCOL PRN Low PTT Protocol Sodium Chloride 1,000 mls @ 75 mls/hr 08/29/21 14:15 08/30/21 04:46 Saline 0.9% IV Not Given .[id number] [facility] Heparin Sodium/Sodium Chloride 250 mls @ 10.001 mls/hr 08/29/21 17:00 08/29/21 17:39 25,000 unit/ Sodium Chloride IV 8.076 units/kg/hr .Q24H [facility] 10.001 mls/hr Administration Protocol 8.076 UNITS/KG/HR Ceftriaxone Sodium 1 gm/ 50 mls @ 100 mls/hr 08/30/21 13:00 Sodium Chloride IVPB Q24HR [facility] Protocol Latanoprost 1 drops 08/29/21 21:00 08/29/21 19:50 Latanoprost 0.005% Ophth Drops 2.5 Ml Btl BOTH EYES Not Given HS [facility] Meclizine HCl 25 mg 08/29/21 14:02 Meclizine 25 Mg Tab PO HS PRN Insomnia Metoprolol Tartrate 12.5 mg 08/29/21 21:00 08/30/21 08:00 Metoprolol Tartrate 12.5 Mg Tab PO 12.5 mg BID [facility] Administration Naloxone HCl 0.2 mg 08/29/21 14:01 Naloxone 0.4 Mg/Ml 1 Ml Vial IV Q2M PRN Opioid Reversal Pantoprazole Sodium 40 mg 08/30/21 09:00 08/30/21 08:00 Pantoprazole 40 Mg Tablet PO 40 mg DAILY [facility] Administration Tramadol HCl 50 mg 08/29/21 14:02 08/30/21 08:00 Tramadol 50 Mg Tab PO 50 mg BID PRN Administration Moderate to Severe Pain Intake and Output 08/29/21 08/30/21 08/30/21 22:59 06:59 14:59 Intake Total 190 960 7836 Output Total 650 Balance 407 058 1159 Intake: Intake, IV Titration 300 750 900 Amount Sodium Chloride 0.9% 1, 300 750 900 000 ml @ 75 mls/hr IV . [id number] [facility] Rx#:[id number] Oral 100 356 Output: Urine 650 Other: Voiding Method Urinal Urinal Urinal 08/30/21 08:29 08/30/21 08:29
[2021-08-30] MEDS ORDERED: VANCOMYCIN 2,000 MG in SODIUM CHLORIDE 0.9% 500 ML 500 ML IVPB ONE (14:30)
[2021-08-30] MEDS: BRIMONIDINE TARTRATE 0.2% DROPS 5 ML BTL LEFT EYE SCH ×2 (15:22→21:04)
[2021-08-30] MEDS: HEPARIN SOD,PORK IN 0.45% NACL 25,000 UNIT in 0.45% NACL 1 250ML.BAG IV SCH (15:32)
[2021-08-30] MEDS: LATANOPROST 0.005% OPHTH DROPS 2.5 ML BTL BOTH EYES SCH (21:04)
[2021-08-30] MEDS: ATORVASTATIN 40 MG TAB PO SCH (21:04)
--- NOTE | 2021-08-30 22:49 | P.PN ---
Subjective Progress Note Date: 08/30/21 Patient is a 75-year-old male with a known history of coronary artery disease with stent placement, history of CVA/TIA, GERD, hypertension, hyperlipidemia, history of [place], obstructive sleep apnea on CPAP, chronic sciatica/back pain with history of epidural injections, previous history of smoking presents to ER status post fall. Patient states that his legs gave way and fell and landed on his left knee. Left knee is swollen since then. Patient does have a history of bilateral knee arthroplasty. Patient stated for about 45 minutes and denied any hitting his head. No complaints of chest pain. No syncopal episode. No loss of consciousness. No dizziness. Denied any palpitations. Denies any other injury. Patient called his son and helped him up. Patient was brought to ER. Patient is currently on anticoagulation with Eliquis due to history of irregular heartbeat. X-ray of the knee showed left-sided knee joint effusion. No fracture seen. No acute abnormality of the right knee. Chest x-ray showed minimal subsegmental atelectasis. There is improved aeration of the lung bases compared to old exam. CT head and cervical spine showed cerebral atrophy. No acute intracranial abnormality seen. Mild multilevel cervical spondylitic changes. No fracture seen. EKG showed irregular rhythm. Bilateral lower extremity duplex scan is negative for DVT. Laboratory data showed WBC 17.2 hemoglobin 12.6 and platelets 228 D-dimer is 18 Sodium 135 potassium 4.6 chloride 101 BUN 39 and creatinine 2.49 baseline creatinine level 1.98 in February 2020 Blood sugar 129 calcium 10.5 phosphorus 2.0 Troponin 0.116, 1.670 and 1.6-0 TSH 1.510 Urinalysis showed moderate blood leukocyte esterase negative and nitrite negative and RBCs 1 and WBC is 1. Coronavirus PCR not detected. 08/30/2021 Admitted to the hospital due to generalized weakness and fall and left knee pain. Patient is currently resting in the bed. Feels better. No complaints of chest pain or shortness of breath. Patient has been cannula Heparin due to elevated troponin level and possible NSTEMI. Patient was seen by orthopedic surgery and is status post left knee arthrocentesis and fluid culture was sent. Patient was started on antibiotics in the form of ceftriaxone. Procalcitonin level is 1.26. Cardiology has seen the patient. Laboratory data showed WBC 6.2 hemoglobin 11.1 platelets 149 Sodium 134 potassium 3.8 chloride 102 bicarb is 25 BUN 13 creatinine improved to 1.94. Patient is becoming IV hydration with normal saline at 75 cc/h. VQ scan showed low probability of PE. Bilateral airspace disease. Bilateral lower extremity duplex scan is negative for DVT. Current medications reviewed. Objective - Vital Signs Vital signs: Vital Signs Temp 98.9 F 08/30/21 12:24 Pulse 76 08/30/21 12:24 Resp 18 08/30/21 12:24 BP 105/60 08/30/21 15:37 Pulse Ox 96 08/30/21 12:24 Intake & Output 08/29/21 08/30/21 08/30/21 18:59 06:59 18:59 Intake Total 730 794 7967.855 Output Total 650 Balance 888 550 3773.855 Intake: Intake, IV Titration 445 339 4355.855 Amount Heparin Sod,Pork in 0.45% 218.855 NaCl 25,000 unit In 0.45 % NaCl 1 250ml.bag @ 8. 076 UNITS/KG/HR 10.001 mls/hr IV .Q24H [facility] Rx#: [id number] Sodium Chloride 0.9% 1, 300 750 900 000 ml @ 75 mls/hr IV . [id number] [facility] Rx#:[id number] Oral 100 356 Output: Urine 650 Other: Voiding Method Urinal Urinal - Exam PHYSICAL EXAMINATION: Patient is lying in the bed comfortably, no acute distress, awake alert and oriented.. HEENT: Normocephalic. Neck is supple. Pupils reactive. Nostrils clear. Oral cavity is moist. Neck reveals no JVD, carotid bruits, or thyromegaly. CHEST EXAMINATION: Trachea is central. Symmetrical expansion. Bibasilar sounds. Lung monsivais clear to auscultation and percussion. CARDIAC: Normal S1, S2 with no gallops. No murmurs, irregular rhythm. ABDOMEN: Soft. Bowel sounds normal. No organomegaly. No abdominal bruits. Extremities: reveal no edema. No clubbing or cyanosis Neurologically awake, alert, oriented x3 with well-coordinated movements. No focal deficits noted Skin: No rash or skin lesions. Psychiatric: Cooperative. Nonsuicidal Musculoskeletal: Left knee joint effusion. Decreased range of motion. Tenderness. - Labs CBC & Chem 7: 08/30/21 08:29 08/30/21 08:29 Labs: Abnormal Lab Results - Last 24 Hours (Table) 08/29/21 08/29/21 08/29/21 Range/Units 15:29 17:47 23:40 RBC (4.30-5.90) m/uL Hgb (13.0-17.5) gm/dL Hct (39.0-53.0) % Plt Count (150-450) k/uL Lymphocytes # (1.0-4.8) k/uL APTT 65.8 H (22.0-30.0) sec Sodium (137-145) mmol/L BUN (9-20) mg/dL Creatinine (0.66-1.25) mg/dL Glucose (74-99) mg/dL Creatine Kinase (55-170) U/L CK-MB (CK-2) 5.7 H (0.0-2.4) ng/mL Troponin I 1.670 H* 1.620 H* (0.000-0.034) ng/mL 08/29/21 08/30/21 08/30/21 Range/Units 23:40 08:29 08:29 RBC 3.57 L (4.30-5.90) m/uL Hgb 11.2 L (13.0-17.5) gm/dL Hct 35.1 L (39.0-53.0) % Plt Count 149 L (150-450) k/uL Lymphocytes # 0.7 L (1.0-4.8) k/uL APTT (22.0-30.0) sec Sodium 134 L (137-145) mmol/L BUN 30 H (9-20) mg/dL Creatinine 1.94 H (0.66-1.25) mg/dL Glucose 161 H (74-99) mg/dL Creatine Kinase 315 H (55-170) U/L CK-MB (CK-2) (0.0-2.4) ng/mL Troponin I (0.000-0.034) ng/mL 08/30/21 08/30/21 Range/Units 08:29 08:29 RBC (4.30-5.90) m/uL Hgb (13.0-17.5) gm/dL Hct (39.0-53.0) % Plt Count (150-450) k/uL Lymphocytes # (1.0-4.8) k/uL APTT 64.8 H (22.0-30.0) sec Sodium (137-145) mmol/L BUN (9-20) mg/dL Creatinine (0.66-1.25) mg/dL Glucose (74-99) mg/dL Creatine Kinase (55-170) U/L CK-MB (CK-2) (0.0-2.4) ng/mL Troponin I 1.710 H* (0.000-0.034) ng/mL Assessment and Plan Assessment: Status post fall and landed on his knees with left knee joint effusion. Acute on chronic kidney disease stage III. Creatinine 2.49. Baseline 1.98 Hypovolemic hyponatremia Elevated D-dimer level. CTA chest could not be done due to NHUNG. VQ scan -low prob. Elevated troponin level. Possible NSTEMI Leukocytosis Bilateral airspace disease possible pneumonia Coronary artery disease history of stent placement Chronic atrial fibrillation. Patient is on anticoagulation with Eliquis History of CVA/TIA Obstructive sleep apnea on CPAP at home Hypertension Hyperlipidemia History of [place] COPD Previous history of smoking Chronic hypoxic respiratory failure on home oxygen. -Chronic back pain with sciatica DVT prophylaxis patient is already on heparin drip. Plan: Patient will be current telemetry monitoring. Due to elevated D-dimer level VQ scan was ordered to rule out PE.VQ scan showed low probability for PE. Continue with gentle IV hydration follow-up renal function. Patient will be current on heparin drip and cardiology was consulted. 2D echocardiogram was ordered. Cardiology is considering cardiac catheterization. Continue with home medications including metoprolol, statins and GI prophylaxis. Orthopedic surgery was consulted due to left knee joint effusion. S/p arthrocentesis. Follow cultures. Prognosis guarded. Time with Patient: Greater than 30
--- NOTE | 2021-08-31 00:10 | P.CONS ---
History of Present Illness - Reason for Consult Consult date: 08/30/21 Left knee septic arthritis Requesting physician: Constanza [place] - Chief Complaint weakness and left knee gave out x 1 day - History of Present Illness Patient is a 75-year-old male with a past medical history significant for right knee septic arthritis back in 2017 for the patient did have two- stage procedure culture that was positive for MSSA and the patient has completed his antibiotic therapy, patient now presenting to the ER yesterday after midnight for evaluation of feeling weak and that when he stands up his legs gave out patient was concerned that his knees bent the wrong way and has been complaining of pain to bilateral knee area especially mostly at the left knee patient describing the pain to be more of a dull aching at times sharp especially on weightbearing intensity is almost 7 out of 10 and no radiation with associated swelling to the left knee but no open wound or any drainage patient on presentation to the hospital was afebrile subsequently he did spike a fever of 101.6 F patient did have white count was 17.2 with a left shift did have elevated BUN/creatinine and elevated cardiac enzyme urine has been negative rust PCR was negative patient did have a synovial fluid aspirate which did show 121,000 nucleated cells 99% PMNs patient is currently being treated with Rocephin and Zithromax concerning for possible pneumonia infectious disease was consulted for further management of antibiotic therapy patient did have a chest x-ray with minimal subsegmental atelectasis x-rays of the knee did shows left- sided knee effusion no acute normality of the right knee Review of Systems Positive point has been mentioned in the HPI rest of the systems are negative Past Medical History Past Medical History: Coronary Artery Disease (CAD), COPD, CVA/TIA, GERD/Reflux, Hyperlipidemia, Hypertension, Myocardial Infarction (MD), Musculoskeletal Disorder, Renal Disease, Sleep Apnea/CPAP/BIPAP Additional Past Medical History / Comment(s): TIA X2 (1999 & 2002), VERTIGO, C- PAP MACHINE, SCIATICA & BACK PAIN with past EPIDURAL INJECTIONS, pt states he takes zyloprim due to elevated blood test-does not have gout yet, kidney disease, past nephritis, lupus (in remission), tingling in R foot, post op infection after R rotator cuff repair requiring irrigations and packings/ABX. Last Myocardial Infarction Date:: 1999 History of Any Multi-Drug Resistant Organisms: None Reported Year Discovered:: None MDRO Source:: None Past Surgical History: Heart Catheterization With Stent, Orthopedic Surgery Additional Past Surgical History / Comment(s): RT ROTATOR CUFF-titanium used, LEFT KNEE ARTHROSCOPY, TOTAL LEFT/right KNEE, colonoscopy. TURP Past Anesthesia/Blood Transfusion Reactions: No Reported Reaction Additional Past Anesthesia/Blood Transfusion Reaction / Comm: PONV with spinal anesthesia, Date of Last Stent Placement:: 1999 Past Psychological History: No Psychological Hx Reported Smoking Status: Former smoker Past Alcohol Use History: None Reported Past Drug Use History: None Reported - Past Family History Mother Family Medical History: Cancer Additional Family Medical History / Comment(s): BREAST CA Father Family Medical History: Cancer Additional Family Medical History / Comment(s): ESOPHAGEAL CA Medications and Allergies Home Medications Medication Instructions Recorded Confirmed Type Atorvastatin [Lipitor] 10 mg PO HS 07/02/14 08/29/21 History Isosorbide Mononitrate ER [Imdur] 30 mg PO DAILY 07/02/14 08/29/21 History Omeprazole [PriLOSEC] 20 mg PO DAILY 07/02/14 08/29/21 History Allopurinol [Zyloprim] 100 mg PO DAILY 06/06/17 08/29/21 History Brimonidine Tartrate [Alphagan P 1 drop LEFT EYE BID 03/02/20 08/29/21 History 0.1% Ophth Soln] Latanoprost [Xalatan 0.005%] 1 drop BOTH EYES HS 03/02/20 08/29/21 History traMADol HCL [Ultram] 50 mg PO BID PRN 03/02/20 08/29/21 History Apixaban [Eliquis] 5 mg PO BID 08/29/21 08/29/21 History Folic Acid 0.4 mg PO DAILY 08/29/21 08/29/21 History Meclizine [Antivert] 25 mg PO HS PRN 08/29/21 08/29/21 History Metoprolol Tartrate [Lopressor] 12.5 mg PO BID 08/29/21 08/29/21 History Aspirin 81 mg PO DAILY 08/30/21 08/30/21 History Cholecalciferol [Vitamin D3 (25 100 mcg PO DAILY 08/30/21 08/30/21 History Mcg = 1000 Iu)] Docusate [Colace] 250 mg PO HS 08/30/21 08/30/21 History Magnesium 750 mg PO 08/30/21 History Nitroglycerin Sl Tabs [Nitrostat] 0.4 mg SUBLINGUAL Q5M PRN 08/30/21 08/30/21 History polyethylene glycoL 3350 [Miralax] 17 gm PO BID 08/30/21 08/30/21 History Allergies Allergy/AdvReac Type Severity Reaction Status Date / Time Sulfa (Sulfonamide Allergy Unknown HIVES, Verified 08/29/21 12:36 Antibiotics) ITCHING Physical Exam Vitals: Vital Signs Temp Pulse Pulse Resp BP Pulse Ox 08/30/21 21:02 80 18 95/55 95 08/30/21 19:24 92 L 08/30/21 15:37 105/60 08/30/21 12:24 98.9 F 76 18 96 08/30/21 07:56 99.0 F 74 18 102/61 92 L 08/30/21 05:46 99.9 F H 08/30/21 04:00 101.6 F H 81 17 98/63 93 L 08/30/21 01:51 89 16 08/30/21 00:00 99.3 F 89 16 109/67 93 L Intake and Output 08/30/21 08/30/21 08/30/21 06:59 14:59 22:59 Intake Total 850 1256 218.855 Output Total 650 400 Balance 200 1256 -181.145 Intake: Intake, IV Titration 750 900 218.855 Amount Heparin Sod,Pork in 0.45% 218.855 NaCl 25,000 unit In 0.45 % NaCl 1 250ml.bag @ 8. 076 UNITS/KG/HR 10.001 mls/hr IV .Q24H SHERIE Rx#: [id number] Sodium Chloride 0.9% 1, 750 900 000 ml @ 75 mls/hr IV . [id number] SHERIE Rx#:[id number] Oral 100 356 0 Output: Urine 650 400 Other: Voiding Method Urinal Urinal Urinal GENERAL DESCRIPTION: An elderly male lying in bed, no distress. No tachypnea or accessory muscle of respiration use. HEENT: Shows Pallor , no scleral icterus. Oral mucous membrane is dry. No pharyngeal erythema or thrush NECK: Trachea central, no thyromegaly. LUNGS: Unlabored breathing. Clear to auscultation anteriorly. No wheeze or cr ackle. HEART: S1, S2, regular rate and rhythm. No loud murmur ABDOMEN: Soft, no tenderness , guarding or rigidity, no organomegaly EXTREMITIES: Left knee did have some swelling slightly warm to touch SKIN: No rash, no masses palpable. NEUROLOGICAL: The patient is awake, alert, oriented x3, mood and affect normal. Results CBC & Chem 7: 08/30/21 08:29 08/30/21 08:29 Labs: Abnormal Lab Results - Last 24 Hours (Table) 08/29/21 08/29/21 08/30/21 Range/Units 23:40 23:40 08:29 RBC 3.57 L (4.30-5.90) m/uL Hgb 11.2 L (13.0-17.5) gm/dL Hct 35.1 L (39.0-53.0) % Plt Count 149 L (150-450) k/uL Lymphocytes # 0.7 L (1.0-4.8) k/uL APTT 65.8 H (22.0-30.0) sec Sodium (137-145) mmol/L BUN (9-20) mg/dL Creatinine (0.66-1.25) mg/dL Glucose (74-99) mg/dL Creatine Kinase 315 H (55-170) U/L Troponin I (0.000-0.034) ng/mL Procalcitonin (0.02-0.09) ng/mL 08/30/21 08/30/21 08/30/21 Range/Units 08:29 08:29 08:29 RBC (4.30-5.90) m/uL Hgb (13.0-17.5) gm/dL Hct (39.0-53.0) % Plt Count (150-450) k/uL Lymphocytes # (1.0-4.8) k/uL APTT 64.8 H (22.0-30.0) sec Sodium 134 L (137-145) mmol/L BUN 30 H (9-20) mg/dL Creatinine 1.94 H (0.66-1.25) mg/dL Glucose 161 H (74-99) mg/dL Creatine Kinase (55-170) U/L Troponin I 1.710 H* (0.000-0.034) ng/mL Procalcitonin (0.02-0.09) ng/mL 08/30/21 Range/Units 08:29 RBC (4.30-5.90) m/uL Hgb (13.0-17.5) gm/dL Hct (39.0-53.0) % Plt Count (150-450) k/uL Lymphocytes # (1.0-4.8) k/uL APTT (22.0-30.0) sec Sodium (137-145) mmol/L BUN (9-20) mg/dL Creatinine (0.66-1.25) mg/dL Glucose (74-99) mg/dL Creatine Kinase (55-170) U/L Troponin I (0.000-0.034) ng/mL Procalcitonin 1.26 H (0.02-0.09) ng/mL Microbiology - Last 24 Hours (Table) 08/30/21 10:25 Body Fluid Culture - Preliminary Aspirate Assessment and Plan (1) Septic joint of left knee joint Current Visit: Yes Status: Acute Code(s): M00.9 - PYOGENIC ARTHRITIS, UNSPECIFIED SNOMED Code(s): 244066421 Plan: 1patient presented to hospital with sepsis in this we did have a fever elevated white count patient did have pain to the left knee with swelling did have a cloudy fluid with elevated white count high clinical suspicion for underlying septic arthritis. 2borderline kidney function high risk of nephrotoxicity. 3continue with Rocephin however will add vancomycin while waiting for the culture to be finalized. 4further different orthopedic procedure per the Ortho team on the case. We will follow on clinical condition and cultures to further adjust medication if needed Thank you for this consultation will follow this patient along with you Time with Patient: Greater than 30
[2021-08-31] MEDS ORDERED: traMADol 50 MG TAB ONE (08:00)
[2021-08-31] MEDS ORDERED: PANTOPRAZOLE 40 MG TABLET PO ONE (08:00)
[2021-08-31] MEDS ORDERED: allopurinoL 100 MG TAB ONE (08:00)
[2021-08-31] MEDS ORDERED: METOPROLOL TARTRATE 12.5 MG TAB ONE (08:00)
[2021-08-31] MEDS ORDERED: FOLIC ACID 1 MG TAB ONE (08:00)
--- NOTE | 2021-08-31 09:57 | CA ---
Transthoracic Echo Report Name: Keyon Coker Age: 75 Gender: M : 1945 Exam Date: 08/31/2021 08:17 Exam Location: [place] [facility] Ht (in): 64 Wt (lb): 273 Ordering Physician: Jesus Fernandez Attending/Referring Phys: Information Technology Assistant Samantha Valle RDCS Procedure CPT: Indications: troponin Cardiac Hx: MORBID OBESITY, Technical Quality: Contrast 1: Lumason Total Dose (mL): 5 Contrast 2: Total Dose (mL): MEASUREMENTS (Male / Female) Normal Values 2D ECHO LV Diastolic Diameter PLAX 4.7 cm 4.2 - 5.9 / 3.9 - 5.3 cm LV Systolic Diameter PLAX 4.1 cm IVS Diastolic Thickness 1.7 cm 0.6 - 1.0 / 0.6 - 0.9 cm LVPW Diastolic Thickness 1.6 cm 0.6 - 1.0 / 0.6 - 0.9 cm LV Relative Wall Thickness 0.7 RV Internal Dim ED PLAX 3.7 cm LA Systolic Diameter LX 4.3 cm 3.0 - 4.0 / 2.7 - 3.8 cm M-MODE Aortic Root Diameter MM 3.5 cm LA Systolic Diameter MM 5.0 cm LA Ao Ratio MM 1.4 MV E Point Septal Separation 1.0 cm AV Cusp Separation MM 1.1 cm DOPPLER AV Peak Velocity 192.0 cm/s AV Peak Gradient 14.7 mmHg AV Mean Velocity 151.4 cm/s AV Mean Gradient 9.6 mmHg AV Velocity Time Integral 32.8 cm LVOT Peak Velocity 142.7 cm/s LVOT Peak Gradient 8.1 mmHg MV Area PHT 3.4 cm Mitral E Point Velocity 25.6 cm/s Mitral A Point Velocity 65.5 cm/s Mitral E to A Ratio 0.4 MV Deceleration Time 220.6 ms FINDINGS Left Ventricle Moderately increased septal wall thickness. EF 40-45% Right Ventricle Moderate right ventricular dilatation. Right Atrium Right atrium not well visualized. Left Atrium Mildly increased left atrial diameter. Mitral Valve Mitral valve not well visualized. Aortic Valve Aortic valve not well visualized. Tricuspid Valve Tricuspid valve not well visualized. Tricuspid valve not well visualized. Pulmonic Valve Pulmonic valve not well visualized. Pulmonic valve not well visualized. Pericardium not well visualized. Aorta Aortic root and proximal ascending aorta not well visualized. CONCLUSIONS Sub optimal quality study. EF about 45% doppler exam is suboptimal Previewed by: Dr. Missael Devries MD (Electronically Signed) Final Date: 31 August 2021 09:56
[2021-08-31 10:30] LABS: HCT 37.6 % (39.0-53.0); HGB 11.8 gm/dL (13.0-17.5); Hypochromasia Moderate; MCH 31.7 pg (25.0-35.0); MCHC 31.3 g/dL (31.0-37.0); MCV 101.3 fL (80.0-100.0); Macrocytosis Slight; Mean Platelet Volume 8.6; Platelet Count 113 k/uL (150-450); RBC 3.71 m/uL (4.30-5.90); RDW 13.7 % (11.5-15.5); WBC 7.3 k/uL (3.8-10.6)
[2021-08-31 10:42] LABS: Albumin 2.9 g/dL (3.5-5.0); Calcium 8.8 mg/dL (8.4-10.2); Magnesium 1.9 mg/dL (1.6-2.3); Total Bilirubin 0.7 mg/dL (0.2-1.3); Total Protein 6.7 g/dL (6.3-8.2)
[2021-08-31 11:03] LABS: Potassium 4.3 mmol/L (3.5-5.1)
[2021-08-31] MEDS: FOLIC ACID 1 MG TAB PO SCH (11:21)
[2021-08-31] MEDS: allopurinoL 100 MG TAB PO SCH (11:21)
[2021-08-31] MEDS: METOPROLOL TARTRATE 12.5 MG TAB PO SCH ×2 (11:21→20:10)
[2021-08-31] MEDS: BRIMONIDINE TARTRATE 0.2% DROPS 5 ML BTL LEFT EYE SCH ×2 (11:21→20:20)
[2021-08-31] MEDS: SODIUM CHLORIDE 0.9% 1,000 ML IV SCH ×2 (11:21→16:46)
[2021-08-31] MEDS: PANTOPRAZOLE 40 MG TABLET PO SCH (11:21)
--- NOTE | 2021-08-31 11:38 | P.PN ---
Subjective Progress Note Date: 08/31/21 This is a 75 year old male who is being followed for left knee pain and swelling. Per nursing, the patient has been afebrile overnight. Patient is seen and evaluated at bedside today. Patient reports pain and stiffness in the left knee, but otherwise denies any new complaints today. Objective - Vital Signs Vital signs: Vital Signs Temp 97.8 F 08/30/21 23:49 Pulse 57 L 08/31/21 02:00 Resp 20 08/30/21 23:49 BP 100/62 08/30/21 23:54 Pulse Ox 92 L 08/30/21 23:49 Intake & Output 08/30/21 08/31/21 08/31/21 18:59 06:59 18:59 Intake Total 1474.855 Output Total 400 400 Balance 1074.855 -400 Intake: Intake, IV Titration 1118.855 Amount Heparin Sod,Pork in 0.45% 218.855 NaCl 25,000 unit In 0.45 % NaCl 1 250ml.bag @ 8. 076 UNITS/KG/HR 10.001 mls/hr IV .Q24H SHERIE Rx#: [id number] Sodium Chloride 0.9% 1, 900 000 ml @ 75 mls/hr IV . [id number] SHERIE Rx#:[id number] Oral 356 Output: Urine 400 400 Other: Voiding Method Urinal Urinal - Exam On exam patient is resting comfortably in bed in no acute distress. Patient is alert and oriented x3. There is moderate swelling of the left knee and limited range of motion secondary to pain and swelling. There is no erythema. Calf is soft and nontender to palpation. Sensation intact. Neurovascular status and circulatory status are intact. - Labs CBC & Chem 7: 08/31/21 07:59 08/31/21 07:59 Labs: Abnormal Lab Results - Last 24 Hours (Table) 08/30/21 08/31/21 08/31/21 Range/Units 08:29 07:59 07:59 RBC 3.71 L (4.30-5.90) m/uL Hgb 11.8 L (13.0-17.5) gm/dL Hct 37.6 L (39.0-53.0) % MCV 101.3 H (80.0-100.0) fL Plt Count 113 L (150-450) k/uL APTT (22.0-30.0) sec Sodium 132 L (137-145) mmol/L BUN 26 H (9-20) mg/dL Creatinine 1.50 H (0.66-1.25) mg/dL AST 70 H (17-59) U/L Alkaline Phosphatase 151 H (38-126) U/L Albumin 2.9 L (3.5-5.0) g/dL Procalcitonin 1.26 H (0.02-0.09) ng/mL 08/31/21 Range/Units 07:59 RBC (4.30-5.90) m/uL Hgb (13.0-17.5) gm/dL Hct (39.0-53.0) % MCV (80.0-100.0) fL Plt Count (150-450) k/uL APTT 52.1 H (22.0-30.0) sec Sodium (137-145) mmol/L BUN (9-20) mg/dL Creatinine (0.66-1.25) mg/dL AST (17-59) U/L Alkaline Phosphatase (38-126) U/L Albumin (3.5-5.0) g/dL Procalcitonin (0.02-0.09) ng/mL Microbiology - Last 24 Hours (Table) 08/30/21 08:29 Blood Culture - Preliminary Blood No Growth after 24 hours 08/30/21 10:25 Gram Stain - Preliminary Aspirate Body Fluid Culture - Preliminary Gram Neg Bacilli Assessment and Plan Assessment: History of left total knee arthroplasty (1) Knee effusion, left Current Visit: Yes Status: Acute Code(s): M25.462 - EFFUSION, LEFT KNEE SNOMED Code(s): 643049366643026 (2) Septic joint of left knee joint Current Visit: Yes Status: Acute Code(s): M00.9 - PYOGENIC ARTHRITIS, UNSPECIFIED SNOMED Code(s): 987828719 Plan: 1. Gram stain is showing gram negative bacilli. Patient is afebrile and white blood cell count is within normal limits. 2. NPO after midnight. 3. Continue IV antibiotics per infectious disease. 4. We will continue to follow and consider I&D of the left knee on 09/01/2021 pending patient's clinical course.
--- NOTE | 2021-08-31 11:41 | PN ---
PROGRESS NOTE FOLLOW-UP NOTE: This is a 75-year-old gentleman with history of coronary artery disease, status post prior angioplasty of right coronary artery, paroxysmal atrial fibrillation, who sees me regularly in the outpatient setting. He comes to hospital having had recurrent falls, mild injury to the left knee and possible septic arthritis involving the same. Cardiology is consulted because of elevated troponin. The patient does not have chest pain, does not have shortness of breath. His main symptom was that he fell down. At the time of my evaluation this morning, patient appears comfortable at rest, hemodynamically stable and free of significant symptoms. On exam, comfortable at rest. Vital signs are stable. There is no jugular venous distention. Chest exam reveals good air entry bilaterally. Heart exam reveals first and second heart sounds. No gallop. Abdomen is soft. Examination of extremities did not reveal any edema. Patient is not able to lift the left leg. ASSESSMENT: 1. Acute pom-SY-puwaayh-elevation myocardial infarction. 2. Paroxysmal atrial fibrillation. 3. Recurrent falls. 4. Acute renal insufficiency. PLAN: I will continue the patient at this time on IV heparin, aspirin, beta blockers, statin. I will review the echocardiogram. Patient will need cardiac catheterization for further evaluation, but I am going to hold off on this at this time. Will wait until his heart rate and renal failure issues resolve. If the echo shows preserved LV function and he does not have any cardiac symptoms, I will defer cardiac catheterization on this admission and address this as outpatient. DASHAWN / RANDALN: [id number] /
--- NOTE | 2021-08-31 13:27 | XR ---
EXAMINATION TYPE: XR chest 1V DATE OF EXAM: 08/31/2021 COMPARISON: 08/29/2021 HISTORY: Cough TECHNIQUE: Single frontal view of the chest is obtained. FINDINGS: Bilateral. Subsegmental infiltrate. Limited inspiration. Patient markedly rotated no pneum othorax. Underlying COPD suspected. Diffuse osteopenia. IMPRESSION: Correlate for COPD. Bilateral subsegmental atelectasis favored over pneumonia correlate clinically.
[2021-08-31] MEDS ORDERED: VANCOMYCIN 2,000 MG in SODIUM CHLORIDE 0.9% 500 ML 500 ML IVPB SCH (14:00)
[2021-08-31] MEDS: CEFEPIME 2 GM in SODIUM CHLORIDE 0.9% 100 ML IVPB SCH (16:45)
[2021-08-31] MEDS: HEPARIN SOD,PORK IN 0.45% NACL 25,000 UNIT in 0.45% NACL 1 250ML.BAG IV SCH (16:46)
[2021-08-31] MEDS: ASPIRIN 81 MG PO SCH (16:51)
--- NOTE | 2021-08-31 17:18 | P.PN ---
Progress Note - Text Progress Note Date: 08/31/21 Hospital course Patient is a 75-year-old male with a known history of coronary artery disease with stent placement, history of CVA/TIA, GERD, hypertension, hyperlipidemia, history of SD, obstructive sleep apnea on CPAP, chronic sciatica/back pain with history of epidural injections, previous history of smoking presents to ER status post fall. Patient states that his legs gave way and fell and landed on his left knee. Left knee is swollen since then. Patient does have a history of bilateral knee arthroplasty. Patient stated for about 45 minutes and denied any hitting his head. No complaints of chest pain. No syncopal episode. No loss of consciousness. No dizziness. Denied any palpitations. Denies any other injury. Patient called his son and helped him up. Patient was brought to ER. Patient is currently on anticoagulation with Eliquis due to history of irregular heartbeat. X-ray of the knee showed left-sided knee joint effusion. No fracture seen. No acute abnormality of the right knee. Chest x-ray showed minimal subsegmental atelectasis. There is improved aeration of the lung bases compared to old exam. CT head and cervical spine showed cerebral atrophy. No acute intracranial abnormality seen. Mild multilevel cervical spondylitic changes. No fracture seen. EKG showed irregular rhythm. Bilateral lower extremity duplex scan is negative for DVT. Laboratory data showed WBC 17.2 hemoglobin 12.6 and platelets 228 D-dimer is 18 Sodium 135 potassium 4.6 chloride 101 BUN 39 and creatinine 2.49 baseline creatinine level 1.98 in February 2020 Blood sugar 129 calcium 10.5 phosphorus 2.0 Troponin 0.116, 1.670 and 1.6-0 TSH 1.510 Urinalysis showed moderate blood leukocyte esterase negative and nitrite negative and RBCs 1 and WBC is 1. Coronavirus PCR not detected. 08/30/2021 Admitted to the hospital due to generalized weakness and fall and left knee pain. Patient is currently resting in the bed. Feels better. No complaints of chest pain or shortness of breath. Patient has been cannula Heparin due to elevated troponin level and possible NSTEMI. Patient was seen by orthopedic surgery and is status post left knee arthrocentesis and fluid culture was sent. Patient was started on antibiotics in the form of ceftriaxone. Procalcitonin level is 1.26. Cardiology has seen the patient. Laboratory data showed WBC 6.2 hemoglobin 11.1 platelets 149 Sodium 134 potassium 3.8 chloride 102 bicarb is 25 BUN 13 creatinine improved to 1.94. Patient is becoming IV hydration with normal saline at 75 cc/h. VQ scan showed low probability of PE. Bilateral airspace disease. Bilateral lower extremity duplex scan is negative for DVT. Active Medications Acetaminophen (Acetaminophen Tab 325 Mg Tab) 650 mg PO Q6HR PRN PRN Reason: Mild Pain or Fever > 100.5 Last Admin: 08/30/21 21:09 Dose: 650 mg Documented by: Allopurinol (Allopurinol 100 Mg Tab) 100 mg PO DAILY [facility] Last Admin: 08/31/21 11:21 Dose: Not Given Documented by: Aspirin (Aspirin 81 Mg) 81 mg PO DAILY SHERIE Atorvastatin Calcium (Atorvastatin 40 Mg Tab) 40 mg PO HS [facility] Last Admin: 08/30/21 21:04 Dose: 40 mg Documented by: Brimonidine Tartrate (Brimonidine Tartrate 0.2% Drops 5 Ml Btl) 1 drops LEFT EYE BID [facility] Last Admin: 08/31/21 11:21 Dose: Not Given Documented by: Folic Acid (Folic Acid 1 Mg Tab) 0.5 mg PO DAILY [facility] Last Admin: 08/31/21 11:21 Dose: Not Given Documented by: Heparin Sodium (Porcine) (Heparin Sodium 1,000 Un/Ml (10ml Vl)) 0 unit IV PER PROTOCOL PRN; Protocol PRN Reason: Low PTT Sodium Chloride (Saline 0.9%) 1,000 mls @ 75 mls/hr IV .[id number] [facility] Last Admin: 08/31/21 11:21 Dose: Not Given Documented by: Heparin Sodium/Sodium Chloride (25,000 unit/ Sodium Chloride) 250 mls @ 10.001 mls/hr IV .Q24H SHERIE; Protocol Last Titration: 08/31/21 11:50 Dose: 8.076 units/kg/hr, 10.001 mls/hr Documented by: Cefepime HCl 2 gm/ Sodium (Chloride) 100 mls @ 25 mls/hr IVPB Q12H SHERIE; Protocol Latanoprost (Latanoprost 0.005% Ophth Drops 2.5 Ml Btl) 1 drops BOTH EYES HS [facility] Last Admin: 08/30/21 21:04 Dose: 1 drops Documented by: Meclizine HCl (Meclizine 25 Mg Tab) 25 mg PO HS PRN PRN Reason: Insomnia Metoprolol Tartrate (Metoprolol Tartrate 12.5 Mg Tab) 12.5 mg PO BID [facility] Last Admin: 08/31/21 11:21 Dose: Not Given Documented by: Naloxone HCl (Naloxone 0.4 Mg/Ml 1 Ml Vial) 0.2 mg IV Q2M PRN PRN Reason: Opioid Reversal Pantoprazole Sodium (Pantoprazole 40 Mg Tablet) 40 mg PO DAILY [facility] Last Admin: 08/31/21 11:21 Dose: Not Given Documented by: Tramadol HCl (Tramadol 50 Mg Tab) 50 mg PO BID PRN PRN Reason: Moderate to Severe Pain Last Admin: 08/30/21 15:31 Dose: 50 mg Documented by: PHYSICAL EXAMINATION: Vitals: 97.5, 69, 18, 97/56, 93% on 2 L Gen. appearance: lying in the bed comfortably, no acute distress, awake alert and oriented.. HEENT: Normocephalic. Neck is supple. Pupils reactive. Nostrils clear. Oral cavity is moist. Neck reveals no JVD, carotid bruits, or thyromegaly. CHEST EXAMINATION: Trachea is central. Symmetrical expansion. Bibasilar sounds. Lung monsivais clear to auscultation and percussion. CARDIAC: Normal S1, S2 with no gallops. No murmurs, irregular rhythm. ABDOMEN: Soft. Bowel sounds normal. No organomegaly. No abdominal bruits. Extremities: Some swelling of the left knee. Decreased range of motion. Neurologically awake, alert, oriented x3 with well-coordinated movements. No focal deficits noted Skin: No rash or skin lesions. Psychiatric: Answering questions INVESTIGATIONS, reviewed in the clinical context: White count 7.3 hemoglobin 11.8 platelets 113 sodium 132 potassium 4.3. 26 creatinine 1.50 Synovial fluid: Nucleated cells 121,000 VQ scan: Bilateral airspace disease. Low probability PE Venous Doppler: Negative for DVT 2-D echo: EF 45% COVID 19: Not detected Procalcitonin 1.2 Admission labs: BUN 39 creatinine 2.49 Troponin I 1.6, 1.7 Assessment and plan: -Septic arthritis left knee Pending I&D. On IV cefepime. -Acute kidney disease , likely from ATN IV fluids -Hypovolemic hyponatremia IV fluids . - Possible NSTEMI IV heparin. Possible cardiac cath -Bilateral pneumonia, suspect gram-negative organism IV cefepime -Coronary artery disease history of stent placement Aspirin. Lipitor. Lopressor. -Persistent atrial fibrillation. Rate controlled Chronically on Eliquis -Chronic kidney disease stage III likely nephrosclerosis Baseline creatinine 1.98 -IV heparin monitoring Follow PTT -Obstructive sleep apnea on CPAP at home -Essential Hypertension Lopressor 12.5 twice a day -Hyperlipidemia Lipitor 40 mg daily at bedtime -COPD, and a previous smoker Follow clinically -Chronic hypoxic respiratory failure on home oxygen. 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 -Full code IV heparin. IV cefepime. Possible I&D tomorrow by orthopedics. Cardiac cath possibly. Continue current medications.
[2021-08-31] MEDS: ATORVASTATIN 40 MG TAB PO SCH (20:10)
[2021-08-31] MEDS: ACETAMINOPHEN TAB 325 MG TAB PO PRN (20:10)
[2021-08-31] MEDS: LATANOPROST 0.005% OPHTH DROPS 2.5 ML BTL BOTH EYES SCH (20:20)
--- NOTE | 2021-08-31 21:24 | P.PN ---
Subjective Progress Note Date: 08/31/21 Principal diagnosis: Left knee septic arthritis Patient is a 75-year-old been presented to hospital with weakness knees giving out did have a pain and swelling to the left heel status post aspirate with cloudy fluid and the cultures are now showing gram-negative bacilli. On today's evaluation that is 08/31/2021, the patient denies having any fever or chills, patient pain to the left knee area has slightly decreased intensity, patient denies having any chest pain shortness of breath or cough no nausea no vomiting no abdominal pain or any diarrhea Objective - Vital Signs Vital signs: Vital Signs Temp 97.8 F 08/30/21 23:49 Pulse 57 L 08/31/21 02:00 Resp 20 08/30/21 23:49 BP 100/62 08/30/21 23:54 Pulse Ox 92 L 08/30/21 23:49 Intake & Output 08/30/21 08/31/21 08/31/21 18:59 06:59 18:59 Intake Total 8988.574 1645.02 Output Total 400 400 950 Balance 1074.855 -400 203.02 Intake: Intake, IV Titration 7696.260 3171.02 Amount Heparin Sod,Pork in 0.45% 218.855 203.02 NaCl 25,000 unit In 0.45 % NaCl 1 250ml.bag @ 8. 076 UNITS/KG/HR 10.001 mls/hr IV .Q24H [facility] Rx#: [id number] Sodium Chloride 0.9% 1, 900 900 000 ml @ 75 mls/hr IV . [id number] [facility] Rx#:[id number] cefTRIAXone 1 gm In 50 Sodium Chloride 0.9% 50 ml @ 100 mls/hr IVPB Q24HR [facility] Rx#:[id number] Oral 356 Output: Urine 400 400 950 Other: Voiding Method Urinal Urinal Urinal # Voids 2 - Exam GENERAL DESCRIPTION: An elderly male lying in bed in no distress RESPIRATORY SYSTEM: Unlabored breathing , decreased breath sounds at bases HEART: S1 S2 regular rate and rhythm , ABDOMEN: Soft , no tenderness EXTREMITIES: Left knee with some swelling no redness or drainage - Labs CBC & Chem 7: 08/31/21 07:59 08/31/21 07:59 Labs: Abnormal Lab Results - Last 24 Hours (Table) 08/30/21 08/31/21 08/31/21 Range/Units 08:29 07:59 07:59 RBC 3.71 L (4.30-5.90) m/uL Hgb 11.8 L (13.0-17.5) gm/dL Hct 37.6 L (39.0-53.0) % MCV 101.3 H (80.0-100.0) fL Plt Count 113 L (150-450) k/uL APTT (22.0-30.0) sec Sodium 132 L (137-145) mmol/L BUN 26 H (9-20) mg/dL Creatinine 1.50 H (0.66-1.25) mg/dL AST 70 H (17-59) U/L Alkaline Phosphatase 151 H (38-126) U/L Albumin 2.9 L (3.5-5.0) g/dL Procalcitonin 1.26 H (0.02-0.09) ng/mL 08/31/21 Range/Units 07:59 RBC (4.30-5.90) m/uL Hgb (13.0-17.5) gm/dL Hct (39.0-53.0) % MCV (80.0-100.0) fL Plt Count (150-450) k/uL APTT 52.1 H (22.0-30.0) sec Sodium (137-145) mmol/L BUN (9-20) mg/dL Creatinine (0.66-1.25) mg/dL AST (17-59) U/L Alkaline Phosphatase (38-126) U/L Albumin (3.5-5.0) g/dL Procalcitonin (0.02-0.09) ng/mL Microbiology - Last 24 Hours (Table) 08/30/21 08:29 Blood Culture - Preliminary Blood No Growth after 24 hours 08/30/21 10:25 Gram Stain - Preliminary Aspirate Body Fluid Culture - Preliminary Gram Neg Bacilli Assessment and Plan (1) Septic joint of left knee joint Current Visit: Yes Status: Acute Code(s): M00.9 - PYOGENIC ARTHRITIS, UNSPECIFIED SNOMED Code(s): 222228816 Plan: 1patient presented to hospital with sepsis in this we did have a fever elevated white count patient did have pain to the left knee with swelling did have a cloudy fluid with elevated white count high clinical suspicion for underlying septic arthritis. 2borderline kidney function high risk of nephrotoxicity. 3 await definite orthopedic procedure per the Ortho team on the case. 4local culture showing gram-negative bacilli we will discontinue Rocephin and vancomycin and start the patient on cefepime and waiting for the cultures to finalize Time with Patient: Less than 30
[2021-09-01] MEDS: CEFEPIME 2 GM in SODIUM CHLORIDE 0.9% 100 ML IVPB SCH ×2 (03:51→14:26)
[2021-09-01] MEDS: allopurinoL 100 MG TAB PO SCH (07:42)
[2021-09-01] MEDS: FOLIC ACID 1 MG TAB PO SCH (07:42)
[2021-09-01] MEDS: BRIMONIDINE TARTRATE 0.2% DROPS 5 ML BTL LEFT EYE SCH ×2 (07:42→19:53)
[2021-09-01] MEDS: PANTOPRAZOLE 40 MG TABLET PO SCH (07:42)
[2021-09-01] MEDS: METOPROLOL TARTRATE 12.5 MG TAB PO SCH ×2 (07:42→19:52)
[2021-09-01] MEDS: traMADol 50 MG TAB PO PRN (07:43)
[2021-09-01] MEDS: ASPIRIN 81 MG PO SCH (07:57)
--- NOTE | 2021-09-01 08:37 | P.PN ---
Subjective Progress Note Date: 09/01/21 This is a 75 year old male who is being followed for infected left total knee. Patient is seen and evaluated at bedside today and he denies any new complaints today. Objective - Vital Signs Vital signs: Vital Signs Temp 97.9 F 09/01/21 07:51 Pulse 74 09/01/21 07:51 Resp 18 09/01/21 07:51 BP 170/63 09/01/21 07:51 Pulse Ox 95 09/01/21 07:51 Intake & Output 08/31/21 09/01/21 09/01/21 18:59 06:59 18:59 Intake Total 1640.00 875 Output Total 1125 625 500 Balance 515.00 250 -500 Intake: Intake, IV Titration 1200.00 875 Amount Cefepime 2 gm In Sodium 200 Chloride 0.9% 100 ml @ 25 mls/hr IVPB Q12H [facility] Rx# :[id number] Heparin Sod,Pork in 0.45% 250.00 NaCl 25,000 unit In 0.45 % NaCl 1 250ml.bag @ 8. 076 UNITS/KG/HR 10.001 mls/hr IV .Q24H [facility] Rx#: [id number] Sodium Chloride 0.9% 1, 900 675 000 ml @ 75 mls/hr IV . [id number] [facility] Rx#:[id number] cefTRIAXone 1 gm In 50 Sodium Chloride 0.9% 50 ml @ 100 mls/hr IVPB Q24HR [facility] Rx#:[id number] Oral 440 Output: Urine 1125 625 500 Other: Voiding Method Urinal Urinal Urinal # Voids 1 - Exam On exam patient is resting comfortably in bed in no acute distress. Patient is alert and oriented x3. There is moderate swelling of the left knee and limited range of motion secondary to pain and swelling. There is no erythema. Calf is soft and nontender to palpation. Sensation intact. Neurovascular status and circulatory status are intact. - Labs CBC & Chem 7: 08/31/21 07:59 08/31/21 07:59 Labs: Abnormal Lab Results - Last 24 Hours (Table) 08/31/21 08/31/21 08/31/21 Range/Units 07:59 07:59 07:59 RBC 3.71 L (4.30-5.90) m/uL Hgb 11.8 L (13.0-17.5) gm/dL Hct 37.6 L (39.0-53.0) % MCV 101.3 H (80.0-100.0) fL Plt Count 113 L (150-450) k/uL APTT 52.1 H (22.0-30.0) sec Sodium 132 L (137-145) mmol/L BUN 26 H (9-20) mg/dL Creatinine 1.50 H (0.66-1.25) mg/dL AST 70 H (17-59) U/L Alkaline Phosphatase 151 H (38-126) U/L Albumin 2.9 L (3.5-5.0) g/dL Microbiology - Last 24 Hours (Table) 08/30/21 08:29 Blood Culture - Preliminary Blood No Growth after 24 hours 08/30/21 10:25 Gram Stain - Preliminary Aspirate Body Fluid Culture - Preliminary Gram Neg Bacilli Assessment and Plan Assessment: History of left total knee arthroplasty (1) Knee effusion, left Current Visit: Yes Status: Acute Code(s): M25.462 - EFFUSION, LEFT KNEE SNOMED Code(s): 982239695648762 (2) Septic joint of left knee joint Current Visit: Yes Status: Acute Code(s): M00.9 - PYOGENIC ARTHRITIS, UNSPECIFIED SNOMED Code(s): 891413179 Plan: 1. Gram stain is showing gram negative bacilli. Patient is afebrile and white blood cell count is within normal limits. 2. NPO today. 3. Continue IV antibiotics per infectious disease. 4. Planning for I&D of the left knee later today pending medical clearance and patient consent.
[2021-09-01] MEDS: SODIUM CHLORIDE 0.9% 1,000 ML IV SCH ×2 (08:55→23:26)
[2021-09-01 08:59] LABS: HCT 33.7 % (39.0-53.0); HGB 10.7 gm/dL (13.0-17.5); Hypochromasia Slight; MCH 31.6 pg (25.0-35.0); MCHC 31.8 g/dL (31.0-37.0); MCV 99.4 fL (80.0-100.0); Mean Platelet Volume 8.6; RDW 13.2 % (11.5-15.5); WBC 6.6 k/uL (3.8-10.6)
[2021-09-01 09:24] LABS: Albumin 2.6 g/dL (3.5-5.0); Calcium 8.7 mg/dL (8.4-10.2); Magnesium 1.8 mg/dL (1.6-2.3); Potassium 3.9 mmol/L (3.5-5.1); Total Bilirubin 0.6 mg/dL (0.2-1.3); Total Protein 5.9 g/dL (6.3-8.2)
[2021-09-01 09:42] LABS: Platelet Count 97 k/uL (150-450)
--- NOTE | 2021-09-01 11:51 | P.PN ---
Subjective Progress Note Date: 09/01/21 HISTORY OF PRESENT ILLNESS: Patient examined this morning at the bedside. Patient denies chest pain or pressure. He denies shortness of breath. He remains on IV heparin. Patient is scheduled for I&D of the left knee today. Echo cardiogram completed revealing ejection fraction 45%. PHYSICAL EXAM: VITAL SIGNS: Reviewed. GENERAL: Well-developed in no acute distress. NECK: Supple. No JVD or thyromegaly LUNGS: Respirations even and unlabored. Lungs essentially clear to auscultation bilaterally. HEART: Regular rate and rhythm. S1 and S2 heard. EXTREMITIES: Normal range of motion. No clubbing or cyanosis. Peripheral pulses intact. No lower extremity edema ASSESSMENT: Non-STEMI Infected left knee Paroxysmal atrial fibrillation Acute kidney injury Recurrent falls PLAN: Continue current cardiac medications Continue IV heparin. Eliquis remains on hold. Patient scheduled for I&D left knee today Patient will require cardiac cath when he is medically stable Further recommendations pending patient course Nurse practitioner note has been reviewed by physician. Signing provider agrees with the documented findings, assessment, and plan of care. Objective - Vital Signs Vital signs: Vital Signs Temp 97.9 F 09/01/21 07:51 Pulse 74 09/01/21 07:51 Resp 18 09/01/21 07:51 BP 107/63 09/01/21 07:51 Pulse Ox 95 09/01/21 07:51 Intake & Output 08/31/21 09/01/21 09/01/21 18:59 06:59 18:59 Intake Total 1640.00 875 172.017 Output Total 1125 625 900 Balance 515.00 250 -727.983 Intake: Intake, IV Titration 1200.00 875 172.017 Amount Cefepime 2 gm In Sodium 200 Chloride 0.9% 100 ml @ 25 mls/hr IVPB Q12H [facility] Rx# :[id number] Heparin Sod,Pork in 0.45% 250.00 172.017 NaCl 25,000 unit In 0.45 % NaCl 1 250ml.bag @ 8. 076 UNITS/KG/HR 10.001 mls/hr IV .Q24H [facility] Rx#: [id number] Sodium Chloride 0.9% 1, 900 675 000 ml @ 75 mls/hr IV . [id number] [facility] Rx#:[id number] cefTRIAXone 1 gm In 50 Sodium Chloride 0.9% 50 ml @ 100 mls/hr IVPB Q24HR [facility] Rx#:[id number] Oral 440 Output: Urine 1125 625 900 Other: Voiding Method Urinal Urinal Urinal # Voids 1 - Labs CBC & Chem 7: 09/01/21 08:08 09/01/21 08:08 Labs: Abnormal Lab Results - Last 24 Hours (Table) 09/01/21 09/01/21 09/01/21 Range/Units 08:08 08:08 08:08 RBC 3.40 L (4.30-5.90) m/uL Hgb 10.7 L (13.0-17.5) gm/dL Hct 33.7 L (39.0-53.0) % Plt Count 97 L (150-450) k/uL APTT 62.5 H (22.0-30.0) sec Sodium 136 L (137-145) mmol/L BUN 24 H (9-20) mg/dL Creatinine 1.37 H (0.66-1.25) mg/dL Glucose 119 H (74-99) mg/dL AST 68 H (17-59) U/L Alkaline Phosphatase 200 H (38-126) U/L Total Protein 5.9 L (6.3-8.2) g/dL Albumin 2.6 L (3.5-5.0) g/dL Microbiology - Last 24 Hours (Table) 08/30/21 10:25 Gram Stain - Final Aspirate Body Fluid Culture - Final Escherichia coli 08/30/21 08:29 Blood Culture - Preliminary Blood No Growth after 48 hours
--- NOTE | 2021-09-01 14:07 | P.PN ---
Progress Note - Text Progress Note Date: 09/01/21 Hospital course Patient is a 75-year-old male with a known history of coronary artery disease wi th stent placement, history of CVA/TIA, GERD, hypertension, hyperlipidemia, history of HI, obstructive sleep apnea on CPAP, chronic sciatica/back pain with history of epidural injections, previous history of smoking presents to ER status post fall. Patient states that his legs gave way and fell and landed on his left knee. Left knee is swollen since then. Patient does have a history of bilateral knee arthroplasty. Patient stated for about 45 minutes and denied any hitting his head. No complaints of chest pain. No syncopal episode. No loss of consciousness. No dizziness. Denied any palpitations. Denies any other injury. Patient called his son and helped him up. Patient was brought to ER. Patient is currently on anticoagulation with Eliquis due to history of irregular heartbeat. X-ray of the knee showed left-sided knee joint effusion. No fracture seen. No acute abnormality of the right knee. Chest x-ray showed minimal subsegmental atelectasis. There is improved aeration of the lung bases compared to old exam. CT head and cervical spine showed cerebral atrophy. No acute intracranial abnormality seen. Mild multilevel cervical spondylitic changes. No fracture seen. EKG showed irregular rhythm. Bilateral lower extremity duplex scan is negative for DVT. Laboratory data showed WBC 17.2 hemoglobin 12.6 and platelets 228 D-dimer is 18 Sodium 135 potassium 4.6 chloride 101 BUN 39 and creatinine 2.49 baseline creatinine level 1.98 in February 2020 Blood sugar 129 calcium 10.5 phosphorus 2.0 Troponin 0.116, 1.670 and 1.6-0 TSH 1.510 Urinalysis showed moderate blood leukocyte esterase negative and nitrite negative and RBCs 1 and WBC is 1. Coronavirus PCR not detected. 08/30/2021 Admitted to the hospital due to generalized weakness and fall and left knee pain. Patient is currently resting in the bed. Feels better. No complaints of chest pain or shortness of breath. Patient has been cannula Heparin due to elevated troponin level and possible NSTEMI. Patient was seen by orthopedic surgery and is status post left knee arthrocentesis and fluid culture was sent. Patient was started on antibiotics in the form of ceftriaxone. Procalcitonin level is 1.26. Cardiology has seen the patient. Laboratory data showed WBC 6.2 hemoglobin 11.1 platelets 149 Sodium 134 potassium 3.8 chloride 102 bicarb is 25 BUN 13 creatinine improved to 1.94. Patient is becoming IV hydration with normal saline at 75 cc/h. VQ scan showed low probability of PE. Bilateral airspace disease. Bilateral lower extremity duplex scan is negative for DVT. August 31:Patient laying in bed. Pain in the left knee. IV cefepime. IV heparin. Plan is for I&D tomorrow. Cardiac cath down the road. Discussed with patient. September 01: Laying in bed. Pending I&D this afternoon. Nothing by mouth. Pain in the left knee. No chest pain. On IV cefepime. Active Medications Acetaminophen (Acetaminophen Tab 325 Mg Tab) 650 mg PO Q6HR PRN PRN Reason: Mild Pain or Fever > 100.5 Last Admin: 08/31/21 20:10 Dose: 650 mg Documented by: Allopurinol (Allopurinol 100 Mg Tab) 100 mg PO DAILY [facility] Last Admin: 09/01/21 07:42 Dose: 100 mg Documented by: Aspirin (Aspirin 81 Mg) 81 mg PO DAILY [facility] Last Admin: 09/01/21 07:57 Dose: Not Given Documented by: Atorvastatin Calcium (Atorvastatin 40 Mg Tab) 40 mg PO HS [facility] Last Admin: 08/31/21 20:10 Dose: 40 mg Documented by: Brimonidine Tartrate (Brimonidine Tartrate 0.2% Drops 5 Ml Btl) 1 drops LEFT EYE BID [facility] Last Admin: 09/01/21 07:42 Dose: 1 drops Documented by: Folic Acid (Folic Acid 1 Mg Tab) 0.5 mg PO DAILY [facility] Last Admin: 09/01/21 07:42 Dose: 0.5 mg Documented by: Heparin Sodium (Porcine) (Heparin Sodium 1,000 Un/Ml (10ml Vl)) 0 unit IV PER PROTOCOL PRN; Protocol PRN Reason: Low PTT Sodium Chloride (Saline 0.9%) 1,000 mls @ 75 mls/hr IV .[id number] [facility] Last Admin: 08/31/21 16:46 Dose: 75 mls/hr Documented by: Heparin Sodium/Sodium Chloride (25,000 unit/ Sodium Chloride) 250 mls @ 10.001 mls/hr IV .Q24H [facility]; Protocol Last Titration: 09/01/21 09:58 Dose: 8.076 units/kg/hr, 10.001 mls/hr Documented by: Cefepime HCl 2 gm/ Sodium (Chloride) 100 mls @ 25 mls/hr IVPB Q12H [facility]; Protocol Last Admin: 09/01/21 03:51 Dose: 25 mls/hr Documented by: Latanoprost (Latanoprost 0.005% Ophth Drops 2.5 Ml Btl) 1 drops BOTH EYES HS [facility] Last Admin: 08/31/21 20:20 Dose: 1 drops Documented by: Meclizine HCl (Meclizine 25 Mg Tab) 25 mg PO HS PRN PRN Reason: Insomnia Metoprolol Tartrate (Metoprolol Tartrate 12.5 Mg Tab) 12.5 mg PO BID [facility] Last Admin: 09/01/21 07:42 Dose: 12.5 mg Documented by: Naloxone HCl (Naloxone 0.4 Mg/Ml 1 Ml Vial) 0.2 mg IV Q2M PRN PRN Reason: Opioid Reversal Pantoprazole Sodium (Pantoprazole 40 Mg Tablet) 40 mg PO DAILY [facility] Last Admin: 09/01/21 07:42 Dose: 40 mg Documented by: Tramadol HCl (Tramadol 50 Mg Tab) 50 mg PO BID PRN PRN Reason: Moderate to Severe Pain Last Admin: 09/01/21 07:43 Dose: 50 mg Documented by: PHYSICAL EXAMINATION: Vitals: 97.5, 65, 18, 109/66, 95% on 2 L Gen. appearance: lying in the bed comfortably, awake HEENT: Normocephalic. Neck is supple. Pupils reactive. Nostrils clear. Oral cavity is moist. Neck reveals no JVD, carotid bruits, or thyromegaly. CHEST EXAMINATION: Trachea is central. Symmetrical expansion. Bibasilar sounds. Lung monsivais clear to auscultation . CARDIAC: Normal S1, S2 with no gallops. No murmurs,. No edema ABDOMEN: Soft. Bowel sounds normal. No organomegaly. No abdominal bruits. Extremities: Some swelling of the left knee. Decreased range of motion. Neurologically awake, alert, oriented x3 with well-coordinated movements. No focal deficits noted Skin: No rash or skin lesions. Psychiatric: Answering questions appropriately INVESTIGATIONS, reviewed in the clinical context: September 01: White count 7.6-year-old woman 10.7 platelets 97 sodium 136 potassium 3.9. 24 creatinine 1.37 White count 7.3 hemoglobin 11.8 platelets 113 sodium 132 potassium 4.3. 26 creatinine 1.50 Synovial fluid: Nucleated cells 121,000 VQ scan: Bilateral airspace disease. Low probability PE Venous Doppler: Negative for DVT 2-D echo: EF 45% COVID 19: Not detected Procalcitonin 1.2 Admission labs: BUN 39 creatinine 2.49 Troponin I 1.6, 1.7 Assessment and plan: -Septic arthritis left knee Pending I&D. On IV cefepime. -Acute kidney disease , likely from ATN IV fluids -Hypovolemic hyponatremia: Better IV fluids . - Possible NSTEMI IV heparin. Possible cardiac cath -Bilateral pneumonia, suspect gram-negative organism IV cefepime -Coronary artery disease history of stent placement Aspirin. Lipitor. Lopressor. -Persistent atrial fibrillation. Rate controlled Chronically on Eliquis-currently held -Chronic kidney disease stage III likely nephrosclerosis Baseline creatinine 1.98 -IV heparin monitoring Follow PTT -Obstructive sleep apnea on CPAP at home -Essential Hypertension Lopressor 12.5 twice a day -Hyperlipidemia Lipitor 40 mg daily at bedtime -COPD, and a previous smoker Follow clinically -Chronic hypoxic respiratory failure on home oxygen. 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 -Full code IV heparin. IV cefepime. I&D scheduled for today by orthopedics. Cardiac cath down the road. Continue the medications.
[2021-09-01] MEDS ORDERED: IV FLUID CONTINUATION 1,000 ML IV ONE (15:36)
[2021-09-01] MEDS ORDERED: PHENYLEPHRINE-0.9% NACL SYG 1,000 MCG/10 ML SYRINGE ONE (15:59)
[2021-09-01] MEDS ORDERED: ETOMIDATE 2 MG/ML 10 ML VIAL ONE (15:59)
[2021-09-01] MEDS ORDERED: MIDAZOLAM 2 MG/2 ML VIAL ONE (15:59)
[2021-09-01] MEDS ORDERED: fentaNYL (PF) 50 MCG/ML 2 ML AMP ONE (15:59)
[2021-09-01] MEDS ORDERED: LACTATED RINGERS 1,000 ML IV SCH (16:00)
[2021-09-01] MEDS ORDERED: ONDANSETRON 4 MG/2 ML VIAL IVP PRN (16:04)
[2021-09-01] MEDS ORDERED: HYDROmorphone 0.5 MG/0.5 ML SYRINGE IVP PRN ×2 (16:04)
[2021-09-01] MEDS ORDERED: SODIUM CHLORIDE 0.9% 1,000 ML IV SCH (16:15)
--- NOTE | 2021-09-01 16:31 | P.OP ---
Date of Procedure: 09/01/21 Preoperative Diagnosis: Septic arthritis left total knee Postoperative Diagnosis: Septic arthritis left total knee Procedure(s) Performed: Incision and drainage left total knee with placement of antibiotic beads Implants: Stimulon antibiotic beads Anesthesia: LESLIE Surgeon: Manan Stevens Mess Attendant Crew #1: Sheila Chester Estimated Blood Loss (ml): 50 Pathology: other (Cultures 2) Condition: stable Disposition: PACU Indications for Procedure: This is a 75-year-old gentleman presented to the hospital after having a fall and left knee pain. He had a cardiac event with his left knee was swollen and aspiration was performed. Aspiration was cloudy with greater than 100,000 cells the Gram stain was negative, but the final culture results show rare gram-negative bacilli. After discussing the surgical nonsurgical treatment options with the length, I recommended incision and drainage of his left knee with placement of antibiotic beads. Informed consent was obtained. Operative Findings: The operative findings are consistent with septic arthritis of the left knee. Description of Procedure: Patient was seen and evaluated in the preoperative area. The consent was reviewed and operative site was marked with a skin marker. Patient was then brought to the operating room and given a general anesthetic by the anesthesia department. His left knee was prepped and draped in usual sterile fashion. [place] timeout was then performed confirming the patient's name, surgical site, ALLERGIES, and consent. The knee was then opened utilizing the prior incision site with a skin and subcutaneous tissue sharply incised. The knee joint was then opened and a moderate amount of purulent material was then encountered. This was cultured 2. A thorough irrigation was performed with pulsatile lavage with antibiotic solution. While the knee was irrigated, the antibiotic beads were prepared. The antibiotics beads were prepared utilizing the pre-configured mixture with added antibiotics. The antibiotics were cured in the appropriate michelle and the antibiotic beads were then produced after they have hardened. After thorough irrigation, these in about beads were placed both into the left knee joint and outside the left knee joint. Fascia was closed with #1 Vicryl followed by 3-0 Vicryl and chris for the skin. Sterile dressing was then applied. Asst. KATHRINE Rothman was required due the complexity surgery and the need for skilled assistant to the director.
[2021-09-01] MEDS ORDERED: VANCOMYCIN 1,000 MG VIAL MISCELLANE ONE (16:36)
[2021-09-01] MEDS ORDERED: GENTAMICIN 40 MG/ML 2 ML VIAL IRRIGATION ONE (16:36)
[2021-09-01] MEDS ORDERED: HYDROmorphone 1 MG/ML 1 ML SYRINGE IVP ONE (17:20)
[2021-09-01] MEDS: HEPARIN SOD,PORK IN 0.45% NACL 25,000 UNIT in 0.45% NACL 1 250ML.BAG IV SCH (18:56)
[2021-09-01] MEDS: APIXABAN 5 MG TAB PO SCH (19:52)
[2021-09-01] MEDS: LATANOPROST 0.005% OPHTH DROPS 2.5 ML BTL BOTH EYES SCH (19:52)
[2021-09-01] MEDS: ATORVASTATIN 40 MG TAB PO SCH (19:52)
[2021-09-01] MEDS: HYDROmorphone 0.5 MG/0.5 ML SYRINGE IVP PRN (19:53)
[2021-09-02] MEDS: CEFEPIME 2 GM in SODIUM CHLORIDE 0.9% 100 ML IVPB SCH (04:07)
[2021-09-02] MEDS: HYDROmorphone 0.5 MG/0.5 ML SYRINGE IVP PRN (05:46)
[2021-09-02] MEDS: PANTOPRAZOLE 40 MG TABLET PO SCH (09:28)
[2021-09-02] MEDS: allopurinoL 100 MG TAB PO SCH (09:28)
[2021-09-02] MEDS: METOPROLOL TARTRATE 12.5 MG TAB PO SCH ×2 (09:28→20:01)
[2021-09-02] MEDS: ASPIRIN 81 MG PO SCH (09:28)
[2021-09-02] MEDS: FOLIC ACID 1 MG TAB PO SCH (09:28)
[2021-09-02] MEDS: APIXABAN 5 MG TAB PO SCH ×2 (09:28→20:01)
[2021-09-02] MEDS: BRIMONIDINE TARTRATE 0.2% DROPS 5 ML BTL LEFT EYE SCH ×2 (09:29→20:01)
[2021-09-02] MEDS: traMADol 50 MG TAB PO PRN (09:33)
--- NOTE | 2021-09-02 10:22 | P.PN ---
Subjective Progress Note Date: 09/02/21 Principal diagnosis: Left knee sepsis. History of total left knee arthroplasty. Postoperative I&D left knee. This is a 75-year-old male who is postop day #1 status post irrigation and debridement of the left knee with placement of antibiotic beads. The patient is stable from an orthopedic standpoint. He has no new complaints or concerns today. Physical therapy is at bedside. Patient's vitals and labs are stable. Objective - Vital Signs Vital signs: Vital Signs Temp 98.4 F 09/02/21 08:00 Pulse 100 09/02/21 08:00 Resp 16 09/02/21 08:00 BP 90/54 09/02/21 08:00 Pulse Ox 93 L 09/02/21 08:00 Intake & Output 09/01/21 09/02/21 09/02/21 18:59 06:59 18:59 Intake Total 666.521 240 Output Total 1875 1550 100 Balance -1208.479 -1310 -100 Weight 123.831 kg Intake: IV 450 Intake, IV Titration 216.521 Amount Heparin Sod,Pork in 0.45% 216.521 NaCl 25,000 unit In 0.45 % NaCl 1 250ml.bag @ 8. 076 UNITS/KG/HR 10.001 mls/hr IV .Q24H [facility] Rx#: [id number] Oral 240 Output: Urine 1825 1550 100 Estimated Blood Loss 50 Other: Voiding Method Urinal Urinal # Voids 3 1 - Exam This is a pleasant 75-year-old male in no acute distress. He is alert and oriented 3. He is getting up with physical therapy at this time. He is able to flex the knee to 90 and has near full extension. Dressing is clean, dry and intact. He has full foot and ankle motion without difficulty or pain. Neurovascular status to the lower extremity is intact. - Labs CBC & Chem 7: 09/01/21 08:08 09/01/21 08:08 Labs: Microbiology - Last 24 Hours (Table) 09/01/21 16:38 Gram Stain - Preliminary Knee - Left Wound Culture - Preliminary 09/01/21 16:38 Gram Stain - Preliminary Knee - Left Wound Culture - Preliminary 09/01/21 16:38 Anaerobic Culture - Preliminary Knee - Left 09/01/21 16:38 Anaerobic Culture - Preliminary Knee - Left 08/30/21 10:25 Gram Stain - Final Aspirate Body Fluid Culture - Final Escherichia coli 08/30/21 08:29 Blood Culture - Preliminary Blood No Growth after 48 hours Assessment and Plan (1) Contusion, knee Current Visit: Yes Status: Acute Code(s): S80.00XA - CONTUSION OF UNSPECIFIED KNEE, INITIAL ENCOUNTER SNOMED Code(s): 80261803 (2) Elevated troponin Current Visit: Yes Status: Acute Code(s): R77.8 - OTHER SPECIFIED ABNORMALITIES OF PLASMA PROTEINS SNOMED Code(s): 543232176 (3) Knee effusion, left Current Visit: Yes Status: Acute Code(s): M25.462 - EFFUSION, LEFT KNEE SNOMED Code(s): 665394773971010 (4) Leukocytosis Current Visit: Yes Status: Acute Code(s): D72.829 - ELEVATED WHITE BLOOD CELL COUNT, UNSPECIFIED SNOMED Code(s): 129892740 (5) History of infection of total joint prosthesis of knee Current Visit: No Status: Acute Code(s): Z87.39 - PERSONAL HISTORY OF DISEASES OF THE MS SYS AND CONN TISS SNOMED Code(s): 797524472 (6) Status post revision of total replacement of right knee Current Visit: No Status: Acute Code(s): Z96.651 - PRESENCE OF RIGHT ARTIFICIAL KNEE JOINT SNOMED Code(s): 758318152500525 Plan: The clinical findings are discussed with the patient. He is to continue to work with physical therapy. We will change his dressing tomorrow. Continue care and await recommendations by infectious disease.
[2021-09-02] MEDS ORDERED: LACTULOSE 20 GM/30 ML CUP PO ONE (10:40)
--- NOTE | 2021-09-02 13:45 | P.PN ---
Subjective Progress Note Date: 09/02/21 HISTORY OF PRESENT ILLNESS: Patient examined this morning at the bedside. Patient denies chest pain or pressure. He denies shortness of breath. He remains on IV heparin. Patient is scheduled for I&D of the left knee today. Echo cardiogram completed revealing ejection fraction 45%. 09/02/2021 patient examined this morning at the bedside. He is status post I&D of his left knee. He denies chest pain or pressure. He denies shortness of breath. Patient has been restarted on his Eliquis. PHYSICAL EXAM: VITAL SIGNS: Reviewed. GENERAL: Well-developed in no acute distress. NECK: Supple. No JVD or thyromegaly LUNGS: Respirations even and unlabored. Lungs essentially clear to auscultation bilaterally. HEART: Regular rate and rhythm. S1 and S2 heard. EXTREMITIES: Normal range of motion. No clubbing or cyanosis. Peripheral pulses intact. No lower extremity edema ASSESSMENT: Non-STEMI Infected left knee Paroxysmal atrial fibrillation Acute kidney injury Recurrent falls PLAN: Continue current cardiac medications Continue Eliquis Patient will require cardiac cath when he is medically stable which may be performed on an outpatient basis Further recommendations pending patient course Nurse practitioner note has been reviewed by physician. Signing provider agrees with the documented findings, assessment, and plan of care. Objective - Vital Signs Vital signs: Vital Signs Temp 98 F 09/02/21 12:00 Pulse 82 09/02/21 12:00 Resp 18 09/02/21 12:00 BP 98/62 09/02/21 12:00 Pulse Ox 92 L 09/02/21 12:00 Intake & Output 09/01/21 09/02/21 09/02/21 18:59 06:59 18:59 Intake Total 666.521 240 Output Total 1875 1550 100 Balance -1208.479 -1310 -100 Weight 123.831 kg Intake: IV 450 Intake, IV Titration 216.521 Amount Heparin Sod,Pork in 0.45% 216.521 NaCl 25,000 unit In 0.45 % NaCl 1 250ml.bag @ 8. 076 UNITS/KG/HR 10.001 mls/hr IV .Q24H [facility] Rx#: [id number] Oral 240 Output: Urine 1825 1550 100 Estimated Blood Loss 50 Other: Voiding Method Urinal Urinal # Voids 3 1 - Labs CBC & Chem 7: 09/01/21 08:08 09/01/21 08:08 Labs: Microbiology - Last 24 Hours (Table) 08/30/21 08:29 Blood Culture - Preliminary Blood No Growth after 72 hours 09/01/21 16:38 Gram Stain - Preliminary Knee - Left Wound Culture - Preliminary 09/01/21 16:38 Gram Stain - Preliminary Knee - Left Wound Culture - Preliminary 09/01/21 16:38 Anaerobic Culture - Preliminary Knee - Left 09/01/21 16:38 Anaerobic Culture - Preliminary Knee - Left 08/30/21 10:25 Gram Stain - Final Aspirate Body Fluid Culture - Final Escherichia coli
[2021-09-02] MEDS: ACETAMINOPHEN TAB 325 MG TAB PO PRN (17:33)
--- NOTE | 2021-09-02 17:44 | P.PN ---
Subjective Progress Note Date: 09/01/21 Principal diagnosis: Left knee septic arthritis Patient is a 75-year-old been presented to hospital with weakness knees giving out did have a pain and swelling to the left heel status post aspirate with cloudy fluid and the cultures has been finalized as E. coli, the patient is status post left knee washout and antibiotic bead placement by orthopedics on 08/26/2021. On today's evaluation that is 09/01/2021, the patient remains to be afebrile, patient has been complaining of pain to the left knee area after surgery, patient denies having any chest pain shortness of breath or cough no nausea no vomiting no abdominal pain or any diarrhea Objective - Vital Signs Vital signs: Vital Signs Temp 97.1 F L 09/01/21 15:37 Pulse 69 09/01/21 15:37 Resp 18 09/01/21 11:20 BP 117/57 09/01/21 15:37 Pulse Ox 98 09/01/21 15:37 Intake & Output 08/31/21 09/01/21 09/01/21 18:59 06:59 18:59 Intake Total 1640.00 875 216.521 Output Total 8404 706 5322 Balance 515.00 250 -1608.479 Intake: Intake, IV Titration 1200.00 875 216.521 Amount Cefepime 2 gm In Sodium 200 Chloride 0.9% 100 ml @ 25 mls/hr IVPB Q12H [facility] Rx# :[id number] Heparin Sod,Pork in 0.45% 250.00 216.521 NaCl 25,000 unit In 0.45 % NaCl 1 250ml.bag @ 8. 076 UNITS/KG/HR 10.001 mls/hr IV .Q24H [facility] Rx#: [id number] Sodium Chloride 0.9% 1, 900 675 000 ml @ 75 mls/hr IV . [id number] [facility] Rx#:[id number] cefTRIAXone 1 gm In 50 Sodium Chloride 0.9% 50 ml @ 100 mls/hr IVPB Q24HR [facility] Rx#:[id number] Oral 440 Output: Urine 8400 762 9805 Other: Voiding Method Urinal Urinal Urinal # Voids 1 3 - Exam GENERAL DESCRIPTION: An elderly male lying in bed in no distress RESPIRATORY SYSTEM: Unlabored breathing , decreased breath sounds at bases HEART: S1 S2 regular rate and rhythm , ABDOMEN: Soft , no tenderness EXTREMITIES: Left knee is currently dressed no drainage on dressing - Labs CBC & Chem 7: 09/01/21 08:08 09/01/21 08:08 Labs: Abnormal Lab Results - Last 24 Hours (Table) 09/01/21 09/01/21 09/01/21 Range/Units 08:08 08:08 08:08 RBC 3.40 L (4.30-5.90) m/uL Hgb 10.7 L (13.0-17.5) gm/dL Hct 33.7 L (39.0-53.0) % Plt Count 97 L (150-450) k/uL APTT 62.5 H (22.0-30.0) sec Sodium 136 L (137-145) mmol/L BUN 24 H (9-20) mg/dL Creatinine 1.37 H (0.66-1.25) mg/dL Glucose 119 H (74-99) mg/dL AST 68 H (17-59) U/L Alkaline Phosphatase 200 H (38-126) U/L Total Protein 5.9 L (6.3-8.2) g/dL Albumin 2.6 L (3.5-5.0) g/dL Microbiology - Last 24 Hours (Table) 08/30/21 10:25 Gram Stain - Final Aspirate Body Fluid Culture - Final Escherichia coli 08/30/21 08:29 Blood Culture - Preliminary Blood No Growth after 48 hours Assessment and Plan (1) Septic joint of left knee joint Current Visit: Yes Status: Acute Code(s): M00.9 - PYOGENIC ARTHRITIS, UNSPECIFIED SNOMED Code(s): 729615436 Plan: 1patient presented to hospital with sepsis in this we did have a fever elevated white count patient did have pain to the left knee with swelling did have a cloudy fluid with elevated white count high clinical suspicion for underlying septic arthritis. 2borderline kidney function high risk of nephrotoxicity. 3patient is status post left knee washout and antibiotic beads placement 4local culture did shows E. coli sensitive pathogen or causes currently pending patient to continue cefepime Time with Patient: Less than 30
--- NOTE | 2021-09-02 17:46 | P.PN ---
Subjective Progress Note Date: 09/02/21 Principal diagnosis: Left knee septic arthritis Patient is a 75-year-old been presented to hospital with weakness knees giving out did have a pain and swelling to the left heel status post aspirate with cloudy fluid and the cultures has been finalized as E. coli, the patient is status post left knee washout and antibiotic bead placement by orthopedics on 08/26/2021. On today's evaluation that is 09/02/2021, the patient continues to be afebrile, patient pain to the left knee is currently controlled, the patient denies having any chest pain shortness of breath or cough no nausea no vomiting no abdominal pain or any diarrhea Objective - Vital Signs Vital signs: Vital Signs Temp 98 F 09/02/21 12:00 Pulse 82 09/02/21 12:00 Resp 18 09/02/21 12:00 BP 98/62 09/02/21 12:00 Pulse Ox 92 L 09/02/21 12:00 Intake & Output 09/01/21 09/02/21 09/02/21 18:59 06:59 18:59 Intake Total 666.521 240 Output Total 1875 1550 100 Balance -1208.479 -1310 -100 Weight 123.831 kg Intake: IV 450 Intake, IV Titration 216.521 Amount Heparin Sod,Pork in 0.45% 216.521 NaCl 25,000 unit In 0.45 % NaCl 1 250ml.bag @ 8. 076 UNITS/KG/HR 10.001 mls/hr IV .Q24H [facility] Rx#: [id number] Oral 240 Output: Urine 1825 1550 100 Estimated Blood Loss 50 Other: Voiding Method Urinal Urinal # Voids 3 1 - Exam GENERAL DESCRIPTION: An elderly male lying in bed in no distress RESPIRATORY SYSTEM: Unlabored breathing , decreased breath sounds at bases HEART: S1 S2 regular rate and rhythm , ABDOMEN: Soft , no tenderness EXTREMITIES: Left knee is currently dressed no drainage on dressing - Labs CBC & Chem 7: 09/01/21 08:08 09/01/21 08:08 Labs: Microbiology - Last 24 Hours (Table) 08/30/21 08:29 Blood Culture - Preliminary Blood No Growth after 72 hours 09/01/21 16:38 Gram Stain - Preliminary Knee - Left Wound Culture - Preliminary 09/01/21 16:38 Gram Stain - Preliminary Knee - Left Wound Culture - Preliminary 09/01/21 16:38 Anaerobic Culture - Preliminary Knee - Left 09/01/21 16:38 Anaerobic Culture - Preliminary Knee - Left 08/30/21 10:25 Gram Stain - Final Aspirate Body Fluid Culture - Final Escherichia coli Assessment and Plan (1) Septic joint of left knee joint Current Visit: Yes Status: Acute Code(s): M00.9 - PYOGENIC ARTHRITIS, UNSPECIFIED SNOMED Code(s): 716632348 Plan: 1patient presented to hospital with sepsis in this we did have a fever elevated white count patient did have pain to the left knee with swelling did have a cloudy fluid with elevated white count high clinical suspicion for underlying septic arthritis. 2borderline kidney function high risk of nephrotoxicity. 3patient is status post left knee washout and antibiotic beads placement 4local culture did shows E. coli sensitive pathogen OR cultures are still pending, we will see more to Rocephin 2 g daily patient with a PICC line and outpatient IV antibiotics therapy followed by prolonged suppressive antibiotics as the infected hardware was not removed Time with Patient: Less than 30
--- NOTE | 2021-09-02 17:57 | P.PN ---
Progress Note - Text Progress Note Date: 09/02/21 Hospital course Patient is a 75-year-old male with a known history of coronary artery disease wi th stent placement, history of CVA/TIA, GERD, hypertension, hyperlipidemia, history of GA, obstructive sleep apnea on CPAP, chronic sciatica/back pain with history of epidural injections, previous history of smoking presents to ER status post fall. Patient states that his legs gave way and fell and landed on his left knee. Left knee is swollen since then. Patient does have a history of bilateral knee arthroplasty. Patient stated for about 45 minutes and denied any hitting his head. No complaints of chest pain. No syncopal episode. No loss of consciousness. No dizziness. Denied any palpitations. Denies any other injury. Patient called his son and helped him up. Patient was brought to ER. Patient is currently on anticoagulation with Eliquis due to history of irregular heartbeat. X-ray of the knee showed left-sided knee joint effusion. No fracture seen. No acute abnormality of the right knee. Chest x-ray showed minimal subsegmental atelectasis. There is improved aeration of the lung bases compared to old exam. CT head and cervical spine showed cerebral atrophy. No acute intracranial abnormality seen. Mild multilevel cervical spondylitic changes. No fracture seen. EKG showed irregular rhythm. Bilateral lower extremity duplex scan is negative for DVT. Laboratory data showed WBC 17.2 hemoglobin 12.6 and platelets 228 D-dimer is 18 Sodium 135 potassium 4.6 chloride 101 BUN 39 and creatinine 2.49 baseline creatinine level 1.98 in February 2020 Blood sugar 129 calcium 10.5 phosphorus 2.0 Troponin 0.116, 1.670 and 1.6-0 TSH 1.510 Urinalysis showed moderate blood leukocyte esterase negative and nitrite negative and RBCs 1 and WBC is 1. Coronavirus PCR not detected. 08/30/2021 Admitted to the hospital due to generalized weakness and fall and left knee pain. Patient is currently resting in the bed. Feels better. No complaints of chest pain or shortness of breath. Patient has been cannula Heparin due to elevated troponin level and possible NSTEMI. Patient was seen by orthopedic surgery and is status post left knee arthrocentesis and fluid culture was sent. Patient was started on antibiotics in the form of ceftriaxone. Procalcitonin level is 1.26. Cardiology has seen the patient. Laboratory data showed WBC 6.2 hemoglobin 11.1 platelets 149 Sodium 134 potassium 3.8 chloride 102 bicarb is 25 BUN 13 creatinine improved to 1.94. Patient is becoming IV hydration with normal saline at 75 cc/h. VQ scan showed low probability of PE. Bilateral airspace disease. Bilateral lower extremity duplex scan is negative for DVT. August 31:Patient laying in bed. Pain in the left knee. IV cefepime. IV heparin. Plan is for I&D tomorrow. Cardiac cath down the road. Discussed with patient. September 01: Laying in bed. Pending I&D this afternoon. Nothing by mouth. Pain in the left knee. No chest pain. On IV cefepime. September 02: Patient underwent I&D yesterday. Pain is better. No BM for last 5 days. Lactulose 20 g ordered. IV ceftriaxone. Active Medications Acetaminophen (Acetaminophen Tab 325 Mg Tab) 650 mg PO Q6HR PRN PRN Reason: Mild Pain or Fever > 100.5 Last Admin: 09/02/21 17:33 Dose: 650 mg Documented by: Allopurinol (Allopurinol 100 Mg Tab) 100 mg PO DAILY [facility] Last Admin: 09/02/21 09:28 Dose: 100 mg Documented by: Apixaban (Apixaban 5 Mg Tab) 5 mg PO BID [facility]; Protocol Last Admin: 09/02/21 09:28 Dose: 5 mg Documented by: Aspirin (Aspirin 81 Mg) 81 mg PO DAILY [facility] Last Admin: 09/02/21 09:28 Dose: 81 mg Documented by: Atorvastatin Calcium (Atorvastatin 40 Mg Tab) 40 mg PO HS [facility] Last Admin: 09/01/21 19:52 Dose: 40 mg Documented by: Brimonidine Tartrate (Brimonidine Tartrate 0.2% Drops 5 Ml Btl) 1 drops LEFT EYE BID [facility] Last Admin: 09/02/21 09:29 Dose: 1 drops Documented by: Folic Acid (Folic Acid 1 Mg Tab) 0.5 mg PO DAILY [facility] Last Admin: 09/02/21 09:28 Dose: 0.5 mg Documented by: Hydromorphone HCl (Hydromorphone 0.5 Mg/0.5 Ml Syringe) 0.2 mg IVP Q3HR PRN PRN Reason: Pain Scale 4 to 6 Hydromorphone HCl (Hydromorphone 0.5 Mg/0.5 Ml Syringe) 0.125 mg IVP Q3HR PRN PRN Reason: Pain Scale 1 to 3 Hydromorphone HCl (Hydromorphone 0.5 Mg/0.5 Ml Syringe) 0.5 mg IVP Q3HR PRN PRN Reason: Pain Scale 7 to 10 Last Admin: 09/02/21 05:46 Dose: 0.5 mg Documented by: Sodium Chloride (Saline 0.9%) 1,000 mls @ 75 mls/hr IV .[id number] [facility] Last Admin: 09/01/21 23:26 Dose: Not Given Documented by: Ceftriaxone Sodium 2 gm/ (Sodium Chloride) 50 mls @ 100 mls/hr IVPB Q24HR [facility]; Protocol Last Admin: 09/02/21 17:25 Dose: 100 mls/hr Documented by: Latanoprost (Latanoprost 0.005% Ophth Drops 2.5 Ml Btl) 1 drops BOTH EYES HS [facility] Last Admin: 09/01/21 19:52 Dose: 1 drops Documented by: Meclizine HCl (Meclizine 25 Mg Tab) 25 mg PO HS PRN PRN Reason: Insomnia Metoprolol Tartrate (Metoprolol Tartrate 12.5 Mg Tab) 12.5 mg PO BID [facility] Last Admin: 09/02/21 09:28 Dose: 12.5 mg Documented by: Naloxone HCl (Naloxone 0.4 Mg/Ml 1 Ml Vial) 0.2 mg IV Q2M PRN PRN Reason: Opioid Reversal Ondansetron HCl (Ondansetron 4 Mg/2 Ml Vial) 4 mg IVP Q8H PRN PRN Reason: Nausea And Vomiting Pantoprazole Sodium (Pantoprazole 40 Mg Tablet) 40 mg PO DAILY [facility] Last Admin: 09/02/21 09:28 Dose: 40 mg Documented by: Tramadol HCl (Tramadol 50 Mg Tab) 50 mg PO BID PRN PRN Reason: Moderate to Severe Pain Last Admin: 09/02/21 09:33 Dose: 50 mg Documented by: PHYSICAL EXAMINATION: Vitals: 97.7, 80, 16, 101/53, 94% on 4 L Gen. appearance: lying in the bed awake HEENT: Normocephalic. Neck is supple. Pupils reactive. Nostrils clear. Oral cavity is moist. Neck reveals no JVD, carotid bruits, or thyromegaly. CHEST EXAMINATION: Trachea is central. Symmetrical expansion. Bibasilar sounds. Lung monsivais clear to auscultation . CARDIAC: Normal S1, S2 with no gallops. No murmurs,. No edema ABDOMEN: Soft. Bowel sounds normal. No organomegaly. No abdominal bruits. Extremities: Some swelling of the left knee. Decreased range of motion. Neurologically awake, alert, oriented x3 with well-coordinated movements. No focal deficits noted Skin: No rash or skin lesions. Psychiatric: Answering questions appropriately INVESTIGATIONS, reviewed in the clinical context: September 01: White count 7.6-year-old woman 10.7 platelets 97 sodium 136 potassium 3.9. 24 creatinine 1.37 White count 7.3 hemoglobin 11.8 platelets 113 sodium 132 potassium 4.3. 26 creatinine 1.50 Synovial fluid: Nucleated cells 121,000 VQ scan: Bilateral airspace disease. Low probability PE Venous Doppler: Negative for DVT 2-D echo: EF 45% COVID 19: Not detected Procalcitonin 1.2 Admission labs: BUN 39 creatinine 2.49 Troponin I 1.6, 1.7 Assessment and plan: -Septic arthritis left knee arthroplasty joint September 01: I&D. On IV ceftriaxone -Acute kidney disease , likely from ATN: Some improvement IV fluids -Hypovolemic hyponatremia: Better IV fluids . - Possible NSTEMI IV heparin-discontinued. Possible cardiac cath -Bilateral pneumonia, suspect gram-negative organism IV ceftriaxone -Coronary artery disease history of stent placement Aspirin. Lipitor. Lopressor. -Persistent atrial fibrillation. Rate controlled Chronically on Eliquis-currently held -Chronic kidney disease stage III likely nephrosclerosis Baseline creatinine 1.98 -IV heparin discontinued Follow PTT -Obstructive sleep apnea on CPAP at home -Essential Hypertension Lopressor 12.5 twice a day -Hyperlipidemia Lipitor 40 mg daily at bedtime -COPD, and a previous smoker Follow clinically -Chronic hypoxic respiratory failure on home oxygen. 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 -Full code IV heparin discontinued. IV cefepime changed to IV ceftriaxone. Knee fluid cultures pending. Pending cardiac catheterization. Discussed with patient.
[2021-09-02] MEDS: SODIUM CHLORIDE 0.9% 1,000 ML IV SCH ×2 (18:58→20:04)
[2021-09-02] MEDS: ATORVASTATIN 40 MG TAB PO SCH (20:01)
[2021-09-02] MEDS: LATANOPROST 0.005% OPHTH DROPS 2.5 ML BTL BOTH EYES SCH (20:02)
[2021-09-03 04:22] LABS: Basophils # (A) 0.1 k/uL (0-0.2); Basophils % (A) 1 %; Eosinophils # (A) 0.3 k/uL (0-0.7); Eosinophils % (A) 4 %; HCT 33.9 % (39.0-53.0); HGB 10.7 gm/dL (13.0-17.5); Lymphocytes # (A) 0.9 k/uL (1.0-4.8); Lymphocytes % (A) 11 %; MCH 30.9 pg (25.0-35.0); MCHC 31.6 g/dL (31.0-37.0); MCV 97.8 fL (80.0-100.0); Mean Platelet Volume 8.9; Monocytes # (A) 0.5 k/uL (0-1.0); Monocytes % (A) 6 %; Neutrophils # (A) 6.3 k/uL (1.3-7.7); Neutrophils % (A) 77 %; RBC 3.47 m/uL (4.30-5.90); RDW 13.1 % (11.5-15.5); WBC 8.2 k/uL (3.8-10.6)
[2021-09-03 04:25] LABS: Platelet Count 82 k/uL (150-450)
[2021-09-03 04:41] LABS: Calcium 10.3 mg/dL (8.4-10.2); Potassium 3.8 mmol/L (3.5-5.1)
[2021-09-03] MEDS: SODIUM CHLORIDE 0.9% 1,000 ML IV SCH ×2 (05:43→18:25)
[2021-09-03] MEDS: traMADol 50 MG TAB PO PRN (09:06)
[2021-09-03] MEDS: allopurinoL 100 MG TAB PO SCH (09:07)
[2021-09-03] MEDS: FOLIC ACID 1 MG TAB PO SCH (09:07)
[2021-09-03] MEDS: METOPROLOL TARTRATE 12.5 MG TAB PO SCH ×2 (09:07→19:38)
[2021-09-03] MEDS: ASPIRIN 81 MG PO SCH (09:07)
[2021-09-03] MEDS: BRIMONIDINE TARTRATE 0.2% DROPS 5 ML BTL LEFT EYE SCH ×2 (09:07→19:38)
[2021-09-03] MEDS: APIXABAN 5 MG TAB PO SCH ×2 (09:07→19:38)
[2021-09-03] MEDS: PANTOPRAZOLE 40 MG TABLET PO SCH (09:07)
--- NOTE | 2021-09-03 10:37 | P.PN ---
Subjective Progress Note Date: 09/03/21 This is a 75-year-old male who is post-op day #2 status-post irrigation and debridement of the left knee with placement of antibiotic beads. Patient is examined bedside this morning. He is stable from an orthopedic standpoint. Dressing is changed bedside today. Per nursing patient refused breakfast. Patient has no new complaints today. Vital signs stable. Objective - Vital Signs Vital signs: Vital Signs Temp 97.5 F L 09/03/21 08:00 Pulse 88 09/03/21 08:00 Resp 16 09/03/21 08:00 BP 111/67 09/03/21 08:00 Pulse Ox 92 L 09/03/21 08:00 Intake & Output 09/02/21 09/03/21 09/03/21 18:59 06:59 18:59 Output Total 400 400 Balance -400 -400 Output: Urine 400 400 Other: Voiding Method Urinal # Voids 1 # Bowel Movements 1 - Exam On examination, patient is lying in bed in no apparent distress. He is alert and oriented 3. On inspection of the left knee, dressing is removed and reveals a healing incision at the anterior knee with intact chris. Incision is well approximated and there is no drainage. Mild swelling of the knee. Mo tor and sensory function is intact of the left lower extremity, patient has good strength and range of motion of the left ankle and foot. Dorsalis pedis pulses palpable, left lower extremity warm and well-perfused with brisk capillary refill distally. Calf soft and nontender to palpation. New dressing is placed at bedside today. - Labs CBC & Chem 7: 09/03/21 03:31 09/03/21 03:31 Labs: Abnormal Lab Results - Last 24 Hours (Table) 09/03/21 09/03/21 Range/Units 03:31 03:31 RBC 3.47 L (4.30-5.90) m/uL Hgb 10.7 L (13.0-17.5) gm/dL Hct 33.9 L (39.0-53.0) % Plt Count 82 L (150-450) k/uL Lymphocytes # 0.9 L (1.0-4.8) k/uL Sodium 136 L (137-145) mmol/L Creatinine 1.29 H (0.66-1.25) mg/dL Glucose 116 H (74-99) mg/dL Calcium 10.3 H (8.4-10.2) mg/dL Microbiology - Last 24 Hours (Table) 09/01/21 16:38 Gram Stain - Preliminary Knee - Left Wound Culture - Preliminary Gram Neg Bacilli 09/01/21 16:38 Gram Stain - Preliminary Knee - Left Wound Culture - Preliminary Gram Neg Bacilli 08/30/21 08:29 Blood Culture - Preliminary Blood No Growth after 72 hours Assessment and Plan Assessment: Post-op day #2 status-post irrigation and debridement of the left knee with pl acement of antibiotic beads. Plan: - Weight-bear as tolerated on the operative leg with a walker. - Physical therapy for gait and balance training. - Dressing changed bedside today. - Pain management as needed. - Eliquis has been re-started for DVT prophylaxis. - Await recommendations from infectious disease for antibiotics. - We will follow patient closely.
--- NOTE | 2021-09-03 12:15 | P.PN ---
Subjective Progress Note Date: 09/03/21 HISTORY OF PRESENT ILLNESS: Patient examined this morning at the bedside. Patient denies chest pain or pressure. He denies shortness of breath. He remains on IV heparin. Patient is scheduled for I&D of the left knee today. Echo cardiogram completed revealing ejection fraction 45%. 09/02/2021 patient examined this morning at the bedside. He is status post I&D of his left knee. He denies chest pain or pressure. He denies shortness of breath. Patient has been restarted on his Eliquis. 09/03/2021 Patient examined this morning at the bedside. Patient denies chest pain or pressure. Denies shortness of breath. Patient's vital signs are stable. Patient does report significant discomfort to his left knee today. PHYSICAL EXAM: VITAL SIGNS: Reviewed. GENERAL: Well-developed in no acute distress. NECK: Supple. No JVD or thyromegaly LUNGS: Respirations even and unlabored. Lungs essentially clear to auscultation bilaterally. HEART: Regular rate and rhythm. S1 and S2 heard. EXTREMITIES: Normal range of motion. No clubbing or cyanosis. Peripheral pulses intact. No lower extremity edema ASSESSMENT: Non-STEMI Infected left knee Paroxysmal atrial fibrillation Acute kidney injury Recurrent falls PLAN: Continue current cardiac medications Continue Eliquis Patient will require cardiac cath when he is medically stable which may be performed on an outpatient basis We will sign off. Please reconsult if needed. Nurse practitioner note has been reviewed by physician. Signing provider agrees with the documented findings, assessment, and plan of care. Objective - Vital Signs Vital signs: Vital Signs Temp 97.5 F L 09/03/21 08:00 Pulse 88 09/03/21 08:00 Resp 16 09/03/21 08:00 BP 111/67 09/03/21 08:00 Pulse Ox 92 L 09/03/21 08:00 Intake & Output 09/02/21 09/03/21 09/03/21 18:59 06:59 18:59 Output Total 400 400 Balance -400 -400 Output: Urine 400 400 Other: Voiding Method Urinal # Voids 1 # Bowel Movements 1 - Labs CBC & Chem 7: 09/03/21 03:31 09/03/21 03:31 Labs: Abnormal Lab Results - Last 24 Hours (Table) 09/03/21 09/03/21 09/03/21 Range/Units 03:31 03:31 03:31 RBC 3.47 L (4.30-5.90) m/uL Hgb 10.7 L (13.0-17.5) gm/dL Hct 33.9 L (39.0-53.0) % Plt Count 82 L (150-450) k/uL Lymphocytes # 0.9 L (1.0-4.8) k/uL Sodium 136 L (137-145) mmol/L Creatinine 1.29 H (0.66-1.25) mg/dL Glucose 116 H (74-99) mg/dL Calcium 10.3 H (8.4-10.2) mg/dL Procalcitonin 0.43 H (0.02-0.09) ng/mL Microbiology - Last 24 Hours (Table) 08/30/21 08:29 Blood Culture - Preliminary Blood No Growth after 96 hours 09/01/21 16:38 Gram Stain - Preliminary Knee - Left Wound Culture - Preliminary Gram Neg Bacilli 09/01/21 16:38 Gram Stain - Preliminary Knee - Left Wound Culture - Preliminary Gram Neg Bacilli
[2021-09-03] MEDS: ACETAMINOPHEN TAB 325 MG TAB PO PRN (12:51)
--- NOTE | 2021-09-03 14:15 | CDI ---
Documentation Clarification Form Date: 09/03/2021 01:52:18 PM From: Silvia Lo RN CCDS Admit Date: 08/29/2021 02:01:00 PM Patient Name: Keyon Coker Visit Number: [id number] Discharge Date: ATTENTION: The Clinical Documentation Specialists (CDI) and [facility] Coding Staff appreciate your assistance in clarifying documentation. Please respond to the clarification below the line at the bottom and electronically sign. The CDI & [facility] Coding staff will review the response and follow-up if needed. Please note: Queries are made part of the Legal Health Record. If you have any questions, please contact the author of this message via ITS. Dr. Hang Alvarez Sepsis is being documented 08/30 09/03 by ID. Additional clarification regarding the etiology/cause of the clinical indicators is requested. History/Risk Factors: 75-year-old male presents to the ED after his legs gave way and fell on his left knee. The knee has been swollen since the fall. Medical History: Bilateral knee arthroplasty. 08/29, H&P. Clinical Indicators: WBC: 08/29 17.2 Neutrophils: 08/29 15.8 Wound cultures: 09/01 Gram Neg Bacilli Vitals signs: 08/29 B/P 112/83; HR 121; Temp 98.9F Oral; SpO2 88% room air Treatment: ID Consult:08/30 Patient presented to the hospital with sepsis in this we did have a fever, elevated white count, patient did have pain to the left knee with swelling did have a cloudy fluid with elevated white count high clinical suspicious for underlying septic arthritis Antibiotics: 08/30 Vanncomycin Ivpb 2,000mg x 1; 08/30 Zithromax 500mg oral x 3 doses d/cd after one dose; 08/30 08/31 Ceftriaxone 1gm IVPB Q24HR; 09/02 09/03 Ceftriaxone 2gm IVPB Q24HR; 08/31-09/02 Cefepime HCI 2gm IVPB Q12HR In your professional opinion, please clarify if these findings signify one of the following conditions: [ ] Sepsis POA [ ] Sepsis ruled out [ ] SIRS, without underlying infectious process [ ] Other, please specify [ ] Unable to determine SIRS Criteria: 2 or more of the following may indicate SIRS -Temperature < 96.8F (36C) or > 101.0F (38.3C) -Heart Rate > 90 bpm -Respiratory Rate > 20 breaths/min or PaCO2 < 32 mmHg -White Blood Cell Count > 12,000 or < 4,000 cells/mm3 or > 10% bands Sepsis, POA (Template Last Reviewed: June 2020) LISAD
--- NOTE | 2021-09-03 14:36 | P.PN ---
Progress Note - Text Progress Note Date: 09/03/21 Hospital course Patient is a 75-year-old male with a known history of coronary artery disease wi th stent placement, history of CVA/TIA, GERD, hypertension, hyperlipidemia, history of [place], obstructive sleep apnea on CPAP, chronic sciatica/back pain with history of epidural injections, previous history of smoking presents to ER status post fall. Patient states that his legs gave way and fell and landed on his left knee. Left knee is swollen since then. Patient does have a history of bilateral knee arthroplasty. Patient stated for about 45 minutes and denied any hitting his head. No complaints of chest pain. No syncopal episode. No loss of consciousness. No dizziness. Denied any palpitations. Denies any other injury. Patient called his son and helped him up. Patient was brought to ER. Patient is currently on anticoagulation with Eliquis due to history of irregular heartbeat. X-ray of the knee showed left-sided knee joint effusion. No fracture seen. No acute abnormality of the right knee. Chest x-ray showed minimal subsegmental atelectasis. There is improved aeration of the lung bases compared to old exam. CT head and cervical spine showed cerebral atrophy. No acute intracranial abnormality seen. Mild multilevel cervical spondylitic changes. No fracture seen. EKG showed irregular rhythm. Bilateral lower extremity duplex scan is negative for DVT. Laboratory data showed WBC 17.2 hemoglobin 12.6 and platelets 228 D-dimer is 18 Sodium 135 potassium 4.6 chloride 101 BUN 39 and creatinine 2.49 baseline creatinine level 1.98 in February 2020 Blood sugar 129 calcium 10.5 phosphorus 2.0 Troponin 0.116, 1.670 and 1.6-0 TSH 1.510 Urinalysis showed moderate blood leukocyte esterase negative and nitrite negative and RBCs 1 and WBC is 1. Coronavirus PCR not detected. 08/30/2021 Admitted to the hospital due to generalized weakness and fall and left knee pain. Patient is currently resting in the bed. Feels better. No complaints of chest pain or shortness of breath. Patient has been cannula Heparin due to elevated troponin level and possible NSTEMI. Patient was seen by orthopedic surgery and is status post left knee arthrocentesis and fluid culture was sent. Patient was started on antibiotics in the form of ceftriaxone. Procalcitonin level is 1.26. Cardiology has seen the patient. Laboratory data showed WBC 6.2 hemoglobin 11.1 platelets 149 Sodium 134 potassium 3.8 chloride 102 bicarb is 25 BUN 13 creatinine improved to 1.94. Patient is becoming IV hydration with normal saline at 75 cc/h. VQ scan showed low probability of PE. Bilateral airspace disease. Bilateral lower extremity duplex scan is negative for DVT. August 31:Patient laying in bed. Pain in the left knee. IV cefepime. IV heparin. Plan is for I&D tomorrow. Cardiac cath down the road. Discussed with patient. September 01: Laying in bed. Pending I&D this afternoon. Nothing by mouth. Pain in the left knee. No chest pain. On IV cefepime. September 02: Patient underwent I&D yesterday. Pain is better. No BM for last 5 days. Lactulose 20 g ordered. IV ceftriaxone. September 03: Left knee wound cultures pending. Decreased appetite. IV ceftriaxone. Encourage oral intake. Active Medications Acetaminophen (Acetaminophen Tab 325 Mg Tab) 650 mg PO Q6HR PRN PRN Reason: Mild Pain or Fever > 100.5 Last Admin: 09/03/21 12:51 Dose: 650 mg Documented by: Allopurinol (Allopurinol 100 Mg Tab) 100 mg PO DAILY [facility] Last Admin: 09/03/21 09:07 Dose: 100 mg Documented by: Apixaban (Apixaban 5 Mg Tab) 5 mg PO BID [facility]; Protocol Last Admin: 09/03/21 09:07 Dose: 5 mg Documented by: Aspirin (Aspirin 81 Mg) 81 mg PO DAILY [facility] Last Admin: 09/03/21 09:07 Dose: 81 mg Documented by: Atorvastatin Calcium (Atorvastatin 40 Mg Tab) 40 mg PO HS [facility] Last Admin: 09/02/21 20:01 Dose: 40 mg Documented by: Brimonidine Tartrate (Brimonidine Tartrate 0.2% Drops 5 Ml Btl) 1 drops LEFT EYE BID [facility] Last Admin: 09/03/21 09:07 Dose: 1 drops Documented by: Folic Acid (Folic Acid 1 Mg Tab) 0.5 mg PO DAILY [facility] Last Admin: 09/03/21 09:07 Dose: 0.5 mg Documented by: Hydromorphone HCl (Hydromorphone 0.5 Mg/0.5 Ml Syringe) 0.2 mg IVP Q3HR PRN PRN Reason: Pain Scale 4 to 6 Hydromorphone HCl (Hydromorphone 0.5 Mg/0.5 Ml Syringe) 0.125 mg IVP Q3HR PRN PRN Reason: Pain Scale 1 to 3 Hydromorphone HCl (Hydromorphone 0.5 Mg/0.5 Ml Syringe) 0.5 mg IVP Q3HR PRN PRN Reason: Pain Scale 7 to 10 Last Admin: 09/02/21 05:46 Dose: 0.5 mg Documented by: Ceftriaxone Sodium 2 gm/ (Sodium Chloride) 50 mls @ 100 mls/hr IVPB Q24HR [facility]; Protocol Last Admin: 09/03/21 09:07 Dose: 100 mls/hr Documented by: Sodium Chloride (Saline 0.9%) 1,000 mls @ 100 mls/hr IV .Q10H [facility] Last Admin: 09/03/21 05:43 Dose: 100 mls/hr Documented by: Latanoprost (Latanoprost 0.005% Ophth Drops 2.5 Ml Btl) 1 drops BOTH EYES HS [facility] Last Admin: 09/02/21 20:02 Dose: 1 drops Documented by: Lisinopril (Lisinopril 2.5 Mg Tab) 2.5 mg PO DAILY [facility] Meclizine HCl (Meclizine 25 Mg Tab) 25 mg PO HS PRN PRN Reason: Insomnia Metoprolol Tartrate (Metoprolol Tartrate 12.5 Mg Tab) 12.5 mg PO BID [facility] Last Admin: 09/03/21 09:07 Dose: 12.5 mg Documented by: Naloxone HCl (Naloxone 0.4 Mg/Ml 1 Ml Vial) 0.2 mg IV Q2M PRN PRN Reason: Opioid Reversal Ondansetron HCl (Ondansetron 4 Mg/2 Ml Vial) 4 mg IVP Q8H PRN PRN Reason: Nausea And Vomiting Pantoprazole Sodium (Pantoprazole 40 Mg Tablet) 40 mg PO DAILY [facility] Last Admin: 09/03/21 09:07 Dose: 40 mg Documented by: Tramadol HCl (Tramadol 50 Mg Tab) 50 mg PO BID PRN PRN Reason: Moderate to Severe Pain Last Admin: 09/03/21 09:06 Dose: 50 mg Documented by: PHYSICAL EXAMINATION: Vitals: 97.6, 83, 18, 150s/58, 93% on 4 L Gen. appearance: lying in the bed awake HEENT: Normocephalic. Neck is supple. Pupils reactive. Nostrils clear. Oral cavity is moist. Neck reveals no JVD, carotid bruits, or thyromegaly. CHEST EXAMINATION: Trachea is central. Symmetrical expansion. Bibasilar sounds. Lung monsivais clear to auscultation . CARDIAC: Normal S1, S2 with no gallops. No murmurs,. No edema ABDOMEN: Soft. Bowel sounds normal. No organomegaly. No abdominal bruits. Extremities: Some swelling of the left knee. Decreased range of motion. Neurologically awake, alert, oriented x3 with well-coordinated movements. No focal deficits noted Skin: No rash or skin lesions. Psychiatric: Answering questions appropriately INVESTIGATIONS, reviewed in the clinical context: August 26: White count 8.2 hemoglobin 10.7 platelets 82 sodium 136 potassium 3.8 creatinine 1.29 pro-calcitonin 0.43 September 01: White count 7.6-year-old woman 10.7 platelets 97 sodium 136 potassium 3.9. 24 creatinine 1.37 White count 7.3 hemoglobin 11.8 platelets 113 sodium 132 potassium 4.3. 26 creatinine 1.50 Synovial fluid: Nucleated cells 121,000 VQ scan: Bilateral airspace disease. Low probability PE Venous Doppler: Negative for DVT 2-D echo: EF 45% COVID 19: Not detected Procalcitonin 1.2 Admission labs: BUN 39 creatinine 2.49 Troponin I 1.6, 1.7 Assessment and plan: -Septic arthritis left knee arthroplasty joint. Cultures pending September 01: I&D. On IV ceftriaxone -Acute kidney disease , likely from ATN: Some improvement IV fluids -Hypovolemic hyponatremia: Better IV fluids . - Possible NSTEMI IV heparin-discontinued. Possible cardiac cath -Bilateral pneumonia, suspect gram-negative organism IV ceftriaxone -Coronary artery disease history of stent placement Aspirin. Lipitor. Lopressor. -Persistent atrial fibrillation. Rate controlled Chronically on Eliquis-currently held -Chronic kidney disease stage III likely nephrosclerosis Baseline creatinine 1.98 -IV heparin discontinued Follow PTT -Obstructive sleep apnea on CPAP at home -Essential Hypertension Lopressor 12.5 twice a day -Hyperlipidemia Lipitor 40 mg daily at bedtime -COPD, and a previous smoker Follow clinically -Chronic hypoxic respiratory failure on home oxygen. 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 -Full code IV ceftriaxone. Knee fluid cultures pending. Cardiac catheterization be done outpatient. Encourage oral intake.
[2021-09-03] MEDS: ATORVASTATIN 40 MG TAB PO SCH (19:38)
[2021-09-03] MEDS: LATANOPROST 0.005% OPHTH DROPS 2.5 ML BTL BOTH EYES SCH (19:39)
--- NOTE | 2021-09-03 21:43 | P.PN ---
Subjective Progress Note Date: 09/03/21 Principal diagnosis: Left knee septic arthritis Patient is a 75-year-old been presented to hospital with weakness knees giving out did have a pain and swelling to the left heel status post aspirate with cloudy fluid and the cultures has been finalized as E. coli, the patient is status post left knee washout and antibiotic bead placement by orthopedics on 08/26/2021. On today's evaluation that is 09/03/2021, the patient remains to be afebrile, patient pain to the left knee is currently controlled, the patient denies chest pain shortness of breath or cough no nausea no vomiting no abdominal pain or any diarrhea Objective - Vital Signs Vital signs: Vital Signs Temp 97.6 F 09/03/21 12:00 Pulse 83 09/03/21 12:00 Resp 18 09/03/21 12:00 BP 115/58 09/03/21 12:00 Pulse Ox 93 L 09/03/21 12:00 Intake & Output 09/02/21 09/03/21 09/03/21 18:59 06:59 18:59 Output Total 400 400 Balance -400 -400 Output: Urine 400 400 Other: Voiding Method Urinal # Voids 1 # Bowel Movements 1 - Exam GENERAL DESCRIPTION: An elderly male lying in bed in no distress RESPIRATORY SYSTEM: Unlabored breathing , decreased breath sounds at bases HEART: S1 S2 regular rate and rhythm , ABDOMEN: Soft , no tenderness EXTREMITIES: Left knee is currently dressed no drainage on dressing - Labs CBC & Chem 7: 09/03/21 03:31 09/03/21 03:31 Labs: Abnormal Lab Results - Last 24 Hours (Table) 09/03/21 09/03/21 09/03/21 Range/Units 03:31 03:31 03:31 RBC 3.47 L (4.30-5.90) m/uL Hgb 10.7 L (13.0-17.5) gm/dL Hct 33.9 L (39.0-53.0) % Plt Count 82 L (150-450) k/uL Lymphocytes # 0.9 L (1.0-4.8) k/uL Sodium 136 L (137-145) mmol/L Creatinine 1.29 H (0.66-1.25) mg/dL Glucose 116 H (74-99) mg/dL Calcium 10.3 H (8.4-10.2) mg/dL Procalcitonin 0.43 H (0.02-0.09) ng/mL Microbiology - Last 24 Hours (Table) 08/30/21 08:29 Blood Culture - Preliminary Blood No Growth after 96 hours 09/01/21 16:38 Gram Stain - Preliminary Knee - Left Wound Culture - Preliminary Gram Neg Bacilli 09/01/21 16:38 Gram Stain - Preliminary Knee - Left Wound Culture - Preliminary Gram Neg Bacilli Assessment and Plan (1) Septic joint of left knee joint Current Visit: Yes Status: Acute Code(s): M00.9 - PYOGENIC ARTHRITIS, UNSPECIFIED SNOMED Code(s): 748837587 Plan: 1patient presented to hospital with sepsis in this we did have a fever elevated white count patient did have pain to the left knee with swelling did have a cloudy fluid with elevated white count high clinical suspicion for underlying septic arthritis. 2borderline kidney function high risk of nephrotoxicity. 3patient is status post left knee washout and antibiotic beads placement 4local culture did shows E. coli sensitive pathogen OR cultures also finalized E. coli, patient will get a PICC line and plan is for at least 4-6 weeks of IV Rocephin 2 g daily followed by lifelong suppressive antibiotic therapy Time with Patient: Less than 30
[2021-09-04] MEDS: SODIUM CHLORIDE 0.9% 1,000 ML IV SCH ×2 (04:00→11:31)
[2021-09-04 04:45] VITALS: RESP 18
[2021-09-04 08:50] VITALS: TEMP 97.8
[2021-09-04] MEDS: PANTOPRAZOLE 40 MG TABLET PO SCH (08:53)
[2021-09-04] MEDS: allopurinoL 100 MG TAB PO SCH (08:53)
[2021-09-04] MEDS: APIXABAN 5 MG TAB PO SCH (08:53)
[2021-09-04] MEDS: FOLIC ACID 1 MG TAB PO SCH (08:53)
[2021-09-04] MEDS: ASPIRIN 81 MG PO SCH (08:53)
[2021-09-04] MEDS: METOPROLOL TARTRATE 12.5 MG TAB PO SCH (08:53)
[2021-09-04] MEDS: BRIMONIDINE TARTRATE 0.2% DROPS 5 ML BTL LEFT EYE SCH (08:54)
[2021-09-04 11:31] VITALS: BP 117/72; PULSE 72
[2021-09-04 11:46] VITALS: BMI 37.5
--- NOTE | 2021-09-04 12:55 | P.DS ---
Providers Date of admission: 08/29/21 14:01 Expected date of discharge: 09/04/21 Attending physician: Hang Alvarez Consults: 08/29/21 16:55 Consult Physician Routine Consulting Provider: Manan Stevens Consult Reason/Comments: (L) knee injury from fall Do you want consulting provider notified?: Yes 08/30/21 13:31 Consult Physician Routine Consulting Provider: Parminder Arana Consult Reason/Comments: Eval left knee, possible septis. Do you want consulting provider notified?: Yes Primary care physician: [facility] Course: Hospital course Patient is a 75-year-old male with a known history of coronary artery disease with stent placement, history of CVA/TIA, GERD, hypertension, hyperlipidemia, history of [place], obstructive sleep apnea on CPAP, chronic sciatica/back pain with history of epidural injections, previous history of smoking presents to ER status post fall. Patient states that his legs gave way and fell and landed on his left knee. Left knee is swollen since then. Patient does have a history of bilateral knee arthroplasty. Patient stated for about 45 minutes and denied any hitting his head. No complaints of chest pain. No syncopal episode. No loss of consciousness. No dizziness. Denied any palpitations. Denies any other injury. Patient called his son and helped him up. Patient was brought to ER. Patient is currently on anticoagulation with Eliquis due to history of irregular heartbeat. X-ray of the knee showed left-sided knee joint effusion. No fracture seen. No acute abnormality of the right knee. Chest x-ray showed minimal subsegmental atelectasis. There is improved aeration of the lung bases compared to old exam. CT head and cervical spine showed cerebral atrophy. No acute intracranial abnormality seen. Mild multilevel cervical spondylitic changes. No fracture seen. EKG showed irregular rhythm. Bilateral lower extremity duplex scan is negative for DVT. Laboratory data showed WBC 17.2 hemoglobin 12.6 and platelets 228 D-dimer is 18 Sodium 135 potassium 4.6 chloride 101 BUN 39 and creatinine 2.49 baseline creatinine level 1.98 in February 2020 Blood sugar 129 calcium 10.5 phosphorus 2.0 Troponin 0.116, 1.670 and 1.6-0 TSH 1.510 Urinalysis showed moderate blood leukocyte esterase negative and nitrite negative and RBCs 1 and WBC is 1. Coronavirus PCR not detected. 08/30/2021 Admitted to the hospital due to generalized weakness and fall and left knee pain. Patient is currently resting in the bed. Feels better. No complaints of chest pain or shortness of breath. Patient has been cannula Heparin due to elevated troponin level and possible NSTEMI. Patient was seen by orthopedic surgery and is status post left knee arthrocentesis and fluid culture was sent. Patient was started on antibiotics in the form of ceftriaxone. Procalcitonin level is 1.26. Cardiology has seen the patient. Laboratory data showed WBC 6.2 hemoglobin 11.1 platelets 149 Sodium 134 potassium 3.8 chloride 102 bicarb is 25 BUN 13 creatinine improved to 1.94. Patient is becoming IV hydration with normal saline at 75 cc/h. VQ scan showed low probability of PE. Bilateral airspace disease. Bilateral lower extremity duplex scan is negative for DVT. August 31:Patient laying in bed. Pain in the left knee. IV cefepime. IV heparin. Plan is for I&D tomorrow. Cardiac cath down the road. Discussed with patient. September 01: Laying in bed. Pending I&D this afternoon. Nothing by mouth. Pain in the left knee. No chest pain. On IV cefepime. September 02: Patient underwent I&D yesterday. Pain is better. No BM for last 5 days. Lactulose 20 g ordered. IV ceftriaxone. September 03: Left knee wound cultures pending. Decreased appetite. IV ceftriaxone. Encourage oral intake. September 04: Wound cultures from the left near finalized E. coli. Patient received IV ceftriaxone for at least 4-6 weeks. Will be followed by Dr. arana from [place]. Patient does not like hospital food. Spoke to the nurse. Patient be discharged to [facility]. Discussed with clinical case manager. PICC line in place. Discharged to rehab at [facility] Discussion and discharge planning more than 35 minutes PHYSICAL EXAMINATION: Vitals: 97.8, 81, 18, 150/69, 94% on 3 L Gen. appearance: In a tanning bed, awake, on a smart phone. HEENT: Normocephalic. Neck is supple. Pupils reactive. Nostrils clear. Oral cavity is moist. Neck reveals no JVD, carotid bruits, or thyromegaly. CHEST EXAMINATION: Trachea is central. Symmetrical expansion. Bibasilar sounds. Lung monsivais clear to auscultation . CARDIAC: Normal S1, S2 with no gallops. No murmurs,. No edema ABDOMEN: Soft. Bowel sounds normal. No organomegaly. No abdominal bruits. Extremities: Some swelling of the left knee. Decreased range of motion. Neurologically awake, alert, oriented x3 with well-coordinated movements. No focal deficits noted Skin: No rash or skin lesions. Psychiatric: Answering questions appropriately INVESTIGATIONS, reviewed in the clinical context: September 03: White count 8.2 hemoglobin 10.7 platelets 82 sodium 136 potassium 3.8 creatinine 1.29 pro-calcitonin 0.43 September 01: White count 7.6-year-old woman 10.7 platelets 97 sodium 136 potassium 3.9. 24 creatinine 1.37 White count 7.3 hemoglobin 11.8 platelets 113 sodium 132 potassium 4.3. 26 creatinine 1.50 Synovial fluid: Nucleated cells 121,000 VQ scan: Bilateral airspace disease. Low probability PE Venous Doppler: Negative for DVT 2-D echo: EF 45% COVID 19: Not detected Procalcitonin 1.2 Admission labs: BUN 39 creatinine 2.49 Troponin I 1.6, 1.7 Assessment and plan: -Septic arthritis left knee arthroplasty joint. Cultures positive for E. coli. September 01: I&D, by Dr. Stevens. On IV ceftriaxone for at least 4-6 weeks and suppressive therapy. Follow with ID Dr. arana. -Acute kidney disease , likely from ATN: Some improvement Creatinine initially was 2.49 currently down to 1.29 -Hypovolemic hyponatremia: Better IV fluids . - Possible NSTEMI IV heparin-discontinued. Possible cardiac cath as outpatient. -Bilateral pneumonia, suspect gram-negative organism: Improved IV ceftriaxone -Coronary artery disease history of stent placement Aspirin. Lipitor. Lopressor. -Persistent atrial fibrillation. Rate controlled Eliquis: Resumed -Chronic kidney disease stage III likely nephrosclerosis Follow labs -IV heparin discontinued Follow PTT -Obstructive sleep apnea on CPAP at home -Essential Hypertension Lopressor 12.5 twice a day -Hyperlipidemia Lipitor 40 mg daily at bedtime -COPD, and a previous smoker Follow clinically -Chronic hypoxic respiratory failure on home oxygen. 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 -Full code Disposition: Rehab at [facility] Plan - Discharge Summary Discharge Rx Participant: Yes New Discharge Prescriptions: New lisinopriL [Zestril] 2.5 mg PO DAILY tab cefTRIAXone [Rocephin] 2 gm IVPB Q12H #40 each Atorvastatin [Lipitor] 40 mg PO HS tab Continue Isosorbide Mononitrate ER [Imdur] 30 mg PO DAILY Omeprazole [PriLOSEC] 20 mg PO DAILY Allopurinol [Zyloprim] 100 mg PO DAILY Brimonidine Tartrate [Alphagan P 0.1% Ophth Soln] 1 drop LEFT EYE BID Latanoprost [Xalatan 0.005%] 1 drop BOTH EYES HS Metoprolol Tartrate [Lopressor] 12.5 mg PO BID Apixaban [Eliquis] 5 mg PO BID polyethylene glycoL 3350 [Miralax] 17 gm PO BID Aspirin 81 mg PO DAILY traMADol HCL [Ultram] 50 mg PO BID PRN #6 tab PRN Reason: Pain Meclizine [Antivert] 25 mg PO HS PRN PRN Reason: Motion Sickness Folic Acid 0.4 mg PO DAILY Cholecalciferol [Vitamin D3 (25 Mcg = 1000 Iu)] 100 mcg PO DAILY Nitroglycerin Sl Tabs [Nitrostat] 0.4 mg SUBLINGUAL Q5M PRN PRN Reason: Chest Pain Discontinued Atorvastatin [Lipitor] 10 mg PO HS Magnesium 750 mg PO Docusate [Colace] 250 mg PO HS Discharge Medication List Isosorbide Mononitrate ER [Imdur] 30 mg PO DAILY 07/02/14 [History] Omeprazole [PriLOSEC] 20 mg PO DAILY 07/02/14 [History] Allopurinol [Zyloprim] 100 mg PO DAILY 06/06/17 [History] Brimonidine Tartrate [Alphagan P 0.1% Ophth Soln] 1 drop LEFT EYE BID 03/02/20 [History] Latanoprost [Xalatan 0.005%] 1 drop BOTH EYES HS 03/02/20 [History] Apixaban [Eliquis] 5 mg PO BID 08/29/21 [History] Folic Acid 0.4 mg PO DAILY 08/29/21 [History] Meclizine [Antivert] 25 mg PO HS PRN 08/29/21 [History] Metoprolol Tartrate [Lopressor] 12.5 mg PO BID 08/29/21 [History] Aspirin 81 mg PO DAILY 08/30/21 [History] Cholecalciferol [Vitamin D3 (25 Mcg = 1000 Iu)] 100 mcg PO DAILY 08/30/21 [History] Nitroglycerin Sl Tabs [Nitrostat] 0.4 mg SUBLINGUAL Q5M PRN 08/30/21 [History] polyethylene glycoL 3350 [Miralax] 17 gm PO BID 08/30/21 [History] cefTRIAXone [Rocephin] 2 gm IVPB Q12H #40 each 09/03/21 [Rx] Atorvastatin [Lipitor] 40 mg PO HS tab 09/04/21 [Rx] lisinopriL [Zestril] 2.5 mg PO DAILY tab 09/04/21 [Rx] traMADol HCL [Ultram] 50 mg PO BID PRN #6 tab 09/04/21 [Rx] Follow up Appointment(s)/Referral(s): Carlos Alberto Renae MD [STAFF PHYSICIAN] - 1 Week Cullen Hernandez DO [STAFF PHYSICIAN] - 1-2 Days Luigi Perez MD [Primary Care Provider] - 1-2 days Manan Stevens DO [Doctor of Osteopathic Medicine] - 10 Days Parminder Arana MD [STAFF PHYSICIAN] - 2 Weeks Ambulatory/Diagnostic Orders: Basic Metabolic Panel [LAB.AMB] Location: None Selected C Reactive Protein [LAB.AMB] Location: None Selected Complete Blood Count w/diff [LAB.AMB] Location: None Selected Erythrocyte Sedimentation Rate [LAB.AMB] Location: None Selected Activity/Diet/Wound Care/Special Instructions: Please follow up with [facility] and call with any questions or concerns, . Discharge/Stand Alone Forms: Adult Foster [facility] List, Assisted Living Facilities, Community Resources, Help In The Home
--- NOTE | 2021-09-04 14:58 | P.PN ---
Subjective Progress Note Date: 09/04/21 This is a 75-year-old male who is post-op day #3 status-post irrigation and debridement of the left knee with placement of antibiotic beads. Patient is examined bedside this afternoon. His PICC line was placed earlier today per infectious disease. He is being discharge to [facility] today. He states pain in the left knee is well-controlled. No new complaints today. Objective - Vital Signs Vital signs: Vital Signs Temp 97.8 F 09/04/21 08:45 Pulse 72 09/04/21 11:29 Resp 18 09/04/21 11:29 BP 117/72 09/04/21 11:29 Pulse Ox 94 L 09/04/21 11:29 Intake & Output 09/03/21 09/04/21 09/04/21 18:59 06:59 18:59 Intake Total 850 Output Total 180 540 500 Balance 670 -540 -500 Weight 123.831 kg Intake: Intake, IV Titration 850 Amount Sodium Chloride 0.9% 1, 800 000 ml @ 100 mls/hr IV . Q10H [facility]IE Rx#:[id number] cefTRIAXone 2 gm In 50 Sodium Chloride 0.9% 50 ml @ 100 mls/hr IVPB Q24HR [facility]ERIE Rx#:[id number] Output: Urine 180 540 500 Other: Voiding Method Urinal Urinal # Voids 1 3 # Bowel Movements 1 - Exam On examination, patient is lying in bed in no apparent distress. He is alert and oriented 3. On inspection of the left knee, dressing is removed and reveals a healing incision at the anterior knee with intact chris. Incision is well approximated and there is no drainage. Mild swelling of the knee. Motor and sensory function is intact of the left lower extremity, patient has good strength and range of motion of the left ankle and foot. Dorsalis pedis pulses palpable, left lower extremity warm and well-perfused with brisk capillary refill distally. Calf soft and nontender to palpation. New dressing is placed at bedside today. - Labs CBC & Chem 7: 09/03/21 03:31 09/03/21 03:31 Labs: Microbiology - Last 24 Hours (Table) 08/30/21 08:29 Blood Culture - Preliminary Blood No Growth after 120 hours 09/01/21 16:38 Anaerobic Culture - Preliminary Knee - Left 09/01/21 16:38 Anaerobic Culture - Preliminary Knee - Left 09/01/21 16:38 Gram Stain - Final Knee - Left Wound Culture - Final Escherichia coli 09/01/21 16:38 Gram Stain - Final Knee - Left Wound Culture - Final Escherichia coli Assessment and Plan Assessment: Post-op day #3 status-post irrigation and debridement of the left knee with placement of antibiotic beads. Plan: - Weight-bear as tolerated on the operative leg with a walker. - Physical therapy for gait and balance training. - Dressing again changed bedside today. - Pain management as needed. - Eliquis has been re-started for DVT prophylaxis. - Antibiotics per infectious disease. PICC line was placed earlier today. - We will follow patient as he remains inpatient. Plan is for discharge to [facility] today.
--- NOTE | 2021-09-09 06:47 | CDI ---
Documentation Clarification Form Date: 09/09/2021 06:26:00 AM From: Tammy Mabry Admit Date: 08/29/2021 02:01:00 PM Patient Name: Keyon Coker Visit Number: [id number] Discharge Date: 09/04/2021 03:19:00 PM ATTENTION: The Clinical Documentation Specialists (CDI) and [facility] Coding Staff appreciate your assistance in clarifying documentation. Please respond to the clarification below the line at the bottom and electronically sign. The CDI & [facility] Coding staff will review the response and follow-up if needed. Please note: Queries are made part of the Legal Health Record. If you have any questions, please contact the author of this message via ITS. Dr. Hang Alvarez Per DCS Assessment and plan" "Septic arthritis left knee arthroplasty joint. Culstures positive for E coli. An I and D was done with antibiotic bead placement. Please clarify if there is a relationship between the infection and the knee joint prosthesis. History/Risk Factors: Status post bilateral knee replacements. Status post fall with knee joint effusion. Clinical Indicators: Aspiration of knee joint fluid positive for E coli Treatment: I and D, antibiotic bead placement IV Ceftriaxone for at least 4-6 weeks Please clarify the relationship, if any, which is clinically appropriate for this patient: [ ] E coli Left knee infection due to knee prosthesis [ ] E coli Left knee infection not due to knee prosthesis [ ] Other explanation of clinical findings (please specify) [ ] Unable to determine (no explanation for clinical findings) NOT MINE MTDD
--- NOTE | 2021-09-09 18:58 | CDI ---
Documentation Clarification Form Date: 09/09/2021 05:02:21 PM From: Silvia Lo RN CCDS Admit Date: 08/29/2021 02:01:00 PM Patient Name: Keyon Coker Visit Number: [id number] Discharge Date: 09/04/2021 03:19:00 PM ATTENTION: The Clinical Documentation Specialists (CDI) and [facility] Coding Staff appreciate your assistance in clarifying documentation. Please respond to the clarification below the line at the bottom and electronically sign. The CDI & [facility] Coding staff will review the response and follow-up if needed. Please note: Queries are made part of the Legal Health Record. If you have any questions, please contact the author of this message via ITS. Dr. Manan Stevens Septic joint of left knee joint is documented, 09/01, Ortho progress note and patient is noted to have a total left knee arthroplasty, 09/01, Ortho progress note. Please clarify if there is a relationship between the diagnosis and Left knee joint arthroplasty and infection. History/Risk Factors: 75-year-old male presents to ED after a fall landing on his left knee. The knee has been swollen since the fall. Medical History: Bilateral knee arthroplasty, CAD, HTN and IL. 08/29, H&P. Clinical Indicators: 08/29 Bilateral Knee XR: There is left sided knee joint effusion. No fracture seen. 08/30 Ortho Consult: Exam of the lower extremities reveals a +1 effusion to the left knee. No erythema or ecchymosis. Total knee scars bilaterally are well healed with no sign of infection. 08/30, Aspirate culture: Escherichia coli 09/01, Left knee gram stain culture: Escherichia coli 09/01, Left knee anaerobic culture: No anaerobes 08/31, Ortho progress note: Knee effusion, left; Septic Joint. 09/03, ID progress note: Patient presented to hospital with sepsis in this we did have a fever elevated white count. Patient did have pain to the left knee with swelling did have a cloudy fluid with elevated white count high clinical suspicion for underlying septic arthritis. Treatment: 08/30 Left knee aspiration; 09/01 ID with antibiotic beads; 08/30 Zithromax 500mg po daily x 3 doses d/cd after one dose; 09/04 PICC line; 08/30 d/cd 08/31 Ceftriaxone 1gm IVPB Q24H; 09/02 09/04 Ceftriaxone 1gm IVPB Q24H. Please clarify the relationship, if any, which is clinically appropriate for this patient: [ ] E coli is due to left knee arthroplasty joint. [ ] E coli is not due to left knee arthroplasty joint. [ ] Other explanation of clinical findings (please specify) [ ] Unable to determine (no explanation for clinical findings) (Template Last Revised: July 2020) E coli is not due to left knee arthroplasty joint. MTDD
== END 2021-09-04 15:19 | DRG 871 ==
LOC: EC 00:12 → 3SCARD 14:01
PROVIDERS: ADMIT Hospitalist; ATTEND Hospitalist
PROC: 0S9D0ZX Drainage of Left Knee Joint, Open Approach, Diagnostic (ICD-10-PCS; principal; 2021-09-01 08:45)
PROC: 3E0U029 Introduction of Other Anti-infective into Joints, Open Approach (ICD-10-PCS; principal; 2021-09-01 08:45)
PROC: 05HF33Z Insertion of Infusion Device into Left Cephalic Vein, Percutaneous Approach (ICD-10-PCS; 2021-09-03 10:00)
DX: A41.51 Sepsis due to Escherichia coli [E. coli] (principal); N17.0 Acute kidney failure with tubular necrosis; J15.6 Pneumonia due to other Gram-negative bacteria; I21.4 Non-ST elevation (NSTEMI) myocardial infarction; M00.862 Arthritis due to other bacteria, left knee; E87.1 Hypo-osmolality and hyponatremia; I48.19 Other persistent atrial fibrillation; J44.0 Chronic obstructive pulmonary disease with (acute) lower respiratory infection; J96.11 Chronic respiratory failure with hypoxia; B96.20 Unspecified Escherichia coli [E. coli] as the cause of diseases classified elsewhere; E78.5 Hyperlipidemia, unspecified; E86.1 Hypovolemia; G47.00 Insomnia, unspecified; G47.33 Obstructive sleep apnea (adult) (pediatric); G89.29 Other chronic pain; I12.9 Hypertensive chronic kidney disease with stage 1 through stage 4 chronic kidney disease, or unspecified chronic kidney disease; K21.9 Gastro-esophageal reflux disease without esophagitis; Z20.822 Contact with and (suspected) exposure to COVID-19; M47.812 Spondylosis without myelopathy or radiculopathy, cervical region; M54.30 Sciatica, unspecified side; N18.30 Chronic kidney disease, stage 3 unspecified; R29.6 Repeated falls; Z99.81 Dependence on supplemental oxygen; S80.01XA Contusion of right knee, initial encounter; S80.02XA Contusion of left knee, initial encounter; I25.2 Old myocardial infarction; W18.30XA Fall on same level, unspecified, initial encounter; Z28.310 Unvaccinated for COVID-19; M25.462 Effusion, left knee; R42 Dizziness and giddiness; I25.10 Atherosclerotic heart disease of native coronary artery without angina pectoris; R79.1 Abnormal coagulation profile; Y83.1 Surgical operation with implant of artificial internal device as the cause of abnormal reaction of the patient, or of later complication, without mention of misadventure at the time of the procedure; Y92.009 Unspecified place in unspecified non-institutional (private) residence as the place of occurrence of the external cause; Z79.01 Long term (current) use of anticoagulants; Z79.82 Long term (current) use of aspirin; Z79.899 Other long term (current) drug therapy; Z80.0 Family history of malignant neoplasm of digestive organs; Z80.3 Family history of malignant neoplasm of breast; Z86.73 Personal history of transient ischemic attack (TIA), and cerebral infarction without residual deficits; Z87.891 Personal history of nicotine dependence; Z95.5 Presence of coronary angioplasty implant and graft; Z96.653 Presence of artificial knee joint, bilateral; Z98.890 Other specified postprocedural states; Z90.79 Acquired absence of other genital organ(s); Z88.2 Allergy status to sulfonamides
CPT/HCPCS: 36410; 36415; 70450; 71045; 72125; 76937; 78582; 80048; 80053; 81001; 82140; 82550; 82553; 83605; 83735; 84100; 84145; 84443; 84484; 85025; 85027; 85379; 85610; 85730; 87040; 87070; 87075; 87077; 87186; 87205; 87635; 89050; 93005; 93306; 93970; 99285

== ENCOUNTER → 2021-09-09 | Outpatient (CLI) | payer MEDICARE, BC ==
[2021-09-09 18:46] LABS: Calcium 11.8 mg/dL (8.7-10.3); Potassium 3.3 mmol/L (3.5-5.5)
== END | disposition home or self-care (01) ==
LOC: LABMARSNF 10:28 → EDSTATUS 10:53
PROVIDERS: ATTEND Family Medicine
DX: I10 Essential (primary) hypertension (principal); J44.9 Chronic obstructive pulmonary disease, unspecified
CPT/HCPCS: 82310; 83970; 84132

== ENCOUNTER 2024-04-04 18:39 | Inpatient (IN) | payer MEDICARE, BC ==
--- NOTE | 2024-04-04 19:10 | ED ---
Recheck HPI - General Chief Complaint: Weakness Stated Complaint: weakness Time Seen by Provider: 04/04/24 18:49 Source: patient, EMS, RN notes reviewed, old records reviewed Mode of arrival: EMS - History of Present Illness Initial Comments: This is a 78 male to the ER for evaluation of multiple falls lately weakness, patient is transferred to our facility from outside facility for urinary tract infection and wound and renal failure MD Complaint: abnormal lab (With renal failure), needs IV antibiotics Returns Today for: needs IV antibiotics Context: called for abnormal lab result Associated Symptoms: malaise, nausea Treatments Prior to Arrival: Given Antibiotics on, Given Pain Meds on - Related Data Home Medications Medication Instructions Recorded Confirmed Isosorbide Mononitrate ER [Imdur] 30 mg PO DAILY 07/02/14 08/29/21 Omeprazole [PriLOSEC] 20 mg PO DAILY 07/02/14 08/29/21 allopurinoL [Zyloprim] 100 mg PO DAILY 06/06/17 08/29/21 Brimonidine Tartrate [Alphagan P 1 drop LEFT EYE BID 03/02/20 08/29/21 0.1% Ophth Soln] Latanoprost [Xalatan 0.005%] 1 drop BOTH EYES HS 03/02/20 08/29/21 Apixaban [Eliquis] 5 mg PO BID 08/29/21 08/29/21 Folic Acid 0.4 mg PO DAILY 08/29/21 08/29/21 Meclizine [Antivert] 25 mg PO HS PRN 08/29/21 08/29/21 Metoprolol Tartrate [Lopressor] 12.5 mg PO BID 08/29/21 08/29/21 Aspirin 81 mg PO DAILY 08/30/21 08/30/21 Cholecalciferol [Vitamin D3 (25 100 mcg PO DAILY 08/30/21 08/30/21 Mcg = 1000 Iu)] Nitroglycerin Sl Tabs [Nitrostat] 0.4 mg SUBLINGUAL Q5M PRN 08/30/21 08/30/21 polyethylene glycoL 3350 [Miralax] 17 gm PO BID 08/30/21 08/30/21 Previous Rx's Medication Instructions Recorded cefTRIAXone [Rocephin] 2 gm IVPB Q12H #40 each 09/03/21 Atorvastatin [Lipitor] 40 mg PO HS tab 09/04/21 lisinopriL [Zestril] 2.5 mg PO DAILY tab 09/04/21 traMADol HCL [Ultram] 50 mg PO BID PRN #6 tab 09/04/21 Allergies Allergy/AdvReac Type Severity Reaction Status Date / Time Sulfa (Sulfonamide Allergy Unknown HIVES, Verified 04/04/24 18:50 Antibiotics) ITCHING Review of Systems ROS Statement: Those systems with pertinent positive or pertinent negative responses have been documented in the HPI. ROS Other: All systems not noted in ROS Statement are negative. Past Medical History Past Medical History: Coronary Artery Disease (CAD), COPD, CVA/TIA, GERD/Reflux, Hyperlipidemia, Hypertension, Myocardial Infarction (LA), Musculoskeletal Disorder, Renal Disease, Sleep Apnea/CPAP/BIPAP Additional Past Medical History / Comment(s): TIA X2 (1999 & 2002), VERTIGO, C- PAP MACHINE, SCIATICA & BACK PAIN with past EPIDURAL INJECTIONS, pt states he takes zyloprim due to elevated blood test-does not have gout yet, kidney disease, past nephritis, lupus (in remission), tingling in R foot, post op infection after R rotator cuff repair requiring irrigations and packings/ABX. Last Myocardial Infarction Date:: 1999 History of Any Multi-Drug Resistant Organisms: None Reported Date of last positivie culture/infection: None MDRO Source:: None Past Surgical History: Heart Catheterization With Stent, Orthopedic Surgery Additional Past Surgical History / Comment(s): RT ROTATOR CUFF-titanium used, LEFT KNEE ARTHROSCOPY, TOTAL LEFT/right KNEE, colonoscopy. TURP Past Anesthesia/Blood Transfusion Reactions: No Reported Reaction Additional Past Anesthesia/Blood Transfusion Reaction / Comment(s): PONV with spinal anesthesia, Date of Last Stent Placement:: 1999 Past Psychological History: No Psychological Hx Reported Smoking Status: Former smoker Past Alcohol Use History: None Reported Past Drug Use History: None Reported - Past Family History Mother Family Medical History: Cancer Additional Family Medical History / Comment(s): BREAST CA Father Family Medical History: Cancer Additional Family Medical History / Comment(s): ESOPHAGEAL CA General Exam Limitations: altered mental status General appearance: alert, in no apparent distress, lethargic, obese Head exam: Present: atraumatic, normocephalic, normal inspection Eye exam: Present: normal appearance, PERRL, EOMI. Absent: scleral icterus, conjunctival injection, periorbital swelling ENT exam: Present: normal exam, mucous membranes moist Neck exam: Present: normal inspection. Absent: tenderness, meningismus, lymphadenopathy Respiratory exam: Present: normal lung sounds bilaterally. Absent: respiratory distress, wheezes, rales, rhonchi, stridor Cardiovascular Exam: Present: regular rate, normal rhythm, normal heart sounds. Absent: systolic murmur, diastolic murmur, rubs, gallop, clicks GI/Abdominal exam: Present: soft, normal bowel sounds. Absent: distended, tenderness, guarding, rebound, rigid Extremities exam: Present: normal inspection, full ROM, normal capillary refill. Absent: tenderness, pedal edema, joint swelling, calf tenderness Back exam: Present: normal inspection Neurological exam: Present: alert, oriented X3, CN II-XII intact Psychiatric exam: Present: normal affect, normal mood Skin exam: Present: warm, dry, intact, normal color. Absent: rash Course Vital Signs 04/04/24 18:43 Temperature 97.5 F L Pulse Rate 110 H Respiratory 22 Rate Blood Pressure 111/74 - Reevaluation(s) Reevaluation #1: 04/04/24 19:12 Medical records reviewed Reevaluation #2: 04/04/24 19:12 Symptoms unchanged Reevaluation #3: 04/04/24 19:12 Patient informed of results and questions answered Reevaluation #4: Was pt. sent in by a medical professional or institution (, PA, LEAD TINNER, urgent care, hospital, or half-way...) When possible be specific @ -no Did you speak to anyone other than the patient for history (EMS, parent, family, police, friend...)? What history was obtained from this source @ -no Did you review nursing and triage notes (agree or disagree)? Why? @ -agree Are old charts reviewed (outside hosp., previous admission, EMS record, old EKG, old radiological studies, urgent care reports/EKG's, half-way records)? Report findings @ -yes Differential Diagnosis (chest pain, altered mental status, abdominal pain women, abdominal pain men, vaginal bleeding, weakness, fever, dyspnea, syncope, headache, dizziness, GI bleed, back pain, seizure, CVA, palpatations, mental health, musculoskeletal)? @ -prior EKG interpreted by me (3pts min.). @ -yes X-rays interpreted by me (1pt min.). @ -yes negative for acute disease CT interpreted by me (1pt min.). @ -no U/S interpreted by me (1pt. min.). @ -no What testing was considered but not performed or refused? (CT, X-rays, U/S, labs)? Why? @ -none What meds were considered but not given or refused? Why? @ -none Did you discuss the management of the patient with other professionals (professionals i.e. DrJosé Antonio, PA, LEAD TINNER, lab, RT, psych nurse, social work case manager, beam doffer, teacher, disability hearing officer, field nurse case manager)? Give summary @ -no Was smoking cessation discussed for >3mins.? @ -no Was critical care preformed (if so, how long)? @ -no Were there social determinants of health that impacted care today? How? (Homelessness, low income, unemployed, alcoholism, drug addiction, transpor tation, low edu. Level, literacy, decrease access to med. care, custodial, rehab)? @ -none Was there de-escalation of care discussed even if they declined (Discuss DNR or withdrawal of care, Hospice)? DNR status @ -no What co-morbidities impacted this encounter? (DM, HTN, Smoking, COPD, CAD, Cancer, CVA, ARF, Chemo, Hep., AIDS, mental health diagnosis, sleep apnea, morbid obesity)? @ -none Was patient admitted / discharged? Hospital course, mention meds given and route, prescriptions, significant lab abnormalities, going to OR and other pertinent info. @ - Undiagnosed new problem with uncertain prognosis? @ -no Drug Therapy requiring intensive monitoring for toxicity (Heparin, Nitro, Insuli n, Cardizem)? @ -no Were any procedures done? @ -no Diagnosis/symptom? @ - Acute, or Chronic, or Acute on Chronic? @ -Acute Uncomplicated (without systemic symptoms) or Complicated (systemic symptoms)? @ -Complicated Side effects of treatment? @ -no Exacerbation, Progression, or Severe Exacerbation? @ -exacerbation Poses a threat to life or bodily function? How? (Chest pain, USA, LA, pneumonia, PE, COPD, DKA, ARF, appy, cholecystitis, CVA, Diverticulitis, Homicidal, Suicidal, threat to staff... and all critical care pts) @ -yes Reevaluation #5: Differential Weakness: Hypoglycemia, shock, sepsis, hyponatremia, anemia, infection, LA, ETOH, adverse medicine reaction, overdose, stroke, this is not meant to be an all-inclusive list. - Consultations Consultation #1: Spoke with [facility] who agrees to admit this patient Medical Decision Making - Medical Decision Making 78 male to ER for evaluation presenting today for evaluation of transfer found to have urinary tract infection multiple recent falls weakness - Lab Data Result diagrams: 04/04/24 19:18 Lab Results 04/04/24 04/04/24 Range/Units 19:18 19:18 WBC 12.5 H (3.8-10.6) k/uL RBC 3.91 L (4.30-5.90) m/uL Hgb 12.5 L (13.0-17.5) gm/dL Hct 38.5 L (39.0-53.0) % MCV 98.5 (80.0-100.0) fL MCH 31.9 (25.0-35.0) pg MCHC 32.4 (31.0-37.0) g/dL RDW 14.5 (11.5-15.5) % Plt Count 133 L (150-450) k/uL MPV 8.9 Neutrophils % 78 % Lymphocytes % 13 % Monocytes % 5 % Eosinophils % 1 % Basophils % 0 % Neutrophils # 9.7 H (1.3-7.7) k/uL Lymphocytes # 1.6 (1.0-4.8) k/uL Monocytes # 0.7 (0-1.0) k/uL Eosinophils # 0.2 (0-0.7) k/uL Basophils # 0.0 (0-0.2) k/uL Plasma Lactic Acid Jus 2.0 (0.7-2.0) mmol/L - EKG Data -: EKG Interpreted by Me (EKG is sinus 99 QRS 129 QTc 370) Disposition Clinical Impression: Dehydration, Weakness, UTI (urinary tract infection), Falls Disposition: ADMITTED IP TO THIS HOSP Condition: Fair Is patient prescribed a controlled substance at d/c from ED?: No Time of Disposition: 19:30
[2024-04-04 19:27] LABS: Basophils % (A) 0 %; Eosinophils # (A) 0.2 k/uL (0-0.7); Eosinophils % (A) 1 %; HCT 38.5 % (39.0-53.0); HGB 12.5 gm/dL (13.0-17.5); Lymphocytes # (A) 1.6 k/uL (1.0-4.8); Lymphocytes % (A) 13 %; MCH 31.9 pg (25.0-35.0); MCHC 32.4 g/dL (31.0-37.0); MCV 98.5 fL (80.0-100.0); Mean Platelet Volume 8.9; Monocytes # (A) 0.7 k/uL (0-1.0); Monocytes % (A) 5 %; Neutrophils # (A) 9.7 k/uL (1.3-7.7); Neutrophils % (A) 78 %; Platelet Count 133 k/uL (150-450); RBC 3.91 m/uL (4.30-5.90); RDW 14.5 % (11.5-15.5); WBC 12.5 k/uL (3.8-10.6)
[2024-04-04] MEDS ORDERED: NALOXONE 0.4 MG/ML 1 ML VIAL IV PRN (19:32)
[2024-04-04] MEDS: SODIUM CHLORIDE 0.9% 1,000 ML IV SCH (19:46)
[2024-04-04 20:00] LABS: INR 1.2 (<1.2); Partial Thromboplastin Time 45.6 sec (22.0-30.0); Prothrombin Time 12.8 sec (10.0-12.5)
[2024-04-04 21:10] LABS: ALT 12 U/L (4-49); AST 39 U/L (17-59); African American GFR (CKD) 14 (>60 ml/min/1.73 sqM); Albumin 3.8 g/dL (3.5-5.0); Albumin/Globulin Ratio 1.2; Alkaline Phosphatase 65 U/L (38-126); Anion Gap 12 mmol/L; Blood Urea Nitrogen 71 mg/dL (9-20); Carbon Dioxide 16 mmol/L (22-30); Chloride 110 mmol/L (98-107); Globulin 3.2 g/dL; Glucose 120 mg/dL (74-99); Magnesium 1.9 mg/dL (1.6-2.3); NT-Pro-B-Type Natriuretic Pept 3210 pg/mL; Non-African American GFR(CKD) 12 (>60 ml/min/1.73 sqM); Phosphorus 3.5 mg/dL (2.5-4.5); Potassium 4.7 mmol/L (3.5-5.1); Sodium 138 mmol/L (137-145); Total Bilirubin 0.6 mg/dL (0.2-1.3)
[2024-04-05] MEDS: SODIUM CHLORIDE 0.9% 1,000 ML IV STA (03:14)
[2024-04-05 08:02] LABS: Appearance,Urine Cloudy (Clear); RBC,Urine >182 /hpf (0-5); WBC,Urine >182 /hpf (0-5)
[2024-04-05 08:03] LABS: Color,Urine Brown
[2024-04-05 09:20] LABS: Basophils # (A) 0.1 k/uL (0-0.2); Basophils % (A) 1 %; Eosinophils # (A) 0.2 k/uL (0-0.7); Eosinophils % (A) 2 %; HCT 38.4 % (39.0-53.0); HGB 12.4 gm/dL (13.0-17.5); Hypochromasia Slight; Lymphocytes # (A) 1.2 k/uL (1.0-4.8); Lymphocytes % (A) 13 %; MCH 32.1 pg (25.0-35.0); MCHC 32.2 g/dL (31.0-37.0); MCV 99.7 fL (80.0-100.0); Macrocytosis Slight; Mean Platelet Volume 8.9; Monocytes # (A) 0.5 k/uL (0-1.0); Monocytes % (A) 6 %; Neutrophils # (A) 7.5 k/uL (1.3-7.7); Neutrophils % (A) 77 %; Platelet Count 126 k/uL (150-450); RBC 3.86 m/uL (4.30-5.90); RDW 14.7 % (11.5-15.5); WBC 9.7 k/uL (3.8-10.6)
[2024-04-05 09:28] LABS: ALT 11 U/L (4-49); African American GFR (CKD) 19 (>60 ml/min/1.73 sqM); Albumin 3.3 g/dL (3.5-5.0); Albumin/Globulin Ratio 1.1; Anion Gap 11 mmol/L; Blood Urea Nitrogen 60 mg/dL (9-20); Calcium 9.1 mg/dL (8.4-10.2); Carbon Dioxide 17 mmol/L (22-30); Chloride 113 mmol/L (98-107); Globulin 3.1 g/dL; Glucose 110 mg/dL (74-99); Non-African American GFR(CKD) 17 (>60 ml/min/1.73 sqM); Phosphorus 3.6 mg/dL (2.5-4.5); Sodium 141 mmol/L (137-145); Total Bilirubin 0.7 mg/dL (0.2-1.3); Total Protein 6.4 g/dL (6.3-8.2)
[2024-04-05 09:34] LABS: Magnesium 1.7 mg/dL (1.6-2.3); Potassium 5.3 mmol/L (3.5-5.1)
[2024-04-05 09:35] LABS: AST 39 U/L (17-59); Alkaline Phosphatase 41 U/L (38-126)
[2024-04-05] MEDS ORDERED: NITROGLYCERIN SL TABS 0.4 MG TAB SUBLINGUAL PRN (10:38)
--- NOTE | 2024-04-05 10:40 | P.HPIM ---
History of Present Illness This is a pleasant 78 years old with past medical history of multiple medical problems At baseline he says he uses a wheelchair for over the last 6 months, he lives with his girlfriend, for the last 2 to 3 weeks his legs gets getting more weak. He was in his garage and he could not get up so he went to [facility]. At the [facility] he was found to have NHUNG and UTI and he was transferred to this facility. Patient states that he has been complaining from dysuria for 2 weeks, he recently had a procedure done for him with urologist Dr. Orozco, he was not sure but he says to clean his urethra No suprapubic tenderness or flank tenderness. No fever or chills. No chest pain. He has occasional coughing. He is mildly tachypneic but no overt dyspneic. Patient states that he has history of COPD and he is on 2 L oxygen at home He denies currently smoking alcohol or illicit drugs No headache dizziness or new weakness or numbness. Patient is tachycardic, hypotensive blood pressure at 90/55 Mild leukocytosis 12.5 came down to 9.7. Hemoglobin 12.4. Platelet count 126 His BMP and liver enzymes reviewed. Creatinine went up to 4.3, repeat creatinine 3.3. Potassium 5.3 Urine analysis is suspicious for infection Mildly elevated troponin 0.043 came back to reference range at 0.032. TSH is normal EKG showing irregular rhythm with right bundle branch block proBNP is elevated at 3210 Review of Systems Review of systems CONSTITUTIONAL: No fever, no malaise, no fatigue. HEENT: No recent visual problems or hearing problems. Denied any sore throat. CARDIOVASCULAR: No orthopnea, PND, no palpitations, no syncope. PULMONARY: No shortness of breath, no cough, no hemoptysis. GASTROINTESTINAL: No diarrhea, no nausea, no vomiting, no abdominal pain. Normoactive bowel sounds. NEUROLOGICAL: No headaches, no weakness, no numbness. HEMATOLOGICAL: Denies any bleeding or petechiae. GENITOURINARY: Denies any burning micturition, frequency, or urgency. MUSCULOSKELETAL/RHEUMATOLOGICAL: Denies any joint pain, swelling, or any muscle pain. ENDOCRINE: Denies any polyuria or polydipsia. Past Medical History Past Medical History: Coronary Artery Disease (CAD), COPD, CVA/TIA, GERD/Reflux, Hyperlipidemia, Hypertension, Myocardial Infarction (MD), Musculoskeletal Disorder, Renal Disease, Sleep Apnea/CPAP/BIPAP Additional Past Medical History / Comment(s): TIA X2 (1999 & 2002), VERTIGO, C- PAP MACHINE, SCIATICA & BACK PAIN with past EPIDURAL INJECTIONS, pt states he takes zyloprim due to elevated blood test-does not have gout yet, kidney disease, past nephritis, lupus (in remission), tingling in R foot, post op infection after R rotator cuff repair requiring irrigations and packings/ABX. Last Myocardial Infarction Date:: 1999 History of Any Multi-Drug Resistant Organisms: None Reported Date of last positivie culture/infection: None MDRO Source:: None Past Surgical History: Heart Catheterization With Stent, Orthopedic Surgery Additional Past Surgical History / Comment(s): RT ROTATOR CUFF-titanium used, LEFT KNEE ARTHROSCOPY, TOTAL LEFT/right KNEE, colonoscopy. TURP Past Anesthesia/Blood Transfusion Reactions: No Reported Reaction Additional Past Anesthesia/Blood Transfusion Reaction / Comment(s): PONV with spinal anesthesia, Date of Last Stent Placement:: 1999 Past Psychological History: No Psychological Hx Reported Smoking Status: Former smoker Past Alcohol Use History: None Reported Past Drug Use History: None Reported - Past Family History Mother Family Medical History: Cancer Additional Family Medical History / Comment(s): BREAST CA Father Family Medical History: Cancer Additional Family Medical History / Comment(s): ESOPHAGEAL CA Medications and Allergies Home Medications Medication Instructions Recorded Confirmed Type Isosorbide Mononitrate ER [Imdur] 30 mg PO DAILY 07/02/14 04/04/24 History allopurinoL [Zyloprim] 100 mg PO DAILY 06/06/17 04/04/24 History Latanoprost [Xalatan 0.005%] 1 drop BOTH EYES DIRECTED 03/02/20 04/04/24 History Apixaban [Eliquis] 5 mg PO BID 08/29/21 04/04/24 History Folic Acid 0.4 mg PO HS 08/29/21 04/04/24 History Meclizine [Antivert] 25 mg PO HS 08/29/21 04/04/24 History Metoprolol Tartrate [Lopressor] 12.5 mg PO BID 08/29/21 04/04/24 History Aspirin 81 mg PO HS 08/30/21 04/04/24 History Cholecalciferol [Vitamin D3 (25 100 mcg PO DAILY 08/30/21 04/04/24 History Mcg = 1000 Iu)] Nitroglycerin Sl Tabs [Nitrostat] 0.4 mg SUBLINGUAL Q5M PRN 08/30/21 04/04/24 History lisinopriL [Zestril] 2.5 mg PO DAILY tab 09/04/21 04/04/24 Rx Acetaminophen Tab [Tylenol Tab] 1,000 mg PO BID 04/04/24 04/04/24 History Acetaminophen [Tylenol 8 Hour] 650 mg PO BID 04/04/24 04/04/24 History Atorvastatin [Lipitor] 10 mg PO HS 04/04/24 04/04/24 History Brimonidine Tartrate [Alphagan P 1 drop LEFT EYE BID 04/04/24 04/04/24 History 0.2% Ophth Soln] Ciprofloxacin HCl [Cipro] 500 mg PO BID 04/04/24 04/04/24 History Sodium Bicarbonate Tab 650 mg PO TID 04/04/24 04/04/24 History Tolterodine ER [Detrol LA] 4 mg PO HS 04/04/24 04/04/24 History Trospium Chloride 20 mg PO BID 04/04/24 04/04/24 History Allergies Allergy/AdvReac Type Severity Reaction Status Date / Time Sulfa (Sulfonamide Allergy Unknown HIVES, Verified 04/04/24 19:58 Antibiotics) ITCHING Physical Exam Vitals: Vital Signs Temp Pulse Resp BP Pulse Ox 04/05/24 09:12 105 H 18 90/55 94 L 04/05/24 07:40 97.7 F 90 18 92/61 93 L 04/05/24 06:00 93 18 94/68 94 L 04/05/24 05:00 88 17 94/62 94 L 04/05/24 03:00 92 20 88/66 94 L 04/05/24 02:00 92 19 97/52 94 L 04/05/24 01:00 94 18 102/57 94 L 04/05/24 00:00 99 19 90/57 95 04/04/24 23:00 93 18 95/54 95 04/04/24 22:00 94 18 101/52 95 04/04/24 21:00 97 20 110/58 95 04/04/24 19:30 96 20 109/87 95 04/04/24 18:43 97.5 F L 110 H 22 111/74 Intake and Output 04/04/24 04/05/24 04/05/24 22:59 06:59 14:59 Output Total 400 Balance -400 Output: Urine 400 Other: Voiding Method External Catheter Weight 136.078 kg -GENERAL: The patient is alert and oriented x3, not in any acute distress. Well developed, well nourished. Obese, generally weak HEENT: Pupils are round and equally reacting to light. EOMI. No scleral icterus. No conjunctival pallor. Normocephalic, atraumatic. No pharyngeal erythema. No thyromegaly. CARDIOVASCULAR: S1 and S2 present. No murmurs, rubs, or gallops. PULMONARY: Chest is clear to auscultation, no wheezing , no crackles. ABDOMEN: Soft, nontender, nondistended, normoactive bowel sounds. No palpable or ganomegaly. MUSCULOSKELETAL: No joint swelling or deformity. EXTREMITIES: No cyanosis, clubbing, or pedal edema. NEUROLOGICAL: Gross neurological examination did not reveal any focal deficits. SKIN: No rashes. no petechiae. Results CBC & Chem 7: 04/05/24 08:59 04/05/24 08:59 Labs: Abnormal Lab Results - Last 24 Hours (Table) 04/04/24 04/04/24 04/04/24 Range/Units 19:18 19:18 19:44 WBC 12.5 H (3.8-10.6) k/uL RBC 3.91 L (4.30-5.90) m/uL Hgb 12.5 L (13.0-17.5) gm/dL Hct 38.5 L (39.0-53.0) % Plt Count 133 L (150-450) k/uL Neutrophils # 9.7 H (1.3-7.7) k/uL PT 12.8 H (10.0-12.5) sec INR 1.2 H (<1.2) APTT 45.6 H (22.0-30.0) sec Potassium (3.5-5.1) mmol/L Chloride (98-107) mmol/L Carbon Dioxide (22-30) mmol/L BUN (9-20) mg/dL Creatinine (0.66-1.25) mg/dL Glucose (74-99) mg/dL Troponin I 0.043 H* (0.000-0.034) ng/mL Albumin (3.5-5.0) g/dL Urine RBC (0-5) /hpf Urine WBC (0-5) /hpf 04/04/24 04/05/24 04/05/24 Range/Units 19:46 07:49 08:59 WBC (3.8-10.6) k/uL RBC 3.86 L (4.30-5.90) m/uL Hgb 12.4 L (13.0-17.5) gm/dL Hct 38.4 L (39.0-53.0) % Plt Count 126 L (150-450) k/uL Neutrophils # (1.3-7.7) k/uL PT (10.0-12.5) sec INR (<1.2) APTT (22.0-30.0) sec Potassium (3.5-5.1) mmol/L Chloride 110 H (98-107) mmol/L Carbon Dioxide 16 L (22-30) mmol/L BUN 71 H (9-20) mg/dL Creatinine 4.42 H (0.66-1.25) mg/dL Glucose 120 H (74-99) mg/dL Troponin I (0.000-0.034) ng/mL Albumin (3.5-5.0) g/dL Urine RBC >182 H (0-5) /hpf Urine WBC >182 H (0-5) /hpf 04/05/24 Range/Units 08:59 WBC (3.8-10.6) k/uL RBC (4.30-5.90) m/uL Hgb (13.0-17.5) gm/dL Hct (39.0-53.0) % Plt Count (150-450) k/uL Neutrophils # (1.3-7.7) k/uL PT (10.0-12.5) sec INR (<1.2) APTT (22.0-30.0) sec Potassium 5.3 H (3.5-5.1) mmol/L Chloride 113 H (98-107) mmol/L Carbon Dioxide 17 L (22-30) mmol/L BUN 60 H (9-20) mg/dL Creatinine 3.36 H (0.66-1.25) mg/dL Glucose 110 H (74-99) mg/dL Troponin I (0.000-0.034) ng/mL Albumin 3.3 L (3.5-5.0) g/dL Urine RBC (0-5) /hpf Urine WBC (0-5) /hpf Assessment and Plan Assessment: Acute urinary tract infection Acute kidney injury on chronic kidney disease, status post recent urological bridget shelli Sepsis secondary to above Generally weak Morbidly obese with BMI 43.0 Mildly elevated troponin Chronic hypoxic respiratory failure COPD with no acute exacerbation Plan: Continue ceftriaxone Continue with normal saline 75 mL/h, . Also give a bolus of 500 cc. Urology team consult Nephrology team consult Check chest x-ray Check echocardiogram Hold blood pressure medication, including lisinopril a Continue with metoprolol, small dose Resume aspirin Labs and medication were reviewed.. Continue same treatment. Continue with symptomatic treatment. Resume home medication. Monitor labs and vitals. DVT and GI prophylaxis. Further recommendations as per clinical course of the patient DVT prophylaxis: Subcutaneous heparin GI Prophylaxis: Pepcid PT/OT: Pending Prognosis is guarded
[2024-04-05] MEDS: SODIUM CHLORIDE 0.9% 500 ML 500 ML IV ONE (10:43)
--- NOTE | 2024-04-05 11:08 | P.NPCON ---
History of Present Illness - Reason for Consult acute renal failure - History of Present Illness patient is a 78-year-old male with history of coronary artery disease, COPD, hypertension and chronic kidney disease with baseline creatinine 1.3-1.4 mg/dL in 2020.. Patient is admitted to the hospital with complaints of weakness. Patient fell in the garage at home and could not get up. He was taken to [facility] and transferred to [facility] due to significant acute kidney injury. Serum creatinine was 4.8 mg/dL. Patient received 3 L of fluid bolus. Serum creatinine decreased to 3.3 today. UA is suggestive of UTI and patient is maintained on IV antibiotics. Patient follows with Dr. Orozco for urinary incontinence and frequency. BP has been low with systolic in the 90s. Maintained on low-dose SHARMAINE inhibitor's at home. No history of use of NSAIDs Past Medical History Past Medical History: Coronary Artery Disease (CAD), COPD, CVA/TIA, GERD/Reflux, Hyperlipidemia, Hypertension, Myocardial Infarction (CA), Musculoskeletal Disorder, Renal Disease, Sleep Apnea/CPAP/BIPAP Additional Past Medical History / Comment(s): TIA X2 (1999 & 2002), VERTIGO, C- PAP MACHINE, SCIATICA & BACK PAIN with past EPIDURAL INJECTIONS, pt states he takes zyloprim due to elevated blood test-does not have gout yet, kidney disease, past nephritis, lupus (in remission), tingling in R foot, post op infection after R rotator cuff repair requiring irrigations and packings/ABX. Last Myocardial Infarction Date:: 1999 History of Any Multi-Drug Resistant Organisms: None Reported Date of last positivie culture/infection: None MDRO Source:: None Past Surgical History: Heart Catheterization With Stent, Orthopedic Surgery Additional Past Surgical History / Comment(s): RT ROTATOR CUFF-titanium used, LEFT KNEE ARTHROSCOPY, TOTAL LEFT/right KNEE, colonoscopy. TURP Past Anesthesia/Blood Transfusion Reactions: No Reported Reaction Additional Past Anesthesia/Blood Transfusion Reaction / Comment(s): PONV with spinal anesthesia, Date of Last Stent Placement:: 1999 Past Psychological History: No Psychological Hx Reported Smoking Status: Former smoker Past Alcohol Use History: None Reported Past Drug Use History: None Reported - Past Family History Mother Family Medical History: Cancer Additional Family Medical History / Comment(s): BREAST CA Father Family Medical History: Cancer Additional Family Medical History / Comment(s): ESOPHAGEAL CA Medications and Allergies Home Medications Medication Instructions Recorded Confirmed Type Isosorbide Mononitrate ER [Imdur] 30 mg PO DAILY 07/02/14 04/04/24 History allopurinoL [Zyloprim] 100 mg PO DAILY 06/06/17 04/04/24 History Latanoprost [Xalatan 0.005%] 1 drop BOTH EYES DIRECTED 03/02/20 04/04/24 History Apixaban [Eliquis] 5 mg PO BID 08/29/21 04/04/24 History Folic Acid 0.4 mg PO HS 08/29/21 04/04/24 History Meclizine [Antivert] 25 mg PO HS 08/29/21 04/04/24 History Metoprolol Tartrate [Lopressor] 12.5 mg PO BID 08/29/21 04/04/24 History Aspirin 81 mg PO HS 08/30/21 04/04/24 History Cholecalciferol [Vitamin D3 (25 100 mcg PO DAILY 08/30/21 04/04/24 History Mcg = 1000 Iu)] Nitroglycerin Sl Tabs [Nitrostat] 0.4 mg SUBLINGUAL Q5M PRN 08/30/21 04/04/24 History lisinopriL [Zestril] 2.5 mg PO DAILY tab 09/04/21 04/04/24 Rx Acetaminophen Tab [Tylenol Tab] 1,000 mg PO BID 04/04/24 04/04/24 History Acetaminophen [Tylenol 8 Hour] 650 mg PO BID 04/04/24 04/04/24 History Atorvastatin [Lipitor] 10 mg PO HS 04/04/24 04/04/24 History Brimonidine Tartrate [Alphagan P 1 drop LEFT EYE BID 04/04/24 04/04/24 History 0.2% Ophth Soln] Ciprofloxacin HCl [Cipro] 500 mg PO BID 04/04/24 04/04/24 History Sodium Bicarbonate Tab 650 mg PO TID 04/04/24 04/04/24 History Tolterodine ER [Detrol LA] 4 mg PO HS 04/04/24 04/04/24 History Trospium Chloride 20 mg PO BID 04/04/24 04/04/24 History Allergies Allergy/AdvReac Type Severity Reaction Status Date / Time Sulfa (Sulfonamide Allergy Unknown HIVES, Verified 04/04/24 19:58 Antibiotics) ITCHING Physical Exam Vitals: Vital Signs Temp Pulse Resp BP Pulse Ox 04/05/24 10:40 93 18 95/57 94 L 04/05/24 09:12 105 H 18 90/55 94 L 04/05/24 07:40 97.7 F 90 18 92/61 93 L 04/05/24 06:00 93 18 94/68 94 L 04/05/24 05:00 88 17 94/62 94 L 04/05/24 03:00 92 20 88/66 94 L 04/05/24 02:00 92 19 97/52 94 L 04/05/24 01:00 94 18 102/57 94 L 04/05/24 00:00 99 19 90/57 95 04/04/24 23:00 93 18 95/54 95 04/04/24 22:00 94 18 101/52 95 04/04/24 21:00 97 20 110/58 95 04/04/24 19:30 96 20 109/87 95 04/04/24 18:43 97.5 F L 110 H 22 111/74 Intake and Output 04/04/24 04/05/24 04/05/24 22:59 06:59 14:59 Output Total 400 Balance -400 Output: Urine 400 Other: Voiding Method External Catheter Weight 136.078 kg patient is awake, comfortable, no acute distress. Examination of the heart S1 and S2 Examination the lungs bilateral breath sounds are heard abdomen is soft obese Examination of lower extremity shows no significant edema PATIENT SERVICES REP exam grossly intact Results - Lab Results Most recent lab results Calcium 9.1 mg/dL (8.4-10.2) 04/05/24 08:59 Phosphorus 3.6 mg/dL (2.5-4.5) 04/05/24 08:59 Magnesium 1.7 mg/dL (1.6-2.3) 04/05/24 08:59 04/05/24 08:59 04/05/24 08:59 Assessment and Plan Assessment: 1. Acute kidney injury ATN secondary to hypotension and sepsis. Currently nonoliguric. Rule out urine retention UA suggestive of UTI. 2. Chronic kidney disease NKF stage IIIB with baseline creatinine 1.3-1.4 mg/dL in 2021. Etiology likely nephrosclerosis 3. Pyuria rule out UTI 4. History of hypertension with CK D stage III maintained on SHARMAINE inhibitor's, currently on hold 5. History of COPD Plan: continue with IV fluids Change to IV bicarb Check bladder scan and rule out urine retention Check ultrasound of the kidneys Repeat labs in a.m. Continue to hold SHARMAINE inhibitor's Avoid any nephrotoxic agents. Thank you for the consultation. We will continue to follow the patient with you during his hospitalization
[2024-04-05] MEDS: CHOLECALCIFEROL 25 MCG (1000 IU) TABLET PO SCH (11:20)
[2024-04-05] MEDS: allopurinoL 100 MG TAB PO SCH (11:21)
[2024-04-05] MEDS: APIXABAN 5 MG TAB PO SCH (11:21)
[2024-04-05] MEDS: DEXTROSE 5% IN WATER 1,000 ML with SODIUM BICARB (1 MEQ/ML) 150 ML IV SCH (11:26)
[2024-04-05] MEDS: SODIUM CHLORIDE 0.9% 1,000 ML IV SCH (11:26)
--- NOTE | 2024-04-05 12:20 | XR ---
EXAMINATION TYPE: XR chest 2V DATE OF EXAM: 04/05/2024 11:47 AM COMPARISON: Chest radiographs from 08/31/2021, 04/04/2024 CLINICAL INDICATION: Male, 78 years old with history of sob; [facility] TECHNIQUE: XR chest 2V Frontal and lateral views of the chest. FINDINGS: Lungs/Pleura: Airspace opacities over the spine on lateral view. There is no evidence of pleural effu dany, or pneumothorax. Pulmonary vascularity: Unremarkable. Heart/mediastinum: Cardiomediastinal silhouette is unremarkable. Musculoskeletal: No acute osseous pathology. Other findings: None Lines/Tubes: IMPRESSION: Airspace opacities project over the left lung base on lateral view correlate for pneumonia [facility], , 04/05/2024 12:17 PM
[2024-04-05] MEDS: HYDROmorphone 1 MG/ML 1 ML SYRINGE IVP PRN (13:10)
--- NOTE | 2024-04-05 15:31 | US ---
EXAMINATION TYPE: US kidneys/renal and bladder DATE OF EXAM: 04/05/2024 COMPARISON: US 2018 CLINICAL INDICATION: Male, 78 years old with history of wendy; TECHNIQUE: Grayscale imaging of the bilateral kidneys and urinary bladder: FINDINGS: EXAM MEASUREMENTS: Right Kidney: 9.3 x 5.0 x 4.6 cm Left Kidney: 9.7 x 5.6 x 5.6 cm Difficult and limited study due to patient body habitus Right Kidney: limited Left Kidney: limited Bladder: not imaged due to above limitations There is no evidence for hydronephrosis at this point in time. No nephrolithiasis is seen. No chrissie s are identified. The urinary bladder is anechoic. IMPRESSION: No evidence of acute obstructive uropathy. [facility], , 04/05/2024 3:29 PM
[2024-04-05] MEDS ORDERED: SODIUM BICARBONATE TAB 650 MG TAB PO SCH (16:00)
[2024-04-05] MEDS: ASPIRIN 81 MG PO SCH (20:50)
[2024-04-05] MEDS: ATORVASTATIN 10 MG TAB PO SCH (20:50)
[2024-04-05] MEDS: FOLIC ACID 1 MG TAB PO SCH (20:50)
[2024-04-05] MEDS: FAMOTIDINE 20 MG/2 ML VIAL IV SCH (20:51)
[2024-04-05] MEDS: METOPROLOL TARTRATE 12.5 MG TAB PO SCH (20:52)
[2024-04-05] MEDS ORDERED: FAMOTIDINE 20 MG/2 ML VIAL IV SCH (21:00)
[2024-04-05] MEDS ORDERED: HEPARIN SODIUM,PORCINE 5,000 UNIT/ML 1 ML VIAL SQ SCH (21:00)
[2024-04-05] MEDS: LATANOPROST 0.005% OPHTH DROPS 2.5 ML BTL BOTH EYES SCH (21:42)
[2024-04-05] MEDS: BRIMONIDINE TARTRATE 0.2% DROPS 5 ML BTL LEFT EYE SCH (21:43)
[2024-04-06] MEDS: NYSTATIN 100,000 UNIT/GM POWD 15 GM TOPICAL SCH (00:58)
[2024-04-06 07:17] LABS: African American GFR (CKD) 31 (>60 ml/min/1.73 sqM); Anion Gap 4 mmol/L; Blood Urea Nitrogen 49 mg/dL (9-20); Calcium 8.4 mg/dL (8.4-10.2); Carbon Dioxide 26 mmol/L (22-30); Chloride 107 mmol/L (98-107); Glucose 103 mg/dL (74-99); Non-African American GFR(CKD) 27 (>60 ml/min/1.73 sqM); Potassium 3.8 mmol/L (3.5-5.1); Sodium 137 mmol/L (137-145)
[2024-04-06] MEDS: LACTATED RINGERS 1,000 ML IV SCH (08:49)
--- NOTE | 2024-04-06 09:22 | P.PN ---
Subjective patient is seen for follow-up for acute kidney injury. Overall feeling much better. Maintained on IV fluids. Serum creatinine improved to 2.2 today. Objective - Vital Signs Vital signs: Vital Signs Temp 97.5 F L 04/06/24 07:23 Pulse 55 L 04/06/24 08:17 Resp 20 04/06/24 07:23 BP 125/84 04/06/24 08:17 Pulse Ox 93 L 04/06/24 07:23 FiO2 Intake & Output 04/05/24 04/06/24 04/06/24 18:59 06:59 18:59 Intake Total 1560 1100 Output Total 400 200 600 Balance 1160 900 -600 Intake: Intake, IV Titration 1100 Amount Dextrose 5% in Water 1, 1100 000 ml @ 100 mls/hr IV . [id number] SHERIE with Sodium Bicarb (1 Meq/ml) 150 ml Rx#:[id number] Oral 1560 Output: Urine 400 200 600 Other: Voiding Method External Catheter External Catheter # Voids 600 - Exam patient is awake, comfortable, no acute distress. Examination of the heart S1 and S2 Examination the lungs bilateral breath sounds are heard abdomen is soft obese Examination of lower extremity shows no significant edema [employer] exam grossly intact - Labs CBC & Chem 7: 04/05/24 08:59 04/06/24 06:38 Labs: Abnormal Lab Results - Last 24 Hours (Table) 04/05/24 04/05/24 04/06/24 Range/Units 08:59 08:59 06:38 RBC 3.86 L (4.30-5.90) m/uL Hgb 12.4 L (13.0-17.5) gm/dL Hct 38.4 L (39.0-53.0) % Plt Count 126 L (150-450) k/uL Potassium 5.3 H (3.5-5.1) mmol/L Chloride 113 H (98-107) mmol/L Carbon Dioxide 17 L (22-30) mmol/L BUN 60 H 49 H (9-20) mg/dL Creatinine 3.36 H 2.26 H (0.66-1.25) mg/dL Glucose 110 H 103 H (74-99) mg/dL Albumin 3.3 L (3.5-5.0) g/dL Microbiology - Last 24 Hours (Table) 11/27/24 19:44 Blood Culture - Preliminary Blood Assessment and Plan Assessment: 1. Acute kidney injury ATN secondary to hypotension and sepsis. Currently nonoliguric. Improved with IV hydration. UA suggestive of UTI. 2. Chronic kidney disease NKF stage IIIB with baseline creatinine 1.3-1.4 mg/dL in 2021. Etiology likely nephrosclerosis 3. Pyuria rule out UTI 4. History of hypertension with CK D stage III maintained on SHARMAINE inhibitor's, currently on hold 5. History of COPD Plan: continue with IV fluids. Discontinue sodium bicarb drip and change to LR as metabolic acidosis has improved. Follow-up on urine cultures and blood cultures. Repeat labs in a.m.
--- NOTE | 2024-04-06 10:08 | P.GSCN ---
History of Present Illness Consult date: 04/06/24 History of present illness: 78 yo male admitted to the hospital upon transfer from [place] for a uti and wendy. The patient is known to Dr singh and we were asked to see the patient. the patient had a procedure done recently but he isnot exactly aware of what was done. further questioning identifies probably a urethral dilation in the office prior to a follow-up cystoscopy. He has a history of bladder cancer treated with resections and bcg. The patient is wheel chair bound. he does have chronic difficulties with voiding including frequency and urgency. He has been on different medications from Review of Systems All systems: negative Past Medical History Past Medical History: Coronary Artery Disease (CAD), COPD, CVA/TIA, GERD/Reflux, Hyperlipidemia, Hypertension, Myocardial Infarction (MA), Musculoskeletal Disorder, Renal Disease, Sleep Apnea/CPAP/BIPAP Additional Past Medical History / Comment(s): TIA X2 (1999 & 2002), VERTIGO, C-PAP MACHINE, SCIATICA & BACK PAIN with past EPIDURAL INJECTIONS, pt states he takes zyloprim due to elevated blood test-does not have gout yet, kidney disease, past nephritis, lupus (in remission), tingling in R foot, post op infection after R rotator cuff repair requiring irrigations and packings/ABX. Last Myocardial Infarction Date:: 1999 History of Any Multi-Drug Resistant Organisms: None Reported Year Discovered:: None MDRO Source:: None Past Surgical History: Heart Catheterization With Stent, Orthopedic Surgery Additional Past Surgical History / Comment(s): RT ROTATOR CUFF-titanium used, LEFT KNEE ARTHROSCOPY, TOTAL LEFT/right KNEE, colonoscopy. TURP Past Anesthesia/Blood Transfusion Reactions: No Reported Reaction Additional Past Anesthesia/Blood Transfusion Reaction / Comm: PONV with spinal anesthesia, Date of Last Stent Placement:: 1999 Past Psychological History: No Psychological Hx Reported Smoking Status: Former smoker Past Alcohol Use History: None Reported Past Drug Use History: None Reported - Past Family History Mother Family Medical History: Cancer Additional Family Medical History / Comment(s): BREAST CA Father Family Medical History: Cancer Additional Family Medical History / Comment(s): ESOPHAGEAL CA Medications and Allergies Home Medications Medication Instructions Recorded Confirmed Type Isosorbide Mononitrate ER [Imdur] 30 mg PO DAILY 07/02/14 04/04/24 History allopurinoL [Zyloprim] 100 mg PO DAILY 06/06/17 04/04/24 History Latanoprost [Xalatan 0.005%] 1 drop BOTH EYES DIRECTED 03/02/20 04/04/24 History Apixaban [Eliquis] 5 mg PO BID 08/29/21 04/04/24 History Folic Acid 0.4 mg PO HS 08/29/21 04/04/24 History Meclizine [Antivert] 25 mg PO HS 08/29/21 04/04/24 History Metoprolol Tartrate [Lopressor] 12.5 mg PO BID 08/29/21 04/04/24 History Aspirin 81 mg PO HS 08/30/21 04/04/24 History Cholecalciferol [Vitamin D3 (25 100 mcg PO DAILY 08/30/21 04/04/24 History Mcg = 1000 Iu)] Nitroglycerin Sl Tabs [Nitrostat] 0.4 mg SUBLINGUAL Q5M PRN 08/30/21 04/04/24 History lisinopriL [Zestril] 2.5 mg PO DAILY tab 09/04/21 04/04/24 Rx Acetaminophen Tab [Tylenol Tab] 1,000 mg PO BID 04/04/24 04/04/24 History Acetaminophen [Tylenol 8 Hour] 650 mg PO BID 04/04/24 04/04/24 History Atorvastatin [Lipitor] 10 mg PO HS 04/04/24 04/04/24 History Brimonidine Tartrate [Alphagan P 1 drop LEFT EYE BID 04/04/24 04/04/24 History 0.2% Ophth Soln] Ciprofloxacin HCl [Cipro] 500 mg PO BID 04/04/24 04/04/24 History Sodium Bicarbonate Tab 650 mg PO TID 04/04/24 04/04/24 History Tolterodine ER [Detrol LA] 4 mg PO HS 04/04/24 04/04/24 History Trospium Chloride 20 mg PO BID 04/04/24 04/04/24 History Allergies Allergy/AdvReac Type Severity Reaction Status Date / Time Sulfa (Sulfonamide Allergy Unknown HIVES, Verified 04/04/24 19:58 Antibiotics) ITCHING Surgical - Exam Vital Signs Temp Pulse Resp BP 97.5 F L 110 H 22 111/74 04/04/24 18:43 04/04/24 18:43 04/04/24 18:43 04/04/24 18:43 - General well developed, well nourished, no distress - Eyes normal ocular movement, no icteric - ENT no hearing loss, no congestion - Neck no masses, trachea midline - Respiratory normal respiratory effort, clear to auscultation - Abdomen Abdomen: soft, non tender, no guarding, no rigid, no rebound - Integumentary no rash, no abnormal pigmentation - Neurologic no disoriented, no combative - Psychiatric oriented to time, oriented to person, oriented to place, speech is normal, memory intact Results - Labs 04/05/24 08:59 04/06/24 06:38 Abnormal Lab Results - Last 24 Hours (Table) 04/05/24 04/05/24 04/06/24 Range/Units 08:59 08:59 06:38 RBC 3.86 L (4.30-5.90) m/uL Hgb 12.4 L (13.0-17.5) gm/dL Hct 38.4 L (39.0-53.0) % Plt Count 126 L (150-450) k/uL Potassium 5.3 H (3.5-5.1) mmol/L Chloride 113 H (98-107) mmol/L Carbon Dioxide 17 L (22-30) mmol/L BUN 60 H 49 H (9-20) mg/dL Creatinine 3.36 H 2.26 H (0.66-1.25) mg/dL Glucose 110 H 103 H (74-99) mg/dL Albumin 3.3 L (3.5-5.0) g/dL Microbiology - Last 24 Hours (Table) 04/04/24 19:44 Blood Culture - Preliminary Blood Diabetes panel 04/05/24 04/06/24 Range/Units 08:59 06:38 Sodium 141 137 (137-145) mmol/L Potassium 5.3 H 3.8 (3.5-5.1) mmol/L Chloride 113 H 107 (98-107) mmol/L Carbon Dioxide 17 L 26 (22-30) mmol/L BUN 60 H 49 H (9-20) mg/dL Creatinine 3.36 H 2.26 H (0.66-1.25) mg/dL Glucose 110 H 103 H (74-99) mg/dL Calcium 9.1 8.4 (8.4-10.2) mg/dL AST 39 (17-59) U/L ALT 11 (4-49) U/L Alkaline Phosphatase 41 (38-126) U/L Total Protein 6.4 (6.3-8.2) g/dL Albumin 3.3 L (3.5-5.0) g/dL Thyroid panel 04/05/24 Range/Units 08:59 TSH 0.667 (0.465-4.680) mIU/L Calcium panel 04/05/24 04/06/24 Range/Units 08:59 06:38 Calcium 9.1 8.4 (8.4-10.2) mg/dL Phosphorus 3.6 (2.5-4.5) mg/dL Albumin 3.3 L (3.5-5.0) g/dL Pituitary panel 04/05/24 04/06/24 Range/Units 08:59 06:38 Sodium 141 137 (137-145) mmol/L Potassium 5.3 H 3.8 (3.5-5.1) mmol/L Chloride 113 H 107 (98-107) mmol/L Carbon Dioxide 17 L 26 (22-30) mmol/L BUN 60 H 49 H (9-20) mg/dL Creatinine 3.36 H 2.26 H (0.66-1.25) mg/dL Glucose 110 H 103 H (74-99) mg/dL Calcium 9.1 8.4 (8.4-10.2) mg/dL TSH 0.667 (0.465-4.680) mIU/L Adrenal panel 04/05/24 04/06/24 Range/Units 08:59 06:38 Sodium 141 137 (137-145) mmol/L Potassium 5.3 H 3.8 (3.5-5.1) mmol/L Chloride 113 H 107 (98-107) mmol/L Carbon Dioxide 17 L 26 (22-30) mmol/L BUN 60 H 49 H (9-20) mg/dL Creatinine 3.36 H 2.26 H (0.66-1.25) mg/dL Glucose 110 H 103 H (74-99) mg/dL Calcium 9.1 8.4 (8.4-10.2) mg/dL Total Bilirubin 0.7 (0.2-1.3) mg/dL AST 39 (17-59) U/L ALT 11 (4-49) U/L Alkaline Phosphatase 41 (38-126) U/L Total Protein 6.4 (6.3-8.2) g/dL Albumin 3.3 L (3.5-5.0) g/dL - Imaging US - kidney/bladder: report reviewed, image reviewed Assessment and Plan Assessment: Impression: uti. history of bladder cancer. Status post urethral dilation. Recommendations; From a urological standpoint cultures and antibiotics are a ppropriate. he probably has an infection due to the urethral dilation and recent cystoscopy. As an outpatient he should fu with Dr singh in the office after discharge Time with Patient: Greater than 30
[2024-04-06 12:13] LABS: Basophils # (A) 0.04 X 10*3/uL (0.00-0.10); Basophils % (A) 0.5 %; Eosinophils # (A) 0.41 X 10*3/uL (0.04-0.35); Eosinophils % (A) 5.3 %; HCT 37.2 % (39.6-50.0); HGB 12.1 g/dL (13.0-17.0); Lymphocytes # (A) 1.27 X 10*3/uL (0.90-5.00); Lymphocytes % (A) 16.5 %; MCH 32.6 pg (27.0-32.0); MCHC 32.5 g/dL (32.0-37.0); MCV 100.3 FL (80.0-97.0); Monocytes # (A) 0.48 X 10*3/uL (0.20-1.00); Monocytes % (A) 6.3 %; NRBC Per 100 WBC 0 X 10*3/uL (0.00-0.01); Neutrophils # (A) 5.44 X 10*3/uL (1.80-7.70); Neutrophils % (A) 70.9 %; Platelet Count 92 X 10*3/uL (140-440); RBC 3.71 X 10*6/uL (4.40-5.60); RBC Morphology Normal (Normal); RDW 15.3 % (11.5-14.5); WBC 7.68 X 10*3/uL (4.50-10.00)
--- NOTE | 2024-04-06 15:33 | CA ---
Transthoracic Echo Report Name: Keyon Coker Age: 78 Gender: M : 1945 Exam Date: 04/06/2024 09:12 Exam Location: [facility] Ht (in): 70 Wt (lb): 300 Ordering Physician: Dominguez Ogden MD Attending/Referring Phys: [id number], Alin Manager Behavior Wendy Becerra, DEBORAH Procedure CPT: Indications: Chest Pain Cardiac Hx: Technical Quality: Poor Contrast 1: Definity Total Dose (mL): 2 Contrast 2: Total Dose (mL): MEASUREMENTS (Male / Female) Normal Values 2D ECHO LV Diastolic Diameter PLAX 5.1 cm 4.2 - 5.9 / 3.9 - 5.3 cm LV Systolic Diameter PLAX 4.1 cm IVS Diastolic Thickness 1.2 cm 0.6 - 1.0 / 0.6 - 0.9 cm LVPW Diastolic Thickness 1.6 cm 0.6 - 1.0 / 0.6 - 0.9 cm LV Relative Wall Thickness 0.5 RV Internal Dim ED PLAX 2.3 cm LVOT Diameter 2.6 cm LA Systolic Diameter LX 5.3 cm 3.0 - 4.0 / 2.7 - 3.8 cm M-MODE Aortic Root Diameter MM 3.4 cm LA Systolic Diameter MM 5.2 cm LA Ao Ratio MM 1.5 AV Cusp Separation MM 1.2 cm DOPPLER AV Peak Velocity 238.2 cm/s AV Peak Gradient 22.7 mmHg AV Mean Velocity 183.2 cm/s AV Mean Gradient 14.5 mmHg AV Velocity Time Integral 50.9 cm AI Peak Velocity 353.5 cm/s AI Peak Gradient 50.0 mmHg AI Pressure Half Time 446.5 ms LVOT Peak Velocity 80.7 cm/s LVOT Peak Gradient 2.6 mmHg LVOT Velocity Time Integral 15.4 cm LVOT Stroke Volume 84.3 cm??? LVOT Stroke Volume Index 34.0 ml/m??? LVOT Cardiac Index 2570.6 cm???/min???m??? AV Area Cont Eq vti 1.7 cm??? AV Area Cont Eq pk 1.9 cm??? TR Peak Velocity 306.4 cm/s TR Peak Gradient 37.5 mmHg Right Ventricular Systolic Press 41.3 mmHg FINDINGS Left Ventricle Left ventricular ejection fraction is estimated at 35-40 %. Left ventricular cavity size normal. Moderate Global left ventricular hypokinesis.Moderately increased left ventricular wall thickness. Right Ventricle Severe right ventricular dilatation. Reduced right ventricular global systolic function. Mild pulmonary hypertension.prominent moderator band in right ventricle (normal variant). Right Atrium Moderate right atrial dilatation. Left Atrium Severely increased left atrial diameter. Mildly increased left atrial area. Mitral Valve Structurally normal mitral valve. Mild mitral regurgitation. No mitral stenosis. Aortic Valve Aortic valve not well visualized. Mild aortic stenosis with a peak gradient of 23 mmHg and a mean gradient of 14 mmHg. Mild aortic regurgitation. Tricuspid Valve Annular dilatation of the tricuspid valve. No tricuspid stenosis. Mild tricuspid regurgitation. Pulmonic Valve Pulmonic valve not well visualized. Pericardium No pericardial or pleural effusion. Aorta Normal size aortic root and proximal ascending aorta. CONCLUSIONS Technically difficult study. Definity ECHO contrast used for improved visualization of the endocardial borders (inadequate visualization of two or more contiguous segments). Moderately decreased left ventricular systolic function Dilated right ventricle with mild pulmonary hypertension Mild mitral and tricuspid regurgitation Mild aortic regurgitation and aortic stenosis Previewed by: Dr. Carlos Alberto Renae MD (Electronically Signed) Final Date: 06 April 2024 15:32
[2024-04-06] MEDS: DOCUSATE 100 MG CAP PO SCH (16:22)
--- NOTE | 2024-04-06 18:47 | P.PN ---
Subjective This is a pleasant 78 years old with past medical history of multiple medical problems At baseline he says he uses a wheelchair for over the last 6 months, he lives with his girlfriend, for the last 2 to 3 weeks his legs gets getting more weak. He was in his garage and he could not get up so he went to [facility]. At the [facility] he was found to have NHUNG and UTI and he was transferred to this facility. Patient states that he has been complaining from dysuria for 2 weeks, he recently had a procedure done for him with urologist Dr. Orozco, he was not sure but he says to clean his urethra No suprapubic tenderness or flank tenderness. No fever or chills. No chest pain. He has occasional coughing. He is mildly tachypneic but no overt dyspneic. Patient states that he has history of COPD and he is on 2 L oxygen at home He denies currently smoking alcohol or illicit drugs No headache dizziness or new weakness or numbness. Patient is tachycardic, hypotensive blood pressure at 90/55 Mild leukocytosis 12.5 came down to 9.7. Hemoglobin 12.4. Platelet count 126 His BMP and liver enzymes reviewed. Creatinine went up to 4.3, repeat creatinine 3.3. Potassium 5.3 Urine analysis is suspicious for infection Mildly elevated troponin 0.043 came back to reference range at 0.032. TSH is normal EKG showing irregular rhythm with right bundle branch block proBNP is elevated at 3210 04/06/2024 Patient feels somewhat better He looks tired He looks a dry little bit No dysuria, no abdominal pain. No chest pain he is complaining from some back pain. Blood pressure is improving, his hemoglobin 12.1, WBC 7.6 and platelet count 92. Creatinine went down to 2.2 with baseline 1.2-1.4 Echocardiogram showing ejection fraction of 35 to 40% with left hypokinesia.. 2 that years ago EF was 40 to 45% He remains on ceftriaxone follow-up urine and blood culture Dr. Uribe evaluated the patient, patient has history of urinary bladder cancer status post recent ureter dilatation, no further intervention required and follow-up with upon dischargebar Currently on ceftriaxone and Ringer lactate 75 mL/h, we will lower the dose to 50 mL/h given his cardiomyopathy. He remains fully anticoagulated with Eliquis 5 mg and aspirin 81 mg Review of systems CONSTITUTIONAL: No fever, no malaise, no fatigue. HEENT: No recent visual problems or hearing problems. Denied any sore throat. HEMATOLOGICAL: Denies any bleeding or petechiae. GENITOURINARY: Denies any burning micturition, frequency, or urgency. MUSCULOSKELETAL/RHEUMATOLOGICAL: Denies any joint pain, swelling, or any muscle pain. Active Medications Generic Name Dose Route Start Last Admin Trade Name Rudolphq PRN Reason Stop Dose Admin Allopurinol 100 mg 04/05/24 12:00 04/06/24 08:13 Allopurinol 100 Mg Tab PO 100 mg DAILY SHERIE Administration Apixaban 5 mg 04/05/24 12:00 04/06/24 08:12 Apixaban 5 Mg Tab PO 5 mg BID SHERIE Administration Protocol Aspirin 81 mg 04/05/24 21:00 04/05/24 20:50 Aspirin 81 Mg PO 81 mg HS SHERIE Administration Atorvastatin Calcium 10 mg 04/05/24 21:00 04/05/24 20:50 Atorvastatin 10 Mg Tab PO 10 mg HS SHERIE Administration Brimonidine Tartrate 1 drops 04/05/24 21:00 04/06/24 08:13 Brimonidine Tartrate 0.2% Drops 5 Ml Btl LEFT EYE 1 drops BID SHERIE Administration Cholecalciferol 100 mcg 04/05/24 12:00 04/06/24 08:13 Cholecalciferol 25 Mcg (1000 Iu) Tablet PO 100 mcg DAILY SHERIE Administration Docusate Sodium 100 mg 04/06/24 21:00 04/06/24 16:22 Docusate 100 Mg Cap PO 100 mg BID SHERIE Administration Famotidine 20 mg 04/05/24 21:00 04/05/24 20:51 Famotidine 20 Mg/2 Ml Vial IV 20 mg HS SHERIE Administration Folic Acid 0.5 mg 04/05/24 21:00 04/05/24 20:50 Folic Acid 1 Mg Tab PO 0.5 mg HS SHERIE Administration Hydromorphone HCl 1 mg 04/04/24 19:32 04/05/24 13:10 Hydromorphone 1 Mg/Ml 1 Ml Syringe IVP 1 mg Q3HR PRN Administration Severe Pain (Scale 7 to 10) Ceftriaxone Sodium 2 gm/ 50 mls @ 100 mls/hr 04/04/24 19:15 04/06/24 08:12 Sodium Chloride IVPB 100 mls/hr Q24HR SHERIE Administration Protocol Lactated Ringer's 1,000 mls @ 75 mls/hr 04/06/24 07:45 04/06/24 08:49 Lactated Ringers IV 75 mls/hr .[id number] SHERIE Administration Latanoprost 1 drops 04/05/24 21:00 04/05/24 21:42 Latanoprost 0.005% Ophth Drops 2.5 Ml Btl BOTH EYES 1 drops HS SHERIE Administration Metoprolol Tartrate 12.5 mg 04/05/24 21:00 04/06/24 08:52 Metoprolol Tartrate 12.5 Mg Tab PO Not Given BID SHERIE Naloxone HCl 0.2 mg 04/04/24 19:32 Naloxone 0.4 Mg/Ml 1 Ml Vial IV Q2M PRN Opioid Reversal Nitroglycerin 0.4 mg 04/05/24 10:38 Nitroglycerin Sl Tabs 0.4 Mg Tab SUBLINGUAL Q5M PRN Chest Pain Nystatin 1 applic 04/06/24 01:00 04/06/24 08:13 Nystatin 100,000 Unit/Gm Powd 15 Gm TOPICAL 1 applic BID SHERIE Administration Protocol Ondansetron HCl 4 mg 04/04/24 19:32 Ondansetron 4 Mg/2 Ml Vial IVP Q8HR PRN Nausea And Vomiting Polyethylene Glycol 17 gm 04/06/24 15:50 Polyethylene Glycol 3350 17 Gm Powd.Pack PO DAILY PRN Constipation Objective - Vital Signs Vital signs: Vital Signs Temp 97.3 F L 04/06/24 11:41 Pulse 41 L 04/06/24 11:41 Resp 20 04/06/24 11:41 BP 140/84 04/06/24 11:41 Pulse Ox 93 L 04/06/24 07:23 FiO2 Intake & Output 04/05/24 04/06/24 04/06/24 18:59 06:59 18:59 Intake Total 1560 1100 Output Total 307 536 9593 Balance 1160 900 -1200 Intake: Intake, IV Titration 1100 Amount Dextrose 5% in Water 1, 1100 000 ml @ 100 mls/hr IV . [id number] SHERIE with Sodium Bicarb (1 Meq/ml) 150 ml Rx#:[id number] Oral 1560 Output: Urine 459 [id number] [id number] Other: Voiding Method External Catheter External Catheter External Catheter # Voids 600 - Exam -GENERAL: The patient is alert and oriented x3, not in any acute distress. Well developed, well nourished. Obese, generally weak HEENT: Pupils are round and equally reacting to light. EOMI. No scleral icterus. No conjunctival pallor. Normocephalic, atraumatic. No pharyngeal erythema. No thyromegaly. CARDIOVASCULAR: S1 and S2 present. No murmurs, rubs, or gallops. PULMONARY: Chest is clear to auscultation, no wheezing , no crackles. ABDOMEN: Soft, nontender, nondistended, normoactive bowel sounds. No palpable organomegaly. MUSCULOSKELETAL: No joint swelling or deformity. EXTREMITIES: No cyanosis, clubbing, or pedal edema. NEUROLOGICAL: Gross neurological examination did not reveal any focal deficits. SKIN: No rashes. no petechiae. - Labs CBC & Chem 7: 04/06/24 07:17 04/06/24 06:38 Labs: Abnormal Lab Results - Last 24 Hours (Table) 04/06/24 04/06/24 Range/Units 06:38 07:17 RBC 3.71 L (4.40-5.60) X 10*6/uL Hgb 12.1 L (13.0-17.0) g/dL Hct 37.2 L (39.6-50.0) % MCV 100.3 H (80.0-97.0) FL MCH 32.6 H (27.0-32.0) pg RDW 15.3 H (11.5-14.5) % Plt Count 92 L (140-440) X 10*3/uL Eosinophils # 0.41 H (0.04-0.35) X 10*3/uL BUN 49 H (9-20) mg/dL Creatinine 2.26 H (0.66-1.25) mg/dL Glucose 103 H (74-99) mg/dL Microbiology - Last 24 Hours (Table) 04/04/24 19:44 Blood Culture - Preliminary Blood Assessment and Plan Assessment: Acute urinary tract infection Acute kidney injury on chronic kidney disease, status post recent urological surgery Sepsis secondary to above Generally weak Morbidly obese with BMI 43.0 Mildly elevated troponin Chronic hypoxic respiratory failure COPD with no acute exacerbation Plan: Continue ceftriaxone Continue with normal saline 75 mL/h, . Also give a bolus of 500 cc. Urology team consult Nephrology team consult cardilolgy consult echocardiogram reviewed Hold blood pressure medication, including lisinopril Continue with metoprolol, small dose Resume aspirin Labs and medication were reviewed.. Continue same treatment. Continue with symptomatic treatment. Resume home medication. Monitor labs and vitals. DVT and GI prophylaxis. Further recommendations as per clinical course of the patient DVT prophylaxis: Subcutaneous heparin GI Prophylaxis: Pepcid PT/OT: Pending Prognosis is guarded
[2024-04-06] MEDS: polyethylene glycoL 3350 17 GM POWD.PACK PO PRN (20:56)
[2024-04-06] MEDS: bisacodyL 10 MG SUPP RECTAL STA (22:50)
--- NOTE | 2024-04-07 09:14 | P.PN ---
Subjective Progress Note Date: 04/07/24 the patient is in the hospital with a urine infection after urethral dilation. He feels better.he is voiding without difficulty. Objective - Vital Signs Vital signs: Vital Signs Temp 97.8 F 04/07/24 07:25 Pulse 98 04/07/24 07:25 Resp 18 04/07/24 07:25 BP 129/66 04/07/24 07:25 Pulse Ox 90 L 04/07/24 07:25 FiO2 Intake & Output 04/06/24 04/07/24 04/07/24 18:59 06:59 18:59 Intake Total 550 Output Total 1200 1575 Balance -1200 -1025 Intake: Intake, IV Titration 550 Amount Lactated Ringers 1,000 ml 550 @ 50 mls/hr IV .Q20H [facility] Rx#:[id number] Output: Urine 1200 1575 Other: Voiding Method External Catheter External Catheter - Labs CBC & Chem 7: 04/06/24 07:17 04/06/24 06:38 Labs: Abnormal Lab Results - Last 24 Hours (Table) 04/06/24 Range/Units 07:17 RBC 3.71 L (4.40-5.60) X 10*6/uL Hgb 12.1 L (13.0-17.0) g/dL Hct 37.2 L (39.6-50.0) % MCV 100.3 H (80.0-97.0) FL MCH 32.6 H (27.0-32.0) pg RDW 15.3 H (11.5-14.5) % Plt Count 92 L (140-440) X 10*3/uL Eosinophils # 0.41 H (0.04-0.35) X 10*3/uL Microbiology - Last 24 Hours (Table) 04/04/24 19:44 Blood Culture - Preliminary Blood Assessment and Plan Assessment: impression: The patient cultures are pending. He has a urine infection that is resolving. He feels better. Recommendations: The patient can be discharged home at any time from a urologic standpoint on antibiotics.he should follow with in a couple of weeks as an outpatient.
--- NOTE | 2024-04-07 10:11 | P.PN ---
Subjective Patient is seen in follow-up for acute kidney injury on chronic kidney disease. Creatinine 2.26 yesterday. Receiving IV fluids. Denies chest pain or shortness of breath. Nonoliguric. Vital signs are stable. General: No acute distress. HEENT: Head exam is unremarkable. On nasal cannula. Heart: Regular rate and rhythm. LUNGS: No audible rhonchi or wheezes. ABDOMEN: Nontender. EXTREMITITES: No edema. Objective - Vital Signs Vital signs: Vital Signs Temp 97.8 F 04/07/24 07:25 Pulse 98 04/07/24 07:25 Resp 18 04/07/24 07:25 BP 129/66 04/07/24 07:25 Pulse Ox 90 L 04/07/24 07:25 FiO2 Intake & Output 04/06/24 04/07/24 04/07/24 18:59 06:59 18:59 Intake Total 550 Output Total 1200 1575 Balance -1200 -1025 Intake: Intake, IV Titration 550 Amount Lactated Ringers 1,000 ml 550 @ 50 mls/hr IV .Q20H SHERIE Rx#:[id number] Output: Urine 1200 1575 Other: Voiding Method External Catheter External Catheter - Labs CBC & Chem 7: 04/06/24 07:17 04/06/24 06:38 Labs: Abnormal Lab Results - Last 24 Hours (Table) 04/06/24 Range/Units 07:17 RBC 3.71 L (4.40-5.60) X 10*6/uL Hgb 12.1 L (13.0-17.0) g/dL Hct 37.2 L (39.6-50.0) % MCV 100.3 H (80.0-97.0) FL MCH 32.6 H (27.0-32.0) pg RDW 15.3 H (11.5-14.5) % Plt Count 92 L (140-440) X 10*3/uL Eosinophils # 0.41 H (0.04-0.35) X 10*3/uL Microbiology - Last 24 Hours (Table) 04/04/24 19:44 Blood Culture - Preliminary Blood Assessment and Plan Plan: Assessment: 1. Acute kidney injury secondary to ATN secondary to severe sepsis. Creatinine 4.42 on admission and was down to 2.26 yesterday. No hydronephrosis noted on kidney ultrasound. 2. Chronic kidney disease stage IIIb with baseline creatinine 1.3-1.4 secondary to nephrosclerosis. 3. Hypertension with chronic kidney disease. Stable. 4. UTI on antibiotics. Plan: Maintain gentle IV hydration. Encouraged oral intake. Avoid nephrotoxins.
[2024-04-07] MEDS: ONDANSETRON 4 MG/2 ML VIAL IVP PRN (12:13)
--- NOTE | 2024-04-07 15:13 | P.CRDCN ---
History of Present Illness Consult date: 04/07/24 History of present illness: History of Present Illness: The patient is a 78-year-old male who was transferred with symptoms of progressive weakness, change in mental status, evidence of acute kidney injury and urinary tract infection. Cardiology consultation was requested because of cardiomyopathy. The patient is followed on a regular basis by Dr. Devries, has a history of CAD status post stenting, history of CHF, persistent atrial fibrillation. He has chronic dyspnea on exertion, he is limited in his physical activity. He denies any significant chest discomfort or peripheral edema. He has no palpitations, PND or orthopnea. His echocardiogram showed an ejection fraction of 35 to 40% with dilated right ventricle and mild pulmonary hypertension in addition to mild mitral, aortic and tricuspid regurgitation. On admission he had significant worsening of his renal functions that are improving. His troponin was 0.043 and NT proBNP 3210. He feels that his breathing is at baseline at this time. He has a prior history of CVA and COPD and a prior history of smoking. Since his admission he has been treated with antibiotics with improvement in his symptoms. Medications: Metoprolol tartrate 12.5 mg twice a day, Zestril 2.5 mg daily, isosorbide mononitrate 30 mg daily, Lipitor 10 mg daily, aspirin, Eliquis 5 mg twice a day, Zyloprim, tolterodine Review of Systems: Respiratory: He has chronic dyspnea on exertion and history of obstructive lung disease GI: No nausea or vomiting . No history of peptic ulcer disease. No recent GI bleed. : He has hematuria and evidence of urine tract infection Nervous System: He has a prior history of stroke Physical Examination: 78-year-old male, alert somewhat sleepy,Blood pressure 129/60, Heart rate 98 Head: Normocephalic. Eyes: Sclerae nonicteric. Neck: Good carotid upstroke, no bruit, no jugular venous distention. Lungs: Clear to auscultation. Heart: Irregular rate and rhythm, S1-S2, no S3, no rub. Systolic ejection murmur. Abdomen: Soft nontender, positive bowel sounds no organomegaly, obese. Extremities: No edema, intact distal pulses. Labs: Hemoglobin 12.1. His BUN yesterday is down to 49 and creatinine 2.26. TSH 0.667 procalcitonin 0.32. Chest x-ray shows airspace opacity over the left lung EKG: Atrial fibrillation with right bundle branch block, nonspecific ST-T wave changes Impression: 1. Urinary tract infection 2. Acute on chronic kidney disease, improving 3. History of cardiomyopathy 4., History of CAD status post PCI 5. Chronic persistent atrial fibrillation 6. Hyperlipidemia Plan: 1. Increase beta-von 2. Continue anticoagulation 3. Follow renal functions to see if he is a candidate for Farxiga and Entresto depending on the blood pressure 4. Increase dose of statin 5. Depending on his progress further recommendations will be made, thank you for this consult we will follow with you Past Medical History Past Medical History: Coronary Artery Disease (CAD), COPD, CVA/TIA, GERD/Reflux, Hyperlipidemia, Hypertension, Myocardial Infarction (VT), Musculoskeletal Disorder, Renal Disease, Sleep Apnea/CPAP/BIPAP Additional Past Medical History / Comment(s): TIA X2 (1999 & 2002), VERTIGO, C- PAP MACHINE, SCIATICA & BACK PAIN with past EPIDURAL INJECTIONS, pt states he takes zyloprim due to elevated blood test-does not have gout yet, kidney disease, past nephritis, lupus (in remission), tingling in R foot, post op infection after R rotator cuff repair requiring irrigations and packings/ABX. Last Myocardial Infarction Date:: 1999 History of Any Multi-Drug Resistant Organisms: None Reported Date of last positivie culture/infection: None MDRO Source:: None Past Surgical History: Heart Catheterization With Stent, Orthopedic Surgery Additional Past Surgical History / Comment(s): RT ROTATOR CUFF-titanium used, LEFT KNEE ARTHROSCOPY, TOTAL LEFT/right KNEE, colonoscopy. TURP Past Anesthesia/Blood Transfusion Reactions: No Reported Reaction Additional Past Anesthesia/Blood Transfusion Reaction / Comment(s): PONV with spinal anesthesia, Date of Last Stent Placement:: 1999 Past Psychological History: No Psychological Hx Reported Smoking Status: Former smoker Past Alcohol Use History: None Reported Past Drug Use History: None Reported - Past Family History Mother Family Medical History: Cancer Additional Family Medical History / Comment(s): BREAST CA Father Family Medical History: Cancer Additional Family Medical History / Comment(s): ESOPHAGEAL CA Medications and Allergies Home Medications Medication Instructions Recorded Confirmed Type Isosorbide Mononitrate ER [Imdur] 30 mg PO DAILY 07/02/14 04/04/24 History allopurinoL [Zyloprim] 100 mg PO DAILY 06/06/17 04/04/24 History Latanoprost [Xalatan 0.005%] 1 drop BOTH EYES DIRECTED 03/02/20 04/04/24 History Apixaban [Eliquis] 5 mg PO BID 08/29/21 04/04/24 History Folic Acid 0.4 mg PO HS 08/29/21 04/04/24 History Meclizine [Antivert] 25 mg PO HS 08/29/21 04/04/24 History Metoprolol Tartrate [Lopressor] 12.5 mg PO BID 08/29/21 04/04/24 History Aspirin 81 mg PO HS 08/30/21 04/04/24 History Cholecalciferol [Vitamin D3 (25 100 mcg PO DAILY 08/30/21 04/04/24 History Mcg = 1000 Iu)] Nitroglycerin Sl Tabs [Nitrostat] 0.4 mg SUBLINGUAL Q5M PRN 08/30/21 04/04/24 History lisinopriL [Zestril] 2.5 mg PO DAILY tab 09/04/21 04/04/24 Rx Acetaminophen Tab [Tylenol Tab] 1,000 mg PO BID 04/04/24 04/04/24 History Acetaminophen [Tylenol 8 Hour] 650 mg PO BID 04/04/24 04/04/24 History Atorvastatin [Lipitor] 10 mg PO HS 04/04/24 04/04/24 History Brimonidine Tartrate [Alphagan P 1 drop LEFT EYE BID 04/04/24 04/04/24 History 0.2% Ophth Soln] Ciprofloxacin HCl [Cipro] 500 mg PO BID 04/04/24 04/04/24 History Sodium Bicarbonate Tab 650 mg PO TID 04/04/24 04/04/24 History Tolterodine ER [Detrol LA] 4 mg PO HS 04/04/24 04/04/24 History Trospium Chloride 20 mg PO BID 04/04/24 04/04/24 History Allergies Allergy/AdvReac Type Severity Reaction Status Date / Time Sulfa (Sulfonamide Allergy Unknown HIVES, Verified 04/04/24 19:58 Antibiotics) ITCHING Physical Exam Vitals: Vital Signs Temp Pulse Resp BP BP Pulse Ox 04/07/24 11:33 98.2 F 71 16 99/69 94 L 04/07/24 07:25 97.8 F 98 18 129/66 90 L 04/07/24 02:00 97.7 F 92 12 100/66 89 L 04/06/24 20:00 97.4 F L 101 H 12 104/73 85 L Intake and Output 04/07/24 04/07/24 04/07/24 06:59 14:59 22:59 Intake Total 550 Output Total 1575 Balance -1025 Intake: Intake, IV Titration 550 Amount Lactated Ringers 1,000 ml 550 @ 50 mls/hr IV .Q20H [facility] Rx#:[id number] Output: Urine 1575 Other: Voiding Method Diaper External Catheter Results 04/06/24 07:17 04/06/24 06:38 Current Medications Generic Name Dose Route Start Last Admin Trade Name Freq PRN Reason Stop Dose Admin Allopurinol 100 mg 04/05/24 12:00 04/07/24 08:30 Allopurinol 100 Mg Tab PO 100 mg DAILY SHERIE Administration Apixaban 5 mg 04/05/24 12:00 04/07/24 08:31 Apixaban 5 Mg Tab PO 5 mg BID SHERIE Administration Protocol Aspirin 81 mg 04/05/24 21:00 04/06/24 20:57 Aspirin 81 Mg PO 81 mg HS SHERIE Administration Atorvastatin Calcium 10 mg 04/05/24 21:00 04/06/24 20:57 Atorvastatin 10 Mg Tab PO 10 mg HS SHERIE Administration Brimonidine Tartrate 1 drops 04/05/24 21:00 04/07/24 08:31 Brimonidine Tartrate 0.2% Drops 5 Ml Btl LEFT EYE 1 drops BID SHERIE Administration Cholecalciferol 100 mcg 04/05/24 12:00 04/07/24 08:30 Cholecalciferol 25 Mcg (1000 Iu) Tablet PO 100 mcg DAILY SHERIE Administration Docusate Sodium 100 mg 04/06/24 21:00 04/07/24 08:30 Docusate 100 Mg Cap PO 100 mg BID SHERIE Administration Famotidine 20 mg 04/05/24 21:00 04/06/24 20:57 Famotidine 20 Mg/2 Ml Vial IV 20 mg HS SHERIE Administration Folic Acid 0.5 mg 04/05/24 21:00 04/06/24 20:57 Folic Acid 1 Mg Tab PO 0.5 mg HS SHERIE Administration Hydromorphone HCl 1 mg 04/04/24 19:32 04/07/24 08:39 Hydromorphone 1 Mg/Ml 1 Ml Syringe IVP 1 mg Q3HR PRN Administration Severe Pain (Scale 7 to 10) Ceftriaxone Sodium 2 gm/ 50 mls @ 100 mls/hr 04/04/24 19:15 04/07/24 08:30 Sodium Chloride IVPB 100 mls/hr Q24HR SHERIE Administration Protocol Lactated Ringer's 1,000 mls @ 50 mls/hr 04/06/24 07:45 04/06/24 22:28 Lactated Ringers IV 50 mls/hr .Q20H SHERIE Administration Latanoprost 1 drops 04/05/24 21:00 04/06/24 21:09 Latanoprost 0.005% Ophth Drops 2.5 Ml Btl BOTH EYES 1 drops HS SHERIE Administration Metoprolol Tartrate 12.5 mg 04/05/24 21:00 04/07/24 08:30 Metoprolol Tartrate 12.5 Mg Tab PO 12.5 mg BID SHERIE Administration Naloxone HCl 0.2 mg 04/04/24 19:32 Naloxone 0.4 Mg/Ml 1 Ml Vial IV Q2M PRN Opioid Reversal Nitroglycerin 0.4 mg 04/05/24 10:38 Nitroglycerin Sl Tabs 0.4 Mg Tab SUBLINGUAL Q5M PRN Chest Pain Nystatin 1 applic 04/06/24 01:00 04/07/24 08:31 Nystatin 100,000 Unit/Gm Powd 15 Gm TOPICAL 1 applic BID SHERIE Administration Protocol Ondansetron HCl 4 mg 04/04/24 19:32 04/07/24 12:13 Ondansetron 4 Mg/2 Ml Vial IVP 4 mg Q8HR PRN Administration Nausea And Vomiting Polyethylene Glycol 17 gm 04/06/24 15:50 04/06/24 20:56 Polyethylene Glycol 3350 17 Gm Powd.Pack PO 17 gm DAILY PRN Administration Constipation Intake and Output 04/07/24 04/07/24 04/07/24 06:59 14:59 22:59 Intake Total 550 Output Total 1575 Balance -1025 Intake: Intake, IV Titration 550 Amount Lactated Ringers 1,000 ml 550 @ 50 mls/hr IV .Q20H [facility] Rx#:[id number] Output: Urine 1575 Other: Voiding Method Diaper External Catheter 04/06/24 07:17 04/06/24 06:38
--- NOTE | 2024-04-07 20:52 | P.PN ---
Subjective This is a pleasant 78 years old with past medical history of multiple medical problems At baseline he says he uses a wheelchair for over the last 6 months, he lives with his girlfriend, for the last 2 to 3 weeks his legs gets getting more weak. He was in his garage and he could not get up so he went to [facility]. At the [facility] he was found to have NHUNG and UTI and he was transferred to this facility. Patient states that he has been complaining from dysuria for 2 weeks, he recently had a procedure done for him with urologist Dr. Orozco, he was not sure but he says to clean his urethra No suprapubic tenderness or flank tenderness. No fever or chills. No chest pain. He has occasional coughing. He is mildly tachypneic but no overt dyspneic. Patient states that he has history of COPD and he is on 2 L oxygen at home He denies currently smoking alcohol or illicit drugs No headache dizziness or new weakness or numbness. Patient is tachycardic, hypotensive blood pressure at 90/55 Mild leukocytosis 12.5 came down to 9.7. Hemoglobin 12.4. Platelet count 126 His BMP and liver enzymes reviewed. Creatinine went up to 4.3, repeat creatinine 3.3. Potassium 5.3 Urine analysis is suspicious for infection Mildly elevated troponin 0.043 came back to reference range at 0.032. TSH is normal EKG showing irregular rhythm with right bundle branch block proBNP is elevated at 3210 04/06/2024 Patient feels somewhat better He looks tired He looks a dry little bit No dysuria, no abdominal pain. No chest pain he is complaining from some back pain. Blood pressure is improving, his hemoglobin 12.1, WBC 7.6 and platelet count 92. Creatinine went down to 2.2 with baseline 1.2-1.4 Echocardiogram showing ejection fraction of 35 to 40% with left hypokinesia.. 2 that years ago EF was 40 to 45% He remains on ceftriaxone follow-up urine and blood culture Dr. Uribe evaluated the patient, patient has history of urinary bladder cancer status post recent ureter dilatation, no further intervention required and follow-up with upon dischargebar Currently on ceftriaxone and Ringer lactate 75 mL/h, we will lower the dose to 50 mL/h given his cardiomyopathy. He remains fully anticoagulated with Eliquis 5 mg and aspirin 81 mg 04/07 Patient remains weak and lethargic, and he was found to have acute urinary tract infection most likely related to his recent history of prior bladder cancer status post urethral dilatation. Urine culture is growing no bacteria. However still the suspicion of infection is high. He remains also receiving IV fluid Ringer lactate at 50 mL/h, rate was lowered today. Creatinine improving down to 2.2. Echocardiogram showing decreased ejection fraction of 35 to 40%. Cardiology input is appreciated, increase dose of metoprolol and Lipitor. And monitor kidney function Review of systems CONSTITUTIONAL: No fever, no malaise, no fatigue. HEENT: No recent visual problems or hearing problems. Denied any sore throat. HEMATOLOGICAL: Denies any bleeding or petechiae. GENITOURINARY: Denies any burning micturition, frequency, or urgency. MUSCULOSKELETAL/RHEUMATOLOGICAL: Denies any joint pain, swelling, or any muscle pain. Active Medications Generic Name Dose Route Start Last Admin Trade Name Freq PRN Reason Stop Dose Admin Allopurinol 100 mg 04/05/24 12:00 04/07/24 08:30 Allopurinol 100 Mg Tab PO 100 mg DAILY SHERIE Administration Apixaban 5 mg 04/05/24 12:00 04/07/24 08:31 Apixaban 5 Mg Tab PO 5 mg BID SHERIE Administration Protocol Aspirin 81 mg 04/05/24 21:00 04/06/24 20:57 Aspirin 81 Mg PO 81 mg HS SHERIE Administration Atorvastatin Calcium 40 mg 04/07/24 21:00 Atorvastatin 40 Mg Tab PO HS [facility] Brimonidine Tartrate 1 drops 04/05/24 21:00 04/07/24 08:31 Brimonidine Tartrate 0.2% Drops 5 Ml Btl LEFT EYE 1 drops BID SHERIE Administration Cholecalciferol 100 mcg 04/05/24 12:00 04/07/24 08:30 Cholecalciferol 25 Mcg (1000 Iu) Tablet PO 100 mcg DAILY SHERIE Administration Docusate Sodium 100 mg 04/06/24 21:00 04/07/24 08:30 Docusate 100 Mg Cap PO 100 mg BID SHERIE Administration Famotidine 20 mg 04/05/24 21:00 04/06/24 20:57 Famotidine 20 Mg/2 Ml Vial IV 20 mg HS SHERIE Administration Folic Acid 0.5 mg 04/05/24 21:00 04/06/24 20:57 Folic Acid 1 Mg Tab PO 0.5 mg HS SHERIE Administration Hydromorphone HCl 1 mg 04/04/24 19:32 04/07/24 08:39 Hydromorphone 1 Mg/Ml 1 Ml Syringe IVP 1 mg Q3HR PRN Administration Severe Pain (Scale 7 to 10) Ceftriaxone Sodium 2 gm/ 50 mls @ 100 mls/hr 04/04/24 19:15 04/07/24 08:30 Sodium Chloride IVPB 100 mls/hr Q24HR SHERIE Administration Protocol Lactated Ringer's 1,000 mls @ 50 mls/hr 04/06/24 07:45 04/07/24 20:11 Lactated Ringers IV 50 mls/hr .Q20H SHERIE Administration Latanoprost 1 drops 04/05/24 21:00 04/06/24 21:09 Latanoprost 0.005% Ophth Drops 2.5 Ml Btl BOTH EYES 1 drops HS SHERIE Administration Metoprolol Tartrate 25 mg 04/07/24 21:00 Metoprolol Tartrate 25 Mg Tab PO BID SHERIE Naloxone HCl 0.2 mg 04/04/24 19:32 Naloxone 0.4 Mg/Ml 1 Ml Vial IV Q2M PRN Opioid Reversal Nitroglycerin 0.4 mg 04/05/24 10:38 Nitroglycerin Sl Tabs 0.4 Mg Tab SUBLINGUAL Q5M PRN Chest Pain Nystatin 1 applic 04/06/24 01:00 04/07/24 08:31 Nystatin 100,000 Unit/Gm Powd 15 Gm TOPICAL 1 applic BID SHERIE Administration Protocol Ondansetron HCl 4 mg 04/04/24 19:32 04/07/24 12:13 Ondansetron 4 Mg/2 Ml Vial IVP 4 mg Q8HR PRN Administration Nausea And Vomiting Polyethylene Glycol 17 gm 04/06/24 15:50 04/06/24 20:56 Polyethylene Glycol 3350 17 Gm Powd.Pack PO 17 gm DAILY PRN Administration Constipation Objective - Vital Signs Vital signs: Vital Signs Temp 98.2 F 04/07/24 11:33 Pulse 71 04/07/24 11:33 Resp 16 04/07/24 11:33 BP 99/69 04/07/24 11:33 Pulse Ox 94 L 04/07/24 11:33 FiO2 Intake & Output 04/06/24 04/07/24 04/07/24 18:59 06:59 18:59 Intake Total 550 Output Total 1200 1575 Balance -1200 -1025 Intake: Intake, IV Titration 550 Amount Lactated Ringers 1,000 ml 550 @ 50 mls/hr IV .Q20H [facility] Rx#:[id number] Output: Urine 1200 1575 Other: Voiding Method External Catheter External Catheter Diaper External Catheter - Exam -GENERAL: The patient is alert and oriented x3, not in any acute distress. Well developed, well nourished. Obese, generally weak HEENT: Pupils are round and equally reacting to light. EOMI. No scleral icterus. No conjunctival pallor. Normocephalic, atraumatic. No pharyngeal erythema. No thyromegaly. CARDIOVASCULAR: S1 and S2 present. No murmurs, rubs, or gallops. PULMONARY: Chest is clear to auscultation, no wheezing , no crackles. ABDOMEN: Soft, nontender, nondistended, normoactive bowel sounds. No palpable organomegaly. MUSCULOSKELETAL: No joint swelling or deformity. EXTREMITIES: No cyanosis, clubbing, or pedal edema. NEUROLOGICAL: Gross neurological examination did not reveal any focal deficits. SKIN: No rashes. no petechiae. - Labs CBC & Chem 7: 04/06/24 07:17 04/06/24 06:38 Labs: Microbiology - Last 24 Hours (Table) 04/04/24 19:44 Blood Culture - Preliminary Blood Assessment and Plan Assessment: Acute urinary tract infection Acute kidney injury on chronic kidney disease, status post recent urological surgery, he was a dilatation for his urinary bladder cancer Sepsis secondary to above Generally weak Morbidly obese with BMI 43.0 Mildly elevated troponin. Secondary to cardiomyopathy with ejection fraction of 35 to 40% Chronic hypoxic respiratory failure COPD with no acute exacerbation Plan: Continue ceftriaxone Continue with n Ringer lactate at 50 mL/h, . Urology team consult Nephrology team consult cardilolgy consult Lisinopril was held, may add Entresto or Farxiga pending renal function improvement Continue with metoprolol, small dose, dose increased Resume aspirin Labs and medication were reviewed.. Continue same treatment. Continue with symptomatic treatment. Resume home medication. Monitor labs and vitals. DVT and GI prophylaxis. Further recommendations as per clinical course of the patient DVT prophylaxis: Subcutaneous heparin GI Prophylaxis: Pepcid PT/OT: Pending Prognosis is guarded
[2024-04-07] MEDS: ATORVASTATIN 40 MG TAB PO SCH (20:55)
[2024-04-07] MEDS: METOPROLOL TARTRATE 25 MG TAB PO SCH (20:56)
[2024-04-08 01:42] LABS: Glucose,Whole Blood 195 mg/dL (70-110)
[2024-04-08 02:30] LABS: Glucose,Whole Blood 187 mg/dL (70-110)
[2024-04-08 02:32] LABS: ABG PCO2 51 mmHg (35-45); ABG PH 7.32 (7.35-7.45); ABG PO2 47 mmHg (83-108); Allen Test Performed? Yes
--- NOTE | 2024-04-08 02:32 | XR ---
EXAM: XR Chest, 1 View CLINICAL HISTORY: ITS.REASON XR Reason: A team protocol TECHNIQUE: Frontal view of the chest. COMPARISON: No relevant prior studies available. IMPRESSION: Cardiomegaly. Linear opacities in the left frontal lobe. Correlate with atelectasis.
[2024-04-08 02:33] LABS: ABG Base Excess -0.1 mmol/L; ABG HCO3 27 mmol/L (21-25); ABG TCO2 28 mmol/L (19-24)
[2024-04-08 02:55] LABS: African American GFR (CKD) 35 (>60 ml/min/1.73 sqM); Anion Gap 8 mmol/L; Blood Urea Nitrogen 42 mg/dL (9-20); Calcium 8.8 mg/dL (8.4-10.2); Carbon Dioxide 23 mmol/L (22-30); Chloride 108 mmol/L (98-107); Glucose 191 mg/dL (74-99); Non-African American GFR(CKD) 31 (>60 ml/min/1.73 sqM); Potassium 4.7 mmol/L (3.5-5.1); Sodium 139 mmol/L (137-145)
[2024-04-08 03:02] LABS: HCT 39.9 % (39.0-53.0); HGB 12.9 gm/dL (13.0-17.5); Hypochromasia Slight; MCH 32.4 pg (25.0-35.0); MCHC 32.2 g/dL (31.0-37.0); MCV 100.6 fL (80.0-100.0); Macrocytosis Slight; Mean Platelet Volume 9.2; Platelet Count 131 k/uL (150-450); RBC 3.97 m/uL (4.30-5.90)
[2024-04-08 06:18] LABS: African American GFR (CKD) 34 (>60 ml/min/1.73 sqM); Anion Gap 8 mmol/L; Blood Urea Nitrogen 44 mg/dL (9-20); Calcium 8.5 mg/dL (8.4-10.2); Carbon Dioxide 25 mmol/L (22-30); Chloride 106 mmol/L (98-107); Glucose 112 mg/dL (74-99); Magnesium 1.4 mg/dL (1.6-2.3); Non-African American GFR(CKD) 30 (>60 ml/min/1.73 sqM); Potassium 4.8 mmol/L (3.5-5.1); Sodium 139 mmol/L (137-145)
[2024-04-08] MEDS ORDERED: Magnesium Replacement Protocol 1 EACH MISC MISCELLANE PRN ×2 (06:29→06:53)
[2024-04-08 06:30] LABS: Basophils # (A) 0.1 k/uL (0-0.2); Basophils % (A) 1 %; Eosinophils # (A) 0.1 k/uL (0-0.7); Eosinophils % (A) 1 %; HCT 37.5 % (39.0-53.0); HGB 11.7 gm/dL (13.0-17.5); Hypochromasia Moderate; Lymphocytes # (A) 0.9 k/uL (1.0-4.8); Lymphocytes % (A) 10 %; MCH 31.5 pg (25.0-35.0); MCHC 31.2 g/dL (31.0-37.0); Macrocytosis Slight; Mean Platelet Volume 8.9; Monocytes # (A) 0.6 k/uL (0-1.0); Monocytes % (A) 6 %; Neutrophils # (A) 7.8 k/uL (1.3-7.7); Neutrophils % (A) 80 %; Platelet Count 113 k/uL (150-450); RBC 3.71 m/uL (4.30-5.90); RDW 14.4 % (11.5-15.5); WBC 9.8 k/uL (3.8-10.6)
[2024-04-08] MEDS: MAGNESIUM SULFATE-D5W PMX 1 GM in DEXTROSE/WATER 1 100ML.BAG IVPB SCH (07:04)
[2024-04-08] MEDS ORDERED: MAGNESIUM SULFATE-D5W PMX 1 GM in DEXTROSE/WATER 1 100ML.BAG IVPB SCH (07:30)
--- NOTE | 2024-04-08 07:40 | XR ---
EXAMINATION TYPE: XR chest 1V portable DATE OF EXAM: 04/08/2024 COMPARISON: 04/08/2024 CLINICAL INDICATION: Male, 78 years old with history of atelectasis; TECHNIQUE: Single frontal view of the chest is obtained. FINDINGS: There is no change in the bandlike opacity in left midlung which could represent fluid within the fis sure. There is a small left pleural effusion blunting the left costophrenic angle. There is a probabl e small right effusion as well. There is no pneumothorax. Heart size is difficult to determine with this technique. There is no defin ite pulmonary vascular congestion IMPRESSION: Stable small bilateral pleural effusions, left greater than right as described above. [facility], Workstation: [email or web address] 04/08/2024 7:38 AM
--- NOTE | 2024-04-08 08:56 | P.PN ---
Subjective Progress Note Date: 04/08/24 PROGRESS NOTE The patient is a 78-year-old male who was transferred with symptoms of progressive weakness, change in mental status, evidence of acute kidney injury and urinary tract infection. Cardiology consultation was requested because of cardiomyopathy. The patient is followed on a regular basis by Dr. Eng, has a history of CAD status post stenting of the RCA, history of CHF, persistent atrial fibrillation. He has chronic dyspnea on exertion, he is limited in his physical activity. He denies any significant chest discomfort or peripheral edema. He has no palpitations, PND or orthopnea. His echocardiogram showed an ejection fraction of 35 to 40% with dilated right ventricle and mild pulmonary hypertension in addition to mild mitral, aortic and tricuspid regurgitation. On admission he had significant worsening of his renal functions that are improving. His troponin was 0.043 and NT proBNP 3210. He feels that his breathing is at baseline at this time. He has a prior history of CVA and COPD and a prior history of smoking. Since his admission he has been treated with antibiotics with improvement in his symptoms. April 08: The patient yesterday became quite dyspneic, confused was transferred to the ICU on BiPAP. He is awake and alert today, on BiPAP. Continues to be in atrial fibrillation, on no vasopressors. Urine output has been stable. There is no evidence of malignant arrhythmia. He had an echocardiogram that showed an ejection fraction of 35 to 40%. Medications: Eliquis 5 mg twice a day, aspirin once a day, Lipitor 40 mg daily, ceftriaxone, metoprolol tartrate 25 mg twice a day PHYSICAL EXAMINATION: Blood pressure 109/81 heart rate 80, awake alert on BiPAP. His blood pressure was on the lower side earlier LUNGS: Clear to auscultation HEART: Irregular rate and rhythm, S1, S2. No S3. Systolic ejection murmur ABDOMEN: Soft, nontender, no organomegaly EXTREMETIES: No edema LAB: Hemoglobin 11.7, WBC 9.8, potassium 4.8, BUN 44, creatinine 2.1. IMPRESSION: 1. Respiratory failure, multifactorial with a history of cardiomyopathy, and the patient with recent urine tract infection and hypercapnia 2. History of CAD status post stenting 3. History of CHF and moderate cardiomyopathy 4. Morbid obesity 5. Chronic persistent atrial fibrillation 6. Chronic kidney disease PLAN: 1. Continue present therapy 2. Wean BiPAP as tolerated 3. Follow renal functions and blood pressure and if stable add SHARMAINE inhibitor 4. Depending on his progress further recommendations will be made Objective - Vital Signs Vital signs: Vital Signs Temp 99.4 F 04/08/24 05:00 Pulse 82 04/08/24 07:00 Resp 15 04/08/24 07:00 BP 109/81 04/08/24 07:00 Pulse Ox 96 04/08/24 08:24 FiO2 90 04/08/24 08:32 Intake & Output 04/07/24 04/08/24 04/08/24 18:59 06:59 18:59 Intake Total 150 50 Output Total 400 500 0 Balance -400 -350 50 Intake: IV 150 50 Lactated Ringers 1,000 ml 150 50 @ 50 mls/hr IV .Q20H [facility] Rx#:[id number] Output: Urine 400 500 0 Other: Voiding Method Diaper Diaper External Catheter - Labs CBC & Chem 7: 04/08/24 05:27 04/08/24 05:27 Labs: Abnormal Lab Results - Last 24 Hours (Table) 04/08/24 04/08/24 04/08/24 Range/Units 01:39 01:55 01:55 RBC 3.97 L (4.30-5.90) m/uL Hgb 12.9 L (13.0-17.5) gm/dL Hct (39.0-53.0) % MCV 100.6 H (80.0-100.0) fL Plt Count 131 L (150-450) k/uL Neutrophils # (1.3-7.7) k/uL Lymphocytes # (1.0-4.8) k/uL ABG pH (7.35-7.45) ABG pCO2 (35-45) mmHg ABG pO2 (83-108) mmHg ABG HCO3 (21-25) mmol/L ABG Total CO2 (19-24) mmol/L ABG O2 Saturation (94-97) % Chloride 108 H (98-107) mmol/L BUN 42 H (9-20) mg/dL Creatinine 2.04 H (0.66-1.25) mg/dL Glucose 191 H (74-99) mg/dL POC Glucose (mg/dL) 195 H (70-110) mg/dL Plasma Lactic Acid Jus (0.7-2.0) mmol/L Magnesium (1.6-2.3) mg/dL 04/08/24 04/08/24 04/08/24 Range/Units 01:55 02:06 02:28 RBC (4.30-5.90) m/uL Hgb (13.0-17.5) gm/dL Hct (39.0-53.0) % MCV (80.0-100.0) fL Plt Count (150-450) k/uL Neutrophils # (1.3-7.7) k/uL Lymphocytes # (1.0-4.8) k/uL ABG pH 7.32 L (7.35-7.45) ABG pCO2 51 H (35-45) mmHg ABG pO2 47 L* (83-108) mmHg ABG HCO3 27 H (21-25) mmol/L ABG Total CO2 28 H (19-24) mmol/L ABG O2 Saturation 82.0 L (94-97) % Chloride (98-107) mmol/L BUN (9-20) mg/dL Creatinine (0.66-1.25) mg/dL Glucose (74-99) mg/dL POC Glucose (mg/dL) 187 H (70-110) mg/dL Plasma Lactic Acid Jus 3.6 H* (0.7-2.0) mmol/L Magnesium (1.6-2.3) mg/dL 04/08/24 04/08/24 Range/Units 05:27 05:27 RBC 3.71 L (4.30-5.90) m/uL Hgb 11.7 L (13.0-17.5) gm/dL Hct 37.5 L (39.0-53.0) % MCV 101.0 H (80.0-100.0) fL Plt Count 113 L (150-450) k/uL Neutrophils # 7.8 H (1.3-7.7) k/uL Lymphocytes # 0.9 L (1.0-4.8) k/uL ABG pH (7.35-7.45) ABG pCO2 (35-45) mmHg ABG pO2 (83-108) mmHg ABG HCO3 (21-25) mmol/L ABG Total CO2 (19-24) mmol/L ABG O2 Saturation (94-97) % Chloride (98-107) mmol/L BUN 44 H (9-20) mg/dL Creatinine 2.10 H (0.66-1.25) mg/dL Glucose 112 H (74-99) mg/dL POC Glucose (mg/dL) (70-110) mg/dL Plasma Lactic Acid Jus (0.7-2.0) mmol/L Magnesium 1.4 L (1.6-2.3) mg/dL Microbiology - Last 24 Hours (Table) 04/04/24 19:44 Blood Culture Gram Stain - Preliminary Blood Blood Culture - Preliminary Molecular ID 04/06/24 15:30 Urine Culture - Final Urine,Voided
[2024-04-08 08:59] LABS: ABG HCO3 29 mmol/L (21-25); ABG Oxygen Saturation 89.6 % (94-97); ABG PCO2 54 mmHg (35-45); ABG PH 7.33 (7.35-7.45); ABG TCO2 30 mmol/L (19-24); Allen Test Performed? Yes
[2024-04-08 09:03] LABS: ABG PO2 59 mmHg (83-108)
--- NOTE | 2024-04-08 09:17 | P.PN ---
Subjective Patient is seen in follow-up for acute kidney injury on chronic kidney disease. Was found obtunded yesterday without his oxygen on and was transferred to the ICU. Currently on BiPAP. Renal function stable. Receiving IV fluids. Son present at bedside. Vital signs are stable. General: No acute distress. HEENT: Head exam is unremarkable. On BiPAP. Heart: Regular rate and rhythm. LUNGS: No audible rhonchi or wheezes. ABDOMEN: Nontender. EXTREMITITES: No edema. Objective - Vital Signs Vital signs: Vital Signs Temp 99.4 F 04/08/24 05:00 Pulse 82 04/08/24 07:00 Resp 15 04/08/24 07:00 BP 109/81 04/08/24 07:00 Pulse Ox 96 04/08/24 08:24 FiO2 90 04/08/24 08:32 Intake & Output 04/07/24 04/08/24 04/08/24 18:59 06:59 18:59 Intake Total 150 50 Output Total 400 500 0 Balance -400 -350 50 Intake: IV 150 50 Lactated Ringers 1,000 ml 150 50 @ 50 mls/hr IV .Q[facility]H [facility] Rx#:[id number] Output: Urine 400 500 0 Other: Voiding Method Diaper Diaper External Catheter - Labs CBC & Chem 7: 04/08/24 05:27 04/08/24 05:27 Labs: Abnormal Lab Results - Last 24 Hours (Table) 04/08/24 04/08/24 04/08/24 Range/Units 01:39 01:55 01:55 RBC 3.97 L (4.30-5.90) m/uL Hgb 12.9 L (13.0-17.5) gm/dL Hct (39.0-53.0) % MCV 100.6 H (80.0-100.0) fL Plt Count 131 L (150-450) k/uL Neutrophils # (1.3-7.7) k/uL Lymphocytes # (1.0-4.8) k/uL ABG pH (7.35-7.45) ABG pCO2 (35-45) mmHg ABG pO2 (83-108) mmHg ABG HCO3 (21-25) mmol/L ABG Total CO2 (19-24) mmol/L ABG O2 Saturation (94-97) % Hemoglobin (13.0-17.5) gm/dL Chloride 108 H (98-107) mmol/L BUN 42 H (9-20) mg/dL Creatinine 2.04 H (0.66-1.25) mg/dL Glucose 191 H (74-99) mg/dL POC Glucose (mg/dL) 195 H (70-110) mg/dL Plasma Lactic Acid Jus (0.7-2.0) mmol/L Magnesium (1.6-2.3) mg/dL 04/08/24 04/08/24 04/08/24 Range/Units 01:55 02:06 02:28 RBC (4.30-5.90) m/uL Hgb (13.0-17.5) gm/dL Hct (39.0-53.0) % MCV (80.0-100.0) fL Plt Count (150-450) k/uL Neutrophils # (1.3-7.7) k/uL Lymphocytes # (1.0-4.8) k/uL ABG pH 7.32 L (7.35-7.45) ABG pCO2 51 H (35-45) mmHg ABG pO2 47 L* (83-108) mmHg ABG HCO3 27 H (21-25) mmol/L ABG Total CO2 28 H (19-24) mmol/L ABG O2 Saturation 82.0 L (94-97) % Hemoglobin (13.0-17.5) gm/dL Chloride (98-107) mmol/L BUN (9-20) mg/dL Creatinine (0.66-1.25) mg/dL Glucose (74-99) mg/dL POC Glucose (mg/dL) 187 H (70-110) mg/dL Plasma Lactic Acid Jus 3.6 H* (0.7-2.0) mmol/L Magnesium (1.6-2.3) mg/dL 04/08/24 04/08/24 04/08/24 Range/Units 05:27 05:27 08:50 RBC 3.71 L (4.30-5.90) m/uL Hgb 11.7 L (13.0-17.5) gm/dL Hct 37.5 L (39.0-53.0) % MCV 101.0 H (80.0-100.0) fL Plt Count 113 L (150-450) k/uL Neutrophils # 7.8 H (1.3-7.7) k/uL Lymphocytes # 0.9 L (1.0-4.8) k/uL ABG pH 7.33 L (7.35-7.45) ABG pCO2 54 H (35-45) mmHg ABG pO2 59 L* (83-108) mmHg ABG HCO3 29 H (21-25) mmol/L ABG Total CO2 30 H (19-24) mmol/L ABG O2 Saturation 89.6 L (94-97) % Hemoglobin 11.4 L (13.0-17.5) gm/dL Chloride (98-107) mmol/L BUN 44 H (9-20) mg/dL Creatinine 2.10 H (0.66-1.25) mg/dL Glucose 112 H (74-99) mg/dL POC Glucose (mg/dL) (70-110) mg/dL Plasma Lactic Acid Jus (0.7-2.0) mmol/L Magnesium 1.4 L (1.6-2.3) mg/dL Microbiology - Last 24 Hours (Table) 04/04/24 19:44 Blood Culture Gram Stain - Preliminary Blood Blood Culture - Preliminary Molecular ID 04/06/24 15:30 Urine Culture - Final Urine,Voided Assessment and Plan Plan: Assessment: 1. Acute kidney injury secondary to ATN secondary to severe sepsis. Creatinine 4.42 on admission and is stable at 2.1 today. No hydronephrosis noted on kidney ultrasound. 2. Chronic kidney disease stage IIIb with baseline creatinine 1.3-1.4 secondary to nephrosclerosis. 3. Hypertension with chronic kidney disease. Stable. 4. Severe sepsis secondary to gram-positive bacteremia UTI on antibiotics. 5. History of bladder cancer. 6. Hypomagnesemia from poor intake. Being replaced. 7. History of coronary artery disease status post stenting. 8. Chronic systolic CHF with ejection fraction of 35 to 40%. Plan: Maintain gentle IV hydration. Encouraged oral intake. Avoid nephrotoxins. 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
[2024-04-08] MEDS: NOREPINEPHRINE 4 MG in SODIUM CHLORIDE 0.9% 250 ML IV SCH (09:34)
--- NOTE | 2024-04-08 10:57 | XR ---
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 FINDINGS: There is interval insertion of a left central catheter tip of which is in the SVC/RA junction. There is no pneumothorax. There is no change in the small bilateral pleural effusions. The heart and pulmonary vasculature are normal. The osseous structures are intact IMPRESSION: 1. Central venous catheter tip in the SVC/RA junction. No pneumothorax. 2. No change in the small bilateral pleural effusions. [facility], , 04/08/2024 10:55 AM
[2024-04-08 11:30] LABS: Glucose,Whole Blood 123 mg/dL (70-110)
--- NOTE | 2024-04-08 12:33 | P.CNPUL ---
History of Present Illness Consult date: 04/08/24 Reason for consult: dyspnea History of present illness: This is a 78-year-old obese male patient with a body mass index of 43 and the patient is sedentary and wheelchair-bound for the past 6 months. He is living with his girlfriend. He was getting progressively more weak and debilitated. He was initially taken to [facility] where he was found to have acute kidney injury and underlying urinary tract infection. Apparently, the patient had a recent urologic intervention by urology which probably included dilatation of urethral stricture. The patient according to his goes into the hospital and started on IV antibiotics and IV fluids. Monitoring of his renal function showed ongoing improvement in the creatinine is currently down to 2.1 from a baseline of 4.4. Nevertheless, overnight, the patient became hypoxic. He was apparently not using his oxygen and he was found to be also altered. Based on that, the patient was moved to the intensive care unit. The blood gas was done that showed a pH of 7.33 with a pCO2 of 54 and pO2 of 59. Chest x-ray was done yesterday and repeated today. The chest x-ray showed smaller lung volumes. Stable small bilateral pleural effusion and atelectatic changes left more than right. Based on that, the patient was started on BiPAP at a pressure of 14 over 5 cm of water with FiO2 of 50%. I saw this patient in the ICU. He was lethargic. Arousable. He was withdrawing to deep painful stimulation. He did encounter some brief hypotension, nevertheless, he was not started on pressors. He remains on IV Rocephin. He remains on lactated Ringer at rate of 50 cc an hour. The echocardiogram that was done during this current admission showed impaired LV function with an ejection fraction of 35 to 40%. The patient also had evidence of severe right ventricular dilatation and reduced RV global systolic function and the estimated pulmonary pressure was 41. No significant valvular abnormalities. The ultrasound of the abdomen and the kidneys was also done that showed no evidence of any hydronephrosis or obstructive uropathy. There is a blood culture that showing MSSA. The patient remains on IV Rocephin. The procalcitonin level at the time of admission was 0.32. For now, the patient's cardiac rhythm is sinus. He is known to have previous history of CVA. He has also history of obstructive sleep apnea maintained on CPAP therapy on outpatient basis. He has chronic back pain related to sciatica degenerative arthritis and the patient has received epidural injection in the past and he suffers from gout. He has remote history of lupus. He has not been receiving any treatment for that. He is known to have coronary artery disease in addition. He has been given coronary stents in the past. Review of Systems ROS unobtainable: due to mental status (The patient is currently on a BiPAP, mentation is quite diminished) Past Medical History Past Medical History: Coronary Artery Disease (CAD), COPD, CVA/TIA, GERD/Reflux, Hyperlipidemia, Hypertension, Myocardial Infarction (TN), Musculoskeletal Disorder, Renal Disease, Sleep Apnea/CPAP/BIPAP Additional Past Medical History / Comment(s): TIA X2 (1999 & 2002), VERTIGO, C- PAP MACHINE, SCIATICA & BACK PAIN with past EPIDURAL INJECTIONS, pt states he takes zyloprim due to elevated blood test-does not have gout yet, kidney disease, past nephritis, lupus (in remission), tingling in R foot, post op infection after R rotator cuff repair requiring irrigations and packings/ABX. Last Myocardial Infarction Date:: 1999 History of Any Multi-Drug Resistant Organisms: None Reported Date of last positivie culture/infection: None MDRO Source:: None Past Surgical History: Heart Catheterization With Stent, Orthopedic Surgery Additional Past Surgical History / Comment(s): RT ROTATOR CUFF-titanium used, LEFT KNEE ARTHROSCOPY, TOTAL LEFT/right KNEE, colonoscopy. TURP Past Anesthesia/Blood Transfusion Reactions: No Reported Reaction Additional Past Anesthesia/Blood Transfusion Reaction / Comment(s): PONV with spinal anesthesia, Date of Last Stent Placement:: 1999 Past Psychological History: No Psychological Hx Reported Smoking Status: Former smoker Past Alcohol Use History: None Reported Past Drug Use History: None Reported - Past Family History Mother Family Medical History: Cancer Additional Family Medical History / Comment(s): BREAST CA Father Family Medical History: Cancer Additional Family Medical History / Comment(s): ESOPHAGEAL CA Medications and Allergies Home Medications Medication Instructions Recorded Confirmed Type Isosorbide Mononitrate ER [Imdur] 30 mg PO DAILY 07/02/14 04/04/24 History allopurinoL [Zyloprim] 100 mg PO DAILY 06/06/17 04/04/24 History Latanoprost [Xalatan 0.005%] 1 drop BOTH EYES DIRECTED 03/02/20 04/04/24 History Apixaban [Eliquis] 5 mg PO BID 08/29/21 04/04/24 History Folic Acid 0.4 mg PO HS 08/29/21 04/04/24 History Meclizine [Antivert] 25 mg PO HS 08/29/21 04/04/24 History Metoprolol Tartrate [Lopressor] 12.5 mg PO BID 08/29/21 04/04/24 History Aspirin 81 mg PO HS 08/30/21 04/04/24 History Cholecalciferol [Vitamin D3 (25 100 mcg PO DAILY 08/30/21 04/04/24 History Mcg = 1000 Iu)] Nitroglycerin Sl Tabs [Nitrostat] 0.4 mg SUBLINGUAL Q5M PRN 08/30/21 04/04/24 History lisinopriL [Zestril] 2.5 mg PO DAILY tab 09/04/21 04/04/24 Rx Acetaminophen Tab [Tylenol Tab] 1,000 mg PO BID 04/04/24 04/04/24 History Acetaminophen [Tylenol 8 Hour] 650 mg PO BID 04/04/24 04/04/24 History Atorvastatin [Lipitor] 10 mg PO HS 04/04/24 04/04/24 History Brimonidine Tartrate [Alphagan P 1 drop LEFT EYE BID 04/04/24 04/04/24 History 0.2% Ophth Soln] Ciprofloxacin HCl [Cipro] 500 mg PO BID 04/04/24 04/04/24 History Sodium Bicarbonate Tab 650 mg PO TID 04/04/24 04/04/24 History Tolterodine ER [Detrol LA] 4 mg PO HS 04/04/24 04/04/24 History Trospium Chloride 20 mg PO BID 04/04/24 04/04/24 History Allergies Allergy/AdvReac Type Severity Reaction Status Date / Time Sulfa (Sulfonamide Allergy Unknown HIVES, Verified 04/04/24 19:58 Antibiotics) ITCHING Physical Exam Vitals: Vital Signs Temp Pulse Pulse Resp BP BP BP 04/08/24 08:26 04/08/24 08:24 04/08/24 07:00 82 15 109/81 04/08/24 06:30 85 32 H 86/58 04/08/24 06:00 87 15 90/55 04/08/24 05:30 92 18 88/75 04/08/24 05:00 99.4 F 44 H 109/38 04/08/24 04:47 04/08/24 04:30 91 15 96/72 04/08/24 04:00 99 20 83/71 04/08/24 03:50 99 17 103/59 04/08/24 03:40 101 H 19 108/68 04/08/24 03:30 100 32 H 123/105 04/08/24 03:20 105 H 23 72/32 04/08/24 03:10 107 H 10 L 88/39 04/08/24 03:00 107 H 20 94/20 04/08/24 02:50 101.5 F H 109 H 22 133/96 04/08/24 02:28 04/08/24 01:29 100.5 F H 89 20 109/57 04/07/24 19:05 98.3 F 115 H 20 180/93 04/07/24 11:33 98.2 F 71 16 99/69 Pulse Ox FiO2 04/08/24 08:26 85 04/08/24 08:24 96 85 04/08/24 07:00 90 L 04/08/24 06:30 89 L 04/08/24 06:00 85 L 04/08/24 05:30 86 L 04/08/24 05:00 91 L 04/08/24 04:47 100 04/08/24 04:30 94 L 04/08/24 04:00 93 L 04/08/24 03:50 93 L 04/08/24 03:40 91 L 04/08/24 03:30 94 L 04/08/24 03:20 87 L 04/08/24 03:10 92 L 04/08/24 03:00 92 L 04/08/24 02:50 90 L 100 04/08/24 02:28 100 04/08/24 01:29 04/07/24 19:05 82 L 04/07/24 11:33 94 L Intake and Output 04/07/24 04/08/24 04/08/24 22:59 06:59 14:59 Intake Total 150 50 Output Total 400 500 0 Balance -400 -350 50 Intake: IV 150 50 Lactated Ringers 1,000 ml 150 50 @ 50 mls/hr IV .Q20H [facility] Rx#:[id number] Output: Urine 400 500 0 Other: Voiding Method Diaper Diaper External Catheter The patient is morbidly obese with a body mass index of 43. He is currently on a BiPAP at a pressure of 14.5 cm of water. He is lethargic. Withdraws to painful stimulation all 4 extremities. Tolerating the BiPAP reasonably well. No signs of any acute respiratory distress while being on the BiPAP. Head exam is unremarkable. No scleral icterus or corneal arcus noted. Neck is without jugular venous distension, thyromegaly, or carotid bruits. Carotid upstrokes are brisk bilaterally. Lungs are clear to auscultation and percussion. Diminished breath sounds bila terally especially in the lung bases. Cardiac exam reveals the PMI to be normally sized and situated. Rhythm is regular. First and second heart sounds normal. No murmurs, rubs or gallops. Abdominal exam reveals normal bowel sounds, no masses, no organomegaly and no aortic enlargement. Extremities a show trace edema and both femoral and pedal pulses are normal. Examination of the skin revealed no evidence of significant rashes, suspicious appearing nevi or other concerning lesions. Neurologically, the patient is encephalopathic, withdraws only to painful stimulation. Cannot hold a conversation at this point in time. Results - Laboratory Findings CBC and BMP: 04/08/24 05:27 04/08/24 05:27 ABG ABG pH 7.32 (7.35-7.45) L 04/08/24 02:06 ABG pCO2 51 mmHg (35-45) H 04/08/24 02:06 ABG pO2 47 mmHg (83-108) L* 04/08/24 02:06 ABG O2 Saturation 82.0 % (94-97) L 04/08/24 02:06 PT/INR, D-dimer PT 12.8 sec (10.0-12.5) H 04/04/24 19:18 INR 1.2 (<1.2) H 04/04/24 19:18 Abnormal lab findings: Abnormal Labs 04/04/24 04/04/24 04/04/24 19:18 19:18 19:44 WBC 12.5 H RBC 3.91 L Hgb 12.5 L Hct 38.5 L MCV MCH RDW Plt Count 133 L Neutrophils # 9.7 H Lymphocytes # Eosinophils # PT 12.8 H INR 1.2 H APTT 45.6 H ABG pH ABG pCO2 ABG pO2 ABG HCO3 ABG Total CO2 ABG O2 Saturation Potassium Chloride Carbon Dioxide BUN Creatinine Glucose POC Glucose (mg/dL) Plasma Lactic Acid Jus Magnesium Troponin I 0.043 H* Albumin Urine RBC Urine WBC 04/04/24 04/05/24 04/05/24 19:46 07:49 08:59 WBC RBC 3.86 L Hgb 12.4 L Hct 38.4 L MCV MCH RDW Plt Count 126 L Neutrophils # Lymphocytes # Eosinophils # PT INR APTT ABG pH ABG pCO2 ABG pO2 ABG HCO3 ABG Total CO2 ABG O2 Saturation Potassium Chloride 110 H Carbon Dioxide 16 L BUN 71 H Creatinine 4.42 H Glucose 120 H POC Glucose (mg/dL) Plasma Lactic Acid Jus Magnesium Troponin I Albumin Urine RBC >182 H Urine WBC >182 H 04/05/24 04/06/24 04/06/24 08:59 06:38 07:17 WBC RBC 3.71 L Hgb 12.1 L Hct 37.2 L MCV 100.3 H MCH 32.6 H RDW 15.3 H Plt Count 92 L Neutrophils # Lymphocytes # Eosinophils # 0.41 H PT INR APTT ABG pH ABG pCO2 ABG pO2 ABG HCO3 ABG Total CO2 ABG O2 Saturation Potassium 5.3 H Chloride 113 H Carbon Dioxide 17 L BUN 60 H 49 H Creatinine 3.36 H 2.26 H Glucose 110 H 103 H POC Glucose (mg/dL) Plasma Lactic Acid Jus Magnesium Troponin I Albumin 3.3 L Urine RBC Urine WBC 04/08/24 04/08/24 04/08/24 01:39 01:55 01:55 WBC RBC 3.97 L Hgb 12.9 L Hct MCV 100.6 H MCH RDW Plt Count 131 L Neutrophils # Lymphocytes # Eosinophils # PT INR APTT ABG pH ABG pCO2 ABG pO2 ABG HCO3 ABG Total CO2 ABG O2 Saturation Potassium Chloride 108 H Carbon Dioxide BUN 42 H Creatinine 2.04 H Glucose 191 H POC Glucose (mg/dL) 195 H Plasma Lactic Acid Jus Magnesium Troponin I Albumin Urine RBC Urine WBC 04/08/24 04/08/24 04/08/24 01:55 02:06 02:28 WBC RBC Hgb Hct MCV MCH RDW Plt Count Neutrophils # Lymphocytes # Eosinophils # PT INR APTT ABG pH 7.32 L ABG pCO2 51 H ABG pO2 47 L* ABG HCO3 27 H ABG Total CO2 28 H ABG O2 Saturation 82.0 L Potassium Chloride Carbon Dioxide BUN Creatinine Glucose POC Glucose (mg/dL) 187 H Plasma Lactic Acid Jus 3.6 H* Magnesium Troponin I Albumin Urine RBC Urine WBC 04/08/24 04/08/24 05:27 05:27 WBC RBC 3.71 L Hgb 11.7 L Hct 37.5 L MCV 101.0 H MCH RDW Plt Count 113 L Neutrophils # 7.8 H Lymphocytes # 0.9 L Eosinophils # PT INR APTT ABG pH ABG pCO2 ABG pO2 ABG HCO3 ABG Total CO2 ABG O2 Saturation Potassium Chloride Carbon Dioxide BUN 44 H Creatinine 2.10 H Glucose 112 H POC Glucose (mg/dL) Plasma Lactic Acid Jus Magnesium 1.4 L Troponin I Albumin Urine RBC Urine WBC - Diagnostic Findings Chest x-ray: image reviewed Assessment and Plan Plan: Altered mental status with a component of acute respiratory acidosis, currently on BiPAP. Neurologic exam is nonfocal. The patient was hospitalized for acute urinary tract infection and sepsis and there may be a component of metabolic encephalopathy in addition. Renal function continues to improve. Acute hypercapnic/hypoxic respiratory failure. Chest x-ray shows atelectatic changes in lung bases. The patient is morbidly obese and has underlying obstructive sleep apnea. No clear indication for pneumonia and the patient remains on IV Rocephin. The patient is currently on BiPAP. Acute kidney injury, renal function is improving Urinary tract infection, awaiting cultures. Blood cultures positive for MSSA, likely contaminant and the patient remains on IV Rocephin Morbid obesity with a BMI of 43 Obstructive sleep apnea History of CVA History of lupus, not receiving any treatment on outpatient basis Coronary artery disease with previous coronary intervention and stenting CHF with impaired LV function with an ejection fraction of 35 to 40%. The patient also has right-sided failure with moderate degree of pulmonary hypertension COPD History of ureteral stricture and the patient has undergone recent urologic intervention which could have precipitated his underlying urinary tract infection. He was taking ciprofloxacin on outpatient basis. Paroxysmal atrial fibrillation, current rhythm is sinus and the patient is on anticoagulants and he is on Eliquis 5 mg p.o. twice daily on outpatient basis. Gout Degenerative arthritis with chronic back pain Plan Keep the patient on the BiPAP Obtain follow-up blood gases Continue lactated Ringer at rate of 50 cc an hour Continue IV Rocephin Obtain a CAT scan of the brain no contrast Established lines Pressors if needed Keep the patient NPO. Should be able to take his oral medication as long as able to swallow properly. Monitor mental status Obtain a follow-up blood gas while being on BiPAP Chest x-ray noted Echocardiogram noted Will continue to follow Condition is critical based on above-mentioned comorbidities. Time with Patient: Greater than 30
--- NOTE | 2024-04-08 12:35 | P.PCN ---
Date of Procedure: 04/08/24 Operative Findings: Preoperative Diagnosis: Acute respiratory failure, acute on chronic respiratory acidosis and hypoxic respiratory failure Postoperative Diagnosis: Same Procedure(s) Performed: Central line insertion Arterial line insertion Anesthesia: local Surgeon: Yulaina Gerber Estimated Blood Loss (ml): 0 Condition: critical Disposition: ICU Operative Findings: Indication: Hemodynamic monitoring/Intravenous access. A time-out was completed verifying correct patient, procedure, site, positioning, and implant(s) or special equipment if applicable. The patient was placed in a dependent position appropriate for triple lumen catheter placement based on the vein to be cannulated. The patient's left subclavian area was prepped and draped in sterile fashion. 1% Lidocaine was used to anesthetize the surrounding skin area. A triple lumen 9F Cordis cathet er was introduced into the internal jugular vein using Seldinger technique. The catheter was threaded smoothly over the guide wire and appropriate blood return was obtained. Each lumen of the catheter was evacuated of air and flushed with sterile saline. The catheter was then sutured in place to the skin and a sterile dressing applied. Perfusion to the extremity distal to the point of catheter insertion was checked and found to be adequate. Indication: Hemodynamic monitoring. A time-out was completed verifying correct patient, procedure, site, positioning, and implant(s) or special equipment if applicable. Mike s test was performed to ensure adequate perfusion. The patient s left wrist was prepped and draped in sterile fashion. 1% Lidocaine was used to anesthetize the area. An 18G Arrow arterial line was introduced into the left radial artery. The catheter was threaded over the guide wire and the needle was removed with appropriate pulsatile blood return. Blood loss was minimal. The catheter was then sutured in place to the skin and a sterile dressing applied. Perfusion to the extremity distal to the point of catheter insertion was checked and found to be adequate. The patient tolerated the procedure well and there were no complications.
[2024-04-08 12:50] LABS: ABG Base Excess 1.1 mmol/L; ABG HCO3 28 mmol/L (21-25); ABG Oxygen Saturation 91.6 % (94-97); ABG PCO2 57 mmHg (35-45); ABG PH 7.31 (7.35-7.45); ABG PO2 65 mmHg (83-108); ABG TCO2 30 mmol/L (19-24); Allen Test Performed? Yes
--- NOTE | 2024-04-08 17:51 | CT ---
EXAMINATION TYPE: CT brain wo con DATE OF EXAM: 04/08/2024 5:26 PM COMPARISON: Previous CT study 08/29/2021. CLINICAL INDICATION: Male, 78 years old with history of Altered mentation, ams TECHNIQUE: Brain: Axial CT images of the brain were obtained with coronal and sagittal reformats created and rev iewed. Contrast used: None. Oral contrast used: None. CT DLP: 1395.2 mGycm, Automated exposure control for dose reduction was used. FINDINGS: Brain: No acute intracranial hemorrhage, midline shift or significant mass effect. Sulci are prominent ervin tible generalized cerebral volume loss. No sizable extra-axial fluid collection. Basal cisterns are p atent. Pritchett-white matter differentiation appears relatively preserved. No acute depressed calvarial fracture. Redemonstration remodeling of the inner table of the calvarium (sagittal series image 45), similar to prior study. Paranasal sinuses and mastoid air cells appear g rossly patent. IMPRESSION: No acute intracranial process. [facility], , 04/08/2024 5:49 PM
--- NOTE | 2024-04-08 18:17 | CT ---
EXAMINATION TYPE: CT chest wo con DATE OF EXAM: 04/08/2024 5:26 PM COMPARISON: Previous CT chest study 03/02/2020. CLINICAL INDICATION: Male, 78 years old with history of dyspnea; PHH, SOB TECHNIQUE: Multiple axial images were obtained through the chest. Sagittal and coronal reformats were created for review. MIP was performed on a separate workstation. CT DLP: 973.2 mGycm, Automated exposure control for dose reduction was used. FINDINGS: Cardiomegaly without significant pericardial effusion. Right central venous catheter is visualized te rminating in the proximal SVC. Ascending thoracic aorta demonstrates calcified atherosclerotic diseas e without aneurysmal dilatation. Dilatation of the main pulmonary artery. Coronary artery calcificati ons. Multiple calcified mediastinal and hilar lymph nodes, similar to prior studies. No pathologic ax illary lymphadenopathy. Partially visualized thyroid gland is unremarkable. Imaging through the lungs demonstrates trace bilateral pleural effusions and lower lobe consolidative changes which could reflect atelectasis and/or pneumonia. No pneumothorax. No new suspicious pulmona ry mass. Costophrenic granuloma in the right upper lobe. Partially visualized upper abdomen demonstrates no acute abnormality. Cholelithiasis. Multilevel thor acic spine degenerative changes with diffuse anterior osteophyte formation. IMPRESSION: 1. Trace bilateral pleural effusion and lower lobe consolidations which could reflect atelectasis an d/or pneumonia in the appropriate clinical setting. 2. Cardiomegaly and coronary artery calcifications. 3. Additional nonacute findings as above. [facility], , 04/08/2024 6:15 PM
[2024-04-08 18:39] LABS: Glucose,Whole Blood 122 mg/dL (70-110)
[2024-04-08] MEDS: HEPARIN SOD,PORK IN 0.45% NACL 25,000 UNIT in 0.45% NACL 1 250ML.BAG IV SCH (21:01)
[2024-04-08] MEDS: HEPARIN SODIUM 1,000 UN/ML (10ML VL) IV ONE (21:02)
[2024-04-08 21:14] LABS: Basophils # (A) 0.1 k/uL (0-0.2); Basophils % (A) 1 %; Eosinophils # (A) 0.4 k/uL (0-0.7); Eosinophils % (A) 4 %; HCT 35.6 % (39.0-53.0); HGB 11.5 gm/dL (13.0-17.5); Lymphocytes # (A) 1.2 k/uL (1.0-4.8); Lymphocytes % (A) 11 %; MCH 31.7 pg (25.0-35.0); MCHC 32.4 g/dL (31.0-37.0); Mean Platelet Volume 8.6; Monocytes # (A) 0.6 k/uL (0-1.0); Monocytes % (A) 6 %; Neutrophils # (A) 8.7 k/uL (1.3-7.7); Neutrophils % (A) 77 %; Platelet Count 120 k/uL (150-450); RBC 3.63 m/uL (4.30-5.90); WBC 11.2 k/uL (3.8-10.6)
[2024-04-08 21:33] LABS: INR 1.2 (<1.2); Partial Thromboplastin Time 42.8 sec (22.0-30.0); Prothrombin Time 12.4 sec (10.0-12.5)
[2024-04-09 05:12] LABS: ABG Base Excess 0.3 mmol/L; ABG HCO3 28 mmol/L (21-25); ABG Oxygen Saturation 84.7 % (94-97); ABG PCO2 56 mmHg (35-45); ABG TCO2 29 mmol/L (19-24); Allen Test Performed? Yes
[2024-04-09 05:17] LABS: INR 1.2 (<1.2); Prothrombin Time 12.9 sec (10.0-12.5)
[2024-04-09 05:25] LABS: Basophils # (A) 0.1 k/uL (0-0.2); Basophils % (A) 0 %; Eosinophils # (A) 0.5 k/uL (0-0.7); Eosinophils % (A) 4 %; HCT 36.3 % (39.0-53.0); HGB 11.5 gm/dL (13.0-17.5); Hypochromasia Slight; Lymphocytes # (A) 1.4 k/uL (1.0-4.8); Lymphocytes % (A) 11 %; MCH 31.7 pg (25.0-35.0); MCHC 31.6 g/dL (31.0-37.0); MCV 100.3 fL (80.0-100.0); Macrocytosis Slight; Mean Platelet Volume 8.7; Monocytes # (A) 0.7 k/uL (0-1.0); Monocytes % (A) 6 %; Neutrophils # (A) 8.9 k/uL (1.3-7.7); Neutrophils % (A) 76 %; Platelet Count 130 k/uL (150-450); RBC 3.62 m/uL (4.30-5.90); RDW 14.5 % (11.5-15.5); WBC 11.8 k/uL (3.8-10.6)
[2024-04-09 05:31] LABS: African American GFR (CKD) 40 (>60 ml/min/1.73 sqM); Anion Gap 5 mmol/L; Blood Urea Nitrogen 37 mg/dL (9-20); Calcium 8.9 mg/dL (8.4-10.2); Carbon Dioxide 25 mmol/L (22-30); Chloride 109 mmol/L (98-107); Glucose 139 mg/dL (74-99); Magnesium 1.7 mg/dL (1.6-2.3); Non-African American GFR(CKD) 35 (>60 ml/min/1.73 sqM); Potassium 4.4 mmol/L (3.5-5.1); Sodium 139 mmol/L (137-145)
[2024-04-09 05:42] LABS: ABG PO2 52 mmHg (83-108)
[2024-04-09] MEDS: MAGNESIUM SULFATE-D5W PMX 1 GM in DEXTROSE/WATER 1 100ML.BAG IVPB ONE (06:55)
[2024-04-09 07:01] VITALS: BP 123/58
--- NOTE | 2024-04-09 08:24 | XR ---
EXAMINATION TYPE: XR chest 1V DATE OF EXAM: 04/09/2024 5:36 AM COMPARISON: Chest radiographs from 04/08/2024 CLINICAL INDICATION: Male, 78 years old with history of Respiratory failure; [facility] TECHNIQUE: XR chest 1V Frontal view of the chest. FINDINGS: Lungs/Pleura: No evidence of focal consolidation or pneumothorax. Blunting of the costophrenic angles is present. Pulmonary vascularity: Unremarkable. Heart/mediastinum: Cardiomediastinal silhouette is enlarged. Musculoskeletal: No acute osseous pathology. Other findings: None Lines/Tubes: Left central venous catheter with distal tip at the cavoatrial junction. IMPRESSION: Cardiomegaly, pulmonary vascular congestion and bilateral pleural effusions. Correlate with BNP for c ongestive heart failure. [facility], , 04/09/2024 8:22 AM
--- NOTE | 2024-04-09 09:39 | P.PN ---
Subjective Patient is seen in follow-up for acute kidney injury on chronic kidney disease. On BiPAP. Renal function better. Receiving IV fluids. On Levophed. Vital signs are stable. General: No acute distress. HEENT: Head exam is unremarkable. On BiPAP. Heart: Regular rate and rhythm. LUNGS: No audible rhonchi or wheezes. ABDOMEN: Nontender. EXTREMITITES: No edema. Objective - Vital Signs Vital signs: Vital Signs Temp 97.7 F 04/09/24 04:00 Pulse 50 L 04/09/24 07:00 Resp 12 04/09/24 07:00 BP 123/58 04/09/24 06:15 Pulse Ox 92 L 04/09/24 07:00 FiO2 100 04/09/24 09:27 Intake & Output 04/08/24 04/09/24 04/09/24 18:59 06:59 18:59 Intake Total 438.583 8720.234 282.963 Output Total 860 735 75 Balance -153.606 435.234 207.963 Weight 126.7 kg Intake: IV 700 610 50 Invasive Line 1 20 30 Invasive Line 2 30 30 Lactated Ringers 1,000 ml 650 550 50 @ 50 mls/hr IV .Q20H [facility] Rx#:[id number] Intake, IV Titration 6.394 560.234 232.963 Amount Heparin Sod,Pork in 0.45% 71.5 NaCl 25,000 unit In 0.45 % NaCl 1 250ml.bag @ 7. 349 UNITS/KG/HR 10 mls/hr IV .Q24H [facility] Rx#: [id number] Norepinephrine 4 mg In 6.394 488.734 232.963 Sodium Chloride 0.9% 250 ml @ 0.03 MCG/KG/MIN 15. 554 mls/hr IV .[id number] [facility] Rx#:[id number] Output: Urine 860 735 75 Other: Voiding Method Indwelling Catheter Indwelling Catheter # Bowel Movements 1 ABP, PAP, CO, CI - Last Documented Arterial Blood Pressure 78/37 - Labs CBC & Chem 7: 04/09/24 04:44 04/09/24 04:44 Labs: Abnormal Lab Results - Last 24 Hours (Table) 04/08/24 04/08/24 04/08/24 Range/Units 11:29 12:39 18:37 WBC (3.8-10.6) k/uL RBC (4.30-5.90) m/uL Hgb (13.0-17.5) gm/dL Hct (39.0-53.0) % MCV (80.0-100.0) fL Plt Count (150-450) k/uL Neutrophils # (1.3-7.7) k/uL PT (10.0-12.5) sec INR (<1.2) APTT (22.0-30.0) sec ABG pH 7.31 L (7.35-7.45) ABG pCO2 57 H (35-45) mmHg ABG pO2 65 L (83-108) mmHg ABG HCO3 28 H (21-25) mmol/L ABG Total CO2 30 H (19-24) mmol/L ABG O2 Saturation 91.6 L (94-97) % Hemoglobin 11.8 L (13.0-17.5) gm/dL Chloride (98-107) mmol/L BUN (9-20) mg/dL Creatinine (0.66-1.25) mg/dL Glucose (74-99) mg/dL POC Glucose (mg/dL) 123 H 122 H (70-110) mg/dL 04/08/24 04/08/24 04/09/24 Range/Units 20:45 20:45 03:23 WBC 11.2 H (3.8-10.6) k/uL RBC 3.63 L (4.30-5.90) m/uL Hgb 11.5 L (13.0-17.5) gm/dL Hct 35.6 L (39.0-53.0) % MCV (80.0-100.0) fL Plt Count 120 L (150-450) k/uL Neutrophils # 8.7 H (1.3-7.7) k/uL PT (10.0-12.5) sec INR 1.2 H (<1.2) APTT 42.8 H >200.0 H* (22.0-30.0) sec ABG pH (7.35-7.45) ABG pCO2 (35-45) mmHg ABG pO2 (83-108) mmHg ABG HCO3 (21-25) mmol/L ABG Total CO2 (19-24) mmol/L ABG O2 Saturation (94-97) % Hemoglobin (13.0-17.5) gm/dL Chloride (98-107) mmol/L BUN (9-20) mg/dL Creatinine (0.66-1.25) mg/dL Glucose (74-99) mg/dL POC Glucose (mg/dL) (70-110) mg/dL 04/09/24 04/09/24 04/09/24 Range/Units 04:44 04:44 04:44 WBC 11.8 H (3.8-10.6) k/uL RBC 3.62 L (4.30-5.90) m/uL Hgb 11.5 L (13.0-17.5) gm/dL Hct 36.3 L (39.0-53.0) % MCV 100.3 H (80.0-100.0) fL Plt Count 130 L (150-450) k/uL Neutrophils # 8.9 H (1.3-7.7) k/uL PT 12.9 H (10.0-12.5) sec INR 1.2 H (<1.2) APTT (22.0-30.0) sec ABG pH (7.35-7.45) ABG pCO2 (35-45) mmHg ABG pO2 (83-108) mmHg ABG HCO3 (21-25) mmol/L ABG Total CO2 (19-24) mmol/L ABG O2 Saturation (94-97) % Hemoglobin (13.0-17.5) gm/dL Chloride 109 H (98-107) mmol/L BUN 37 H (9-20) mg/dL Creatinine 1.83 H (0.66-1.25) mg/dL Glucose 139 H (74-99) mg/dL POC Glucose (mg/dL) (70-110) mg/dL 04/09/24 Range/Units 05:05 WBC (3.8-10.6) k/uL RBC (4.30-5.90) m/uL Hgb (13.0-17.5) gm/dL Hct (39.0-53.0) % MCV (80.0-100.0) fL Plt Count (150-450) k/uL Neutrophils # (1.3-7.7) k/uL PT (10.0-12.5) sec INR (<1.2) APTT (22.0-30.0) sec ABG pH 7.30 L (7.35-7.45) ABG pCO2 56 H (35-45) mmHg ABG pO2 52 L* (83-108) mmHg ABG HCO3 28 H (21-25) mmol/L ABG Total CO2 29 H (19-24) mmol/L ABG O2 Saturation 84.7 L (94-97) % Hemoglobin 11.8 L (13.0-17.5) gm/dL Chloride (98-107) mmol/L BUN (9-20) mg/dL Creatinine (0.66-1.25) mg/dL Glucose (74-99) mg/dL POC Glucose (mg/dL) (70-110) mg/dL Microbiology - Last 24 Hours (Table) 04/04/24 19:44 Blood Culture Gram Stain - Preliminary Blood Blood Culture - Preliminary Presumptive Staph aureus Molecular ID Assessment and Plan Plan: Assessment: 1. Acute kidney injury secondary to ATN secondary to severe sepsis. Creatinine 4.42 on admission and is improved to 1.83 today. No hydronephrosis noted on kidney ultrasound. 2. Chronic kidney disease stage IIIb with baseline creatinine 1.3-1.4 secondary to nephrosclerosis. 3. Hypertension with chronic kidney disease. On Levophed. 4. Severe sepsis secondary to staph bacteremia UTI on antibiotics. 5. History of bladder cancer. 6. Hypomagnesemia from poor intake. Being replaced. 7. History of coronary artery disease status post stenting. 8. Chronic systolic CHF with ejection fraction of 35 to 40%. Plan: Maintain gentle IV hydration. Encouraged oral intake. Avoid nephrotoxins. Wean FiO2.
[2024-04-09] MEDS: QUEtiapine 25 MG TAB PO SCH (10:06)
[2024-04-09 11:14] VITALS: BMI 40.1
--- NOTE | 2024-04-09 11:49 | PN ---
PROGRESS NOTE SUBJECTIVE: Keyon is a 78-year-old gentleman with history of cardiomyopathy, coronary artery disease, status post stenting of the right coronary artery and persistent atrial fibrillation, who is admitted to hospital with progressive weakness in mental status changes and because of increasing confusion, he was transferred to ICU on a BiPAP machine. His ejection fraction is 35% to 40%. CURRENT MEDICATIONS: Include: 1. Aspirin. 2. Lipitor. 3. IV heparin. 4. Lopressor. OBJECTIVE: GENERAL: On exam, the patient is alert and awake, but still marginally confused. VITAL SIGNS: Heart rate is 60 beats per minute, blood pressure is 110/70, and respiratory rate is 18. CHEST: Reveals diminished air entry bilaterally. HEART: Reveals first and second heart sounds. No gallop. ABDOMEN: Soft. EXTREMITIES: Reveal mild edema and chronic stasis changes. ASSESSMENT: 1. Confusion, resolving. 2. CAD, status post angioplasty. 3. Cardiomyopathy. 4. Paroxysmal atrial fibrillation. PLAN: We will switch him back to Eliquis that he was on when okay with the java core developer. DASHAWN / RANDALN: [id number] /
[2024-04-09 12:04] LABS: Glucose,Whole Blood 119 mg/dL (70-110)
--- NOTE | 2024-04-09 12:46 | P.PN ---
Subjective date of service for this note is 29/05/2023 This is a pleasant 78 years old with past medical history of multiple medical problems At baseline he says he uses a wheelchair for over the last 6 months, he lives with his girlfriend, for the last 2 to 3 weeks his legs gets getting more weak. He was in his garage and he could not get up so he went to [facility]. At the [facility] he was found to have NHUNG and UTI and he was transferred to this facility. Patient states that he has been complaining from dysuria for 2 weeks, he recently had a procedure done for him with urologist Dr. Orozco, he was not sure but he says to clean his urethra No suprapubic tenderness or flank tenderness. No fever or chills. No chest pain. He has occasional coughing. He is mildly tachypneic but no overt dyspneic. Patient states that he has history of COPD and he is on 2 L oxygen at home He denies currently smoking alcohol or illicit drugs No headache dizziness or new weakness or numbness. Patient is tachycardic, hypotensive blood pressure at 90/55 Mild leukocytosis 12.5 came down to 9.7. Hemoglobin 12.4. Platelet count 126 His BMP and liver enzymes reviewed. Creatinine went up to 4.3, repeat creatinine 3.3. Potassium 5.3 Urine analysis is suspicious for infection Mildly elevated troponin 0.043 came back to reference range at 0.032. TSH is normal EKG showing irregular rhythm with right bundle branch block proBNP is elevated at 3210 04/06/2024 Patient feels somewhat better He looks tired He looks a dry little bit No dysuria, no abdominal pain. No chest pain he is complaining from some back pain. Blood pressure is improving, his hemoglobin 12.1, WBC 7.6 and platelet count 92. Creatinine went down to 2.2 with baseline 1.2-1.4 Echocardiogram showing ejection fraction of 35 to 40% with left hypokinesia.. 2 that years ago EF was 40 to 45% He remains on ceftriaxone follow-up urine and blood culture Dr. Uribe evaluated the patient, patient has history of urinary bladder cancer status post recent ureter dilatation, no further intervention required and follow-up with upon dischargebar Currently on ceftriaxone and Ringer lactate 75 mL/h, we will lower the dose to 50 mL/h given his cardiomyopathy. He remains fully anticoagulated with Eliquis 5 mg and aspirin 81 mg 04/07 Patient remains weak and lethargic, and he was found to have acute urinary tract infection most likely related to his recent history of prior bladder cancer status post urethral dilatation. Urine culture is growing no bacteria. However still the suspicion of infection is high. He remains also receiving IV fluid Ringer lactate at 50 mL/h, rate was lowered today. Creatinine improving down to 2.2. Echocardiogram showing decreased ejection fraction of 35 to 40%. Cardiology input is appreciated, increase dose of metoprolol and Lipitor. And monitor kidney function 04/08 pt is seen and examined by me at bed side pt oxyn level dropped overnight and he was transferred to the icu for closer monitoring he was placed on bipap when i saw him in the morning he was awake and alert, mildly confused like the previous day , he was answering questions and follows commands , pt was more confused earlier most likely secondary to his respiratory acidosis , besides other medical problems like the infection yesterday has on 2 l/m of oxygen with saturation is 90-94 and he was not complaining from resp issue he has no new weakness or numbness or slurred speech, he was not using any pressors he was still on iv fluids ringer lactate at 50 ml and creatinine is improving he is on ceftriaxone for uti , urine culture is negative but infection suspicion is still considerable hematology oncology consultant evaluated the pt for cardiomyopathy and his cardiac medications were adjusted as above since admission pt was on eliquis for his a fib labs wbc 11.2, hb 11.5, plt 120 ph 7.3 low, pco 54 mildly high, and pox 59 low bilateral small pleural effusion and lower lobe consolidations which could be reflecting atelectasis or pneumonia ct of the brain is negative Objective - Vital Signs Vital signs: Vital Signs Temp 96.7 F L 04/09/24 08:00 Pulse 64 04/09/24 11:45 Resp 14 04/09/24 11:45 BP 123/58 04/09/24 06:15 Pulse Ox 96 04/09/24 11:45 FiO2 100 04/09/24 11:45 Intake & Output 04/08/24 04/09/24 04/09/24 18:59 06:59 18:59 Intake Total 974.676 6023.234 641.863 Output Total 860 735 500 Balance -153.606 435.234 141.863 Weight 126.7 kg 126.7 kg Intake: IV 700 610 400 Invasive Line 1 20 30 Invasive Line 2 30 30 Lactated Ringers 1,000 ml 650 550 250 @ 50 mls/hr IV .Q20H [facility] Rx#:[id number] Magnesium Sulfate-D5w Pmx 100 1 gm In Dextrose/Water 1 100ml.bag @ 100 mls/hr IVPB ONCE ONE Rx#: [id number] cefTRIAXone 2 gm In 50 Sodium Chloride 0.9% 50 ml @ 100 mls/hr IVPB Q24HR [facility] Rx#:[id number] Intake, IV Titration 6.394 560.234 241.863 Amount Heparin Sod,Pork in 0.45% 71.5 NaCl 25,000 unit In 0.45 % NaCl 1 250ml.bag @ 7. 349 UNITS/KG/HR 10 mls/hr IV .Q24H [facility] Rx#: [id number] Norepinephrine 4 mg In 6.394 488.734 241.863 Sodium Chloride 0.9% 250 ml @ 0.03 MCG/KG/MIN 15. 554 mls/hr IV .[id number] [facility] Rx#:[id number] Oral 0 Output: Urine 860 735 500 Other: Voiding Method Indwelling Catheter Indwelling Catheter # Bowel Movements 1 0 ABP, PAP, CO, CI - Last Documented Arterial Blood Pressure 115/58 - Exam -GENERAL: The patient is alert and oriented x3, not in any acute distress. Well developed, well nourished. Obese, generally weak HEENT: Pupils are round and equally reacting to light. EOMI. No scleral icterus. No conjunctival pallor. Normocephalic, atraumatic. No pharyngeal erythema. No thyromegaly. CARDIOVASCULAR: S1 and S2 present. No murmurs, rubs, or gallops. -PULMONARY: Chest is clear to auscultation, no wheezing , no crackles. mildly tachypneic , decreased air entery in the lower areas ABDOMEN: Soft, nontender, nondistended, normoactive bowel sounds. No palpable organomegaly. MUSCULOSKELETAL: No joint swelling or deformity. EXTREMITIES: No cyanosis, clubbing, or pedal edema. NEUROLOGICAL: Gross neurological examination did not reveal any focal deficits. SKIN: No rashes. no petechiae. - Labs CBC & Chem 7: 04/09/24 04:44 04/09/24 04:44 Labs: Abnormal Lab Results - Last 24 Hours (Table) 04/08/24 04/08/24 04/08/24 Range/Units 12:39 18:37 20:45 WBC 11.2 H (3.8-10.6) k/uL RBC 3.63 L (4.30-5.90) m/uL Hgb 11.5 L (13.0-17.5) gm/dL Hct 35.6 L (39.0-53.0) % MCV (80.0-100.0) fL Plt Count 120 L (150-450) k/uL Neutrophils # 8.7 H (1.3-7.7) k/uL PT (10.0-12.5) sec INR (<1.2) APTT (22.0-30.0) sec ABG pH 7.31 L (7.35-7.45) ABG pCO2 57 H (35-45) mmHg ABG pO2 65 L (83-108) mmHg ABG HCO3 28 H (21-25) mmol/L ABG Total CO2 30 H (19-24) mmol/L ABG O2 Saturation 91.6 L (94-97) % Hemoglobin 11.8 L (13.0-17.5) gm/dL Chloride (98-107) mmol/L BUN (9-20) mg/dL Creatinine (0.66-1.25) mg/dL Glucose (74-99) mg/dL POC Glucose (mg/dL) 122 H (70-110) mg/dL 04/08/24 04/09/24 04/09/24 Range/Units 20:45 03:23 04:44 WBC (3.8-10.6) k/uL RBC (4.30-5.90) m/uL Hgb (13.0-17.5) gm/dL Hct (39.0-53.0) % MCV (80.0-100.0) fL Plt Count (150-450) k/uL Neutrophils # (1.3-7.7) k/uL PT (10.0-12.5) sec INR 1.2 H (<1.2) APTT 42.8 H >200.0 H* (22.0-30.0) sec ABG pH (7.35-7.45) ABG pCO2 (35-45) mmHg ABG pO2 (83-108) mmHg ABG HCO3 (21-25) mmol/L ABG Total CO2 (19-24) mmol/L ABG O2 Saturation (94-97) % Hemoglobin (13.0-17.5) gm/dL Chloride 109 H (98-107) mmol/L BUN 37 H (9-20) mg/dL Creatinine 1.83 H (0.66-1.25) mg/dL Glucose 139 H (74-99) mg/dL POC Glucose (mg/dL) (70-110) mg/dL 04/09/24 04/09/24 04/09/24 Range/Units 04:44 04:44 05:05 WBC 11.8 H (3.8-10.6) k/uL RBC 3.62 L (4.30-5.90) m/uL Hgb 11.5 L (13.0-17.5) gm/dL Hct 36.3 L (39.0-53.0) % MCV 100.3 H (80.0-100.0) fL Plt Count 130 L (150-450) k/uL Neutrophils # 8.9 H (1.3-7.7) k/uL PT 12.9 H (10.0-12.5) sec INR 1.2 H (<1.2) APTT (22.0-30.0) sec ABG pH 7.30 L (7.35-7.45) ABG pCO2 56 H (35-45) mmHg ABG pO2 52 L* (83-108) mmHg ABG HCO3 28 H (21-25) mmol/L ABG Total CO2 29 H (19-24) mmol/L ABG O2 Saturation 84.7 L (94-97) % Hemoglobin 11.8 L (13.0-17.5) gm/dL Chloride (98-107) mmol/L BUN (9-20) mg/dL Creatinine (0.66-1.25) mg/dL Glucose (74-99) mg/dL POC Glucose (mg/dL) (70-110) mg/dL 04/09/24 Range/Units 09:46 WBC (3.8-10.6) k/uL RBC (4.30-5.90) m/uL Hgb (13.0-17.5) gm/dL Hct (39.0-53.0) % MCV (80.0-100.0) fL Plt Count (150-450) k/uL Neutrophils # (1.3-7.7) k/uL PT (10.0-12.5) sec INR (<1.2) APTT 44.8 H (22.0-30.0) sec ABG pH (7.35-7.45) ABG pCO2 (35-45) mmHg ABG pO2 (83-108) mmHg ABG HCO3 (21-25) mmol/L ABG Total CO2 (19-24) mmol/L ABG O2 Saturation (94-97) % Hemoglobin (13.0-17.5) gm/dL Chloride (98-107) mmol/L BUN (9-20) mg/dL Creatinine (0.66-1.25) mg/dL Glucose (74-99) mg/dL POC Glucose (mg/dL) (70-110) mg/dL Microbiology - Last 24 Hours (Table) 04/04/24 19:44 Blood Culture Gram Stain - Preliminary Blood Blood Culture - Preliminary Presumptive Staph aureus Molecular ID Assessment and Plan Assessment: Acute urinary tract infection acute hypoxic resp failure secnodary to bilateral small pleural effusion and lower lobe consolidations which could be reflecting atelectasis or pneumonia per ct scan of the chest Acute kidney injury on chronic kidney disease, status post recent urological bridget shelli, he was a dilatation for his urinary bladder cancer Sepsis secondary to above Generally weak Morbidly obese with BMI 43.0 Mildly elevated troponin. Secondary to cardiomyopathy with ejection fraction of 35 to 40% Chronic hypoxic respiratory failure COPD with no acute exacerbation Plan: pt is transfered to the icu pulmonary team consulted c/w oxygen therapy and on bipap as needed Continue ceftriaxone Continue with n Ringer lactate at 50 mL/h, . Urology team consult Nephrology team consult cardilolgy consult Lisinopril was held, may add Entresto or Farxiga pending renal function improvement Continue with metoprolol, small dose, dose increased per cardiology team Resume aspirin Labs and medication were reviewed.. Continue same treatment. Continue with symptomatic treatment. Resume home medication. Monitor labs and vitals. DVT and GI prophylaxis. Further recommendations as per clinical course of the patient DVT prophylaxis: eliquis GI Prophylaxis: Pepcid PT/OT: Pending Prognosis is guarded
--- NOTE | 2024-04-09 13:27 | P.PN ---
Progress Note - Text Progress Note Date: 04/09/24 This is a pleasant 78 years old with past medical history of multiple medical problems At baseline he says he uses a wheelchair for over the last 6 months, he lives with his girlfriend, for the last 2 to 3 weeks his legs gets getting more weak. He was in his garage and he could not get up so he went to [facility]. At the [facility] he was found to have NHUNG and UTI and he was transferred to this facility. Patient states that he has been complaining from dysuria for 2 weeks, he recently had a procedure done for him with urologist Dr. Orozco, he was not sure but he says to clean his urethra No suprapubic tenderness or flank tenderness. No fever or chills. No chest pain. He has occasional coughing. He is mildly tachypneic but no overt dyspneic. Patient states that he has history of COPD and he is on 2 L oxygen at home He denies currently smoking alcohol or illicit drugs No headache dizziness or new weakness or numbness. Patient is tachycardic, hypotensive blood pressure at 90/55 Mild leukocytosis 12.5 came down to 9.7. Hemoglobin 12.4. Platelet count 126 His BMP and liver enzymes reviewed. Creatinine went up to 4.3, repeat creatinine 3.3. Potassium 5.3 Urine analysis is suspicious for infection Mildly elevated troponin 0.043 came back to reference range at 0.032. TSH is normal EKG showing irregular rhythm with right bundle branch block proBNP is elevated at 3210 04/06/2024 Patient feels somewhat better He looks tired He looks a dry little bit No dysuria, no abdominal pain. No chest pain he is complaining from some back pain. Blood pressure is improving, his hemoglobin 12.1, WBC 7.6 and platelet count 92. Creatinine went down to 2.2 with baseline 1.2-1.4 Echocardiogram showing ejection fraction of 35 to 40% with left hypokinesia.. 2 that years ago EF was 40 to 45% He remains on ceftriaxone follow-up urine and blood culture Dr. Uribe evaluated the patient, patient has history of urinary bladder cancer status post recent ureter dilatation, no further intervention required and follow-up with upon dischargebar Currently on ceftriaxone and Ringer lactate 75 mL/h, we will lower the dose to 50 mL/h given his cardiomyopathy. He remains fully anticoagulated with Eliquis 5 mg and aspirin 81 mg 04/07 Patient remains weak and lethargic, and he was found to have acute urinary tract infection most likely related to his recent history of prior bladder cancer status post urethral dilatation. Urine culture is growing no bacteria. However still the suspicion of infection is high. He remains also receiving IV fluid Ringer lactate at 50 mL/h, rate was lowered today. Creatinine improving down to 2.2. Echocardiogram showing decreased ejection fraction of 35 to 40%. Cardiology input is appreciated, increase dose of metoprolol and Lipitor. And monitor kidney function 04/08 pt is seen and examined by me at bed side pt oxyn level dropped overnight and he was transferred to the icu for closer monitoring he was placed on bipap when i saw him in the morning he was awake and alert, mildly confused like the previous day , he was answering questions and follows commands , pt was more confused earlier most likely secondary to his respiratory acidosis , besides other medical problems like the infection yesterday has on 2 l/m of oxygen with saturation is 90-94 and he was not complaining from resp issue he has no new weakness or numbness or slurred speech, he was not using any pressors he was still on iv fluids ringer lactate at 50 ml and creatinine is improving he is on ceftriaxone for uti , urine culture is negative but infection suspicion is still considerable chute tender evaluated the pt for cardiomyopathy and his cardiac medications were adjusted as above since admission pt was on eliquis for his a fib labs wbc 11.2, hb 11.5, plt 120 ph 7.3 low, pco 54 mildly high, and pox 59 low bilateral small pleural effusion and lower lobe consolidations which could be reflecting atelectasis or pneumonia ct of the brain is negative April 09, 2024: ICU. I resumed care of the patient today. Patient was moved from the fifth floor yesterday after he was found on the floor of the oxygen. pO2 was 46. Has hematuria in his Vanegas catheter. Plan is to start feeding with a Dobbhoff tube being placed today. Drips include IV norepinephrine, heparin, lactated Ringer's. Telemetry sinus rhythm. Patient's girlfriend at the bedside. Somewhat lethargic. Blood cultures from April 04 showing presumptive Staph aureus. Active Medications Allopurinol (Allopurinol 100 Mg Tab) 100 mg PO DAILY [facility] Last Admin: 04/09/24 08:46 Dose: 100 mg Aspirin (Aspirin 81 Mg) 81 mg PO HS [facility] Last Admin: 04/08/24 21:03 Dose: 81 mg Atorvastatin Calcium (Atorvastatin 40 Mg Tab) 40 mg PO HS [facility] Last Admin: 04/08/24 21:03 Dose: 40 mg Brimonidine Tartrate (Brimonidine Tartrate 0.2% Drops 5 Ml Btl) 1 drops LEFT EYE BID [facility] Last Admin: 04/09/24 09:03 Dose: 1 drops Cholecalciferol (Cholecalciferol 25 Mcg (1000 Iu) Tablet) 100 mcg PO DAILY [facility] Last Admin: 04/09/24 08:46 Dose: 100 mcg Docusate Sodium (Docusate 100 Mg Cap) 100 mg PO BID [facility] Last Admin: 04/09/24 08:46 Dose: 100 mg Famotidine (Famotidine 20 Mg/2 Ml Vial) 20 mg IV HS [facility] Last Admin: 04/08/24 21:01 Dose: 20 mg Folic Acid (Folic Acid 1 Mg Tab) 0.5 mg PO HS [facility] Last Admin: 04/08/24 21:03 Dose: 0.5 mg Heparin Sodium (Porcine) (Heparin Sodium 1,000 Un/Ml (10ml Vl)) 0 unit IV PER PROTOCOL PRN; Protocol PRN Reason: Low PTT Hydromorphone HCl (Hydromorphone 1 Mg/Ml 1 Ml Syringe) 1 mg IVP Q3HR PRN PRN Reason: Severe Pain (Scale 7 to 10) Last Admin: 04/07/24 08:39 Dose: 1 mg Ceftriaxone Sodium 2 gm/ (Sodium Chloride) 50 mls @ 100 mls/hr IVPB Q24HR [facility]; Protocol Last Admin: 04/09/24 08:46 Dose: 100 mls/hr Lactated Ringer's (Lactated Ringers) 1,000 mls @ 50 mls/hr IV .Q20H [facility] Last Admin: 04/09/24 08:00 Dose: 50 mls/hr Norepinephrine Bitartrate 4 mg (/ Sodium Chloride) 254 mls @ 15.554 mls/hr IV .[id number] [facility]; Protocol Last Titration: 04/09/24 08:59 Dose: 0.05 mcg/kg/min, 25.923 mls/hr Heparin Sodium/Sodium Chloride (25,000 unit/ Sodium Chloride) 250 mls @ 10 mls/hr IV .Q24H [facility]; Protocol Last Titration: 04/09/24 06:44 Dose: 3.349 units/kg/hr, 4.557 mls/hr Latanoprost (Latanoprost 0.005% Ophth Drops 2.5 Ml Btl) 1 drops BOTH EYES HS [facility] Last Admin: 04/08/24 22:08 Dose: 1 drops Metoprolol Tartrate (Metoprolol Tartrate 25 Mg Tab) 25 mg PO BID [facility] Last Admin: 04/09/24 08:46 Dose: 25 mg Miscellaneous Information (Magnesium Replacement Protocol 1 Each Misc) 1 each MISCELLANE DAILY PRN; Protocol PRN Reason: Per Protocol Naloxone HCl (Naloxone 0.4 Mg/Ml 1 Ml Vial) 0.2 mg IV Q2M PRN PRN Reason: Opioid Reversal Nitroglycerin (Nitroglycerin Sl Tabs 0.4 Mg Tab) 0.4 mg SUBLINGUAL Q5M PRN PRN Reason: Chest Pain Nystatin (Nystatin 100,000 Unit/Gm Powd 15 Gm) 1 applic TOPICAL BID [facility]; Protocol Last Admin: 04/09/24 09:03 Dose: 1 applic Ondansetron HCl (Ondansetron 4 Mg/2 Ml Vial) 4 mg IVP Q8HR PRN PRN Reason: Nausea And Vomiting Last Admin: 04/07/24 12:13 Dose: 4 mg Polyethylene Glycol (Polyethylene Glycol 3350 17 Gm Powd.Pack) 17 gm PO DAILY PRN PRN Reason: Constipation Last Admin: 04/06/24 20:56 Dose: 17 gm Quetiapine Fumarate (Quetiapine 25 Mg Tab) 25 mg PO BID [facility] Last Admin: 04/09/24 10:06 Dose: 25 mg On examination: VITAL SIGNS: [96.7, 64, 14, 1.5 x 58, 96% on BiPAP/100%] GENERAL APPEARANCE: BMI 40.1, laying in bed, lethargic. HEENT: Normal external appearance of nose and ear. EYES: Pupils equal. Conjunctiva normal. NECK: JVD unable to assess. Mass not palpable. RESPIRATORY: Respiratory effort increased lungs diminished breath sounds CARDIOVASCULAR: Sounds distant l. No edema. ABDOMEN: Soft. Liver and spleen not palpable. No tenderness. No mass palpable. PSYCHIATRY: Lethargic INVESTIGATIONS, reviewed in the clinical context: April 09, 2024: White: 0.8 hemoglobin 11.5 platelets 130. ABG: pH 7.3 pCO2 52 sodium 139 potassium 4.4 BUN [address] chest without contrast [April 08] trace bilateral pleural effusion. And lower lobe consolidations. Which could be possible atelectasis/pneumonia some cardiomegaly. Some other nonacute findings. 2D echocardiogram: EF 35 to 40%. Moderate global left ventricular hypokinesis. Severe right ventricular dilatation. Blood culture [April 04] presumptive Staph aureus Urine culture [April 06]: Negative Assessment and plan: Acute urinary tract infection Septic shock, possibly from UTI and pneumonia: Slow to respond acute hypoxic resp failure secnodary to bilateral small pleural effusion and lower lobe consolidations which could be reflecting atelectasis or pneumonia per ct scan of the chest Acute kidney injury on chronic kidney disease, status post recent urological surgery, he was a dilatation for his urinary bladder cancer Sepsis secondary to above Acute asthenia Chronic medical [id number] Morbidly obese with BMI 43.0 Mildly elevated troponin. Secondary to cardiomyopathy with ejection fraction of 35 to 40% Chronic hypoxic respiratory failure COPD with no acute exacerbation Paroxysmal atrial fibrillation usually on Eliquis. Currently on IV heparin IV heparin monitoring Hematuria. Patient had recent procedure apparently urethral stricture dilatation. Follows with Dr. Orozco. Normocytic anemia, some from blood loss from hematuria Plan: On norepinephrine, IV heparin, lactated Ringer's. BiPAP. IV ceftriaxone. IV fluids. Await input from Dr. Orozco. Follow CBC
--- NOTE | 2024-04-09 13:35 | XR ---
EXAMINATION TYPE: XR KUB portable DATE OF EXAM: 04/09/2024 12:52 PM COMPARISON: 04/09/2024 CLINICAL INDICATION: Male, 78 years old with history of dobhoff placement; TECHNIQUE: One radiographic view of the abdomen was obtained. FINDINGS: Dobbhoff tube with distal tip in the projecting over the expected location of the gastric a ntrum. The bowel gas pattern is nonspecific without dilated loops of small or large bowel. . Fecal ma terial and gas are demonstrated throughout the colon and rectum. There is no evidence for organomegaly or pneumoperitoneum. The osseous structures are intact. No ab normal calcifications are present. IMPRESSION: Dobbhoff tube with distal tip in the projecting over the expected location of the gastric antrum. Nonspecific bowel gas pattern without radiographic evidence for acute process. [facility], , 04/09/2024 1:32 PM
[2024-04-09 14:15] LABS: Allen Test Performed? no
[2024-04-09 14:16] LABS: ABG HCO3 27 mmol/L (21-25); ABG PCO2 48 mmHg (35-45); ABG PH 7.36 (7.35-7.45); ABG PO2 40 mmHg (83-108)
--- NOTE | 2024-04-09 14:16 | P.PN ---
Subjective Progress Note Date: 04/09/24 Principal diagnosis: Acute hypercapnic and hypoxic respiratory failure and acute metabolic encephalopathy with acute urinary tract infection This is a 78-year-old obese male patient with a body mass index of 43 and the patient is sedentary and wheelchair-bound for the past 6 months. He is living with his girlfriend. He was getting progressively more weak and debilitated. Renny moss was initially taken to [facility] where he was found to have acute kidney injury and underlying urinary tract infection. Apparently, the patient had a recent urologic intervention by urology which probably included dilatation of urethral stricture. The patient according to his goes into the hospital and started on IV antibiotics and IV fluids. Monitoring of his renal function showed ongoing improvement in the creatinine is currently down to 2.1 from a baseline of 4.4. Nevertheless, overnight, the patient became hypoxic. He was apparently not using his oxygen and he was found to be also altered. Based on that, the patient was moved to the intensive care unit. The blood gas was done that showed a pH of 7.33 with a pCO2 of 54 and pO2 of 59. Chest x-ray was done yesterday and repeated today. The chest x-ray showed smaller lung volumes. Stable small bilateral pleural effusion and atelectatic changes left more than right. Based on that, the patient was started on BiPAP at a pressure of 14 over 5 cm of water with FiO2 of 50%. I saw this patient in the ICU. He was le thargic. Arousable. He was withdrawing to deep painful stimulation. He did encounter some brief hypotension, nevertheless, he was not started on pressors. He remains on IV Rocephin. He remains on lactated Ringer at rate of 50 cc an hour. The echocardiogram that was done during this current admission showed impaired LV function with an ejection fraction of 35 to 40%. The patient also had evidence of severe right ventricular dilatation and reduced RV global systolic function and the estimated pulmonary pressure was 41. No significant valvular abnormalities. The ultrasound of the abdomen and the kidneys was also done that showed no evidence of any hydronephrosis or obstructive uropathy. There is a blood culture that showing MSSA. The patient remains on IV Rocephin. The procalcitonin level at the time of admission was 0.32. For now, the patient's cardiac rhythm is sinus. He is known to have previous history of CVA. He has also history of obstructive sleep apnea maintained on CPAP therapy on outpatient basis. He has chronic back pain related to sciatica degenerative arthritis and the patient has received epidural injection in the past and he suffers from gout. He has remote history of lupus. He has not been receiving any treatment for that. He is known to have coronary artery disease in addition. He has been given coronary stents in the past. Patient was today on 04/09/2024, patient remains in the ICU, on BiPAP 20/10/100%, ABG is marginal with a pO2 of 52 pCO2 56 and pH of 7.30. Patient is still hypotensive requiring norepinephrine at 0.07 mcg/kg/min, remains marginal at best. Blood cultures are positive for MRSA. Patient remains on heparin drip, mostly for his history of atrial fibrillation, patient is awake, follows simple instructions, CODE STATUS remains DNR.WBC count is 11.8 hemoglobin 11.5 PTT is therapeutic basic metabolic profile normal BUN is 37 creatinine 1.83 chest x-ray today showed cardiomegaly and pulmonary vascular congestion with bilateral pleural effusions distended with possible fluid overload. CT chest showed lower lobe consolidations and atelectasis. Underlying pneumonia is not entirely ruled out. Objective - Vital Signs Vital signs: Vital Signs Temp 96.7 F L 04/09/24 08:00 Pulse 64 04/09/24 11:45 Resp 14 04/09/24 11:45 BP 123/58 04/09/24 06:15 Pulse Ox 96 04/09/24 11:45 FiO2 100 04/09/24 11:45 Intake & Output 04/08/24 04/09/24 04/09/24 18:59 06:59 18:59 Intake Total 241.583 6359.234 661.863 Output Total 860 735 500 Balance -153.606 435.234 161.863 Weight 126.7 kg 126.7 kg Intake: IV 700 610 420 Invasive Line 1 20 30 10 Invasive Line 2 30 30 10 Lactated Ringers 1,000 ml 650 550 250 @ 50 mls/hr IV .Q20H [facility] Rx#:[id number] Magnesium Sulfate-D5w Pmx 100 1 gm In Dextrose/Water 1 100ml.bag @ 100 mls/hr IVPB ONCE ONE Rx#: [id number] cefTRIAXone 2 gm In 50 Sodium Chloride 0.9% 50 ml @ 100 mls/hr IVPB Q24HR [facility] Rx#:[id number] Intake, IV Titration 6.394 560.234 241.863 Amount Heparin Sod,Pork in 0.45% 71.5 NaCl 25,000 unit In 0.45 % NaCl 1 250ml.bag @ 7. 349 UNITS/KG/HR 10 mls/hr IV .Q24H [facility] Rx#: [id number] Norepinephrine 4 mg In 6.394 488.734 241.863 Sodium Chloride 0.9% 250 ml @ 0.03 MCG/KG/MIN 15. 554 mls/hr IV .[id number] [facility] Rx#:[id number] Oral 0 Output: Urine 860 735 500 Other: Voiding Method Indwelling Catheter Indwelling Catheter # Bowel Movements 1 0 ABP, PAP, CO, CI - Last Documented Arterial Blood Pressure 115/58 - Exam Physical exam revealed a 78-year-old white male on BiPAP, not in distress. Head exam is unremarkable. No scleral icterus or corneal arcus noted. Neck is without jugular venous distension, thyromegaly, or carotid bruits. Carotid upstrokes are brisk bilaterally. Lungs diminished breath sound bilaterally no crackles rhonchi or wheezes Cardiac exam distant S1-S2, no S3 gallop. Regular rhythm noted no murmur. Abdominal exam reveals obese soft nontender no rebound no guarding. Extremities trace of bipedal edema, good pulses bilaterally. Examination of the skin revealed no rashes or skin lesions Neurologically, alert oriented x 3, follows simple instructions does not seem encephalopathic as noted yesterday. - Labs CBC & Chem 7: 04/09/24 04:44 04/09/24 04:44 Labs: Abnormal Lab Results - Last 24 Hours (Table) 04/08/24 04/08/24 04/08/24 Range/Units 18:37 20:45 20:45 WBC 11.2 H (3.8-10.6) k/uL RBC 3.63 L (4.30-5.90) m/uL Hgb 11.5 L (13.0-17.5) gm/dL Hct 35.6 L (39.0-53.0) % MCV (80.0-100.0) fL Plt Count 120 L (150-450) k/uL Neutrophils # 8.7 H (1.3-7.7) k/uL PT (10.0-12.5) sec INR 1.2 H (<1.2) APTT 42.8 H (22.0-30.0) sec ABG pH (7.35-7.45) ABG pCO2 (35-45) mmHg ABG pO2 (83-108) mmHg ABG HCO3 (21-25) mmol/L ABG Total CO2 (19-24) mmol/L ABG O2 Saturation (94-97) % Hemoglobin (13.0-17.5) gm/dL Chloride (98-107) mmol/L BUN (9-20) mg/dL Creatinine (0.66-1.25) mg/dL Glucose (74-99) mg/dL POC Glucose (mg/dL) 122 H (70-110) mg/dL 04/09/24 04/09/24 04/09/24 Range/Units 03:23 04:44 04:44 WBC 11.8 H (3.8-10.6) k/uL RBC 3.62 L (4.30-5.90) m/uL Hgb 11.5 L (13.0-17.5) gm/dL Hct 36.3 L (39.0-53.0) % MCV 100.3 H (80.0-100.0) fL Plt Count 130 L (150-450) k/uL Neutrophils # 8.9 H (1.3-7.7) k/uL PT (10.0-12.5) sec INR (<1.2) APTT >200.0 H* (22.0-30.0) sec ABG pH (7.35-7.45) ABG pCO2 (35-45) mmHg ABG pO2 (83-108) mmHg ABG HCO3 (21-25) mmol/L ABG Total CO2 (19-24) mmol/L ABG O2 Saturation (94-97) % Hemoglobin (13.0-17.5) gm/dL Chloride 109 H (98-107) mmol/L BUN 37 H (9-20) mg/dL Creatinine 1.83 H (0.66-1.25) mg/dL Glucose 139 H (74-99) mg/dL POC Glucose (mg/dL) (70-110) mg/dL 04/09/24 04/09/24 04/09/24 Range/Units 04:44 05:05 09:46 WBC (3.8-10.6) k/uL RBC (4.30-5.90) m/uL Hgb (13.0-17.5) gm/dL Hct (39.0-53.0) % MCV (80.0-100.0) fL Plt Count (150-450) k/uL Neutrophils # (1.3-7.7) k/uL PT 12.9 H (10.0-12.5) sec INR 1.2 H (<1.2) APTT 44.8 H (22.0-30.0) sec ABG pH 7.30 L (7.35-7.45) ABG pCO2 56 H (35-45) mmHg ABG pO2 52 L* (83-108) mmHg ABG HCO3 28 H (21-25) mmol/L ABG Total CO2 29 H (19-24) mmol/L ABG O2 Saturation 84.7 L (94-97) % Hemoglobin 11.8 L (13.0-17.5) gm/dL Chloride (98-107) mmol/L BUN (9-20) mg/dL Creatinine (0.66-1.25) mg/dL Glucose (74-99) mg/dL POC Glucose (mg/dL) (70-110) mg/dL 04/09/24 Range/Units 12:03 WBC (3.8-10.6) k/uL RBC (4.30-5.90) m/uL Hgb (13.0-17.5) gm/dL Hct (39.0-53.0) % MCV (80.0-100.0) fL Plt Count (150-450) k/uL Neutrophils # (1.3-7.7) k/uL PT (10.0-12.5) sec INR (<1.2) APTT (22.0-30.0) sec ABG pH (7.35-7.45) ABG pCO2 (35-45) mmHg ABG pO2 (83-108) mmHg ABG HCO3 (21-25) mmol/L ABG Total CO2 (19-24) mmol/L ABG O2 Saturation (94-97) % Hemoglobin (13.0-17.5) gm/dL Chloride (98-107) mmol/L BUN (9-20) mg/dL Creatinine (0.66-1.25) mg/dL Glucose (74-99) mg/dL POC Glucose (mg/dL) 119 H (70-110) mg/dL Microbiology - Last 24 Hours (Table) 04/04/24 19:44 Blood Culture Gram Stain - Preliminary Blood Blood Culture - Preliminary Presumptive Staph aureus Molecular ID Assessment and Plan Assessment: Impression: Acute hypoxic and hypercapnic respiratory failure obesity hypoventilation s yndrome Acute metabolic encephalopathy Bibasilar atelectasis on chest x-ray, possible underlying pneumonia Acute kidney injury, renal function is improving Urinary tract infection, awaiting cultures. Blood cultures positive for MSSA, likely contaminant and the patient remains on IV Rocephin Morbid obesity with a BMI of 43 Obstructive sleep apnea History of CVA History of lupus, not receiving any treatment on outpatient basis Coronary artery disease with previous coronary intervention and stenting CHF with impaired LV function with an ejection fraction of 35 to 40%. The patient also has right-sided failure with moderate degree of pulmonary hypertension COPD History of ureteral stricture and the patient has undergone recent urologic intervention which could have precipitated his underlying urinary tract infection. He was taking ciprofloxacin on outpatient basis. Paroxysmal atrial fibrillation, current rhythm is sinus and the patient is on anticoagulants and he is on Eliquis 5 mg p.o. twice daily on outpatient basis. Gout Degenerative arthritis with chronic back pain Recommendation: Continue BiPAP Continue IV Rocephin Continue intermittent diuresis Continue IV fluid at KVO Continue pressors as felt necessary for low blood pressure Continue heparin Keep patient n.p.o., consider nasogastric tube placement for feeding Chest x-ray was noted Echocardiogram was reviewed Overall prognosis seems extremely poor and guarded Patient is DNR CODE STATUS Patient is critically ill Critical care time is over 30 minutes Time with Patient: Greater than 30
[2024-04-09] MEDS: FUROSEMIDE 10 MG/ML 4 ML VIAL IV STA ×2 (14:22→22:22)
[2024-04-10] MEDS: LORazepam 2 MG/ML INJ IV STA (03:39)
[2024-04-10 05:14] LABS: Basophils % (A) 0 %; Eosinophils # (A) 0.3 k/uL (0-0.7); Eosinophils % (A) 2 %; HCT 36.1 % (39.0-53.0); HGB 11.5 gm/dL (13.0-17.5); Lymphocytes # (A) 0.9 k/uL (1.0-4.8); Lymphocytes % (A) 8 %; MCH 31.1 pg (25.0-35.0); MCHC 31.7 g/dL (31.0-37.0); Monocytes # (A) 0.6 k/uL (0-1.0); Monocytes % (A) 6 %; Neutrophils # (A) 8.7 k/uL (1.3-7.7); Neutrophils % (A) 81 %; Platelet Count 103 k/uL (150-450); RBC 3.69 m/uL (4.30-5.90); RDW 14.3 % (11.5-15.5); WBC 10.8 k/uL (3.8-10.6)
[2024-04-10 05:25] VITALS: TEMP 97.3
[2024-04-10 05:30] LABS: African American GFR (CKD) 49 (>60 ml/min/1.73 sqM); Anion Gap 6 mmol/L; Blood Urea Nitrogen 35 mg/dL (9-20); Calcium 9.4 mg/dL (8.4-10.2); Carbon Dioxide 31 mmol/L (22-30); Chloride 105 mmol/L (98-107); Glucose 146 mg/dL (74-99); Magnesium 1.7 mg/dL (1.6-2.3); Non-African American GFR(CKD) 43 (>60 ml/min/1.73 sqM); Potassium 3.8 mmol/L (3.5-5.1); Sodium 142 mmol/L (137-145)
[2024-04-10] MEDS: HEPARIN SODIUM 1,000 UN/ML (10ML VL) IV PRN (05:48)
[2024-04-10 05:52] LABS: ABG PCO2 42 mmHg (35-45); ABG PH 7.46 (7.35-7.45); Allen Test Performed? Yes
[2024-04-10 05:53] LABS: ABG Base Excess 5.2 mmol/L; ABG HCO3 30 mmol/L (21-25); ABG Oxygen Saturation 82.5 % (94-97); ABG PO2 44 mmHg (83-108); ABG TCO2 31 mmol/L (19-24)
[2024-04-10] MEDS: FUROSEMIDE 10 MG/ML 4 ML VIAL IV STA (06:19)
[2024-04-10] MEDS: MAGNESIUM SULFATE-D5W PMX 1 GM in DEXTROSE/WATER 1 100ML.BAG IVPB ONE (06:19)
[2024-04-10] MEDS: MORPHINE SULFATE 2 MG/ML SYRINGE IVP STA (06:19)
--- NOTE | 2024-04-10 08:46 | XR ---
EXAMINATION TYPE: XR chest 1V portable DATE OF EXAM: 04/10/2024 5:19 AM COMPARISON: Chest radiographs from 04/09/2024 CLINICAL INDICATION: Male, 78 years old with history of bipap dependent respiratory failure; TECHNIQUE: XR chest 1V portable Frontal view of the chest. FINDINGS: Lungs/Pleura: There is no evidence of pleural effusion, focal consolidation, or pneumothorax. Pulmonary vascularity: Unremarkable. Heart/mediastinum: Cardiomediastinal silhouette is unremarkable. Musculoskeletal: No acute osseous pathology. Nasogastric tube projecting under the diaphragm. Left central venous catheter with tip near the superior vena cava. IMPRESSION: Cardiomegaly, pulmonary vascular congestion and bilateral pleural effusions. Correlate with BNP for c ongestive heart failure. [facility], , 04/10/2024 8:44 AM
--- NOTE | 2024-04-10 09:28 | P.PN ---
Subjective Patient is seen in follow-up for acute kidney injury on chronic kidney disease. On BiPAP. Received IV Lasix yesterday and early this morning due to hypoxia. Nonoliguric. Renal function better. Vital signs are stable. General: No acute distress. HEENT: Head exam is unremarkable. On BiPAP. Heart: Regular rate and rhythm. LUNGS: No audible rhonchi or wheezes. ABDOMEN: Nontender. EXTREMITITES: Trace edema. Objective - Vital Signs Vital signs: Vital Signs Temp 97.3 F L 04/10/24 04:00 Pulse 112 H 04/10/24 09:15 Resp 15 04/10/24 09:15 BP 123/58 04/09/24 06:15 Pulse Ox 85 L 04/10/24 09:15 FiO2 100 04/10/24 09:15 Intake & Output 04/09/24 04/10/24 04/10/24 18:59 06:59 18:59 Intake Total 4527.250 6769.223 232.145 Output Total 2310 2525 650 Balance -1009.259 -1518.777 -417.855 Weight 126.7 kg 128.2 kg Intake: IV 690 240 60 Invasive Line 1 30 Invasive Line 2 30 Lactated Ringers 1,000 ml 480 240 60 @ 20 mls/hr IV .Q24H [facility] Rx#:[id number] Magnesium Sulfate-D5w Pmx 100 1 gm In Dextrose/Water 1 100ml.bag @ 100 mls/hr IVPB ONCE ONE Rx#: [id number] cefTRIAXone 2 gm In 50 Sodium Chloride 0.9% 50 ml @ 100 mls/hr IVPB Q24HR [facility] Rx#:[id number] Intake, IV Titration 480.741 436.223 32.145 Amount Heparin Sod,Pork in 0.45% 105.191 NaCl 25,000 unit In 0.45 % NaCl 1 250ml.bag @ 7. 349 UNITS/KG/HR 10 mls/hr IV .Q24H [facility] Rx#: [id number] Norepinephrine 4 mg In 480.741 331.032 32.145 Sodium Chloride 0.9% 250 ml @ 0.03 MCG/KG/MIN 15. 554 mls/hr IV .[id number] [facility] Rx#:[id number] Oral 0 Tube Feeding 100 330 110 Other 30 30 Output: Urine 2310 2525 650 Other: Voiding Method Indwelling Catheter Indwelling Catheter # Bowel Movements 0 0 0 ABP, PAP, CO, CI - Last Documented Arterial Blood Pressure 100/55 - Labs CBC & Chem 7: 04/10/24 04:40 04/10/24 04:40 Labs: Abnormal Lab Results - Last 24 Hours (Table) 04/09/24 04/09/24 04/09/24 Range/Units 09:46 12:03 14:05 WBC (3.8-10.6) k/uL RBC (4.30-5.90) m/uL Hgb (13.0-17.5) gm/dL Hct (39.0-53.0) % Plt Count (150-450) k/uL Neutrophils # (1.3-7.7) k/uL Lymphocytes # (1.0-4.8) k/uL APTT 44.8 H (22.0-30.0) sec ABG pH (7.35-7.45) ABG pCO2 48 H (35-45) mmHg ABG pO2 40 L* (83-108) mmHg ABG HCO3 27 H (21-25) mmol/L ABG Total CO2 (19-24) mmol/L ABG O2 Saturation 75.0 L (94-97) % Carbon Dioxide (22-30) mmol/L BUN (9-20) mg/dL Creatinine (0.66-1.25) mg/dL Glucose (74-99) mg/dL POC Glucose (mg/dL) 119 H (70-110) mg/dL 04/10/24 04/10/24 04/10/24 Range/Units 04:40 04:40 04:40 WBC 10.8 H (3.8-10.6) k/uL RBC 3.69 L (4.30-5.90) m/uL Hgb 11.5 L (13.0-17.5) gm/dL Hct 36.1 L (39.0-53.0) % Plt Count 103 L (150-450) k/uL Neutrophils # 8.7 H (1.3-7.7) k/uL Lymphocytes # 0.9 L (1.0-4.8) k/uL APTT 39.9 H (22.0-30.0) sec ABG pH (7.35-7.45) ABG pCO2 (35-45) mmHg ABG pO2 (83-108) mmHg ABG HCO3 (21-25) mmol/L ABG Total CO2 (19-24) mmol/L ABG O2 Saturation (94-97) % Carbon Dioxide 31 H (22-30) mmol/L BUN 35 H (9-20) mg/dL Creatinine 1.55 H (0.66-1.25) mg/dL Glucose 146 H (74-99) mg/dL POC Glucose (mg/dL) (70-110) mg/dL 04/10/24 Range/Units 05:00 WBC (3.8-10.6) k/uL RBC (4.30-5.90) m/uL Hgb (13.0-17.5) gm/dL Hct (39.0-53.0) % Plt Count (150-450) k/uL Neutrophils # (1.3-7.7) k/uL Lymphocytes # (1.0-4.8) k/uL APTT (22.0-30.0) sec ABG pH 7.46 H (7.35-7.45) ABG pCO2 (35-45) mmHg ABG pO2 44 L* (83-108) mmHg ABG HCO3 30 H (21-25) mmol/L ABG Total CO2 31 H (19-24) mmol/L ABG O2 Saturation 82.5 L (94-97) % Carbon Dioxide (22-30) mmol/L BUN (9-20) mg/dL Creatinine (0.66-1.25) mg/dL Glucose (74-99) mg/dL POC Glucose (mg/dL) (70-110) mg/dL Microbiology - Last 24 Hours (Table) 04/04/24 19:44 Blood Culture Gram Stain - Preliminary Blood Blood Culture - Preliminary Presumptive Staph aureus Molecular ID Assessment and Plan Plan: Assessment: 1. Acute kidney injury secondary to ATN secondary to severe sepsis. Creatinine 4.42 on admission and is improved to 1.55 today. No hydronephrosis noted on kidney ultrasound. 2. Chronic kidney disease stage IIIb with baseline creatinine 1.3-1.4 secondary to nephrosclerosis. 3. Hypertension with chronic kidney disease. On Levophed. 4. Severe sepsis secondary to staph bacteremia UTI on antibiotics. 5. History of bladder cancer. 6. Hypomagnesemia from poor intake. Replaced. 7. History of coronary artery disease status post stenting. 8. Chronic systolic CHF with ejection fraction of 35 to 40%. 9. Volume overload. Plan: Add IV Lasix 40 mg twice daily. Avoid nephrotoxins. Wean FiO2 and Levophed. Replace electrolytes as needed.
[2024-04-10] MEDS: POTASSIUM BICARBONATE/CIT AC 20 MEQ TABLET.EFF NG-TUBE SCH (10:12)
[2024-04-10 11:20] VITALS: PULSE 109; RESP 12
[2024-04-10] MEDS ORDERED: MORPHINE SULFATE 2 MG/ML SYRINGE IV PRN (11:27)
[2024-04-10] MEDS: MORPHINE SULFATE 4 MG/ML SYRINGE IVP ONE (12:33)
[2024-04-10] MEDS: MORPHINE SULFATE (100 MG/2 ML) 100 MG in SODIUM CHLORIDE 0.9% 100 ML IV SCH (12:34)
--- NOTE | 2024-04-10 13:32 | P.PN ---
Subjective Progress Note Date: 04/10/24 Principal diagnosis: Acute hypercapnic and hypoxic respiratory failure and acute metabolic encephalopathy with acute urinary tract infection This is a 78-year-old obese male patient with a body mass index of 43 and the patient is sedentary and wheelchair-bound for the past 6 months. He is living with his girlfriend. He was getting progressively more weak and debilitated. Renny moss was initially taken to [facility] where he was found to have acute kidney injury and underlying urinary tract infection. Apparently, the patient had a recent urologic intervention by urology which probably included dilatation of urethral stricture. The patient according to his goes into the hospital and started on IV antibiotics and IV fluids. Monitoring of his renal function showed ongoing improvement in the creatinine is currently down to 2.1 from a baseline of 4.4. Nevertheless, overnight, the patient became hypoxic. He was apparently not using his oxygen and he was found to be also altered. Based on that, the patient was moved to the intensive care unit. The blood gas was done that showed a pH of 7.33 with a pCO2 of 54 and pO2 of 59. Chest x-ray was done yesterday and repeated today. The chest x-ray showed smaller lung volumes. Stable small bilateral pleural effusion and atelectatic changes left more than right. Based on that, the patient was started on BiPAP at a pressure of 14 over 5 cm of water with FiO2 of 50%. I saw this patient in the ICU. He was le thargic. Arousable. He was withdrawing to deep painful stimulation. He did encounter some brief hypotension, nevertheless, he was not started on pressors. He remains on IV Rocephin. He remains on lactated Ringer at rate of 50 cc an hour. The echocardiogram that was done during this current admission showed impaired LV function with an ejection fraction of 35 to 40%. The patient also had evidence of severe right ventricular dilatation and reduced RV global systolic function and the estimated pulmonary pressure was 41. No significant valvular abnormalities. The ultrasound of the abdomen and the kidneys was also done that showed no evidence of any hydronephrosis or obstructive uropathy. There is a blood culture that showing MSSA. The patient remains on IV Rocephin. The procalcitonin level at the time of admission was 0.32. For now, the patient's cardiac rhythm is sinus. He is known to have previous history of CVA. He has also history of obstructive sleep apnea maintained on CPAP therapy on outpatient basis. He has chronic back pain related to sciatica degenerative arthritis and the patient has received epidural injection in the past and he suffers from gout. He has remote history of lupus. He has not been receiving any treatment for that. He is known to have coronary artery disease in addition. He has been given coronary stents in the past. Patient was today on 04/09/2024, patient remains in the ICU, on BiPAP 14/6/100%, ABG is marginal with a pO2 of 52 pCO2 56 and pH of 7.30. Patient is still hypotensive requiring norepinephrine at 0.07 mcg/kg/min, remains marginal at best. Blood cultures are positive for MsSA. Patient remains on heparin drip, mostly for his history of atrial fibrillation, patient is awake, follows simple instructions, CODE STATUS remains DNR.WBC count is 11.8 hemoglobin 11.5 PTT is therapeutic basic metabolic profile normal BUN is 37 creatinine 1.83 chest x-ray today showed cardiomegaly and pulmonary vascular congestion with bilateral pleural effusions distended with possible fluid overload. CT chest showed lower lobe consolidations and atelectasis. Underlying pneumonia is not entirely ruled out. Patient was evaluated today on 04/10/2024, remains in the ICU, remains on BiPAP, patient is on 100% FiO2, IPAP of 15 and EPAP of 10 patient has poor ABG today with a pO2 of 44 pCO2 42 and pH of 7.46. He continues show basically no change. Patient remains on norepinephrine at 0.02 mcg/kg/min, is also on LR at 50 cc/h, has been receiving Lasix 80 mg given today, patient is also on ceftriaxone empirically does not seem to be be making much improvement over the last 24 hours. Samantha was approached by nurse yesterday, and they are very well aware of his poor clinical condition, and would like to proceed with comfort care measures his overall clinical status and prognosis, I believe that is appropriate today were reviewed WBC is 10.8 hemoglobin 11.5 electrolytes are normal bicarb is 31, BUN is 35 creatinine 1.55 inna on Lasix at 40 mg IV push twice daily and remains on high FiO2 and high settings of BiPAP. O2 saturation in the low 80s at best. And pO2 is only 44 Objective - Vital Signs Vital signs: Vital Signs Temp 97.3 F L 12/03/24 04:00 Pulse 109 H 04/10/24 11:00 Resp 12 04/10/24 11:00 BP 123/58 04/09/24 06:15 Pulse Ox 79 L 04/10/24 11:00 FiO2 100 04/10/24 11:10 Intake & Output 04/09/24 04/10/24 04/10/24 18:59 06:59 18:59 Intake Total 7937.518 8872.223 388.395 Output Total 2310 2525 1275 Balance -1009.259 -1518.777 -886.605 Weight 126.7 kg 128.2 kg Intake: IV 690 240 100 Invasive Line 1 30 Invasive Line 2 30 Lactated Ringers 1,000 ml 480 240 100 @ 20 mls/hr IV .Q24H [facility] Rx#:[id number] Magnesium Sulfate-D5w Pmx 100 1 gm In Dextrose/Water 1 100ml.bag @ 100 mls/hr IVPB ONCE ONE Rx#: [id number] cefTRIAXone 2 gm In 50 Sodium Chloride 0.9% 50 ml @ 100 mls/hr IVPB Q24HR [facility] Rx#:[id number] Intake, IV Titration 480.741 436.223 68.395 Amount Heparin Sod,Pork in 0.45% 105.191 35.182 NaCl 25,000 unit In 0.45 % NaCl 1 250ml.bag @ 7. 349 UNITS/KG/HR 10 mls/hr IV .Q24H [facility] Rx#: [id number] Morphine Sulfate (100 mg/ 0.204 2 ml) 100 mg In Sodium Chloride 0.9% 100 ml @ 1 MG/HR 1.02 mls/hr IV . Q24H [facility] Rx#:[id number] Norepinephrine 4 mg In 480.741 331.032 33.009 Sodium Chloride 0.9% 250 ml @ 0.03 MCG/KG/MIN 15. 554 mls/hr IV .[id number] [facility] Rx#:[id number] Oral 0 Tube Feeding 100 330 190 Other 30 30 Output: Urine 2310 2525 1275 Other: Voiding Method Indwelling Catheter Indwelling Catheter Indwelling Catheter # Bowel Movements 0 0 0 ABP, PAP, CO, CI - Last Documented Arterial Blood Pressure 86/60 - Exam Physical exam revealed a 78-year-old white male on BiPAP, intermittently agitated, restless Head exam is unremarkable. No scleral icterus or corneal arcus noted. Neck is without jugular venous distension, thyromegaly, or carotid bruits. Carotid upstrokes are brisk bilaterally. Lungs diminished breath sound bilaterally no crackles rhonchi or wheezes Cardiac exam distant S1-S2, no S3 gallop. Regular rhythm noted no murmur. Abdominal exam reveals obese soft nontender no rebound no guarding. Extremities trace of bipedal edema, good pulses bilaterally. Examination of the skin revealed no rashes or skin lesions Neurologically, could not assess, patient is lethargic, restless and agitated - Labs CBC & Chem 7: 04/10/24 04:40 04/10/24 04:40 Labs: Abnormal Lab Results - Last 24 Hours (Table) 04/09/24 04/10/24 04/10/24 Range/Units 14:05 04:40 04:40 WBC 10.8 H (3.8-10.6) k/uL RBC 3.69 L (4.30-5.90) m/uL Hgb 11.5 L (13.0-17.5) gm/dL Hct 36.1 L (39.0-53.0) % Plt Count 103 L (150-450) k/uL Neutrophils # 8.7 H (1.3-7.7) k/uL Lymphocytes # 0.9 L (1.0-4.8) k/uL APTT (22.0-30.0) sec ABG pH (7.35-7.45) ABG pCO2 48 H (35-45) mmHg ABG pO2 40 L* (83-108) mmHg ABG HCO3 27 H (21-25) mmol/L ABG Total CO2 (19-24) mmol/L ABG O2 Saturation 75.0 L (94-97) % Carbon Dioxide 31 H (22-30) mmol/L BUN 35 H (9-20) mg/dL Creatinine 1.55 H (0.66-1.25) mg/dL Glucose 146 H (74-99) mg/dL 04/10/24 04/10/24 Range/Units 04:40 05:00 WBC (3.8-10.6) k/uL RBC (4.30-5.90) m/uL Hgb (13.0-17.5) gm/dL Hct (39.0-53.0) % Plt Count (150-450) k/uL Neutrophils # (1.3-7.7) k/uL Lymphocytes # (1.0-4.8) k/uL APTT 39.9 H (22.0-30.0) sec ABG pH 7.46 H (7.35-7.45) ABG pCO2 (35-45) mmHg ABG pO2 44 L* (83-108) mmHg ABG HCO3 30 H (21-25) mmol/L ABG Total CO2 31 H (19-24) mmol/L ABG O2 Saturation 82.5 L (94-97) % Carbon Dioxide (22-30) mmol/L BUN (9-20) mg/dL Creatinine (0.66-1.25) mg/dL Glucose (74-99) mg/dL Microbiology - Last 24 Hours (Table) 04/04/24 19:44 Blood Culture Gram Stain - Final Blood Blood Culture - Final Staphylococcus aureus Molecular ID Assessment and Plan Assessment: Impression: Acute hypoxic and hypercapnic respiratory failure obesity hypoventilation syndrome Acute metabolic encephalopathy Bibasilar atelectasis on chest x-ray, possible underlying pneumonia Acute kidney injury, renal function is improving Urinary tract infection, awaiting cultures. Blood cultures positive for MSSA, likely contaminant and the patient remains on IV Rocephin Morbid obesity with a BMI of 43 Obstructive sleep apnea History of CVA History of lupus, not receiving any treatment on outpatient basis Coronary artery disease with previous coronary intervention and stenting CHF with impaired LV function with an ejection fraction of 35 to 40%. The patient also has right-sided failure with moderate degree of pulmonary hypertension COPD History of ureteral stricture and the patient has undergone recent urologic intervention which could have precipitated his underlying urinary tract infection. He was taking ciprofloxacin on outpatient basis. Paroxysmal atrial fibrillation, current rhythm is sinus and the patient is on anticoagulants and he is on Eliquis 5 mg p.o. twice daily on outpatient basis. Gout Degenerative arthritis with chronic back pain Recommendation: Continue BiPAP Continue IV Rocephin Continue diuretics Continue norepinephrine and titrate accordingly Continue IV fluid at KVO Continue heparin Continue nutritional support Chest x-ray was noted Patient remains critically ill with extremely poor prognosis Family apparently has been aware of his overall condition and approach nursing staff about comfort care measures and I think that is appropriate. Will proceed with comfort care measures if family seems to be agreeable to do so Patient is critically ill Critical care time is over 30 minutes Time with Patient: Greater than 30
--- NOTE | 2024-04-10 15:19 | P.PN ---
Progress Note - Text Progress Note Date: 04/10/24 This is a pleasant 78 years old with past medical history of multiple medical problems At baseline he says he uses a wheelchair for over the last 6 months, he lives with his girlfriend, for the last 2 to 3 weeks his legs gets getting more weak. He was in his garage and he could not get up so he went to [facility]. At the [facility] he was found to have NHUNG and UTI and he was transferred to this facility. Patient states that he has been complaining from dysuria for 2 weeks, he recently had a procedure done for him with urologist Dr. Orozco, he was not sure but he says to clean his urethra No suprapubic tenderness or flank tenderness. No fever or chills. No chest pain. He has occasional coughing. He is mildly tachypneic but no overt dyspneic. Patient states that he has history of COPD and he is on 2 L oxygen at home He denies currently smoking alcohol or illicit drugs No headache dizziness or new weakness or numbness. Patient is tachycardic, hypotensive blood pressure at 90/55 Mild leukocytosis 12.5 came down to 9.7. Hemoglobin 12.4. Platelet count 126 His BMP and liver enzymes reviewed. Creatinine went up to 4.3, repeat creatinine 3.3. Potassium 5.3 Urine analysis is suspicious for infection Mildly elevated troponin 0.043 came back to reference range at 0.032. TSH is normal EKG showing irregular rhythm with right bundle branch block proBNP is elevated at 3210 04/06/2024 Patient feels somewhat better He looks tired He looks a dry little bit No dysuria, no abdominal pain. No chest pain he is complaining from some back pain. Blood pressure is improving, his hemoglobin 12.1, WBC 7.6 and platelet count 92. Creatinine went down to 2.2 with baseline 1.2-1.4 Echocardiogram showing ejection fraction of 35 to 40% with left hypokinesia.. 2 that years ago EF was 40 to 45% He remains on ceftriaxone follow-up urine and blood culture Dr. Uribe evaluated the patient, patient has history of urinary bladder cancer status post recent ureter dilatation, no further intervention required and follow-up with upon dischargebar Currently on ceftriaxone and Ringer lactate 75 mL/h, we will lower the dose to 50 mL/h given his cardiomyopathy. He remains fully anticoagulated with Eliquis 5 mg and aspirin 81 mg 04/07 Patient remains weak and lethargic, and he was found to have acute urinary tract infection most likely related to his recent history of prior bladder cancer status post urethral dilatation. Urine culture is growing no bacteria. However still the suspicion of infection is high. He remains also receiving IV fluid Ringer lactate at 50 mL/h, rate was lowered today. Creatinine improving down to 2.2. Echocardiogram showing decreased ejection fraction of 35 to 40%. Cardiology input is appreciated, increase dose of metoprolol and Lipitor. And monitor kidney function 04/08 pt is seen and examined by me at bed side pt oxyn level dropped overnight and he was transferred to the icu for closer monitoring he was placed on bipap when i saw him in the morning he was awake and alert, mildly confused like the previous day , he was answering questions and follows commands , pt was more confused earlier most likely secondary to his respiratory acidosis , besides other medical problems like the infection yesterday has on 2 l/m of oxygen with saturation is 90-94 and he was not complaining from resp issue he has no new weakness or numbness or slurred speech, he was not using any pressors he was still on iv fluids ringer lactate at 50 ml and creatinine is improving he is on ceftriaxone for uti , urine culture is negative but infection suspicion is still considerable flower 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 I resumed care of the patient today. Patient was moved from the fifth floor yesterday after he was found on the floor of the oxygen. pO2 was 46. Has hematuria in his Vanegas catheter. Plan is to start feeding with a Dobbhoff tube being placed today. Drips include IV norepinephrine, heparin, lactated Ringer's. Telemetry sinus rhythm. Patient's girlfriend at the bedside. Somewhat lethargic. Blood cultures from April 04 showing presumptive Staph aureus. April 10, 2024: ICU. Patient remains on BiPAP 100%. Saturations in the 80s. Tube feeding at 40 cc an hour. Received IV Lasix. Patient did receive some Seroquel and also Ativan for restlessness. Active Medications Furosemide (Furosemide 10 Mg/Ml 4 Ml Vial) 40 mg IV Q12HR [facility] Hydromorphone HCl (Hydromorphone 1 Mg/Ml 1 Ml Syringe) 1 mg IVP Q3HR PRN PRN Reason: Severe Pain (Scale 7 to 10) Last Admin: 04/10/24 10:09 Dose: 1 mg Lactated Ringer's (Lactated Ringers) 1,000 mls @ 20 mls/hr IV .Q24H [facility] Last Admin: 04/10/24 10:12 Dose: 20 mls/hr Morphine Sulfate 100 mg/ (Sodium Chloride) 102 mls @ 1.02 mls/hr IV .Q24H [facility]; Protocol Last Titration: 04/10/24 12:46 Dose: 2 mg/hr, 2.04 mls/hr Latanoprost (Latanoprost 0.005% Ophth Drops 2.5 Ml Btl) 1 drops BOTH EYES HS [facility] Last Admin: 04/09/24 21:10 Dose: 1 drops Lorazepam (Lorazepam 2 Mg/Ml Inj) 1 mg IV Q2HR PRN PRN Reason: Anxiety Morphine Sulfate (Morphine Sulfate 2 Mg/Ml Syringe) 2 mg IV Q15M PRN PRN Reason: Breakthrough Pain Morphine Sulfate (Morphine Sulfate 4 Mg/Ml Syringe) 4 mg IV Q15M PRN PRN Reason: Breakthrough Pain On examination: VITAL SIGNS: 119, 12, 86 x 60, 79% on BiPAP 100% GENERAL APPEARANCE: BMI 40.1, laying in bed, lethargic. HEENT: Normal external appearance of nose and ear. EYES: Pupils equal. Conjunctiva normal. NECK: JVD unable to assess. Mass not palpable. RESPIRATORY: Respiratory effort increased lungs diminished breath sounds CARDIOVASCULAR: Sounds distant l. No edema. ABDOMEN: Soft. Liver and spleen not palpable. No tenderness. No mass palpable. PSYCHIATRY: Lethargic INVESTIGATIONS, reviewed in the clinical context: April 10: White count 10.8 hemoglobin 11.5 platelets 103 ABG: pH 7.46 pO2 44 pCO2 42 potassium 3.8 BUN 35 creatinine 1.55 April 09, 2024: White: 0.8 hemoglobin 11.5 platelets 130. ABG: pH 7.3 pCO2 52 sodium 139 potassium 4.4 BUN [address] chest without contrast [April 08] trace bilateral pleural effusion. And lower lobe consolidations. Which could be possible atelectasis/pneumonia some cardiomegaly. Some other nonacute findings. 2D echocardiogram: EF 35 to 40%. Moderate global left ventricular hypokinesis. Severe right ventricular dilatation. Blood culture [April 04] presumptive Staph aureus Urine culture [April 06]: Negative Assessment and plan: Acute urinary tract infection Septic shock, possibly from UTI and pneumonia: Slow to respond acute hypoxic resp failure secnodary to bilateral small pleural effusion and lower lobe consolidations which could be reflecting atelectasis or pneumonia per ct scan of the chest Acute kidney injury on chronic kidney disease, status post recent urological surgery, he was a dilatation for his urinary bladder cancer Sepsis secondary to above Acute asthenia Chronic medical [id number] Morbidly obese with BMI 43.0 Mildly elevated troponin. Secondary to cardiomyopathy with ejection fraction of 35 to 40% Chronic hypoxic respiratory failure COPD with no acute exacerbation Paroxysmal atrial fibrillation usually on Eliquis. Currently on IV heparin IV heparin monitoring Hematuria. Patient had recent procedure apparently urethral stricture dilatation. Follows with Dr. Orozco. Normocytic anemia, some from blood loss from hematuria Metabolic encephalopathy./Delirium Plan: Remains on IV Lasix. BiPAP at 100%. Lethargic. Will order Doppler ultrasound both the thighs rule out DVT.
[2024-04-10] MEDS: MORPHINE SULFATE 4 MG/ML SYRINGE IV PRN (15:52)
[2024-04-10] MEDS: LORazepam 2 MG/ML INJ IV PRN (15:52)
[2024-04-10] MEDS ORDERED: FUROSEMIDE 10 MG/ML 4 ML VIAL IV SCH (17:00)
--- NOTE | 2024-04-10 23:01 | PN ---
PROGRESS NOTE SUBJECTIVE: This is a 78-year-old gentleman with history of cardiomyopathy, coronary artery disease, persistent atrial fibrillation, who was admitted to hospital with progressive weakness and mental status changes, has an ejection fraction of 35% to 40%. This morning, he became confused and more agitated. He is not responding to any questions. There is a sitter at bedside. He is in atrial fibrillation with a rapid ventricular rate about 120 beats per minute. He is on BiPAP with an FiO2 of 100% and his O2 saturation is 79. OBJECTIVE: CHEST: Bilateral rhonchi with diminished air entry at the bases. HEART: First and second heart sounds, irregular rhythm. ABDOMEN: Soft. EXTREMITIES: Bilateral pitting edema. LABORATORY DATA: Hemoglobin of 11.5, platelet count is 103. His blood gases reveal a pH of 7.4, pO2 of 44, potassium is 3.8, BUN is 35, and creatinine is 1.5. ASSESSMENT AND PLAN: Persistent atrial fibrillation with rapid ventricular rate, worsening confusion, respiratory failure, coronary artery disease, status post angioplasty and cardiomyopathy. The patient's prognosis is guarded. They are in the process of moving him to comfort care. MMODL / IJN: [id number] /
--- NOTE | 2024-04-11 20:49 | P.DS ---
Providers Date of admission: 04/04/24 19:33 Expected date of discharge: 04/10/24 (Patient ) Attending physician: Hang Alvarez Consults: 04/08/24 02:00 Consult Physician Stat Consulting Provider: Yuliana Gerber Consult Reason/Comments: ICU management Do you want consulting provider notified?: Already Contacted Primary care physician: [facility] Course: This is a pleasant 78 years old with past medical history of multiple medical problems At baseline he says he uses a wheelchair for over the last 6 months, he lives with his girlfriend, for the last 2 to 3 weeks his legs gets getting more weak. He was in his garage and he could not get up so he went to [facility]. At the [facility] he was found to have NHUNG and UTI and he was transferred to this facility. Patient states that he has been complaining from dysuria for 2 weeks, he recently had a procedure done for him with urologist Dr. Orozco, he was not sure but he says to clean his urethra No suprapubic tenderness or flank tenderness. No fever or chills. No chest pain. He has occasional coughing. He is mildly tachypneic but no overt dyspneic. Patient states that he has history of COPD and he is on 2 L oxygen at home He denies currently smoking alcohol or illicit drugs No headache dizziness or new weakness or numbness. Patient is tachycardic, hypotensive blood pressure at 90/55 Mild leukocytosis 12.5 came down to 9.7. Hemoglobin 12.4. Platelet count 126 His BMP and liver enzymes reviewed. Creatinine went up to 4.3, repeat creatinine 3.3. Potassium 5.3 Urine analysis is suspicious for infection Mildly elevated troponin 0.043 came back to reference range at 0.032. TSH is normal EKG showing irregular rhythm with right bundle branch block proBNP is elevated at 3210 04/06/2024 Patient feels somewhat better He looks tired He looks a dry little bit No dysuria, no abdominal pain. No chest pain he is complaining from some back pain. Blood pressure is improving, his hemoglobin 12.1, WBC 7.6 and platelet count 92. Creatinine went down to 2.2 with baseline 1.2-1.4 Echocardiogram showing ejection fraction of 35 to 40% with left hypokinesia.. 2 that years ago EF was 40 to 45% He remains on ceftriaxone follow-up urine and blood culture Dr. Uribe evaluated the patient, patient has history of urinary bladder cancer status post recent ureter dilatation, no further intervention required and follow-up with upon dischargebar Currently on ceftriaxone and Ringer lactate 75 mL/h, we will lower the dose to 50 mL/h given his cardiomyopathy. He remains fully anticoagulated with Eliquis 5 mg and aspirin 81 mg 04/07 Patient remains weak and lethargic, and he was found to have acute urinary tract infection most likely related to his recent history of prior bladder cancer status post urethral dilatation. Urine culture is growing no bacteria. However still the suspicion of infection is high. He remains also receiving IV fluid Ringer lactate at 50 mL/h, rate was lowered today. Creatinine improving down to 2.2. Echocardiogram showing decreased ejection fraction of 35 to 40%. Cardiology input is appreciated, increase dose of metoprolol and Lipitor. And monitor kidney function 04/08 pt is seen and examined by me at bed side pt oxyn level dropped overnight and he was transferred to the icu for closer monitoring he was placed on bipap when i saw him in the morning he was awake and alert, mildly confused like the previous day , he was answering questions and follows commands , pt was more confused earlier most likely secondary to his respiratory acidosis , besides other medical problems like the infection yesterday has on 2 l/m of oxygen with saturation is 90-94 and he was not complaining from resp issue he has no new weakness or numbness or slurred speech, he was not using any pressors he was still on iv fluids ringer lactate at 50 ml and creatinine is improving he is on ceftriaxone for uti , urine culture is negative but infection 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 I resumed care of the patient today. Patient was moved from the fifth floor yesterday after he was found on the floor of the oxygen. pO2 was 46. Has hematuria in his Vanegas catheter. Plan is to start feeding with a Dobbhoff tube being placed today. Drips include IV norepinephrine, heparin, lactated Ringer's. Telemetry sinus rhythm. Patient's girlfriend at the bedside. Somewhat lethargic. Blood cultures from April 04 showing presumptive Staph aureus. April 10, 2024: ICU. Patient remains on BiPAP 100%. Saturations in the 80s. Tube feeding at 40 cc an hour. Received IV Lasix. Patient did receive some Seroquel and also Ativan for restlessness. Later in the day patient INVESTIGATIONS, reviewed in the clinical context: April 10: White count 10.8 hemoglobin 11.5 platelets 103 ABG: pH 7.46 pO2 44 pCO2 42 potassium 3.8 BUN 35 creatinine 1.55 April 09, 2024: White: 0.8 hemoglobin 11.5 platelets 130. ABG: pH 7.3 pCO2 52 sodium 139 potassium 4.4 BUN [address] chest without contrast [April 08] trace bilateral pleural effusion. And lower lobe consolidations. Which could be possible atelectasis/pneumonia some cardiomegaly. Some other nonacute findings. 2D echocardiogram: EF 35 to 40%. Moderate global left ventricular hypokinesis. Severe right ventricular dilatation. Blood culture [April 04] presumptive Staph aureus Urine culture [April 06]: Negative Cause of : COPD/pneumonia Assessment and plan: Acute urinary tract infection Septic shock, possibly from UTI and pneumonia: Slow to respond acute hypoxic resp failure secnodary to bilateral small pleural effusion and lower lobe consolidations which could be reflecting atelectasis or pneumonia per ct scan of the chest Acute kidney injury on chronic kidney disease, status post recent urological surgery, he was a dilatation for his urinary bladder cancer Sepsis secondary to above Acute asthenia Chronic medical [id number] Morbidly obese with BMI 43.0 Mildly elevated troponin. Secondary to cardiomyopathy with ejection fraction of 35 to 40% Chronic hypoxic respiratory failure COPD with no acute exacerbation Paroxysmal atrial fibrillation usually on Eliquis. Currently on IV heparin IV heparin monitoring Hematuria. Patient had recent procedure apparently urethral stricture dilatation. Follows with Dr. Orozco. Normocytic anemia, some from blood loss from hematuria Metabolic encephalopathy./Delirium Disposition: Patient Plan - Discharge Summary Discharge Rx Participant: Yes New Discharge Prescriptions: No Action Isosorbide Mononitrate ER [Imdur] 30 mg PO DAILY allopurinoL [Zyloprim] 100 mg PO DAILY Latanoprost [Xalatan 0.005%] 1 drop BOTH EYES HS Metoprolol Tartrate [Lopressor] 12.5 mg PO BID Apixaban [Eliquis] 5 mg PO BID Aspirin 81 mg PO HS lisinopriL [Zestril] 2.5 mg PO DAILY tab Trospium Chloride 20 mg PO BID Tolterodine ER [Detrol LA] 4 mg PO HS Acetaminophen [Tylenol 8 Hour] 650 mg PO BID Acetaminophen Tab [Tylenol Tab] 1,000 mg PO BID Meclizine [Antivert] 25 mg PO HS Folic Acid 0.4 mg PO HS Cholecalciferol [Vitamin D3 (25 Mcg = 1000 Iu)] 100 mcg PO DAILY Nitroglycerin Sl Tabs [Nitrostat] 0.4 mg SUBLINGUAL Q5M PRN PRN Reason: Chest Pain Sodium Bicarbonate Tab 650 mg PO TID Brimonidine Tartrate [Alphagan P 0.2% Ophth Soln] 1 drop LEFT EYE BID Ciprofloxacin HCl [Cipro] 500 mg PO BID Atorvastatin [Lipitor] 10 mg PO HS Discharge Medication List Isosorbide Mononitrate ER [Imdur] 30 mg PO DAILY 07/02/14 [History] allopurinoL [Zyloprim] 100 mg PO DAILY 06/06/17 [History] Latanoprost [Xalatan 0.005%] 1 drop BOTH EYES HS 03/02/20 [History] Apixaban [Eliquis] 5 mg PO BID 08/29/21 [History] Folic Acid 0.4 mg PO HS 08/29/21 [History] Meclizine [Antivert] 25 mg PO HS 08/29/21 [History] Metoprolol Tartrate [Lopressor] 12.5 mg PO BID 08/29/21 [History] Aspirin 81 mg PO HS 08/30/21 [History] Cholecalciferol [Vitamin D3 (25 Mcg = 1000 Iu)] 100 mcg PO DAILY 08/30/21 [History] Nitroglycerin Sl Tabs [Nitrostat] 0.4 mg SUBLINGUAL Q5M PRN 08/30/21 [History] lisinopriL [Zestril] 2.5 mg PO DAILY tab 09/04/21 [Rx] Acetaminophen Tab [Tylenol Tab] 1,000 mg PO BID 04/04/24 [History] Acetaminophen [Tylenol 8 Hour] 650 mg PO BID 04/04/24 [History] Atorvastatin [Lipitor] 10 mg PO HS 04/04/24 [History] Brimonidine Tartrate [Alphagan P 0.2% Ophth Soln] 1 drop LEFT EYE BID 04/04/24 [History] Ciprofloxacin HCl [Cipro] 500 mg PO BID 04/04/24 [History] Sodium Bicarbonate Tab 650 mg PO TID 04/04/24 [History] Tolterodine ER [Detrol LA] 4 mg PO HS 04/04/24 [History] Trospium Chloride 20 mg PO BID 04/04/24 [History] Follow up Appointment(s)/Referral(s): Luigi Perez MD [Primary Care Provider] - 1-2 days Discharge Disposition: - Preliminary Cause of Preliminary Cause of : COPD
== END 2024-04-10 19:00 | disposition expired | DRG 871 ==
LOC: EC 18:39 → 4SSUR 19:33 → 3SCARD 21:04 → 5NMEDONC 04-05 11:50 → 2SICU 04-08 02:19
PROVIDERS: ADMIT Hospitalist; ATTEND Hospitalist
PROC: 5A09557 Assistance with Respiratory Ventilation, Greater than 96 Consecutive Hours, Continuous Positive Airway Pressure (ICD-10-PCS; 2024-04-04)
PROC: 02HV33Z Insertion of Infusion Device into Superior Vena Cava, Percutaneous Approach (ICD-10-PCS; principal; 2024-04-08)
PROC: 03HY32Z Insertion of Monitoring Device into Upper Artery, Percutaneous Approach (ICD-10-PCS; 2024-04-08)
PROC: 4A133B1 Monitoring of Arterial Pressure, Peripheral, Percutaneous Approach (ICD-10-PCS; 2024-04-08)
PROC: 4A133J1 Monitoring of Arterial Pulse, Peripheral, Percutaneous Approach (ICD-10-PCS; 2024-04-08)
PROC: 3E033XZ Introduction of Vasopressor into Peripheral Vein, Percutaneous Approach (ICD-10-PCS; 2024-04-08)
PROC: 0DH67UZ Insertion of Feeding Device into Stomach, Via Natural or Artificial Opening (ICD-10-PCS; 2024-04-09)
DX: A41.2 Sepsis due to unspecified staphylococcus (principal); G93.41 Metabolic encephalopathy; J18.9 Pneumonia, unspecified organism; J96.21 Acute and chronic respiratory failure with hypoxia; R65.21 Severe sepsis with septic shock; N17.0 Acute kidney failure with tubular necrosis; J96.22 Acute and chronic respiratory failure with hypercapnia; N39.0 Urinary tract infection, site not specified; Z68.41 Body mass index [BMI] 40.0-44.9, adult; I50.22 Chronic systolic (congestive) heart failure; E87.29 Other acidosis; I13.0 Hypertensive heart and chronic kidney disease with heart failure and stage 1 through stage 4 chronic kidney disease, or unspecified chronic kidney disease; I42.9 Cardiomyopathy, unspecified; J44.0 Chronic obstructive pulmonary disease with (acute) lower respiratory infection; E66.2 Morbid (severe) obesity with alveolar hypoventilation; F05 Delirium due to known physiological condition; N18.32 Chronic kidney disease, stage 3b; I27.20 Pulmonary hypertension, unspecified; R53.81 Other malaise; R31.9 Hematuria, unspecified; Z66 Do not resuscitate; D63.1 Anemia in chronic kidney disease; Z51.5 Encounter for palliative care; I48.0 Paroxysmal atrial fibrillation; I25.10 Atherosclerotic heart disease of native coronary artery without angina pectoris; K21.9 Gastro-esophageal reflux disease without esophagitis; E86.0 Dehydration; E78.5 Hyperlipidemia, unspecified; R32 Unspecified urinary incontinence; M10.9 Gout, unspecified; E83.42 Hypomagnesemia; R29.6 Repeated falls; I25.2 Old myocardial infarction; W19.XXXA Unspecified fall, initial encounter; Z88.2 Allergy status to sulfonamides; Z87.440 Personal history of urinary (tract) infections; Z99.3 Dependence on wheelchair; Z85.51 Personal history of malignant neoplasm of bladder; Z86.73 Personal history of transient ischemic attack (TIA), and cerebral infarction without residual deficits; Z87.891 Personal history of nicotine dependence; Y92.015 Private garage of single-family (private) house as the place of occurrence of the external cause; Z79.82 Long term (current) use of aspirin; Z95.5 Presence of coronary angioplasty implant and graft
CPT/HCPCS: 36415; 36600; 51798; 70450; 71045; 71046; 71250; 74018; 76770; 80048; 80053; 81001; 82805; 83605; 83735; 83880; 84100; 84145; 84443; 84484; 85025; 85027; 85610; 85730; 87040; 87077; 87086; 87186; 93005; 93306; 94660; 94760; 96361; 96365; 96367; 96375; 99285